=== PATIENT | female | born 1935 | race African-American/Black ===

== ENCOUNTER 2016-07-14 22:12 | Emergency (ER) | payer MEDICARE, MEDICAID ==
--- NOTE | 2016-07-14 23:47 | ER Document Report ---
ED Medical Screen (RME) - General Stated Complaint: WEAKNESS/FLU LIKE SYMPTOMS Time seen by provider: 23:44 Mode of Arrival: Wheelchair Information source: Patient, Relative Notes: 81-year-old female presents to ED for weakness runny nose and cough for 2 days patient denies any fever. States she thought it would go away but it didn't. States she has not been to the doctor in about a month or so. She has a campos for her crohn's and has a colostomy bag. I have greeted and performed a rapid initial assessment of this patient. A comprehensive ED assessment and evaluation of the patient, analysis of test results and completion of medical decision making process will be conducted by an additional ED providers. TRAVEL OUTSIDE OF THE [place] IN LAST 30 DAYS: No - Related Data Allergies/Adverse Reactions: Penicillins Allergy (Verified 07/14/16 23:43) shellfish derived Allergy (Verified 07/14/16 23:43) Past Medical History - Past Medical History Cardiac Medical History: Reports: Hx Hypercholesterolemia, Hx Hypertension Denies: Hx Coronary Artery Disease, Hx Heart Attack Pulmonary Medical History: Denies: Hx Asthma, Hx Bronchitis, Hx COPD, Hx Pneumonia Neurological Medical History: Denies: Hx Cerebrovascular Accident, Hx Seizures Renal/ Medical History: Reports: Hx Renal Insufficiency GI Medical History: Reports: Hx Crohn's Disease, Hx Gastroesophageal Reflux Disease Musculoskeltal Medical History: Reports Hx Arthritis Psychiatric Medical History: Reports: Hx Anxiety, Hx Depression Past Surgical History: Reports: Hx Bowel Surgery - Colectomy for Crohn's disease , Hx Colostomy, Hx Ileostomy - Immunizations Hx Diphtheria, Pertussis, Tetanus Vaccination: Yes Physical Exam - Vital signs Vitals: Temp Pulse Resp BP Pulse Ox 98.4 F 75 20 105/52 L 91 L 07/14/16 23:36 07/14/16 23:36 07/14/16 23:36 07/14/16 23:36 07/14/16 23:36 Course - Vital Signs Vital signs: Temp Pulse Resp BP Pulse Ox 98.4 F 75 20 105/52 L 91 L 07/14/16 23:36 07/14/16 23:36 07/14/16 23:36 07/14/16 23:36 07/14/16 23:36
[2016-07-15 04:35] LABS: ABSOLUTE EOSINOPHILS # (AUTO) 0.2 10^3/uL (0.0-0.6); ABSOLUTE MONOCYTES (AUTO) 0.3 10^3/uL (0.1-1.4); ABSOLUTE NEUT (AUTO) 1.9 10^3/uL (1.7-8.2); BASOPHILS % (AUTO) 0.6 % (0-2); EOSINOPHILS % (AUTO) 5.4 % (0-6); HEMATOCRIT 35.4 % (36.0-47.0); HEMOGLOBIN 11.3 g/dL (12.0-15.5); HGB HCT DIFFERENCE -1.5; LYMPHOCYTES % (AUTO) 30.2 % (13-45); MEAN CORPUSCULAR HEMOGLOBIN 26.4 pg (27.0-33.4); MEAN CORPUSCULAR HGB CONC 31.8 g/dL (32.0-36.0); MEAN CORPUSCULAR VOLUME 83 fl (80-97); MONOCYTES % (AUTO) 7.4 % (3-13); RED BLOOD COUNT 4.26 10^6/uL (3.72-5.28); RED CELL DISTRIBUTION WIDTH 17.2 % (11.5-14.0); SEGMENTED NEUTROPHILS % (AUTO) 56.4 % (42-78); WHITE BLOOD COUNT 3.4 10^3/uL (4.0-10.5)
[2016-07-15 04:47] LABS: ALANINE AMINOTRANSFERASE 21 U/L (9-52); ALBUMIN 3.1 g/dL (3.5-5.0); ALKALINE PHOSPHATASE 103 U/L (38-126); ANION GAP 12 (5-19); ASPARTATE AMINO TRANSFERASE 32 U/L (14-36); BILIRUBIN,TOTAL 0.3 mg/dL (0.2-1.3); BLOOD UREA NITROGEN 22 mg/dL (7-20); CARBON DIOXIDE 26 mmol/L (22-30); CHLORIDE 100 mmol/L (98-107); CREATINE KINASE 714 U/L (30-135); CREATININE RESULT 2.24 mg/dL (0.52-1.25); GLUCOSE 79 mg/dL (75-110); LIPASE 507.2 U/L (23-300); POTASSIUM 4.4 mmol/L (3.6-5.0); TOTAL PROTEIN 6.9 g/dL (6.3-8.2)
[2016-07-15 04:57] LABS: APPEARANCE,URINE SLIGHTLY-CLOUDY; BILIRUBIN,URINE NEGATIVE (NEGATIVE); GLUCOSE, URINE NEGATIVE (NEGATIVE); KETONES,URINE NEGATIVE (NEGATIVE); LEUKOCYTE ESTERASE,URINE SMALL (NEGATIVE); NITRITE,URINE NEGATIVE (NEGATIVE); PROTEIN,URINE 30 mg/dL (NEGATIVE); URINE SPECIFIC GRAVITY 1.017; UROBILINOGEN,URINE NEGATIVE mg/dL (<2.0)
[2016-07-15 04:58] LABS: CREATINE KINASE MB 0.45 ng/mL (<4.55)
[2016-07-15 05:00] LABS: CALCIUM 7.1 mg/dL (8.4-10.2)
[2016-07-15 05:04] LABS: TROPONIN I 0.079 ng/mL
--- NOTE | 2016-07-15 07:15 | ER Document Report ---
ED General - General Time seen by provider: 07:00 Mode of Arrival: Wheelchair Information source: Patient TRAVEL OUTSIDE OF THE [place] IN LAST 30 DAYS: No - HPI Onset: Other - see HPI note Associated symptoms: Nonproductive cough, Rhinnorhea, Weakness. denies: Fever <SRINIVAS BEST - Last Filed: 07/15/16 09:27> <NIXON RIVERA - Last Filed: 07/15/16 13:50> - General Chief Complaint: Flu Symptoms Stated Complaint: WEAKNESS/FLU LIKE SYMPTOMS Notes: Patient is a 81 year old female presenting to the emergency department for cough , weakness, and rhinorrhea. Patient has had these symptoms for the past 2 days. Patient states she took some cough syrup and had some relief however, patient is not feeling better. Patient has also had some decreased appetite. Patient is allergic to penicillin. Patient denies any fever. Patient states she got a flu vaccination this year. Patient has a history of a high output ileostomy, chronic low levels of calcium and magnesium, dementia, and patient has a campos for her crohn's disease. Patient is present with a friend to the emergency department. (SRINIVAS BEST) - Related Data Allergies/Adverse Reactions: Penicillins Allergy (Verified 07/14/16 23:43) shellfish derived Allergy (Verified 07/14/16 23:43) Past Medical History - General Information source: Patient, Relative - Social History Smoking Status: Current Every Day Smoker Cigarette use (# per day): Yes - 1/2 ppd Frequency of alcohol use: None Drug Abuse: None Family History: None Patient has suicidal ideation: No Patient has homicidal ideation: No - Past Medical History Cardiac Medical History: Reports: Hx Hypercholesterolemia, Hx Hypertension Renal/ Medical History: Reports: Hx Renal Insufficiency GI Medical History: Reports: Hx Crohn's Disease, Hx Gastroesophageal Reflux Disease Musculoskeltal Medical History: Reports Hx Arthritis Psychiatric Medical History: Reports: Hx Anxiety, Hx Depression Past Surgical History: Reports: Hx Bowel Surgery - Colectomy for Crohn's disease , colostomy, Hx Colostomy, Hx Ileostomy - Immunizations Hx Diphtheria, Pertussis, Tetanus Vaccination: Yes <SRINIVAS BEST - Last Filed: 07/15/16 09:27> Review of Systems - Review of Systems Constitutional: No symptoms reported. denies: Fever EENT: See HPI, Nose congestion Cardiovascular: No symptoms reported Respiratory: See HPI, Cough Gastrointestinal: No symptoms reported Genitourinary: No symptoms reported Female Genitourinary: No symptoms reported Musculoskeletal: No symptoms reported Skin: No symptoms reported Hematologic/Lymphatic: No symptoms reported Neurological/Psychological: See HPI, Weakness -: Yes All other systems reviewed and negative <SRINIVAS BEST - Last Filed: 07/15/16 09:27> Physical Exam - Vital signs Interpretation: Hypotensive - General General appearance: Appears well, Alert In distress: Mild - HEENT Head: Normocephalic, Atraumatic Eyes: Normal Pupils: PERRL Mucous membranes: Moist - Respiratory Respiratory status: No respiratory distress Chest status: Other - left subclavical campos Breath sounds: Normal Chest palpation: Normal - Cardiovascular Rhythm: Regular Heart sounds: Normal auscultation Murmur: No - Abdominal Inspection: Normal Distension: No distension Bowel sounds: Normal Tenderness: Nontender Organomegaly: No organomegaly - Back Back: Normal, Nontender - Extremities General upper extremity: Normal inspection, Normal ROM, Normal strength General lower extremity: Normal inspection, Normal ROM, Normal strength - Neurological Neuro grossly intact: Yes Cognition: Normal Orientation: AAOx4 Meghan Coma Scale Eye Opening: Spontaneous [place] Coma Scale Verbal: Oriented [place]han Coma Scale Motor: Obeys Commands [place] Coma Scale Total: 15 Speech: Normal - Psychological Associated symptoms: Normal affect, Normal mood - Skin Skin Temperature: Warm Skin Moisture: Dry <SRINIVAS BEST - Last Filed: 07/15/16 09:27> <NIXON RIVERA - Last Filed: 07/15/16 13:50> - Vital signs Vitals: Temp Pulse Resp BP Pulse Ox 98.4 F 75 20 105/52 L 91 L 07/14/16 23:36 07/14/16 23:36 07/14/16 23:36 07/14/16 23:36 07/14/16 23:36 (SRINIVAS BEST) (NIXON RIVERA) Course - Laboratory Result Diagrams: 07/15/16 04:14 07/15/16 04:14 <SRNIIVAS BEST - Last Filed: 07/15/16 09:27> - Laboratory Result Diagrams: 07/15/16 04:14 07/15/16 04:14 - EKG Interpretation by Me EKG shows normal: Sinus rhythm, [place], Intervals, QRS Complexes, ST-T Waves Rate: Normal - 72 Rhythm: NSR [place]/QRS: Left axis deviation Voltage: Consistant with LVH When compared to previous EKG there are: No significant change - Consults Dr. Willard Time consulted: 10:55 Consulted provider: follow-up in office - IVF, Mag, Ca as she sis receiving. F/ U in the office. <NIXON RIVERA - Last Filed: 07/15/16 13:50> - Re-evaluation Re-evalutation: 07/15/16 13:38 A catheterized urine obtained after the patient was hydrated does not suggest an infectious process. (NIXON RIVERA) - Vital Signs Vital signs: Temp Pulse Resp BP Pulse Ox 98.4 F 68 27 H 129/57 H 92 07/14/16 23:36 07/15/16 03:54 07/15/16 13:01 07/15/16 13:01 07/15/16 13:01 (SRINIVAS BEST) (NIXON RIVERA) - Laboratory Laboratory results interpreted by mo: 07/15/16 07/15/16 07/15/16 04:14 04:14 04:14 WBC 3.4 L Hgb 11.3 L Hct 35.4 L MCH 26.4 L MCHC 31.8 L RDW 17.2 H BUN 22 H Creatinine 2.24 H Est GFR ( Amer) 25 L Est GFR (Non-Af Amer) 21 L Calcium 7.1 L Magnesium 0.6 L* Creatine Kinase 714 H Albumin 3.1 L Lipase 507.2 H Urine Protein Urine Glucose (UA) Urine Blood Ur Leukocyte Esterase 07/15/16 07/15/16 04:18 12:15 WBC Hgb Hct MCH MCHC RDW BUN Creatinine Est GFR ( Amer) Est GFR (Non-Af Amer) Calcium Magnesium Creatine Kinase Albumin Lipase Urine Protein 30 H 30 H Urine Glucose (UA) 50 H Urine Blood SMALL H MODERATE H Ur Leukocyte Esterase SMALL H (SRINIVAS BEST) (NIXON RIVERA) Discharge <SRINIVAS BEST - Last Filed: 07/15/16 09:27> <NIXON RIVERA - Last Filed: 07/15/16 13:50> - Discharge Clinical Impression: Dehydration, Hypomagnesemia, Hypocalcemia, Renal insufficiency, High output ileostomy Upper respiratory tract infection Qualifiers: URI type: unspecified URI Qualified Code(s): J06.9 - Acute upper respiratory infection, unspecified Condition: Stable Disposition: HOME, SELF-CARE Additional Instructions: Upper Respiratory Illness: You have a viral infection of the respiratory passages -- a "cold." This common infection causes nasal congestion, drainage, and often sore throat and cough. It is caused by a virus and is highly contagious. The disease usually lasts a week or more, though the worst symptoms are usually over in 3 or 4 days. There is no "cure" for the viral infection -- it must run its course. If there is a complication, such as bacterial infection in the nose, sinuses, middle ear, or bronchial tubes, antibiotics may be required, but antibiotics won 't affect the virus. If you smoke, you should STOP!! Drink plenty of fluids. A humidifier may help. An expectorant medication or decongestant may make you more comfortable. Use acetaminophen or ibuprofen for fever or aches. See the doctor if fever persists over two or three days, if there is any significant worsening of your symptoms, or if you simply fail to improve as expected. //////////////////////////////////////////////////////////////////////////////// ///////////////////////////////////////////////////////////////////////////// Your magnesium and calcium were quite low today. Your were also dehydrated with a significant rise in her creatinine today. You were given 2 L of IV fluid, and supplemental calcium and magnesium the veins. You should administer an additional liter of fluid this evening, and be sure to take your magnesium and calcium and other medications. Call Dr. Willard's office today to schedule an appointment this week for follow- up. RETURN TO THE EMERGENCY ROOM IF ANY NEW OR WORSENING SYMPTOMS. Referrals: ZAY WILLARD MD [Primary Care Provider] - Follow up in 3-5 days Scribe Attestation: 07/15/16 13:50 I personally performed the services described in the documentation, reviewed and edited the documentation which was dictated to the scribe in my presence, and it accurately records my words and actions. (NIXON RIVERA) Scribe Documentation - Scribe Written by Sandra:: Srinivas Best 07/15/16 09:30 acting as scribe for :: Yo <SRINIVAS BEST - Last Filed: 07/15/16 09:27>
[2016-07-15 07:17] LABS: ADD ON TESTING BLD IN LAB ACKNOWLEDGE
[2016-07-15 08:00] LABS: MAGNESIUM 0.6 mg/dL (1.6-2.3)
[2016-07-15] MEDS ORDERED: DEXTROSE 5%-NORMAL SALINE 1,000 ML IV ONE ×2 (08:05→10:59)
[2016-07-15] MEDS ORDERED: CALCIUM GLUCONATE 1,000 MG in DEXTROSE 5%-WATER 50 ML IV ONE (08:08)
[2016-07-15] MEDS: MAGNESIUM SULFATE/D5W 100 ML IV SCH ×2 (08:59→10:02)
[2016-07-15] MEDS ORDERED: CALCIUM GLUCONATE 1000 MG/10 ML INJ IV ONE (09:00)
--- NOTE | 2016-07-15 12:02 | EKG REPORT ---
SEVERITY:- ABNORMAL ECG - SINUS RHYTHM LEFT AXIS DEVIATION PROBABLE LEFT VENTRICULAR HYPERTROPHY : Confirmed by: Stephenie Paiz MD 15-Jul-2016 12:01:40
[2016-07-15] MEDS ORDERED: ONDANSETRON HCL INJ/PF 4 MG/2 ML SDV IV ONE (12:20)
[2016-07-15 12:58] LABS: APPEARANCE,URINE CLEAR; BILIRUBIN,URINE NEGATIVE (NEGATIVE); GLUCOSE, URINE 50 mg/dL (NEGATIVE); KETONES,URINE NEGATIVE (NEGATIVE); LEUKOCYTE ESTERASE,URINE NEGATIVE (NEGATIVE); NITRITE,URINE NEGATIVE (NEGATIVE); PROTEIN,URINE 30 mg/dL (NEGATIVE); URINE SPECIFIC GRAVITY 1.012; UROBILINOGEN,URINE NEGATIVE mg/dL (<2.0)
[2016-07-15 14:09] VITALS: BP 119/55
== END 2016-07-15 14:09 | disposition home or self-care (01) ==
LOC: ER 22:12
DX: J06.9 Acute upper respiratory infection, unspecified (principal); E86.0 Dehydration; E83.42 Hypomagnesemia; E83.51 Hypocalcemia; N28.9 Disorder of kidney and ureter, unspecified; R53.1 Weakness; R05 Cough; F17.210 Nicotine dependence, cigarettes, uncomplicated; E78.00 Pure hypercholesterolemia, unspecified; I10 Essential (primary) hypertension; Z88.0 Allergy status to penicillin; Z93.2 Ileostomy status; Z91.013 Allergy to seafood; Z93.3 Colostomy status
CPT/HCPCS: 93005; 99284; 96361; 51701; 96375; 96365; 96366; 36415; 87040; 82553; 82550; 83690; 83735; 85025; 87077; 80053; 81001; 84484; 87186; 71020; 93010; J3475; J2405

== ENCOUNTER 2016-09-13 17:47 | Emergency (ER) | payer MEDICARE, MEDICAID ==
--- NOTE | 2016-09-13 18:32 | ER Document Report ---
ED Medical Screen (RME) - General Chief Complaint: Dizziness Stated Complaint: DIZZY AND STOMACH PAIN Notes: Patient and family are here with several assorted complaints, but seems the #1 concern that the patient is having and the family can agree to is that she is having a "fullness in her head". She's been feeling dizzy and lightheaded. She 's been nauseated but not vomiting and family says she's had a good appetite. She does have a colostomy due to Crohn's disease. Family member notes that she seems to have had more liquid and water content in her stools over the past 2-3 months. She has been seeing her local primary care provider, Dr. Willard, and he has given some Imodium. He is also advised that she eats more magnesium and potassium. Patient was on an antibiotic for some undetermined infection and finished that antibiotic a couple of weeks ago. TRAVEL OUTSIDE OF THE [place] IN LAST 30 DAYS: No - Related Data Allergies/Adverse Reactions: No Known Allergies Allergy (Unverified 09/13/16 17:52) Past Medical History - Past Medical History Cardiac Medical History: Reports: Hx Hypercholesterolemia, Hx Hypertension Denies: Hx Coronary Artery Disease, Hx Heart Attack Pulmonary Medical History: Denies: Hx Asthma, Hx Bronchitis, Hx COPD, Hx Pneumonia Neurological Medical History: Denies: Hx Cerebrovascular Accident, Hx Seizures Renal/ Medical History: Reports: Hx Renal Insufficiency. Denies: Hx Peritoneal Dialysis GI Medical History: Reports: Hx Crohn's Disease, Hx Gastroesophageal Reflux Disease Musculoskeltal Medical History: Reports Hx Arthritis Psychiatric Medical History: Reports: Hx Anxiety, Hx Depression Past Surgical History: Reports: Hx Bowel Surgery - Colectomy for Crohn's disease , colostomy, Hx Colostomy, Hx Ileostomy - Immunizations Hx Diphtheria, Pertussis, Tetanus Vaccination: Yes
[2016-09-13 18:55] LABS: ABSOLUTE EOSINOPHILS # (AUTO) 0.3 10^3/uL (0.0-0.6); ABSOLUTE LYMPHOCYTES (AUTO) 1.8 10^3/uL (0.5-4.7); ABSOLUTE MONOCYTES (AUTO) 0.4 10^3/uL (0.1-1.4); ABSOLUTE NEUT (AUTO) 2.1 10^3/uL (1.7-8.2); BASOPHILS % (AUTO) 0.8 % (0-2); EOSINOPHILS % (AUTO) 6.6 % (0-6); HEMATOCRIT 33.6 % (36.0-47.0); HEMOGLOBIN 10.7 g/dL (12.0-15.5); HGB HCT DIFFERENCE -1.5; LYMPHOCYTES % (AUTO) 38.7 % (13-45); MEAN CORPUSCULAR HEMOGLOBIN 26.5 pg (27.0-33.4); MEAN CORPUSCULAR HGB CONC 31.7 g/dL (32.0-36.0); MEAN CORPUSCULAR VOLUME 84 fl (80-97); MONOCYTES % (AUTO) 8.2 % (3-13); RED BLOOD COUNT 4.02 10^6/uL (3.72-5.28); RED CELL DISTRIBUTION WIDTH 16.1 % (11.5-14.0); SEGMENTED NEUTROPHILS % (AUTO) 45.7 % (42-78); WHITE BLOOD COUNT 4.6 10^3/uL (4.0-10.5)
[2016-09-13 19:01] LABS: APPEARANCE,URINE SLIGHTLY-CLOUDY; BILIRUBIN,URINE NEGATIVE (NEGATIVE); GLUCOSE, URINE NEGATIVE (NEGATIVE); KETONES,URINE NEGATIVE (NEGATIVE); LEUKOCYTE ESTERASE,URINE TRACE (NEGATIVE); NITRITE,URINE NEGATIVE (NEGATIVE); PROTEIN,URINE NEGATIVE (NEGATIVE); URINE SPECIFIC GRAVITY 1.008; UROBILINOGEN,URINE NEGATIVE mg/dL (<2.0)
[2016-09-13 19:14] LABS: ALANINE AMINOTRANSFERASE 24 U/L (9-52); ALBUMIN 3.5 g/dL (3.5-5.0); ALKALINE PHOSPHATASE 81 U/L (38-126); ANION GAP 14 (5-19); ASPARTATE AMINO TRANSFERASE 21 U/L (14-36); BILIRUBIN,DIRECT 0.2 mg/dL (0.0-0.4); BILIRUBIN,TOTAL 0.2 mg/dL (0.2-1.3); BLOOD UREA NITROGEN 15 mg/dL (7-20); CALCIUM 7.1 mg/dL (8.4-10.2); CARBON DIOXIDE 25 mmol/L (22-30); CHLORIDE 106 mmol/L (98-107); CREATININE RESULT 1.27 mg/dL (0.52-1.25); GLUCOSE 97 mg/dL (75-110); LIPASE 266.7 U/L (23-300); POTASSIUM 5.1 mmol/L (3.6-5.0); SODIUM 144.8 mmol/L (137-145); TOTAL PROTEIN 6.7 g/dL (6.3-8.2)
[2016-09-13] MEDS ORDERED: ONDANSETRON ODT 4 MG TAB (6 TAB/DSPK) PO PRN (21:50)
[2016-09-13] MEDS ORDERED: NORMAL SALINE 1000 ML 1,000 ML IV ONE (21:51)
--- NOTE | 2016-09-13 21:51 | ER Document Report ---
ED General - General Chief Complaint: Dizziness Stated Complaint: DIZZY AND STOMACH PAIN Notes: Patient is an 81-year-old female who presents with a multitude of complaints and has difficulty stating exactly why she came to the emergency department today. Patient does state that the main reason she came to emergency today overall is she's been feeling very fatigued for the past 24 hours. States that she feels that she has no energy to get up off the couch and feels she just wants to sleep all day. She recently had her Xanax increased from once daily to twice daily. She has loose stools and her ostomy that she notes that this is normal for her. She denies any chest pain, shortness of breath, focal weakness or numbness. Headache, neck pain or altered mental status. She is uncertain if she's had similar symptoms in the past. She has not noted that his symptoms improve or worsen her symptoms. She has not seen her primary care doctor regarding today's concerns. TRAVEL OUTSIDE OF THE [place] IN LAST 30 DAYS: No - Related Data Allergies/Adverse Reactions: No Known Allergies Allergy (Unverified 09/13/16 17:52) Past Medical History - General Information source: Patient - Social History Smoking Status: Current Every Day Smoker Chew tobacco use (# tins/day): No Frequency of alcohol use: None Drug Abuse: None Lives with: Family Family History: None Patient has suicidal ideation: No Patient has homicidal ideation: No - Past Medical History Cardiac Medical History: Reports: Hx Hypercholesterolemia, Hx Hypertension Denies: Hx Coronary Artery Disease, Hx Heart Attack Pulmonary Medical History: Denies: Hx Asthma, Hx Bronchitis, Hx COPD, Hx Pneumonia Neurological Medical History: Denies: Hx Cerebrovascular Accident, Hx Seizures Renal/ Medical History: Reports: Hx Renal Insufficiency. Denies: Hx Peritoneal Dialysis GI Medical History: Reports: Hx Crohn's Disease, Hx Gastroesophageal Reflux Disease Musculoskeltal Medical History: Reports Hx Arthritis Psychiatric Medical History: Reports: Hx Anxiety, Hx Depression Past Surgical History: Reports: Hx Bowel Surgery - Colectomy for Crohn's disease , colostomy, Hx Colostomy, Hx Ileostomy - Immunizations Hx Diphtheria, Pertussis, Tetanus Vaccination: Yes Review of Systems - Review of Systems Notes: Constitutional: Negative for fever. HENT: Negative for sore throat. Eyes: Negative for visual changes. Cardiovascular: Negative for chest pain. Respiratory: Negative for shortness of breath. Gastrointestinal: Negative for abdominal pain, vomiting or diarrhea. Genitourinary: Negative for dysuria. Musculoskeletal: Negative for back pain. Skin: Negative for rash. Neurological: Negative for headaches, weakness or numbness. 10 point ROS negative except as marked above and in HPI. Physical Exam - Vital signs Vitals: Resp Pulse Ox 30 H 95 09/13/16 19:31 09/13/16 19:31 Patient is not tachypneic with respiratory rate of 30, my assessment. She is breathing 18 times a minute even and unlabored Interpretation: Normal Notes: PHYSICAL EXAMINATION: GENERAL: W frail, somewhat cachectic female in no distress HEAD: Atraumatic, normocephalic. EYES: Pupils equal round and reactive to light, extraocular movements intact, sclera anicteric, conjunctiva are normal. ENT: nares patent, oropharynx clear without exudates. Moist mucous membranes. NECK: Normal range of motion, supple without lymphadenopathy LUNGS: Breath sounds clear to auscultation bilaterally and equal. No wheezes rales or rhonchi. HEART: Regular rate and rhythm without murmurs ABDOMEN: Soft, ostomy in place with loose stool, nontender, normoactive bowel sounds. No guarding, no rebound. No masses appreciated. EXTREMITIES: Normal range of motion, no pitting or edema. No cyanosis. NEUROLOGICAL: No focal neurological deficits. Moves all extremities spontaneously and on command. PSYCH: Normal mood, normal affect. SKIN: Warm, Dry, normal turgor, no rashes or lesions noted. Course - Re-evaluation Re-evalutation: 09/13/16 21:49 Presentation and an overall well-appearing patient in no acute distress who complains of generalized weakness. At time of evaluation, patient's vitals are within normal limits (she was initially tachycardic but this did resolve at time of my assessment) and they are denying any additional acute complaints. Physical examination without focal findings. No neurologic deficits. They deny any chest pain, shortness of breath, nausea, vomiting, or diarrhea. No dysuria or fever. Basic laboratories including and urinalysis are unremarkable. Troponin is also negative. Low clinical suspicion for ACS, occult pneumonia, acute intra-abdominal pathology, stroke, or transient ischemic attack based on clinical history, examination, and laboratories. They have tolerated oral intake without difficulty. I have discussed the importance of close outpatient follow-up as well as the need to return to emergency room immediately should they have any new or worsening symptoms. I have asked the patient please discontinue the recent medication adjustment made by her primary care doctor to increase her Xanax to twice daily as she states it was after initiating this increase of alprazolam that she began to develop these symptoms. Her symptoms of generalized fatigue are consistent with benzodiazepine increase. The patient and surrogate's are in agreement with this plan and verbalized indications for return to emergency department. - Vital Signs Vital signs: Temp Pulse Resp BP Pulse Ox 110 H 23 H 145/74 H 95 09/13/16 22:13 09/13/16 23:01 09/13/16 23:01 09/13/16 23:01 - Laboratory Result Diagrams: 09/13/16 18:30 09/13/16 18:30 Laboratory results interpreted by me: 09/13/16 09/13/16 09/13/16 18:30 18:30 18:30 Hgb 10.7 L Hct 33.6 L MCH 26.5 L MCHC 31.7 L RDW 16.1 H Eosinophils % 6.6 H Potassium 5.1 H Creatinine 1.27 H Est GFR ( Amer) 49 L Est GFR (Non-Af Amer) 40 L Calcium 7.1 L Urine Blood SMALL H Ur Leukocyte Esterase TRACE H Discharge - Discharge Clinical Impression: Generalized weakness Condition: Good Disposition: HOME, SELF-CARE Additional Instructions: Please reduce the amount of Xanax to her taking back to the original dose prior to your primary care doctor increasing it to twice daily. This is likely causing her symptoms. The remainder of your laboratories today are normal. Please follow closely with your primary care doctor. Return for any new or worsening symptoms including persistent vomiting, passing out, chest pain, shortness of breath, or any other worrisome symptoms. Referrals: ZAY TAYLOR MD [Primary Care Provider] - Follow up in 3-5 days
[2016-09-13 23:17] VITALS: BP 145/74
--- NOTE | 2016-09-14 17:05 | EKG REPORT ---
SEVERITY:- OTHERWISE NORMAL ECG - SINUS RHYTHM VENTRICULAR PREMATURE COMPLEX BORDERLINE LEFT AXIS DEVIATION : Confirmed by: Stephenie Paiz MD 14-Sep-2016 17:04:45
== END 2016-09-13 23:25 | disposition home or self-care (01) ==
LOC: ER 17:47
DX: R53.1 Weakness (principal); R42 Dizziness and giddiness; R10.9 Unspecified abdominal pain; R53.83 Other fatigue; F17.200 Nicotine dependence, unspecified, uncomplicated
CPT/HCPCS: 93005; 99284; 96360; 36415; 87045; 87205; 83690; 85025; 82272; 80053; 81001; 87493 ×2; 93010; J7030; A9270

== ENCOUNTER → 2016-10-02 | Outpatient (CLI) | payer MEDICARE, MEDICAID | LOC: WI 13:54 | PROVIDERS: ATTEND Family Medicine | DX: Z12.31 Encounter for screening mammogram for malignant neoplasm of breast (principal) | CPT/HCPCS: 77067; G0202 ==

== ENCOUNTER 2016-10-13 16:15 | Emergency (ER) | payer MEDICARE, MEDICAID ==
--- NOTE | 2016-10-13 20:17 | ER Document Report ---
ED Medical Screen (RME) - General Chief Complaint: Pain All Over Stated Complaint: BODY ACHES Time Seen by Provider: 10/13/16 20:15 Notes: 81-year-old female, multiple complaints, currently only symptoms are feeling somewhat lightheaded and she states she felt like she was having palpitations earlier. Denies chest pain, shortness of breath, passing out. She denies any areas of pain although states that her knee was hurting earlier. No fevers, no nausea, no vomiting, no head injury. TRAVEL OUTSIDE OF THE [place] IN LAST 30 DAYS: No - Related Data Allergies/Adverse Reactions: No Known Allergies Allergy (Unverified 09/13/16 17:52) Past Medical History - Past Medical History Cardiac Medical History: Reports: Hx Hypercholesterolemia, Hx Hypertension Denies: Hx Coronary Artery Disease, Hx Heart Attack Pulmonary Medical History: Denies: Hx Asthma, Hx Bronchitis, Hx COPD, Hx Pneumonia Neurological Medical History: Denies: Hx Cerebrovascular Accident, Hx Seizures Renal/ Medical History: Reports: Hx Renal Insufficiency. Denies: Hx Peritoneal Dialysis GI Medical History: Reports: Hx Crohn's Disease, Hx Gastroesophageal Reflux Disease Musculoskeltal Medical History: Reports Hx Arthritis Psychiatric Medical History: Reports: Hx Anxiety, Hx Depression Past Surgical History: Reports: Hx Bowel Surgery - Colectomy for Crohn's disease , colostomy, Hx Colostomy, Hx Ileostomy - Immunizations Hx Diphtheria, Pertussis, Tetanus Vaccination: Yes Physical Exam - Vital signs Vitals: Temp Pulse Resp BP Pulse Ox 98.8 F 87 20 179/92 H 95 10/13/16 16:33 10/13/16 16:33 10/13/16 16:33 10/13/16 16:33 10/13/16 16:33 - General General appearance: Appears well In distress: None - Cardiovascular Rhythm: Regular. No: Irregularly irregular, Tachycardia Heart sounds: Normal auscultation, S1 appreciated, S2 appreciated Course - Vital Signs Vital signs: Temp Pulse Resp BP Pulse Ox 98.8 F 87 20 179/92 H 95 10/13/16 16:33 10/13/16 16:33 10/13/16 16:33 10/13/16 16:33 10/13/16 16:33
--- NOTE | 2016-10-13 22:03 | ER Document Report ---
ED General - General Chief Complaint: Pain All Over Stated Complaint: BODY ACHES Time Seen by Provider: 10/13/16 20:15 Mode of Arrival: Ambulatory Information source: Patient, Relative TRAVEL OUTSIDE OF THE [place] IN LAST 30 DAYS: No - HPI Notes: 81-year-old female, multiple complaints, currently only symptoms are feeling somewhat lightheaded and she states she felt like she was having palpitations earlier. Denies chest pain, shortness of breath, passing out. She denies any areas of pain although states that her knee was hurting earlier. No fevers, no nausea, no vomiting, no head injury. Patient reports a headache, not the worst of her life. No neck stiffness. The patient has chronic high output colostomy with history of Crohn's, and the family has been administering IV fluids by way of the Cheney catheter at home for the last month, giving up to 1500 cc of fluids per day, sometimes more. Since receiving the IV fluids, the family reports that the patient has had slightly increased lower extremity swelling and her blood pressures have been running somewhat elevated with last blood pressure 179/92. - Related Data Allergies/Adverse Reactions: No Known Allergies Allergy (Unverified 09/13/16 17:52) Past Medical History - General Information source: Patient - Social History Smoking Status: Never Smoker Frequency of alcohol use: None Drug Abuse: None Lives with: Family Family History: None - Past Medical History Cardiac Medical History: Reports: Hx Hypercholesterolemia, Hx Hypertension Denies: Hx Coronary Artery Disease, Hx Heart Attack Pulmonary Medical History: Denies: Hx Asthma, Hx Bronchitis, Hx COPD, Hx Pneumonia Neurological Medical History: Denies: Hx Cerebrovascular Accident, Hx Seizures Renal/ Medical History: Reports: Hx Renal Insufficiency. Denies: Hx Peritoneal Dialysis GI Medical History: Reports: Hx Crohn's Disease, Hx Gastroesophageal Reflux Disease Musculoskeltal Medical History: Reports Hx Arthritis Psychiatric Medical History: Reports: Hx Anxiety, Hx Depression Past Surgical History: Reports: Hx Bowel Surgery - Colectomy for Crohn's disease , colostomy, Hx Colostomy, Hx Ileostomy - Immunizations Hx Diphtheria, Pertussis, Tetanus Vaccination: Yes Review of Systems - Review of Systems Notes: REVIEW OF SYSTEMS: CONSTITUTIONAL : Denies fever, chills, or sweats. Denies recent illness. EENT: Denies eye, ear, throat, or mouth pain or symptoms. Denies nasal or sinus congestion or discharge. Denies throat, tongue, or mouth swelling or difficulty swallowing. CARDIOVASCULAR: Denies chest pain. RESPIRATORY: Denies cough, cold, or chest congestion. Denies shortness of breath, difficulty breathing, or wheezing. GASTROINTESTINAL: Denies abdominal pain or distention. Denies nausea, vomiting. Denies blood in vomitus, stools, or per rectum. Denies black, tarry stools. Denies constipation. Reports chronic unchanged diarrhea. GENITOURINARY: Denies difficulty urinating, painful urination, burning, frequency, blood in urine, or discharge. FEMALE GENITOURINARY: Denies vaginal bleeding, heavy or abnormal periods, irregular periods. Denies vaginal discharge or odor. MUSCULOSKELETAL: Denies back or neck pain or stiffness. Denies joint pain or swelling. SKIN: Denies rash, lesions or sores. HEMATOLOGIC : Denies easy bruising or bleeding. LYMPHATIC: Denies swollen, enlarged glands. NEUROLOGICAL: Denies confusion or altered mental status. Denies passing out or loss of consciousness. Denies dizziness or lightheadedness. Denies weakness or paralysis or loss of use of either side. Denies problems with gait or speech. Denies sensory loss, numbness, or tingling. Denies seizures. PSYCHIATRIC: Denies anxiety or stress. Denies depression, suicidal ideation, or homicidal ideation. ALL OTHER SYSTEMS REVIEWED AND NEGATIVE. Dictation was performed using [employer] voice recognition software Physical Exam - Vital signs Vitals: Temp Pulse Resp BP Pulse Ox 98.8 F 87 20 179/92 H 95 10/13/16 16:33 10/13/16 16:33 10/13/16 16:33 10/13/16 16:33 10/13/16 16:33 - Notes Notes: PHYSICAL EXAMINATION: GENERAL: Well-appearing, well-nourished and in no acute distress. HEAD: Atraumatic, normocephalic. No temporal arterial tenderness. No TMJ joint tenderness. No maxillary or frontal sinus tenderness. Patient describes her headache is generally diffuse. EYES: Pupils equal round and reactive to light, extraocular movements intact, conjunctiva are normal. Anterior chambers are normal and are not shallow. ENT: Nares patent, oropharynx clear without exudates. Moist mucous membranes. NECK: Normal range of motion, supple without lymphadenopathy. No meningismus. LUNGS: Breath sounds clear to auscultation bilaterally and equal. No wheezes rales or rhonchi. Cheney site left upper chest is clear. HEART: Regular rate and rhythm without murmurs ABDOMEN: Soft, nontender, nondistended abdomen. No guarding, no rebound. No masses appreciated. Colostomy site is clear. Colostomy output is normal. Female : deferred Musculoskeletal: Normal range of motion 1+ bilateral lower extremity edema.. No cyanosis. NEUROLOGICAL: Cranial nerves grossly intact. Normal speech, normal gait. Normal sensory, motor exams. no cerebellar ataxia. PSYCH: Normal mood, normal affect. SKIN: Warm, Dry, normal turgor, no rashes or lesions noted. Course - Re-evaluation Re-evalutation: 10/14/16 02:02 Patient's Cheney catheter was accessed with sterile technique by nursing staff to administer medications IV. Patient was given magnesium sulfate 3 g IV. Vital signs remained stable. 10/14/16 02:02 Patient was given IV magnesium stated she felt better. She was watched on a secured entrance monitor without ectopy or other abnormality. Patient's renal insufficiency was resolved, but I question whether or not the 1500 cc she is receiving daily and IV fluids may be slightly overloading her given her lower extremity edema and slightly elevated blood pressure. It is questionable as to whether not the slightly elevated blood pressure could be causing her headache. There is no evidence for acute intracranial process, CVA, hemorrhage, anemia, other significant electrolyte imbalance. Patient's daughter questions the patient's compliance with her medications regarding her magnesium dosing twice per day. 10/14/16 03:12 10/14/16 03:19 - Vital Signs Vital signs: Temp Pulse Resp BP Pulse Ox 98.6 F 65 19 132/65 H 96 10/13/16 22:06 10/13/16 22:06 10/13/16 22:14 10/14/16 03:00 10/14/16 03:01 - Laboratory Result Diagrams: 10/13/16 22:10 10/13/16 22:10 Laboratory results interpreted by me: 10/13/16 10/13/16 10/13/16 21:48 22:10 22:10 Hgb 10.2 L Hct 32.0 L MCH 26.1 L MCHC 31.9 L RDW 15.8 H Chloride 108 H BUN 6 L Magnesium Total Protein 6.1 L Albumin 3.1 L Urine Protein 30 H Urine Blood SMALL H 10/13/16 22:10 Hgb Hct MCH MCHC RDW Chloride BUN Magnesium 1.1 L* Total Protein Albumin Urine Protein Urine Blood - EKG Interpretation by Me EKG shows normal: Sinus rhythm Additional EKG results interpreted by me: 10/13/16 22:19 EKG as interpreted by me showed normal sinus rhythm heart rate of 66. There was left ventricular hypertrophy identified. There is no gross evidence for acute CO or ischemia noted. No significant change from previous EKG reviewed from 09/13/16. Discharge - Discharge Clinical Impression: Hypomagnesemia, Dizziness Headache Qualifiers: Headache type: other headache syndrome Qualified Code(s): G44.89 - Other headache syndrome Condition: Stable Disposition: HOME, SELF-CARE Instructions: Headache ([facility]) Additional Instructions: Take your magnesium tablet twice a day. Use a pill meeting/event planner to monitor medication administration. Suggest cutting back on IV fluid infusion from 1500 cc to 1000 cc. Referrals: ZAY TAYLOR MD [Primary Care Provider] - Follow up as needed
[2016-10-13 22:24] LABS: ABSOLUTE EOSINOPHILS # (AUTO) 0.2 10^3/uL (0.0-0.6); ABSOLUTE LYMPHOCYTES (AUTO) 1.2 10^3/uL (0.5-4.7); ABSOLUTE MONOCYTES (AUTO) 0.4 10^3/uL (0.1-1.4); ABSOLUTE NEUT (AUTO) 2.7 10^3/uL (1.7-8.2); BASOPHILS % (AUTO) 0.6 % (0-2); EOSINOPHILS % (AUTO) 5.4 % (0-6); HEMOGLOBIN 10.2 g/dL (12.0-15.5); HGB HCT DIFFERENCE -1.4; LYMPHOCYTES % (AUTO) 26.4 % (13-45); MEAN CORPUSCULAR HEMOGLOBIN 26.1 pg (27.0-33.4); MEAN CORPUSCULAR HGB CONC 31.9 g/dL (32.0-36.0); MEAN CORPUSCULAR VOLUME 82 fl (80-97); MONOCYTES % (AUTO) 8.4 % (3-13); RED BLOOD COUNT 3.91 10^6/uL (3.72-5.28); RED CELL DISTRIBUTION WIDTH 15.8 % (11.5-14.0); SEGMENTED NEUTROPHILS % (AUTO) 59.2 % (42-78); WHITE BLOOD COUNT 4.6 10^3/uL (4.0-10.5)
[2016-10-13 22:38] LABS: ALANINE AMINOTRANSFERASE 23 U/L (9-52); ALBUMIN 3.1 g/dL (3.5-5.0); ALKALINE PHOSPHATASE 112 U/L (38-126); ANION GAP 10 (5-19); ASPARTATE AMINO TRANSFERASE 19 U/L (14-36); BILIRUBIN,DIRECT 0.3 mg/dL (0.0-0.4); BILIRUBIN,TOTAL 0.3 mg/dL (0.2-1.3); BLOOD UREA NITROGEN 6 mg/dL (7-20); CALCIUM 8.7 mg/dL (8.4-10.2); CARBON DIOXIDE 26 mmol/L (22-30); CHLORIDE 108 mmol/L (98-107); CREATINE KINASE 85 U/L (30-135); CREATININE RESULT 0.83 mg/dL (0.52-1.25); GLUCOSE 97 mg/dL (75-110); POTASSIUM 4.2 mmol/L (3.6-5.0); SODIUM 143.6 mmol/L (137-145); TOTAL PROTEIN 6.1 g/dL (6.3-8.2)
[2016-10-13 22:50] LABS: CREATINE KINASE MB 0.96 ng/mL (<4.55); TROPONIN I 0.028 ng/mL
--- NOTE | 2016-10-13 23:19 | RADIOLOGY REPORT (SQ) ---
EXAM DESCRIPTION: CT HEAD WITHOUT COMPLETED DATE/TIME: 10/13/2016 10:50 pm REASON FOR STUDY: headache COMPARISON: 12/04/2015 TECHNIQUE: Axial images acquired through the brain without intravenous contrast. Images reviewed wi th bone, brain and subdural windows. Images stored on PACS. All CT scanners at this facility use dose modulation, iterative reconstruction, and/or weight based d osing when appropriate to reduce radiation dose to as low as reasonably achievable (ALARA). [facility]: Dose Right [facility]: CareDose [facility]: Dose Right [facility]: Teradose 4D [facility]: [employer] RADIATION DOSE: 55.31 mGy. LIMITATIONS: None. FINDINGS: VENTRICLES: Normal size and contour. CEREBRUM: No masses. No hemorrhage. No midline shift. Normal mchugh/white matter differentiation. N o evidence for acute infarction. CEREBELLUM: No masses. No hemorrhage. No alteration of density. No evidence for acute infarction. EXTRAAXIAL SPACES: No fluid collections. No masses. ORBITS AND GLOBE: No intra- or extraconal masses. Normal contour of globe without masses. CALVARIUM: No fracture. PARANASAL SINUSES: No fluid or mucosal thickening. SOFT TISSUES: No mass or hematoma. OTHER: No other significant finding. IMPRESSION: No acute intracranial findings. TECHNICAL DOCUMENTATION: JOB ID: [id number] Quality ID # [id number]: Final reports with documentation of one or more dose reduction techniques (e.g., Au tomated exposure control, adjustment of the mA and/or kV according to patient size, use of iterative reconstruction technique) 2010 [employer]- All Rights Reserved
[2016-10-13 23:20] LABS: APPEARANCE,URINE CLEAR; BILIRUBIN,URINE NEGATIVE (NEGATIVE); GLUCOSE, URINE NEGATIVE (NEGATIVE); KETONES,URINE NEGATIVE (NEGATIVE); LEUKOCYTE ESTERASE,URINE NEGATIVE (NEGATIVE); NITRITE,URINE NEGATIVE (NEGATIVE); PROTEIN,URINE 30 mg/dL (NEGATIVE); URINE SPECIFIC GRAVITY 1.008; UROBILINOGEN,URINE NEGATIVE mg/dL (<2.0)
[2016-10-13] MEDS ORDERED: MAGNESIUM SULFATE 100 ML IV ONE (23:35)
[2016-10-14] MEDS: MAGNESIUM SULFATE/D5W 100 ML IV SCH ×3 (00:30→03:11)
[2016-10-14 05:07] VITALS: BP 144/66
--- NOTE | 2016-10-14 07:57 | EKG REPORT ---
SEVERITY:- ABNORMAL ECG - SINUS RHYTHM CONSIDER LEFT VENTRICULAR HYPERTROPHY NONSPECIFIC ST-T CHANGES- INFERIOR LEADS : Confirmed by: Andrea Painter MD 14-Oct-2016 07:56:20
== END 2016-10-14 04:40 | disposition home or self-care (01) ==
LOC: ER 16:15
DX: E83.42 Hypomagnesemia (principal); R42 Dizziness and giddiness; G44.89 Other headache syndrome; M79.1 Myalgia
CPT/HCPCS: 93005; 99284; 96365; 96366; 36415; 84439; 82553; 82550; 83735; 84443; 85025; 80053; 81001; 84484; 70450; 93010; J3475

== ENCOUNTER 2017-02-25 04:49 | Emergency (ER) | payer MEDICARE, MEDICAID ==
[2017-02-25 06:09] LABS: ABSOLUTE EOSINOPHILS # (AUTO) 0.3 10^3/uL (0.0-0.6); ABSOLUTE LYMPHOCYTES (AUTO) 1.5 10^3/uL (0.5-4.7); ABSOLUTE MONOCYTES (AUTO) 0.4 10^3/uL (0.1-1.4); ABSOLUTE NEUT (AUTO) 2.8 10^3/uL (1.7-8.2); BASOPHILS % (AUTO) 0.8 % (0-2); EOSINOPHILS % (AUTO) 6.1 % (0-6); HEMATOCRIT 30.2 % (36.0-47.0); HEMOGLOBIN 9.8 g/dL (12.0-15.5); HGB HCT DIFFERENCE -0.8; LYMPHOCYTES % (AUTO) 30.4 % (13-45); MEAN CORPUSCULAR HEMOGLOBIN 25.7 pg (27.0-33.4); MEAN CORPUSCULAR HGB CONC 32.6 g/dL (32.0-36.0); MEAN CORPUSCULAR VOLUME 79 fl (80-97); MONOCYTES % (AUTO) 8.1 % (3-13); RED BLOOD COUNT 3.84 10^6/uL (3.72-5.28); RED CELL DISTRIBUTION WIDTH 17.7 % (11.5-14.0); SEGMENTED NEUTROPHILS % (AUTO) 54.6 % (42-78)
--- NOTE | 2017-02-25 06:11 | RADIOLOGY REPORT (SQ) ---
EXAM DESCRIPTION: CHEST SINGLE VIEW CLINICAL HISTORY: 81 years, Female, SOB COMPARISON: Chest radiographs of July 15, 2016. NUMBER OF VIEWS: 1 TECHNIQUE: Portable AP chest technique. LIMITATIONS: None. FINDINGS: Unchanged findings of COPD. Indwelling venous central line tip remains in the superior vena cava. The hyperexpanded lungs are clear. Remotely healed right rib fractures. No acute rib fractures on this single view. No pneumothorax. IMPRESSION: 1. Unchanged findings of probable COPD without superimposed acute cardiopulmonary disease. 2. Left indwelling central line tip remains in superior vena cava. 2011 [employer]- All Rights Reserved
[2017-02-25 06:21] LABS: ALANINE AMINOTRANSFERASE 17 U/L (9-52); ALKALINE PHOSPHATASE 79 U/L (38-126); ANION GAP 10 (5-19); ASPARTATE AMINO TRANSFERASE 14 U/L (14-36); BILIRUBIN,DIRECT 0.3 mg/dL (0.0-0.4); BILIRUBIN,TOTAL 0.3 mg/dL (0.2-1.3); BLOOD UREA NITROGEN 12 mg/dL (7-20); CALCIUM 7.2 mg/dL (8.4-10.2); CARBON DIOXIDE 24 mmol/L (22-30); CHLORIDE 110 mmol/L (98-107); CREATINE KINASE 173 U/L (30-135); CREATININE RESULT 1.02 mg/dL (0.52-1.25); GLUCOSE 85 mg/dL (75-110); SODIUM 144.1 mmol/L (137-145); TOTAL PROTEIN 6.1 g/dL (6.3-8.2)
[2017-02-25 06:34] LABS: MAGNESIUM 0.7 mg/dL (1.6-2.3)
[2017-02-25] MEDS ORDERED: NORMAL SALINE 500 ML IV ONE (06:36)
[2017-02-25] MEDS: MAGNESIUM SULFATE/D5W 1 GM/100 ML RTUPB IV SCH ×2 (06:47→08:03)
--- NOTE | 2017-02-25 06:52 | ER Document Report ---
ED General - General Chief Complaint: Weakness Stated Complaint: WEAKNESS Time Seen by Provider: 02/25/17 06:15 TRAVEL OUTSIDE OF THE [place] IN LAST 30 DAYS: No - HPI Patient complains to provider of: Generalized weakness Notes: Patient coming in today complains of generalized weakness. Patient is not a great historian patient states that she has been generally weak for the past 3 days patient states that she has indwelling PICC line and a colostomy patient states that she receives "IV fluids" through her PICC line patient denies any other medications patient states she does have a problem with low magnesium. Patient denies any specific areas of complaint denies headaches chest pain abdominal pain extremity pain denies fevers chills nausea vomiting. - Related Data Allergies/Adverse Reactions: No Known Allergies Allergy (Unverified 09/13/16 17:52) Past Medical History - Social History Smoking Status: Unknown if Ever Smoked Family History: None Patient has suicidal ideation: No Patient has homicidal ideation: No - Past Medical History Cardiac Medical History: Reports: Hx Hypercholesterolemia, Hx Hypertension Denies: Hx Coronary Artery Disease, Hx Heart Attack Pulmonary Medical History: Denies: Hx Asthma, Hx Bronchitis, Hx COPD, Hx Pneumonia Neurological Medical History: Denies: Hx Cerebrovascular Accident, Hx Seizures Renal/ Medical History: Reports: Hx Renal Insufficiency. Denies: Hx Peritoneal Dialysis GI Medical History: Reports: Hx Crohn's Disease, Hx Gastroesophageal Reflux Disease Musculoskeltal Medical History: Reports Hx Arthritis Psychiatric Medical History: Reports: Hx Anxiety, Hx Depression Past Surgical History: Reports: Hx Bowel Surgery - Colectomy for Crohn's disease , colostomy, Hx Colostomy, Hx Ileostomy - Immunizations Hx Diphtheria, Pertussis, Tetanus Vaccination: Yes Review of Systems - Review of Systems Constitutional: Weakness EENT: No symptoms reported Cardiovascular: No symptoms reported Respiratory: No symptoms reported Gastrointestinal: No symptoms reported Genitourinary: No symptoms reported Female Genitourinary: No symptoms reported Musculoskeletal: No symptoms reported Skin: No symptoms reported Hematologic/Lymphatic: No symptoms reported Neurological/Psychological: No symptoms reported -: Yes All other systems reviewed and negative Physical Exam - Vital signs Vitals: Temp Pulse Resp BP Pulse Ox 98.1 F 78 22 H 173/73 H 94 02/25/17 05:05 02/25/17 05:05 02/25/17 05:05 02/25/17 05:05 02/25/17 05:05 Interpretation: Normal - General General appearance: Appears well, Alert - HEENT Head: Normocephalic, Atraumatic Eyes: Normal Pupils: PERRL - Respiratory Respiratory status: No respiratory distress, Other - Central venous catheter in the left upper quadrant with Biopatch on no signs of infection no drainage Chest status: Nontender Breath sounds: Normal Chest palpation: Normal - Cardiovascular Rhythm: Regular Heart sounds: Normal auscultation Murmur: No - Abdominal Inspection: Normal Distension: No distension Bowel sounds: Normal Tenderness: Nontender Organomegaly: No organomegaly Notes: Ostomy site pink with yellow green stool - Back Back: Normal, Nontender - Extremities General upper extremity: Normal inspection, Nontender, Normal color, Normal ROM , Normal temperature General lower extremity: Normal inspection, Nontender, Normal color, Normal ROM , Normal temperature, Normal weight bearing. No: Hallie's sign - Neurological Neuro grossly intact: Yes Cognition: Normal Orientation: AAOx4 Pollock Coma Scale Eye Opening: Spontaneous Pollock Coma Scale Verbal: Oriented Pollock Coma Scale Motor: Obeys Commands Pollock Coma Scale Total: 15 Speech: Normal Motor strength normal: LUE, RUE, LLE, RLE Sensory: Normal - Psychological Associated symptoms: Normal affect, Normal mood - Skin Skin Temperature: Warm Skin Moisture: Dry Skin Color: Normal Course - Re-evaluation Re-evalutation: 02/25/17 06:51 Magnesium is low still waiting on urinalysis. EKG does not show any concerning pathology chest x-rays negative. Patient otherwise on examination shows no critical pathology will replace her magnesium and obtain urinalysis call her PCP for further recommendations 02/25/17 13:12 Magnesium was replaced patient feeling better discussed with PCP recommended that the patient continue her home magnesium this was relayed to the patient patient will be discharged on follow-up primary care physician. - Vital Signs Vital signs: Temp Pulse Resp BP Pulse Ox 98.1 F 78 20 159/71 H 98 02/25/17 05:05 02/25/17 05:05 02/25/17 09:46 02/25/17 09:46 02/25/17 09:46 - Laboratory Result Diagrams: 02/25/17 05:29 02/25/17 05:29 Laboratory results interpreted by me: 02/25/17 02/25/17 02/25/17 05:29 05:29 07:34 Hgb 9.8 L Hct 30.2 L MCV 79 L MCH 25.7 L RDW 17.7 H Eosinophils % 6.1 H Chloride 110 H Est GFR (Non-Af Amer) 52 L Calcium 7.2 L Magnesium 0.7 L* Creatine Kinase 173 H Total Protein 6.1 L Albumin 3.0 L Urine Protein 30 H Discharge - Discharge Clinical Impression: Generalized weakness resolved, Hypomagnesemia Condition: Good Disposition: HOME, SELF-CARE Instructions: Weakness ([facility]) Additional Instructions: I discussed your laboratory findings with your primary care physician Dr. Willard who recommends that she continue your magnesium please take this 3 times a day. Follow-up with your primary care physician in approximately 1 week for reevaluation.
--- NOTE | 2017-02-25 09:01 | EKG REPORT ---
SEVERITY:- ABNORMAL ECG - SINUS RHYTHM LVH WITH SECONDARY REPOLARIZATION ABNORMALITY : Confirmed by: Stephenie Paiz MD 25-Feb-2017 08:59:49
[2017-02-25 09:11] LABS: APPEARANCE,URINE CLEAR; BILIRUBIN,URINE NEGATIVE (NEGATIVE); GLUCOSE, URINE NEGATIVE (NEGATIVE); KETONES,URINE NEGATIVE (NEGATIVE); LEUKOCYTE ESTERASE,URINE NEGATIVE (NEGATIVE); NITRITE,URINE NEGATIVE (NEGATIVE); PROTEIN,URINE 30 mg/dL (NEGATIVE); URINE SPECIFIC GRAVITY 1.015; UROBILINOGEN,URINE NEGATIVE mg/dL (<2.0)
[2017-02-25 10:00] VITALS: BP 159/71
== END 2017-02-25 10:20 | disposition home or self-care (01) ==
LOC: ER 04:49
DX: E83.42 Hypomagnesemia (principal); R53.1 Weakness; I10 Essential (primary) hypertension; Z93.3 Colostomy status
CPT/HCPCS: 93005; 99285; 96365; 96366; 36415; 82550; 83735; 85025; 80053; 81001; 84484; 71010; 93010; J3475; J7040

== ENCOUNTER 2017-04-19 10:04 | Emergency (ER) | payer MEDICARE, MEDICAID ==
[2017-04-19] MEDS ORDERED: CLONIDINE HCL 0.1 MG TABLET PO ONE (10:38)
--- NOTE | 2017-04-19 10:46 | ER Document Report ---
ED General - General Chief Complaint: General Weakness Stated Complaint: HEADACHE Time Seen by Provider: 04/19/17 10:32 Mode of Arrival: Wheelchair Information source: Patient, Relative TRAVEL OUTSIDE OF THE [place] IN LAST 30 DAYS: No - HPI Patient complains to provider of: Elevated BP, SALMON Onset: Other - pt. states she has Crohn's disease and her IV fluid order from Dr. Taylor has recently been increased. Since then, her BP has been increasing and she has been having some SALMON. Not the worst SALMON of her life. Denies CP,N,V, SOB - Related Data Allergies/Adverse Reactions: No Known Allergies Allergy (Verified 04/19/17 10:12) Past Medical History - General Information source: Patient, Relative - Social History Smoking Status: Unknown if Ever Smoked Chew tobacco use (# tins/day): No Frequency of alcohol use: None Drug Abuse: None Family History: None Patient has suicidal ideation: No Patient has homicidal ideation: No - Past Medical History Cardiac Medical History: Reports: Hx Hypercholesterolemia, Hx Hypertension Denies: Hx Coronary Artery Disease, Hx Heart Attack Pulmonary Medical History: Denies: Hx Asthma, Hx Bronchitis, Hx COPD, Hx Pneumonia Neurological Medical History: Denies: Hx Cerebrovascular Accident, Hx Seizures Renal/ Medical History: Reports: Hx Renal Insufficiency. Denies: Hx Peritoneal Dialysis GI Medical History: Reports: Hx Crohn's Disease, Hx Gastroesophageal Reflux Disease Musculoskeltal Medical History: Reports Hx Arthritis Psychiatric Medical History: Reports: Hx Anxiety, Hx Depression Past Surgical History: Reports: Hx Bowel Surgery - Colectomy for Crohn's disease , colostomy, Hx Colostomy, Hx Ileostomy - Immunizations Hx Diphtheria, Pertussis, Tetanus Vaccination: Yes Review of Systems - Review of Systems Constitutional: No symptoms reported EENT: No symptoms reported Cardiovascular: No symptoms reported Respiratory: No symptoms reported Gastrointestinal: No symptoms reported Neurological/Psychological: See HPI, Headaches -: Yes All other systems reviewed and negative Physical Exam - Vital signs Vitals: Temp Pulse Resp BP Pulse Ox 98.7 F 86 16 191/87 H 98 04/19/17 10:08 04/19/17 10:08 04/19/17 10:08 04/19/17 10:08 04/19/17 10:08 - General General appearance: Appears well In distress: None - HEENT Pupils: PERRL Mouth/Lips: Normal Mucous membranes: Normal Pharynx: Normal Neck: Normal - Respiratory Respiratory status: No respiratory distress Breath sounds: Normal - Cardiovascular Rhythm: Regular Heart sounds: Normal auscultation - Abdominal Inspection: Normal Tenderness: Nontender - Neurological Neuro grossly intact: Yes Cognition: Normal Orientation: AAOx4 Course - Re-evaluation Re-evalutation: 04/19/17 11:58 Pt. feels much better at time of d/c -- Dr. Taylor has been down to speak with pt. He will see her in F/U - Vital Signs Vital signs: Temp Pulse Resp BP Pulse Ox 98.7 F 86 16 191/87 H 98 04/19/17 10:08 04/19/17 10:08 04/19/17 10:08 04/19/17 10:08 04/19/17 10:08 - Laboratory Result Diagrams: 04/19/17 10:51 04/19/17 10:51 Laboratory results interpreted by me: 04/19/17 04/19/17 04/19/17 10:51 10:51 11:23 Hgb 10.4 L Hct 32.5 L MCH 26.1 L RDW 18.7 H Sodium 146.1 H Est GFR (Non-Af Amer) 58 L Calcium 7.1 L Magnesium 0.6 L* Albumin 3.3 L Urine Blood SMALL H - Diagnostic Test Radiology reviewed: Reports reviewed - neg - EKG Interpretation by Me EKG shows normal: Sinus rhythm Rate: Normal Rhythm: NSR - NSR Voltage: Consistant with LVH - nsr without acute change Discharge - Discharge Clinical Impression: Hypomagnesemia Cephalgia Qualifiers: Headache type: unspecified Headache chronicity pattern: acute headache Intractability: not intractable Qualified Code(s): R51 - Headache Condition: Stable Disposition: HOME, SELF-CARE Additional Instructions: rest, take meds as prescribed, return if worse Referrals: ZAY TAYLOR MD [Primary Care Provider] - Follow up as needed
[2017-04-19 11:13] LABS: ABSOLUTE EOSINOPHILS # (AUTO) 0.2 10^3/uL (0.0-0.6); ABSOLUTE LYMPHOCYTES (AUTO) 1.3 10^3/uL (0.5-4.7); ABSOLUTE MONOCYTES (AUTO) 0.3 10^3/uL (0.1-1.4); BASOPHILS % (AUTO) 0.9 % (0-2); HEMATOCRIT 32.5 % (36.0-47.0); HEMOGLOBIN 10.4 g/dL (12.0-15.5); HGB HCT DIFFERENCE -1.3; LYMPHOCYTES % (AUTO) 26.3 % (13-45); MEAN CORPUSCULAR HEMOGLOBIN 26.1 pg (27.0-33.4); MEAN CORPUSCULAR HGB CONC 32.2 g/dL (32.0-36.0); MEAN CORPUSCULAR VOLUME 81 fl (80-97); MONOCYTES % (AUTO) 6.6 % (3-13); RED BLOOD COUNT 4.01 10^6/uL (3.72-5.28); RED CELL DISTRIBUTION WIDTH 18.7 % (11.5-14.0); SEGMENTED NEUTROPHILS % (AUTO) 62.2 % (42-78); WHITE BLOOD COUNT 4.8 10^3/uL (4.0-10.5)
[2017-04-19 11:32] LABS: APPEARANCE,URINE CLEAR; BILIRUBIN,URINE NEGATIVE (NEGATIVE); GLUCOSE, URINE NEGATIVE (NEGATIVE); KETONES,URINE NEGATIVE (NEGATIVE); LEUKOCYTE ESTERASE,URINE NEGATIVE (NEGATIVE); NITRITE,URINE NEGATIVE (NEGATIVE); PROTEIN,URINE NEGATIVE (NEGATIVE); URINE SPECIFIC GRAVITY 1.004; UROBILINOGEN,URINE NEGATIVE mg/dL (<2.0)
--- NOTE | 2017-04-19 11:32 | RADIOLOGY REPORT (SQ) ---
EXAM DESCRIPTION: CT HEAD WITHOUT COMPLETED DATE/TIME: 04/19/2017 11:06 am REASON FOR STUDY: SALMON COMPARISON: CT brain 01/06/2009, 12/04/2015, 10/13/2016 TECHNIQUE: Axial images acquired through the brain without intravenous contrast. Images reviewed wi th bone, brain and subdural windows. Images stored on PACS. All CT scanners at this facility use dose modulation, iterative reconstruction, and/or weight based d osing when appropriate to reduce radiation dose to as low as reasonably achievable (ALARA). [facility]: Dose Right [facility]: CareDose [facility]: Dose Right [facility]: Teradose 4D [facility]: [employer] RADIATION DOSE: CT Rad equipment meets quality standard of care and radiation dose reduction techniq ues were employed. CTDIvol: 64.6 mGy. DLP: 1163 mGy-cm. mGy. LIMITATIONS: None. FINDINGS: VENTRICLES: Normal size and contour. CEREBRUM: No masses. No hemorrhage. No midline shift. No evidence for acute infarction. Normal gra y/white matter differentiation. No areas of low density in the white matter. CEREBELLUM: No masses. No hemorrhage. No alteration of density. No evidence for acute infarction. EXTRAAXIAL SPACES: No fluid collections. No masses. ORBITS AND GLOBE: No intra- or extraconal masses. Old right cataract surgery. CALVARIUM: No fracture. PARANASAL SINUSES: No fluid or mucosal thickening. SOFT TISSUES: No mass or hematoma. OTHER: No other significant finding. IMPRESSION: NORMAL BRAIN CT WITHOUT CONTRAST. EVIDENCE OF ACUTE STROKE: NO. COMMENT: Quality ID # [id number]: Final reports with documentation of one or more dose reduction techniques (e.g., Automated exposure control, adjustment of the mA and/or kV according to patient size, use of iterative reconstruction technique) TECHNICAL DOCUMENTATION: JOB ID: [id number] [employer]- All Rights Reserved
[2017-04-19 11:33] LABS: ALANINE AMINOTRANSFERASE 19 U/L (9-52); ALBUMIN 3.3 g/dL (3.5-5.0); ALKALINE PHOSPHATASE 87 U/L (38-126); ANION GAP 11 (5-19); ASPARTATE AMINO TRANSFERASE 18 U/L (14-36); BILIRUBIN,DIRECT 0.4 mg/dL (0.0-0.4); BILIRUBIN,TOTAL 0.4 mg/dL (0.2-1.3); BLOOD UREA NITROGEN 10 mg/dL (7-20); CALCIUM 7.1 mg/dL (8.4-10.2); CARBON DIOXIDE 28 mmol/L (22-30); CHLORIDE 107 mmol/L (98-107); CREATININE RESULT 0.92 mg/dL (0.52-1.25); GLUCOSE 89 mg/dL (75-110); SODIUM 146.1 mmol/L (137-145); TOTAL PROTEIN 6.3 g/dL (6.3-8.2)
[2017-04-19 11:45] LABS: MAGNESIUM 0.6 mg/dL (1.6-2.3)
[2017-04-19] MEDS: MAGNESIUM SULFATE/D5W 1 GM/100 ML RTUPB IV SCH ×2 (12:21→13:26)
[2017-04-19 14:50] VITALS: BP 138/66
--- NOTE | 2017-04-20 06:09 | EKG REPORT ---
SEVERITY:- ABNORMAL ECG - SINUS RHYTHM LEFT VENTRICULAR HYPERTROPHY : Confirmed by: Stephenie Paiz MD 20-Apr-2017 06:08:06
== END 2017-04-19 14:50 | disposition home or self-care (01) ==
LOC: ER 10:04
DX: E83.42 Hypomagnesemia (principal); R51 Headache; R53.1 Weakness; E78.00 Pure hypercholesterolemia, unspecified; I10 Essential (primary) hypertension
CPT/HCPCS: 93005; 99285; 96365; 96366; 36415; 83735; 85025; 80053; 81001; 70450; 93010; A9270; J3475

== ENCOUNTER 2017-09-13 04:28 | Emergency (ER) | payer MEDICARE, MEDICAID ==
[2017-09-13] MEDS ORDERED: NORMAL SALINE 1000 ML 1,000 ML IV ONE (05:06)
[2017-09-13] MEDS ORDERED: MECLIZINE HCL 25 MG TABLET PO ONE (05:06)
--- NOTE | 2017-09-13 05:11 | ER Document Report ---
ED Medical Screen (RME) - General Chief Complaint: Dizziness Stated Complaint: dizziness Time Seen by Provider: 09/13/17 04:54 TRAVEL OUTSIDE OF THE [place] IN LAST 30 DAYS: No - HPI Notes: 09/13/17 05:12 Patient is an 82-year-old female with a history of hypertension, Crohn's with colectomy and ostomy bag, hypercholesterolemia, anxiety who presents to the ED with daughter complaining of dizziness x2 days that is worsened when she is bending over or moving her head. Pt states that she continues to have intermittent abdominal pain and cramping with her Crohn's, but states that she has no new or acute pain from what is her normal. Patient states that she is eating and drinking without difficulties. She is urinating normally. Denies any drug allergies. Daughter states that she is at baseline with her mentation and speech as well as her behavior. Denies any headache, fever, head injury, neck pain, changes in vision/speech/mentation/hearing, URI, sore throat, chest pain, palpitations, syncope, cough, shortness of breath, wheeze, dyspnea, nausea /vomiting/diarrhea, urinary retention, dysuria, hematuria, numbness/tingling, muscle paralysis/weakness, or rash. I have treated and performed a rapid initial assessment of this patient. A comprehensive ED assessment and evaluation of the patient, analysis of test results and completion of medical decision making process will be conducted by additional ED providers. PHYSICAL EXAMINATION: accompanied by female nurse GENERAL: Well-appearing, well-nourished and in no acute distress. A&Ox4. Answers questions appropriately. HEAD: Atraumatic, normocephalic. EYES: Pupils equal round and reactive to light, extraocular movements intact, sclera anicteric, conjunctiva are normal. No nystagmus ENT: Nares patent and without discharge. oropharynx clear without exudates. No tonsilar hypertrophy or erythema. Moist mucous membranes. NECK: Normal range of motion, supple without lymphadenopathy. No rigidity. No midline tenderness. LUNGS: Breath sounds clear to auscultation bilaterally and equal. No wheezes rales or rhonchi. HEART: Regular rate and rhythm without murmurs, rubs, gallops. ABDOMEN: Soft, nontender, nondistended abdomen. No guarding, no rebound. No masses appreciated. Normal bowel sounds present. No CVA tenderness bilaterally. Musculoskeletal: Ext b/l: FROM to passive/active. Strength 5+/5. No deficits noted. No bony tenderness of extremities. Back: FROM to passive/active. Strength 5+/5. No vertebral point tenderness, stepoffs, or deformities. Extremities: No cyanosis, clubbing, or edema b/l. Peripheral pulses 2+. Capillary refill less than 2 seconds. NEUROLOGICAL: NIH 0. GCS 15. Cranial nerves grossly intact. Normal speech. Normal sensory, motor exams. Reflexes 2+ b/l. GERMÁN's negative. Pronator drift negative. Heel/shea, finger/nose wnl. PSYCH: Normal mood, normal affect. SKIN: Warm, Dry, normal turgor, no rashes or lesions noted. - Related Data Allergies/Adverse Reactions: No Known Allergies Allergy (Verified 04/19/17 10:12) Past Medical History - Past Medical History Cardiac Medical History: Reports: Hx Hypercholesterolemia, Hx Hypertension Denies: Hx Coronary Artery Disease, Hx Heart Attack Pulmonary Medical History: Denies: Hx Asthma, Hx Bronchitis, Hx COPD, Hx Pneumonia Neurological Medical History: Denies: Hx Cerebrovascular Accident, Hx Seizures Renal/ Medical History: Reports: Hx Renal Insufficiency. Denies: Hx Peritoneal Dialysis GI Medical History: Reports: Hx Crohn's Disease, Hx Gastroesophageal Reflux Disease Musculoskeltal Medical History: Reports Hx Arthritis Psychiatric Medical History: Reports: Hx Anxiety, Hx Depression Past Surgical History: Reports: Hx Bowel Surgery - Colectomy for Crohn's disease , colostomy, Hx Colostomy, Hx Ileostomy - Immunizations Hx Diphtheria, Pertussis, Tetanus Vaccination: Yes Physical Exam - Vital signs Vitals: Temp Pulse Resp BP Pulse Ox 98.3 F 93 18 150/88 H 95 09/13/17 04:40 09/13/17 04:40 09/13/17 04:40 09/13/17 04:40 09/13/17 04:40 Course - Vital Signs Vital signs: Temp Pulse Resp BP Pulse Ox 98.3 F 93 18 150/88 H 95 09/13/17 04:40 09/13/17 04:40 09/13/17 04:40 09/13/17 04:40 09/13/17 04:40
[2017-09-13 05:34] LABS: ABSOLUTE EOSINOPHILS # (AUTO) 0.3 10^3/uL (0.0-0.6); ABSOLUTE LYMPHOCYTES (AUTO) 1.3 10^3/uL (0.5-4.7); ABSOLUTE MONOCYTES (AUTO) 0.4 10^3/uL (0.1-1.4); BASOPHILS % (AUTO) 0.6 % (0-2); EOSINOPHILS % (AUTO) 6.5 % (0-6); HEMATOCRIT 27.1 % (36.0-47.0); HEMOGLOBIN 8.8 g/dL (12.0-15.5); LYMPHOCYTES % (AUTO) 26.3 % (13-45); MEAN CORPUSCULAR HEMOGLOBIN 25.6 pg (27.0-33.4); MEAN CORPUSCULAR HGB CONC 32.3 g/dL (32.0-36.0); MEAN CORPUSCULAR VOLUME 79 fl (80-97); MONOCYTES % (AUTO) 7.5 % (3-13); PLATELET COUNT 209 10^3/uL (150-450); RED BLOOD COUNT 3.42 10^6/uL (3.72-5.28); RED CELL DISTRIBUTION WIDTH 19.2 % (11.5-14.0); SEGMENTED NEUTROPHILS % (AUTO) 59.1 % (42-78); TOTAL CELLS COUNTED % (AUTO) 100 %
[2017-09-13 05:49] LABS: INTERNATIONAL RATION (INR) 0.99; PROTHROMBIN TIME 13.6 SEC (11.4-15.4)
[2017-09-13 05:58] LABS: PARTIAL THROMBOPLASTIN TIME 31.1 SEC (23.5-35.8)
[2017-09-13 06:01] LABS: ALANINE AMINOTRANSFERASE 17 U/L (9-52); ALBUMIN 2.6 g/dL (3.5-5.0); ALKALINE PHOSPHATASE 74 U/L (38-126); ANION GAP 8 (5-19); ASPARTATE AMINO TRANSFERASE 12 U/L (14-36); BILIRUBIN,DIRECT 0.1 mg/dL (0.0-0.4); BILIRUBIN,TOTAL 0.1 mg/dL (0.2-1.3); BLOOD UREA NITROGEN 13 mg/dL (7-20); CALCIUM 7.9 mg/dL (8.4-10.2); CARBON DIOXIDE 31 mmol/L (22-30); CHLORIDE 107 mmol/L (98-107); CREATINE KINASE 99 U/L (30-135); GLUCOSE 86 mg/dL (75-110); POTASSIUM 3.8 mmol/L (3.6-5.0); SODIUM 146.1 mmol/L (137-145); TOTAL PROTEIN 5.2 g/dL (6.3-8.2)
[2017-09-13 06:13] LABS: CREATINE KINASE MB 1.13 ng/mL (<4.55)
[2017-09-13 06:16] LABS: TROPONIN I < 0.012 ng/mL
[2017-09-13 06:41] LABS: APPEARANCE,URINE CLEAR; BILIRUBIN,URINE NEGATIVE (NEGATIVE); COLOR,URINE STRAW; GLUCOSE, URINE NEGATIVE (NEGATIVE); KETONES,URINE NEGATIVE (NEGATIVE); LEUKOCYTE ESTERASE,URINE NEGATIVE (NEGATIVE); NITRITE,URINE NEGATIVE (NEGATIVE); PROTEIN,URINE NEGATIVE (NEGATIVE); URINE SPECIFIC GRAVITY 1.008; UROBILINOGEN,URINE NEGATIVE mg/dL (<2.0)
--- NOTE | 2017-09-13 06:53 | RADIOLOGY REPORT (SQ) ---
EXAM DESCRIPTION: CT HEAD WITHOUT CLINICAL HISTORY: dizziness COMPARISON: None available TECHNIQUE: Axial CT of the head obtained from the skull apex to the skull base without contrast. FINDINGS: No acute intracranial hemorrhage identified. No mass, mass effect, shift of the midline, abnormal extra-axial fluid collection or CT evidence of acute ischemic change identified. The ventricular system and sulcal spaces are mildly enlarged compatible with mild cerebral atrophy. Scattered areas of hypodensity throughout the supratentorial white matter are nonspecific and may be related to chronic small vessel ischemic change. The visualized paranasal sinuses and the mastoids are clear. No skull fracture identified. Visualized orbits and globes are unremarkable. Atherosclerotic calcification of the intracranial internal carotid arteries. DLP:1017.17 mGy-cm IMPRESSION: 1. No acute intracranial abnormality by CT criteria. This exam was performed according to our departmental dose-optimization program, which includes automated exposure control, adjustment of the mA and/or kV according to patient size and/or use of iterative reconstruction technique.
--- NOTE | 2017-09-13 07:12 | RADIOLOGY REPORT (SQ) ---
EXAM DESCRIPTION: CHEST SINGLE VIEW CLINICAL HISTORY: dizziness COMPARISON: 02/25/2017 FINDINGS: Single frontal view of the chest. At the scar calcification of the thoracic aorta. Cardiomegaly. Left IJ tunneled PICC with tip in the high right atrium. No consolidation, pneumothorax, or pleural effusion. No acute osseous abnormalities. Upper abdominal soft tissues are unremarkable. IMPRESSION: 1. No acute pulmonary process identified.
--- NOTE | 2017-09-13 08:57 | ER Document Report ---
ED General - General Chief Complaint: Dizziness Stated Complaint: dizziness Time Seen by Provider: 09/13/17 04:54 Mode of Arrival: Ambulatory Notes: Patient is an 82-year-old female with a history of hypertension, Crohn's with colectomy and ostomy bag, hypercholesterolemia, anxiety who presents to the ED with daughter complaining of dizziness x2 days that is worsened when she is bending over or moving her head. Patient describes her dizziness as feeling off balance. She has had prior similar symptoms. Pt states that she continues to have intermittent abdominal pain and cramping with her Crohn's, but states that she has no new or acute pain from what is her normal. Patient states that she is eating and drinking without difficulties. She is urinating normally. Denies any drug allergies. Daughter states that she is at baseline with her mentation and speech as well as her behavior. Denies any headache, fever, head injury, neck pain, changes in vision/speech/mentation/hearing, URI, sore throat , chest pain, palpitations, syncope, cough, shortness of breath, wheeze, dyspnea , nausea/vomiting/diarrhea, urinary retention, dysuria, hematuria, numbness/ tingling, muscle paralysis/weakness, or rash. TRAVEL OUTSIDE OF THE [place] IN LAST 30 DAYS: No - HPI Onset: Other - 2 days prior to arrival. - Related Data Allergies/Adverse Reactions: No Known Allergies Allergy (Verified 04/19/17 10:12) Past Medical History - Social History Smoking Status: Current Every Day Smoker Family History: None Patient has suicidal ideation: No Patient has homicidal ideation: No - Past Medical History Cardiac Medical History: Reports: Hx Hypercholesterolemia, Hx Hypertension Denies: Hx Coronary Artery Disease, Hx Heart Attack Pulmonary Medical History: Denies: Hx Asthma, Hx Bronchitis, Hx COPD, Hx Pneumonia Neurological Medical History: Denies: Hx Cerebrovascular Accident, Hx Seizures Renal/ Medical History: Reports: Hx Renal Insufficiency. Denies: Hx Peritoneal Dialysis GI Medical History: Reports: Hx Crohn's Disease, Hx Gastroesophageal Reflux Disease Musculoskeltal Medical History: Reports Hx Arthritis Psychiatric Medical History: Reports: Hx Anxiety, Hx Depression Past Surgical History: Reports: Hx Bowel Surgery - Colectomy for Crohn's disease , colostomy, Hx Colostomy, Hx Ileostomy - Immunizations Hx Diphtheria, Pertussis, Tetanus Vaccination: Yes Review of Systems - Review of Systems Notes: Denies any headache, fever, head injury, neck pain, changes in vision/speech/ mentation/hearing, URI, sore throat, chest pain, palpitations, syncope, cough, shortness of breath, wheeze, dyspnea, nausea/vomiting/diarrhea, urinary retention, dysuria, hematuria, numbness/tingling, muscle paralysis/weakness, or rash. Physical Exam - Vital signs Vitals: Temp Pulse Resp BP Pulse Ox 98.3 F 93 18 150/88 H 95 09/13/17 04:40 09/13/17 04:40 09/13/17 04:40 09/13/17 04:40 09/13/17 04:40 Interpretation: Normal, Hypertensive. No: Hypoxic, Febrile - Notes Notes: PHYSICAL EXAMINATION: GENERAL: well-appearing, well-nourished and in no acute distress. HEAD: Atraumatic, normocephalic. EYES: Pupils equal round and reactive to light, extraocular movements intact, conjunctiva are normal. No nystagmus. ENT: Nares patent, oropharynx clear without exudates. Moist mucous membranes. NECK: Normal range of motion, supple without lymphadenopathy LUNGS: Breath sounds clear to auscultation bilaterally and equal. No wheezes rales or rhonchi. Left upper chest central line in place, no associated erythema.. HEART: Regular rate and rhythm without murmurs ABDOMEN: Soft, nontender, nondistended abdomen. No guarding, no rebound. No masses appreciated. Ostomy bag in place. Female : deferred Musculoskeletal: Normal range of motion, no pitting or edema. No cyanosis. NEUROLOGICAL: Cranial nerves grossly intact. Normal speech. Normal sensory, motor exams. Patient ambulated without difficulty. NIH 0 PSYCH: Normal mood, normal affect. SKIN: Pale, warm, Dry, normal turgor, no rashes or lesions noted. Course - Re-evaluation Re-evalutation: Laboratory 09/13/17 09/13/17 09/13/17 05:20 05:20 05:20 WBC 5.0 RBC 3.42 L Hgb 8.8 L Hct 27.1 L MCV 79 L MCH 25.6 L MCHC 32.3 RDW 19.2 H Plt Count 209 Seg Neutrophils % 59.1 Lymphocytes % 26.3 Monocytes % 7.5 Eosinophils % 6.5 H Basophils % 0.6 Absolute Neutrophils 3.0 Absolute Lymphocytes 1.3 Absolute Monocytes 0.4 Absolute Eosinophils 0.3 Absolute Basophils 0.0 PT INR APTT Sodium 146.1 H Potassium 3.8 Chloride 107 Carbon Dioxide 31 H Anion Gap 8 BUN 13 Creatinine 1.05 Est GFR ( Amer) > 60 Est GFR (Non-Af Amer) 50 L Glucose 86 Calcium 7.9 L Magnesium 1.3 L Total Bilirubin 0.1 L Direct Bilirubin 0.1 Neonat Total Bilirubin Not Reportable Neonat Direct Bilirubin Not Reportable Neonat Indirect Bili Not Reportable AST 12 L ALT 17 Alkaline Phosphatase 74 Creatine Kinase 99 CK-MB (CK-2) 1.13 Troponin I < 0.012 Total Protein 5.2 L Albumin 2.6 L Urine Color Urine Appearance Urine pH Ur Specific [place] Urine Protein Urine Glucose (UA) Urine Ketones Urine Blood Urine Nitrite Urine Bilirubin Urine Urobilinogen Ur Leukocyte Esterase Urine WBC (Auto) Urine RBC (Auto) Squamous Epi Cells Auto Urine Ascorbic Acid Stool Occult Blood 09/13/17 09/13/17 09/13/17 05:20 06:24 06:49 WBC RBC Hgb Hct MCV MCH MCHC RDW Plt Count Seg Neutrophils % Lymphocytes % Monocytes % Eosinophils % Basophils % Absolute Neutrophils Absolute Lymphocytes Absolute Monocytes Absolute Eosinophils Absolute Basophils PT 13.6 INR 0.99 APTT 31.1 Sodium Potassium Chloride Carbon Dioxide Anion Gap BUN Creatinine Est GFR ( Amer) Est GFR (Non-Af Amer) Glucose Calcium Magnesium Total Bilirubin Direct Bilirubin Neonat Total Bilirubin Neonat Direct Bilirubin Neonat Indirect Bili AST ALT Alkaline Phosphatase Creatine Kinase CK-MB (CK-2) Troponin I Total Protein Albumin Urine Color STRAW Urine Appearance CLEAR Urine pH 7.0 Ur Specific [place] 1.008 Urine Protein NEGATIVE Urine Glucose (UA) NEGATIVE Urine Ketones NEGATIVE Urine Blood NEGATIVE Urine Nitrite NEGATIVE Urine Bilirubin NEGATIVE Urine Urobilinogen NEGATIVE Ur Leukocyte Esterase NEGATIVE Urine WBC (Auto) 1 Urine RBC (Auto) 1 Squamous Epi Cells Auto 1 Urine Ascorbic Acid NEGATIVE Stool Occult Blood NEGATIVE Chest X-Ray 09/13/17 05:03 IMPRESSION: 1. No acute pulmonary process identified. Head CT 09/13/17 05:04 IMPRESSION: 1. No acute intracranial abnormality by CT criteria. This exam was performed according to our departmental dose-optimization program, which includes automated exposure control, adjustment of the mA and/or kV according to patient size and/or use of iterative reconstruction technique. 09/13/17 10:02 82-year-old female with history of Crohn's disease, prior colectomy with colostomy, chronic anemia presents with complaint of dizziness that started 2 days prior to arrival. Upon arrival vitals reviewed and within normal limits. Patient is mildly hypertensive but not hypoxic or febrile. She is alert and oriented 4. NIH of 0. Orthostatics vital signs obtained and within normal limits. Symptoms reproduced with rapid head movement. Sitting up abruptly. Patient was administered meclizine. CT of the head and chest were obtained and showed no acute process. Significant laboratory findings include a hemoglobin of 8.8 which is lower than her baseline. Hemoccult was negative. She denies any blood in her ostomy bag. On reevaluation patient states that she is feeling better. I did ambulate the patient without reproduction of symptoms. Did speak to Dr. Taylor who states the patient is chronically dizzy. He was made aware of the hemoglobin of 8.8. He advises discharge home with follow-up in his office in 1-2 days. He states at that time he will repeat the CBC and evaluate for need of blood transfusion. She and daughter are comfortable with discharge home. Patient is eating and drinking prior to discharge. A short course of meclizine was provided. 09/13/17 10:09 After performing a Medical Screening Examination, I estimate there is LOW risk for INTRACRANIAL HEMORRHAGE, ISCHEMIC CVA, MALIGNANT DYSRHYTHMIA, ACUTE CORONARY SYNDROME, MENINGITIS, or SEPSIS thus I consider the discharge disposition reasonable. I have reevaluated this patient multiple times and no significant life threatening changes are noted. The patient and I have discussed the diagnosis and risks, and we agree with discharging home with close follow-up with the understanding that symptoms and presentations can change. We also discussed returning to the Emergency Department immediately if new or worsening symptoms occur. We have discussed the symptoms which are most concerning (e.g., changing or worsening pain, weakness, vomiting, fever) that necessitate immediate return. - Vital Signs Vital signs: Temp Pulse Resp BP Pulse Ox 98.3 F 66 15 167/80 H 96 09/13/17 04:40 09/13/17 05:17 09/13/17 08:31 09/13/17 08:31 09/13/17 08:31 - Laboratory Result Diagrams: 09/13/17 05:20 09/13/17 05:20 Laboratory results interpreted by me: 09/13/17 09/13/17 05:20 05:20 RBC 3.42 L Hgb 8.8 L Hct 27.1 L MCV 79 L MCH 25.6 L RDW 19.2 H Eosinophils % 6.5 H Sodium 146.1 H Carbon Dioxide 31 H Est GFR (Non-Af Amer) 50 L Calcium 7.9 L Magnesium 1.3 L Total Bilirubin 0.1 L AST 12 L Total Protein 5.2 L Albumin 2.6 L - Diagnostic Test Radiology reviewed: Image reviewed, Reports reviewed Discharge - Discharge Clinical Impression: Dizziness Anemia Qualifiers: Anemia type: other cause Other causes of anemia: other cause, not classified Qualified Code(s): D64.89 - Other specified anemias Condition: Good Disposition: HOME, SELF-CARE Instructions: Dizziness ([facility]), Vertigo ([facility]) Prescriptions: Meclizine HCl 12.5 mg PO Q8H PRN #10 tablet PRN Reason: Dizziness Referrals: ZAY TAYLOR MD [Primary Care Provider] - 09/16/17 ED NIH Stroke Scale - NIH Stroke Scale When completed:: Protocol *: 1. NIH scale should be completed with appropriate accompanying assessment tools. *: 2. The NIH should reflect what the patient is capable of doing and should not be coached by the clinician. 1a. Level of Consciousness: 0=Alert;keenly responsive -: 1=Drowsy -: 2=Obtunded -: 3=Coma/unresponsive or reflex to noxious stimuli. 1a. Responses: 0 1b. Orientation Questions: a. What month is it? -: b. How old are you? -: 0=Answers both questions correctly. -: 1=Answers one question correctly or patient is intubated or has orotracheal trauma. -: 2=Answers neither question correctly. 1b. Responses: 0 1c. Response to commands: a. Open and close eyes? -: b. Employee Benefits Director and release hand? -: Credit is given despite weakness. Demonstration of task is permitted. Substitute command if hands cannot be used. -: 0=Performs both tasks correctly -: 1=Performs one task correctly -: 2=Performs neither task correctly 1c. Responses: 0 2. Gaze: Establish eye contact and instruct patient to "Follow my finger" -: 0=Normal -: 1=Partial gaze palsy. Gaze is abnormal in one or both eyes, but where forced deviation or total gaze paresis is not present. -: 2=Forced deviation or total gaze paresis. 2. Responses: 0 3. Visual [place]: Sees fingers in all four quadrants. -: 0=No visual loss. -: 1=Partial hemianopsia. -: 2=Complete hemianopsia. -: 3=Bilateral hemianopsia (including Cortical blindness) 3. Responses: 0 4. Facial Movement: Instruct patient to: -: a. Show me your teeth -: b. Raise your eyebrows -: c. Close your eyes -: d. Smile -: 0=Normal symmetrical movement -: 1=Minor paralysis (flattened nasolabial fold, asymmetry on smiling). -: 2=Partial paralysis (total or near total paralysis of lower face). -: 3=Complete paralysis of upper and lower face 4. Responses: 0 5. Motor functions (left arm): Alternate sides and extend each arm with palms down (90 degrees if sitting or 45 degrees for supine). -: 0=No drift;limb holds for full 10 seconds. -: 1=Drift; limb holds but drifts down before full 10 seconds, but does not hit bed. -: 2=Some effort against gravity; limb cannot get to or maintain position. -: 3=No effort against gravity; limb falls. -: 4=No movement. -: UN=Amputation, joint fusion, explain in comments. 5. Responses (left arm): 0 5. Motor Functions (right arm): Alternate sides and extend each arm with palms down (90 degrees if sitting or 45 degrees for supine). -: 0=No drift;limb holds for full 10 seconds. -: 1=Drift; limb holds but drifts down before full 10 seconds, but does not hit bed. -: 2=Some effort against gravity; limb cannot get to or maintain position. -: 3=No effort against gravity; limb falls. -: 4=No movement. -: UN=Amputation, joint fusion, explain in comments. 5. Responses (right arm): 0 6. Motor Functions (left leg): With patient lying supine, alternate sides and extend each leg (30 degrees always while supine). -: 0=No drift, leg holds position for full 5 seconds -: 1=Drift; leg falls before full 5 seconds but does not hit bed. -: 2=Some effort against gravity, leg falls to bed but some effort against gravity. -: 3=No effort against gravity, leg falls to bed immediately. -: 4=No movement. -: UN=Amputation, joint fusion; explain in comments. 6. Responses (left leg): 0 6. Motor Functions (right leg): With patient lying supine, alternate sides and extend each leg (30 degrees always while supine). -: 0=No drift, leg holds position for full 5 seconds -: 1=Drift; leg falls before full 5 seconds but does not hit bed. -: 2=Some effort against gravity, leg falls to bed but some effort against gravity. -: 3=No effort against gravity, leg falls to bed immediately. -: 4=No movement. -: UN=Amputation, joint fusion; explain in comments. 6. Responses (right leg): 0 7. Limb Ataxia: With eyes open instruct patient to: -: a. "Touch your finger to your nose". -: b. "Touch your heel to your shea" -: 0=Absent -: 1=Present in one limb. -: 2=Present in two limbs. -: UN=Amputation or joint fusion; explain in comments. 7. Responses: 0 8. Sensory: Test sensation using pinprick or noxious stimuli. Test as many body parts as possible. -: 0=Normal;no sensory loss -: 1=Mile to moderate sensory loss (patient feels pin prick but is less sharp on affected side). -: 2=Severe or total sensory loss. 8. Responses: 0 9. Best Language: Instruct patient to: -: a. "Describe what you see in this picture." -: b. "Name the items in this picture." -: c. "Read these sentences." -: 0=No aphasia, normal -: 1=Mild to moderate aphasia. -: 2=Severe aphasia -: 3=Mute, global aphasia, no usable speech or auditory comprehension. 9. Responses: 0 10. Articulation, Dysarthia: Instruct patient to: -: "Read these words" or "Repeat these words" -: 0=Normal -: 1=Mild to moderate; patient may slur some words but can be understood without difficulty. -: 2=Severe; patients speech so slurred as to be unintelligible in the absence of dysphasia. -: UN=Intubated or other physical barrier, explain in comments. 10. Responses: 0 11. Extinction or inattention: 0=No abnormality -: 1= Visual, tactile, auditory, spatial, or personal inattention or extinction to bilateral simulation in one or the sensory modalities. -: 2=Profound karl-inattention or karl-inattention to more than one modality; does not recognize own hand. 11. Responses: 0 Total Score: 0
[2017-09-13 09:09] VITALS: BP 167/80
--- NOTE | 2017-09-13 09:43 | EKG REPORT ---
SEVERITY:- ABNORMAL ECG - SINUS RHYTHM LEFT VENTRICULAR HYPERTROPHY : Confirmed by: Roxane Parker 13-Sep-2017 09:42:18
== END 2017-09-13 09:05 | disposition home or self-care (01) ==
LOC: ER 04:28
DX: D64.9 Anemia, unspecified (principal); R42 Dizziness and giddiness; I10 Essential (primary) hypertension; K50.90 Crohn's disease, unspecified, without complications; Z93.3 Colostomy status; F17.200 Nicotine dependence, unspecified, uncomplicated
CPT/HCPCS: 93005; 99285; 96360; 36415; 82553; 82550; 83735; 85025; 85610; 85730; 82272; 80053; 81001; 84484; 71045; 70450; 93010; A9270; J7030

== ENCOUNTER 2017-12-13 11:33 | Emergency (ER) | payer MEDICARE, MEDICAID ==
[2017-12-13] MEDS ORDERED: MECLIZINE HCL 25 MG TABLET PO ONE (12:17)
--- NOTE | 2017-12-13 12:18 | ER Document Report ---
ED Medical Screen (RME) - General Chief Complaint: Dizziness Stated Complaint: DIZZINESS Time Seen by Provider: 12/13/17 12:14 TRAVEL OUTSIDE OF THE [place] IN LAST 30 DAYS: No - HPI Notes: 12/13/17 12:17 Increased activity yesterday now feels fatigued nauseous and dizziness. Patient otherwise alert and oriented moving all 4 extremities - Related Data Allergies/Adverse Reactions: No Known Allergies Allergy (Verified 12/13/17 11:34) Past Medical History - Past Medical History Cardiac Medical History: Reports: Hx Hypercholesterolemia, Hx Hypertension Denies: Hx Coronary Artery Disease, Hx Heart Attack Pulmonary Medical History: Denies: Hx Asthma, Hx Bronchitis, Hx COPD, Hx Pneumonia Neurological Medical History: Denies: Hx Cerebrovascular Accident, Hx Seizures Renal/ Medical History: Reports: Hx Renal Insufficiency. Denies: Hx Peritoneal Dialysis GI Medical History: Reports: Hx Crohn's Disease, Hx Gastroesophageal Reflux Disease Musculoskeltal Medical History: Reports Hx Arthritis Psychiatric Medical History: Reports: Hx Anxiety, Hx Depression Past Surgical History: Reports: Hx Bowel Surgery - Colectomy for Crohn's disease , colostomy, Hx Colostomy, Hx Ileostomy - Immunizations Hx Diphtheria, Pertussis, Tetanus Vaccination: Yes Review of Systems - Review of Systems Constitutional: Other - Fatigue dizziness Physical Exam - Vital signs Vitals: Temp Pulse Resp BP Pulse Ox 98.5 F 80 20 155/76 H 97 12/13/17 11:55 12/13/17 11:55 12/13/17 11:55 12/13/17 11:55 12/13/17 11:55 - Respiratory Respiratory status: No respiratory distress Chest status: Nontender Breath sounds: Normal Chest palpation: Normal Course - Vital Signs Vital signs: Temp Pulse Resp BP Pulse Ox 98.5 F 80 20 155/76 H 97 12/13/17 11:55 12/13/17 11:55 12/13/17 11:55 12/13/17 11:55 12/13/17 11:55 Doctor's Discharge - Discharge Referrals: ZAY TAYLOR MD [Primary Care Provider] - Follow up as needed
--- NOTE | 2017-12-13 14:57 | RADIOLOGY REPORT (SQ) ---
EXAM DESCRIPTION: CT HEAD WITHOUT COMPLETED DATE/TIME: 12/13/2017 2:24 pm REASON FOR STUDY: dizziness COMPARISON: 09/13/2017 TECHNIQUE: Axial images acquired through the brain without intravenous contrast. Images reviewed wi th bone, brain and subdural windows. Additional sagittal and coronal reconstructions were generated. Images stored on PACS. All CT scanners at this facility use dose modulation, iterative reconstruction, and/or weight based d osing when appropriate to reduce radiation dose to as low as reasonably achievable (ALARA). [facility]: Dose Right [facility]: CareDose [facility]: Dose Right [facility]: Teradose 4D [facility]: Smart LifeDox RADIATION DOSE: CT Rad equipment meets quality standard of care and radiation dose reduction techniq ues were employed. CTDIvol: 53.2 mGy. DLP: 1150 mGy-cm. mGy. LIMITATIONS: None. FINDINGS: VENTRICLES: Normal size and contour. CEREBRUM: No masses. No hemorrhage. No midline shift. No evidence for acute infarction. Normal gra y/white matter differentiation. No areas of low density in the white matter. CEREBELLUM: No masses. No hemorrhage. No alteration of density. No evidence for acute infarction. EXTRAAXIAL SPACES: No fluid collections. No masses. ORBITS AND GLOBE: No intra- or extraconal masses. Normal contour of globe without masses. CALVARIUM: No fracture. PARANASAL SINUSES: No fluid or mucosal thickening. SOFT TISSUES: No mass or hematoma. OTHER: No other significant finding. IMPRESSION: NORMAL BRAIN CT WITHOUT CONTRAST. EVIDENCE OF ACUTE STROKE: NO. COMMENT: Quality ID # [id number]: Final reports with documentation of one or more dose reduction techniques (e.g., Automated exposure control, adjustment of the mA and/or kV according to patient size, use of iterative reconstruction technique) TECHNICAL DOCUMENTATION: JOB ID: [id number] [employer]- All Rights Reserved Reading location - IP/workstation name: [email or web address]
[2017-12-13 15:21] LABS: APPEARANCE,URINE CLEAR; BILIRUBIN,URINE NEGATIVE (NEGATIVE); COLOR,URINE YELLOW; GLUCOSE, URINE NEGATIVE (NEGATIVE); KETONES,URINE NEGATIVE (NEGATIVE); LEUKOCYTE ESTERASE,URINE NEGATIVE (NEGATIVE); NITRITE,URINE NEGATIVE (NEGATIVE); PROTEIN,URINE NEGATIVE (NEGATIVE); UROBILINOGEN,URINE NEGATIVE mg/dL (<2.0)
[2017-12-13 16:49] LABS: ALANINE AMINOTRANSFERASE 15 U/L (9-52); ALBUMIN 3.4 g/dL (3.5-5.0); ALKALINE PHOSPHATASE 84 U/L (38-126); ANION GAP 11 (5-19); ASPARTATE AMINO TRANSFERASE 25 U/L (14-36); BILIRUBIN,DIRECT 0.4 mg/dL (0.0-0.4); BILIRUBIN,TOTAL 0.4 mg/dL (0.2-1.3); BLOOD UREA NITROGEN 11 mg/dL (7-20); CALCIUM 8.7 mg/dL (8.4-10.2); CARBON DIOXIDE 24 mmol/L (22-30); CHLORIDE 111 mmol/L (98-107); GLUCOSE 82 mg/dL (75-110); LIPASE 64.7 U/L (23-300); POTASSIUM 3.8 mmol/L (3.6-5.0); SODIUM 146.4 mmol/L (137-145)
[2017-12-13 16:54] LABS: CREATINE KINASE MB 1.75 ng/mL (<4.55)
[2017-12-13 16:55] LABS: TROPONIN I < 0.012 ng/mL
[2017-12-13 17:06] LABS: ABSOLUTE EOSINOPHILS # (AUTO) 0.3 10^3/uL (0.0-0.6); ABSOLUTE LYMPHOCYTES (AUTO) 1.5 10^3/uL (0.5-4.7); ABSOLUTE MONOCYTES (AUTO) 0.3 10^3/uL (0.1-1.4); ABSOLUTE NEUT (AUTO) 2.4 10^3/uL (1.7-8.2); BASOPHILS % (AUTO) 0.5 % (0-2); EOSINOPHILS % (AUTO) 6.3 % (0-6); HEMOGLOBIN 9.8 g/dL (12.0-15.5); LYMPHOCYTES % (AUTO) 32.6 % (13-45); MEAN CORPUSCULAR HEMOGLOBIN 24.2 pg (27.0-33.4); MEAN CORPUSCULAR HGB CONC 31.7 g/dL (32.0-36.0); MEAN CORPUSCULAR VOLUME 76 fl (80-97); MONOCYTES % (AUTO) 7.5 % (3-13); PLATELET COUNT 282 10^3/uL (150-450); RED BLOOD COUNT 4.07 10^6/uL (3.72-5.28); RED CELL DISTRIBUTION WIDTH 15.7 % (11.5-14.0); SEGMENTED NEUTROPHILS % (AUTO) 53.1 % (42-78); TOTAL CELLS COUNTED % (AUTO) 100 %; WHITE BLOOD COUNT 4.6 10^3/uL (4.0-10.5)
--- NOTE | 2017-12-13 19:24 | ER Document Report ---
ED General - General Chief Complaint: Dizziness Stated Complaint: DIZZINESS Time Seen by Provider: 12/13/17 12:14 Notes: 82-year-old female presents emergency department complaining of intermittent dizziness and weakness onset yesterday while walking and cooking. Daughter thinks this is because of overexertion. Patient states that things got worse this morning she felt "sick" she cannot describe what "sick" means. She does admit that she had some nausea and some dizziness which feels like she is going to fall. Patient did have a headache at the time but states that that has now resolved. Denies any numbness, tingling, weakness. TRAVEL OUTSIDE OF THE [place] IN LAST 30 DAYS: No - Related Data Allergies/Adverse Reactions: No Known Allergies Allergy (Verified 12/13/17 11:34) Past Medical History - General Information source: Patient, Relative - Social History Smoking Status: Current Every Day Smoker Chew tobacco use (# tins/day): No Frequency of alcohol use: None Drug Abuse: None Family History: None Patient has suicidal ideation: No Patient has homicidal ideation: No - Past Medical History Cardiac Medical History: Reports: Hx Hypercholesterolemia, Hx Hypertension Denies: Hx Coronary Artery Disease, Hx Heart Attack Pulmonary Medical History: Denies: Hx Asthma, Hx Bronchitis, Hx COPD, Hx Pneumonia Neurological Medical History: Denies: Hx Cerebrovascular Accident, Hx Seizures Renal/ Medical History: Reports: Hx Renal Insufficiency. Denies: Hx Peritoneal Dialysis GI Medical History: Reports: Hx Crohn's Disease, Hx Gastroesophageal Reflux Disease Musculoskeletal Medical History: Reports Hx Arthritis Psychiatric Medical History: Reports: Hx Anxiety, Hx Depression Past Surgical History: Reports: Hx Bowel Surgery - Colectomy for Crohn's disease , colostomy, Hx Colostomy, Hx Ileostomy - Immunizations Hx Diphtheria, Pertussis, Tetanus Vaccination: Yes Review of Systems - Review of Systems Constitutional: See HPI, Weakness EENT: No symptoms reported Cardiovascular: See HPI, Dyspnea - On exertion, Dizziness Respiratory: See HPI - Dyspnea on exertion Gastrointestinal: See HPI, Vomiting Neurological/Psychological: See HPI - Dyspnea on exertion -: Yes All other systems reviewed and negative Physical Exam - Vital signs Vitals: Temp Pulse Resp BP Pulse Ox 98.5 F 80 20 155/76 H 97 12/13/17 11:55 12/13/17 11:55 12/13/17 11:55 12/13/17 11:55 12/13/17 11:55 Interpretation: Hypertensive - Notes Notes: GENERAL: Alert, interacts well. No acute distress. HEAD: Normocephalic, atraumatic EYES: Pupils equal, round and reactive to light, extraocular movements intact. ENT: Oral mucosa moist, tongue midline. NECK: Full range of motion, supple, trachea midline. LUNGS: Clear to auscultation bilaterally, no wheezes, rales or rhonchi, no respiratory distress. HEART: Regular rate and rhythm, no murmurs, gallops, rubs. ABDOMEN: Soft, nontender, nondistended, bowel sounds present in all 4 quadrants. EXTREMITIES: Moves all 4 extremities spontaneously, no edema, radial and dorsalis pedis pulses 2/4 bilaterally. No cyanosis. NEUROLOGICAL: Alert and oriented x3, normal speech, cranial nerves II through XII grossly intact, biceps and patellar DTRs 2+ bilaterally. PSYCH: Normal mood, normal affect. SKIN: Warm, Dry, normal turgor, no rashes or lesions noted. Course - Re-evaluation Re-evalutation: 12/13/17 19:23 CBC shows chronic anemia with hemoglobin 9.8, CMP grossly unremarkable, initial cardiac enzymes negative, lipase normal, CT scan of the head unremarkable, urinalysis does not show any signs of dehydration or infection. Patient does have dyspnea on exertion and this is concerning for anginal equivalent, patient absolutely refuses to stay to be admitted to the hospital for a full chest pain rule out and she does have a primary care physician, Dr. Taylor. Patient is agreed to have a second set of cardiac enzymes performed and then she will follow up with Dr. Taylor this week for possible stress test. 12/13/17 20:41 Repeat troponin negative as well, patient will be discharged home and encouraged to follow-up with Dr. Taylor for stress test given her increasing dyspnea on exertion. - Vital Signs Vital signs: Temp Pulse Resp BP Pulse Ox 98.5 F 80 20 155/76 H 97 12/13/17 11:55 12/13/17 11:55 12/13/17 11:55 12/13/17 11:55 12/13/17 11:55 - Laboratory Result Diagrams: 12/13/17 16:20 12/13/17 16:20 Laboratory results interpreted by me: 12/13/17 12/13/17 16:20 16:20 Hgb 9.8 L Hct 31.0 L MCV 76 L MCH 24.2 L MCHC 31.7 L RDW 15.7 H Eosinophils % 6.3 H Sodium 146.4 H Chloride 111 H Est GFR (Non-Af Amer) 56 L Albumin 3.4 L - EKG Interpretation by Me Additional EKG results interpreted by me: 12/13/17 20:42 EKG shows sinus rhythm at a rate of 67, left axis deviation, normal intervals, no ST segment elevations or depressions, minimal T-wave inversions in lead III and V2 which are not significant per my interpretation. Discharge - Discharge Clinical Impression: Dizziness, Weakness, Dyspnea on exertion Condition: Stable Disposition: HOME, SELF-CARE Additional Instructions: Today your blood work did not show any signs of heart attack and you are not anemic. The fact that you are getting weak and tired when you are walking around is concerning for possible heart disease. Today you did not have any signs of heart attack but you should still have a stress test. Please call Dr. Taylor first thing Thursday morning to discuss her symptoms and the possibility of a stress test. Referrals: ZAY TAYLOR MD [Primary Care Provider] - Follow up as needed
[2017-12-13 21:11] VITALS: BP 153/81
--- NOTE | 2017-12-13 23:14 | EKG REPORT ---
SEVERITY:- ABNORMAL ECG - SINUS RHYTHM LEFT VENTRICULAR HYPERTROPHY : Confirmed by: Roxane Parker 13-Dec-2017 23:13:48
== END 2017-12-13 21:13 | disposition home or self-care (01) ==
LOC: ER 11:33
DX: R42 Dizziness and giddiness (principal); D64.9 Anemia, unspecified; R53.1 Weakness; R06.09 Other forms of dyspnea; R11.2 Nausea with vomiting, unspecified; I10 Essential (primary) hypertension; F17.200 Nicotine dependence, unspecified, uncomplicated
CPT/HCPCS: 93005; 36591; 99284; 36415; 87086; 82553; 82550; 83690; 85025; 80053; 81001; 84484; 70450; 93010; A9270

== ENCOUNTER 2018-08-13 13:13 | Outpatient (CLI) | payer MEDICARE, MEDICAID ==
[~2018-08-13 13:13] MED LIST: ACETAMINOPHEN 325 MG TABLET PO PRN; DIPHENHYDRAMINE HCL 25 MG CAPSULE PO PRN; FUROSEMIDE INJ/PF 20 MG/2 ML SDV IV PRN
[2018-08-13 13:59] LABS: HEMATOCRIT 25.1 % (36.0-47.0); MEAN CORPUSCULAR HEMOGLOBIN 20.1 pg (27.0-33.4); MEAN CORPUSCULAR HGB CONC 31.2 g/dL (32.0-36.0); MEAN CORPUSCULAR VOLUME 64 fl (80-97); PLATELET COUNT 352 10^3/uL (150-450); RED BLOOD COUNT 3.91 10^6/uL (3.72-5.28); RED CELL DISTRIBUTION WIDTH 18.9 % (11.5-14.0)
[2018-08-13 14:41] LABS: HEMOGLOBIN 7.9 g/dL (12.0-15.5)
[2018-08-13] MEDS ORDERED: NORMAL SALINE 250 ML IV PRN (15:00)
[2018-08-13 21:50] VITALS: BP 160/72
== END 2018-08-13 21:58 | disposition home or self-care (01) ==
LOC: II 13:13 → 4W 14:10 → II 21:58
PROVIDERS: ATTEND Family Medicine
PROC: 3E033GC Introduction of Other Therapeutic Substance into Peripheral Vein, Percutaneous Approach (ICD-10-PCS; principal; 2018-08-13)
PROC: 30233N1 Transfusion of Nonautologous Red Blood Cells into Peripheral Vein, Percutaneous Approach (ICD-10-PCS; 2018-08-13)
DX: D50.8 Other iron deficiency anemias (principal); D63.1 Anemia in chronic kidney disease; N18.9 Chronic kidney disease, unspecified
CPT/HCPCS: 86900; 86901; 36430; 86850; 86920; P9016; A9270 ×2; J1940; J7050; 96374

== ENCOUNTER 2018-08-24 15:32 | Day surgery (SDC) | payer MEDICARE, MEDICAID ==
[2018-08-24] MEDS ORDERED: DIPHENHYDRAMINE HCL 50 MG/ML VIAL ONE (15:45)
[2018-08-24] MEDS ORDERED: ONDANSETRON HCL INJ/PF 4 MG/2 ML SDV ONE (15:45)
[2018-08-24] MEDS ORDERED: NALOXONE HCL INJ/PF 0.4 MG/1 ML SDV ONE (15:46)
[2018-08-24] MEDS ORDERED: EPINEPHRINE INJ 1 MG/10 ML DISP.SYRIN ONE (15:46)
[2018-08-24] MEDS ORDERED: FLUMAZENIL INJ 0.5 MG/5 ML VIAL ONE (15:46)
[2018-08-24] MEDS ORDERED: GLUCAGON,HUMAN RECOMB 1 MG INJ ONE (15:46)
[2018-08-24] MEDS ORDERED: MIDAZOLAM 2 MG/2 ML INJ IV ONE (17:25)
[2018-08-24] MEDS: MIDAZOLAM 2 MG/2 ML INJ ONE ×2 (17:25→17:33)
[2018-08-24] MEDS: FENTANYL CITRATE INJ/PF 100 MCG/2 ML AMPUL ONE ×2 (17:28→17:50)
--- NOTE | 2018-08-24 18:12 | Operative Report ---
Operative Report DATE OF SURGERY: 08/24/18 Operative Report: Pre-op diagnosis: Iron deficiency anemia and history of Crohn's disease Post-op diagnosis: 1. Duodenal angiodysplasia 2. Antral gastritis with erosions 3. 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 The upper endoscope was then inserted into the esophagus under direct vision and advanced into the stomach and further into the duodenum. Detailed examination of the duodenum, stomach and the esophagus was then performed. The upper endoscope was then inserted into the ileostomy and advanced to 50 cm in the ileum. I could not advance further due to redundancy and patient discomfort. Patient tolerated the procedure well. Findings Esophagus: Normal Stomach: Moderate erythema noted in the gastric antrum and body with multiple erosions. Duodenum: A 3 mm angiodysplasia was noted in the distal duodenum and this was cauterized. She also has a large duodenal diverticuli Ileum: A few large ulcers noted in the ileum. There was also a stricture at about 45 cm Plan: Await pathology. Increase omeprazole to 40 mg daily and continue Pentasa OPERATION: .
[2018-08-24 18:56] VITALS: BP 166/81
== END 2018-08-24 19:04 | disposition home or self-care (01) ==
LOC: END 15:32
PROVIDERS: ATTEND Internal Medicine Gastroenterology
DX: K50.90 Crohn's disease, unspecified, without complications (principal); K29.50 Unspecified chronic gastritis without bleeding; K31.811 Angiodysplasia of stomach and duodenum with bleeding; K25.9 Gastric ulcer, unspecified as acute or chronic, without hemorrhage or perforation; K57.10 Diverticulosis of small intestine without perforation or abscess without bleeding; K63.3 Ulcer of intestine; K56.690 Other partial intestinal obstruction; D50.9 Iron deficiency anemia, unspecified; K21.9 Gastro-esophageal reflux disease without esophagitis; F17.210 Nicotine dependence, cigarettes, uncomplicated; Z79.899 Other long term (current) drug therapy
CPT/HCPCS: 43239; 43255; 44388; 88342 ×2; 88305 ×2; J2250; J3010; J0171; J1200; J1610; J2310; J2405; J3490

== ENCOUNTER → 2018-10-14 | Outpatient (CLI) | payer MEDICARE, MEDICAID ==
--- NOTE | 2018-10-14 16:11 | RADIOLOGY REPORT (SQ) ---
EXAM DESCRIPTION: T SPINE AP/LAT COMPLETED DATE/TIME: 10/14/2018 3:21 pm REASON FOR STUDY: PAIN IN THORACIC SPINE; OTHER CHRONIC PAIN M54.6 PAIN IN THORACIC SPINE G89.29 O THER CHRONIC PAIN COMPARISON: None. NUMBER OF VIEWS: Two views. TECHNIQUE: AP and lateral radiographic images acquired of the thoracic spine. LIMITATIONS: None. FINDINGS: MINERALIZATION: Osteopenia. ALIGNMENT: Kyphoscoliosis, stable. VERTEBRAE: Chronic mild compression deformities lower thoracic spine, stable. DISCS: Multilevel disc space narrowing with osteophytes. HARDWARE: None in the spine. MEDIASTINUM AND SOFT TISSUES: Left-sided central line tip overlying cavoatrial junction. VISUALIZED LUNG RENO: Clear. OTHER: No other significant finding. IMPRESSION: Chronic osteoporotic compression fractures. No acute findings. TECHNICAL DOCUMENTATION: JOB ID: [id number] [employer]- All Rights Reserved Reading location - IP/workstation name: [email or web address]
--- NOTE | 2018-10-14 16:12 | RADIOLOGY REPORT (SQ) ---
EXAM DESCRIPTION: LUMBAR SPINE COMPLETE COMPLETED DATE/TIME: 10/14/2018 3:21 pm REASON FOR STUDY: PAIN IN THORACIC SPINE; OTHER CHRONIC PAIN M54.6 PAIN IN THORACIC SPINE G89.29 O THER CHRONIC PAIN COMPARISON: 10/05/2015 NUMBER OF VIEWS: Five views including obliques. TECHNIQUE: AP, lateral, oblique, and sacral radiographic images acquired of the lumbar spine. LIMITATIONS: None. FINDINGS: MINERALIZATION: Osteopenia. SEGMENTATION: Normal. No transitional anatomy. ALIGNMENT: Normal. VERTEBRAE: Mild ventral wedging L1 unchanged. DISCS: Multilevel disc space narrowing with osteophytes. POSTERIOR ELEMENTS: Pedicles and facets are intact. No pars defect or posterior arch defects. Facet arthropathy is present. HARDWARE: None in the spine. PARASPINAL SOFT TISSUES: Normal. PELVIS: Intact as visualized. No fractures or worrisome bone lesions. SI joints intact. OTHER: No other significant finding. IMPRESSION: SPONDYLOSIS WITHOUT BONE LESION OR FRACTURE. TECHNICAL DOCUMENTATION: JOB ID: [id number] [employer]- All Rights Reserved Reading location - IP/workstation name: [email or web address]
== END ==
LOC: OD 14:36
PROVIDERS: ATTEND Family Medicine
DX: M54.6 Pain in thoracic spine (principal); M47.896 Other spondylosis, lumbar region; M80.88XD Other osteoporosis with current pathological fracture, vertebra(e), subsequent encounter for fracture with routine healing; G89.29 Other chronic pain
CPT/HCPCS: 72070; 72110

== ENCOUNTER 2018-10-22 18:16 | Emergency (ER) | payer MEDICARE, MEDICAID ==
--- NOTE | 2018-10-22 21:25 | ER Document Report ---
ED Medical Screen (RME) - General Chief Complaint: Fever Stated Complaint: FEVER Time Seen by Provider: 10/22/18 21:21 Primary Care Provider: ZAY TAYLOR MD [Primary Care Provider] - Follow up as needed Notes: Patient is a 83-year-old female history of dementia, Crohn's disease with colostomy bag also left PICC line. Patient presents to the emergency room because the patient had a "little temperature." This morning. Daughter is unable to tell me what the temperature was. States patient has been "acting weird" today. Daughter states patient took her colostomy bag off and also took the bandaging around her PICC line off. States the patient keeps telling her that "the Lord will heal me." Patient is denying all complaints at this time. GENERAL: Alert, interacts well. No acute distress. ABDOMEN: Soft, non-tender. Non-distended. Bowel sounds present in all 4 quadrants. Colostomy noted left lower quadrant, no bag in place, covered with a washcloth. I have greeted and performed a rapid initial assessment of this patient. A comprehensive ED assessment and evaluation of the patient, analysis of test results and completion of the medical decision making process will be conducted by additional ED providers. TRAVEL OUTSIDE OF THE [place] IN LAST 30 DAYS: No - Related Data Allergies/Adverse Reactions: No Known Allergies Allergy (Verified 10/22/18 18:27) Past Medical History - Past Medical History Cardiac Medical History: Reports: Hx Hypercholesterolemia, Hx Hypertension Denies: Hx Coronary Artery Disease, Hx Heart Attack Pulmonary Medical History: Denies: Hx Asthma, Hx Bronchitis, Hx COPD, Hx Pneumonia Neurological Medical History: Denies: Hx Cerebrovascular Accident, Hx Seizures Renal/ Medical History: Reports: Hx Renal Insufficiency. Denies: Hx Peritoneal Dialysis GI Medical History: Reports: Hx Crohn's Disease, Hx Gastroesophageal Reflux Disease Musculoskeltal Medical History: Reports Hx Arthritis Psychiatric Medical History: Reports: Hx Anxiety, Hx Depression Past Surgical History: Reports: Hx Bowel Surgery - Colectomy for Crohn's disease, colostomy, Hx Colostomy, Hx Hysterectomy, Hx Ileostomy - Immunizations Hx Diphtheria, Pertussis, Tetanus Vaccination: Yes History of Influenza Vaccine for 02/2017 - 07/2017 Season: Yes Influenza Administration Date for 02/2017 - 07/2017 Season: 05/25/18 Physical Exam - Vital signs Vitals: Temp Pulse Resp BP Pulse Ox 98.2 F 64 17 113/70 95 10/22/18 18:48 10/22/18 18:48 10/22/18 18:48 10/22/18 18:48 10/22/18 18:48 Course - Vital Signs Vital signs: Temp Pulse Resp BP Pulse Ox 98.2 F 64 17 113/70 95 10/22/18 18:48 10/22/18 18:48 10/22/18 18:48 10/22/18 18:48 10/22/18 18:48 Doctor's Discharge - Discharge Referrals: ZAY TAYLOR MD [Primary Care Provider] - Follow up as needed
--- NOTE | 2018-10-22 22:41 | RADIOLOGY REPORT (SQ) ---
EXAM DESCRIPTION: XR CHEST 1 VIEW COMPLETED DATE/TME: 10/22/2018 21:25 CLINICAL HISTORY: 83 years, Female, fever COMPARISON: 07/15/2016 chest NUMBER OF VIEWS: 1 TECHNIQUE: Portable chest LIMITATIONS: None. FINDINGS: Heart size is normal. Central venous catheter in place. Lungs clear. Osteopenia. No pneumothorax. Mild elevation right hemidiaphragm IMPRESSION: No acute cardiac pulmonary process copyright 2010 [employer] (ABAM)- All Rights Reserved
[2018-10-22 23:09] LABS: AMORPHOUS SEDIMENT,URINE TRACE /HPF; APPEARANCE,URINE CLOUDY; BILIRUBIN,URINE NEGATIVE (NEGATIVE); GLUCOSE, URINE NEGATIVE (NEGATIVE); KETONES,URINE TRACE mg/dL (NEGATIVE); LEUKOCYTE ESTERASE,URINE LARGE (NEGATIVE); NITRITE,URINE NEGATIVE (NEGATIVE); PROTEIN,URINE 30 mg/dL (NEGATIVE); URINE SPECIFIC GRAVITY 1.021; UROBILINOGEN,URINE NEGATIVE mg/dL (<2.0)
[2018-10-22 23:19] LABS: ABSOLUTE LYMPHOCYTES (AUTO) 0.6 10^3/uL (0.5-4.7); ABSOLUTE MONOCYTES (AUTO) 0.5 10^3/uL (0.1-1.4); ABSOLUTE NEUT (AUTO) 7.2 10^3/uL (1.7-8.2); BASOPHILS % (AUTO) 0.3 % (0-2); EOSINOPHILS % (AUTO) 0.4 % (0-6); HEMATOCRIT 42.6 % (36.0-47.0); HEMOGLOBIN 13.9 g/dL (12.0-15.5); LYMPHOCYTES % (AUTO) 7.5 % (13-45); MEAN CORPUSCULAR HGB CONC 32.5 g/dL (32.0-36.0); MEAN CORPUSCULAR VOLUME 80 fl (80-97); MONOCYTES % (AUTO) 6.2 % (3-13); PLATELET COUNT 280 10^3/uL (150-450); RED BLOOD COUNT 5.33 10^6/uL (3.72-5.28); RED CELL DISTRIBUTION WIDTH 26.5 % (11.5-14.0); SEGMENTED NEUTROPHILS % (AUTO) 85.6 % (42-78); TOTAL CELLS COUNTED % (AUTO) 100 %; WHITE BLOOD COUNT 8.4 10^3/uL (4.0-10.5)
[2018-10-22 23:20] LABS: COLOR,URINE DARK YELLOW
[2018-10-22 23:39] LABS: ALANINE AMINOTRANSFERASE 20 U/L (9-52); ALBUMIN 4.2 g/dL (3.5-5.0); ALKALINE PHOSPHATASE 203 U/L (38-126); ANION GAP 12 (5-19); ASPARTATE AMINO TRANSFERASE 49 U/L (14-36); BILIRUBIN,DIRECT 0.5 mg/dL (0.0-0.4); BILIRUBIN,TOTAL 0.5 mg/dL (0.2-1.3); BLOOD UREA NITROGEN 45 mg/dL (7-20); CARBON DIOXIDE 31 mmol/L (22-30); CHLORIDE 96 mmol/L (98-107); GLUCOSE 135 mg/dL (75-110); POTASSIUM 4.4 mmol/L (3.6-5.0); SODIUM 139.3 mmol/L (137-145); TOTAL PROTEIN 8.5 g/dL (6.3-8.2)
[2018-10-22 23:45] LABS: ANISOCYTOSIS 3+; PLATELET COMMENT ADEQUATE; POIKILOCYTOSIS SLIGHT; TARGET CELLS SLIGHT; TEAR DROP CELLS SLIGHT
[2018-10-22] MEDS ORDERED: CEFTRIAXONE INJ 1000 MG VIAL IV ONE (23:50)
[2018-10-22] MEDS ORDERED: RINGERS SOLUTION,LACTATED 1,000 ML IV ONE (23:50)
--- NOTE | 2018-10-23 02:30 | ER Document Report ---
ED General - General Chief Complaint: Fever Stated Complaint: FEVER Time Seen by Provider: 10/22/18 21:21 Primary Care Provider: ZAY TAYLOR MD [Primary Care Provider] - Follow up tomorrow Notes: Patient is an 83-year-old female with past medical history of Crohn's disease, ostomy in place, hypertension, presents with complaints of several days of progressively worsening bilateral flank pain with associated nausea and fever. States that her symptoms started gradually, have gotten worse since onset. No exacerbating or alleviating factors. Describes the pain in her back as being a throbbing, aching, constant discomfort. Denies a history of similar symptoms in the past. Has not seen her primary care physician regarding today's concerns. TRAVEL OUTSIDE OF THE [place] IN LAST 30 DAYS: No - Related Data Allergies/Adverse Reactions: No Known Allergies Allergy (Verified 10/22/18 18:27) Past Medical History - General Information source: Patient, Relative - Social History Smoking Status: Former Smoker Chew tobacco use (# tins/day): No Frequency of alcohol use: None Drug Abuse: None Lives with: Family Family History: Reviewed & Not Pertinent Patient has suicidal ideation: No Patient has homicidal ideation: No - Past Medical History Cardiac Medical History: Reports: Hx Hypercholesterolemia, Hx Hypertension Denies: Hx Coronary Artery Disease, Hx Heart Attack Pulmonary Medical History: Denies: Hx Asthma, Hx Bronchitis, Hx COPD, Hx Pneumonia Neurological Medical History: Denies: Hx Cerebrovascular Accident, Hx Seizures Renal/ Medical History: Reports: Hx Renal Insufficiency. Denies: Hx Peritoneal Dialysis GI Medical History: Reports: Hx Crohn's Disease, Hx Gastroesophageal Reflux Disease Musculoskeletal Medical History: Reports Hx Arthritis Psychiatric Medical History: Reports: Hx Anxiety, Hx Depression Past Surgical History: Reports: Hx Bowel Surgery - Colectomy for Crohn's disease, colostomy, Hx Colostomy, Hx Hysterectomy, Hx Ileostomy - Immunizations Hx Diphtheria, Pertussis, Tetanus Vaccination: Yes Hx Pneumococcal Vaccination: 05/25/18 Review of Systems - Review of Systems Notes: Constitutional: Negative for fever. HENT: Negative for sore throat. Eyes: Negative for visual changes. Cardiovascular: Negative for chest pain. Respiratory: Negative for shortness of breath. Gastrointestinal: Positive bilateral flank pain and nausea Genitourinary: Positive for urinary frequency Musculoskeletal: Negative for back pain. Skin: Negative for rash. Neurological: Negative for headaches, weakness or numbness. 10 point ROS negative except as marked above and in HPI. Physical Exam - Vital signs Vitals: Temp Pulse Resp BP Pulse Ox 98.2 F 64 17 113/70 95 10/22/18 18:48 10/22/18 18:48 10/22/18 18:48 10/22/18 18:48 10/22/18 18:48 Interpretation: Normal Notes: PHYSICAL EXAMINATION: GENERAL: Well-appearing, well-nourished and in no acute distress. HEAD: Atraumatic, normocephalic. EYES: Pupils equal round and reactive to light, extraocular movements intact, sclera anicteric, conjunctiva are normal. ENT: nares patent, oropharynx clear without exudates. Moist mucous membranes. NECK: Normal range of motion, supple without lymphadenopathy LUNGS: Breath sounds clear to auscultation bilaterally and equal. No wheezes rales or rhonchi. HEART: Regular rate and rhythm without murmurs ABDOMEN: Soft, ostomy in place in the left lower abdomen, nontender, normoactive bowel sounds. No guarding, no rebound. No masses appreciated. EXTREMITIES: Normal range of motion, no pitting or edema. No cyanosis. NEUROLOGICAL: No focal neurological deficits. Moves all extremities spontaneously and on command. PSYCH: Normal mood, normal affect. SKIN: Warm, Dry, normal turgor, no rashes or lesions noted. Course - Re-evaluation Re-evalutation: 10/23/18 02:27 Presentation is most consistent with acute pyelonephritis. Laboratories do demonstrate a large amount of white blood cells in the urine as well as bacteria. Patient has had constitutional symptoms at home as well as a fever. CVA tenderness is present on exam. Labs demonstrate acute renal failure without old labs to support that this is chronic in nature. Patient has been given a dose of IV ceftriaxone and a liter of fluids. Patient is able to tolerate oral intake without difficulty. Due to the patient's advanced age, renal dysfunction in the setting of pyelonephritis I have advised inpatient hospitalization. The patient has declined. A capacity assessment has been undertaken and the patient is alert, oriented, is able to verbalize risks of being discharged home including deterioration of renal function, develop mental severe likely abnormalities, possible need for dialysis, and even . She states understanding these risks stating that she feels much better after receiving her first dose of IV antibiotics and fluids and would prefer to follow-up with her primary care doctor. Her daughter is at the bedside and witnessed the entirety of this conversation. The patient will be discharged home on 7 day course of cephalexin. A urine culture has been sent. Strict return precautions and follow-up recommendations have been discussed at length. - Vital Signs Vital signs: Temp Pulse Resp BP Pulse Ox 98.3 F 88 15 132/59 H 96 10/23/18 02:52 10/23/18 02:52 10/23/18 02:52 10/23/18 02:52 10/23/18 02:52 - Laboratory Result Diagrams: 10/22/18 23:00 10/22/18 23:00 Laboratory results interpreted by me: 10/22/18 10/22/18 10/22/18 21:37 23:00 23:00 RBC 5.33 H MCH 26.0 L RDW 26.5 H Seg Neutrophils % 85.6 H Lymphocytes % 7.5 L Chloride 96 L Carbon Dioxide 31 H BUN 45 H Creatinine 2.22 H Est GFR ( Amer) 25 L Est GFR (Non-Af Amer) 21 L Glucose 135 H Direct Bilirubin 0.5 H AST 49 H Alkaline Phosphatase 203 H Total Protein 8.5 H Urine Protein 30 H Urine Ketones TRACE H Ur Leukocyte Esterase LARGE H - Diagnostic Test Radiology reviewed: Image reviewed, Reports reviewed Radiology results interpreted by me: 10/23/18 02:29 Chest x-ray: No acute infiltrate or pneumothorax Discharge - Discharge Clinical Impression: Pyelonephritis Acute renal failure Qualifiers: Acute renal failure type: unspecified Qualified Code(s): N17.9 - Acute kidney failure, unspecified Condition: Good Disposition: HOME, SELF-CARE Additional Instructions: You have been diagnosed with a condition called pyelonephritis which is an infection involving your kidneys and bladder. You have decided to go home although I have advised that you should be hospitalized. Please return to the emergency department if you would like to be hospitalized and complete your course of treatment. In lieu of hospitalization at your request, you have been given a dose of antibiotics here in the emergency department to help begin to treat this infection. Your also being sent home on antibiotics. Please start taking these later on today when you fill the prescription. Complete the course even if you feel better. Please return if you have persistent vomiting, pass out, have worsening pain, become unable to tolerate fluids, or have any other symptoms that are concerning to you. Please follow-up with your primary care physician in the next 24-48 hours. Prescriptions: RX: Cephalexin Monohydrate [Keflex 500 mg Capsule] 500 mg PO Q6H 7 Days capsule Referrals: ZAY TAYLOR MD [Primary Care Provider] - Follow up tomorrow
[2018-10-23 03:03] VITALS: BP 132/59
== END 2018-10-23 03:04 | disposition home or self-care (01) ==
LOC: ER 18:16
DX: N12 Tubulo-interstitial nephritis, not specified as acute or chronic (principal); N17.9 Acute kidney failure, unspecified; R50.9 Fever, unspecified; R10.9 Unspecified abdominal pain; R11.0 Nausea; M54.9 Dorsalgia, unspecified; I10 Essential (primary) hypertension; Z90.49 Acquired absence of other specified parts of digestive tract; Z87.891 Personal history of nicotine dependence
CPT/HCPCS: 99284; 96361; 96365; 36415; 87040; 87086; 83605; 85025; 87088; 80053; 81001; 87186; 71045; J0696; J7120

== ENCOUNTER 2018-11-22 15:02 | Emergency (ER) | payer MEDICARE, MEDICAID ==
[2018-11-22 16:32] LABS: ABSOLUTE EOSINOPHILS # (AUTO) 0.1 10^3/uL (0.0-0.6); ABSOLUTE LYMPHOCYTES (AUTO) 1.2 10^3/uL (0.5-4.7); ABSOLUTE MONOCYTES (AUTO) 0.3 10^3/uL (0.1-1.4); ABSOLUTE NEUT (AUTO) 4.6 10^3/uL (1.7-8.2); BASOPHILS % (AUTO) 0.5 % (0-2); HEMATOCRIT 40.2 % (36.0-47.0); LYMPHOCYTES % (AUTO) 19.5 % (13-45); MEAN CORPUSCULAR HEMOGLOBIN 27.4 pg (27.0-33.4); MEAN CORPUSCULAR HGB CONC 32.3 g/dL (32.0-36.0); MEAN CORPUSCULAR VOLUME 85 fl (80-97); MONOCYTES % (AUTO) 5.4 % (3-13); PLATELET COUNT 230 10^3/uL (150-450); RED BLOOD COUNT 4.74 10^6/uL (3.72-5.28); RED CELL DISTRIBUTION WIDTH 20.2 % (11.5-14.0); SEGMENTED NEUTROPHILS % (AUTO) 73.6 % (42-78); TOTAL CELLS COUNTED % (AUTO) 100 %; WHITE BLOOD COUNT 6.3 10^3/uL (4.0-10.5)
[2018-11-22 16:36] LABS: ALANINE AMINOTRANSFERASE 14 U/L (9-52); ALBUMIN 3.4 g/dL (3.5-5.0); ALKALINE PHOSPHATASE 137 U/L (38-126); ANION GAP 10 (5-19); ASPARTATE AMINO TRANSFERASE 17 U/L (14-36); BILIRUBIN,DIRECT 0.4 mg/dL (0.0-0.4); BILIRUBIN,TOTAL 0.4 mg/dL (0.2-1.3); BLOOD UREA NITROGEN 34 mg/dL (7-20); CALCIUM 9.4 mg/dL (8.4-10.2); CARBON DIOXIDE 30 mmol/L (22-30); CHLORIDE 101 mmol/L (98-107); CREATINE KINASE 27 U/L (30-135); GLUCOSE 133 mg/dL (75-110); POTASSIUM 4.5 mmol/L (3.6-5.0); TOTAL PROTEIN 6.7 g/dL (6.3-8.2)
[2018-11-22 16:49] LABS: CREATINE KINASE MB 0.47 ng/mL (<4.55)
[2018-11-22 16:51] LABS: TROPONIN I < 0.012 ng/mL
[2018-11-22 17:00] LABS: ANISOCYTOSIS 2+; PLATELET COMMENT ADEQUATE; PLATELET GIANT PRESENT; PLATELET LARGE PRESENT; TARGET CELLS SLIGHT
[2018-11-22] MEDS ORDERED: NORMAL SALINE 1000 ML 1,000 ML IV ONE ×2 (17:23→18:42)
--- NOTE | 2018-11-22 17:28 | ER Document Report ---
ED General - General Chief Complaint: Syncope Stated Complaint: SYNCOPE Time Seen by Provider: 11/22/18 16:16 Primary Care Provider: ZAY TAYLOR MD [Primary Care Provider] - Follow up as needed TRAVEL OUTSIDE OF THE [place] IN LAST 30 DAYS: No - HPI Notes: Patient is an 83-year-old female with a history of Crohn's disease who presents the emergency department for evaluation of a syncopal episode. Evidently she was walking to her neighbor's house. She sat down, got very dizzy, and was "unresponsive" for about 2 minutes. The patient denies any pain or difficulty breathing associated with this. She states she has felt dizzy. According to the daughter, she has had decreased oral intake over the last several days. Has a result ostomy output has been down as well. She complains of some pain in her lower back which is not abnormal for her. Patient is a DNR. - Related Data Allergies/Adverse Reactions: No Known Allergies Allergy (Verified 10/22/18 18:27) Past Medical History - General Information source: Patient, Relative - Social History Smoking Status: Current Some Day Smoker Drug Abuse: None Family History: Reviewed & Not Pertinent Patient has suicidal ideation: No Patient has homicidal ideation: No - Past Medical History Cardiac Medical History: Reports: Hx Hypercholesterolemia, Hx Hypertension Denies: Hx Coronary Artery Disease, Hx Heart Attack Pulmonary Medical History: Denies: Hx Asthma, Hx Bronchitis, Hx COPD, Hx Pneumonia Neurological Medical History: Denies: Hx Cerebrovascular Accident, Hx Seizures Renal/ Medical History: Reports: Hx Renal Insufficiency. Denies: Hx Perito maday Dialysis GI Medical History: Reports: Hx Crohn's Disease, Hx Gastroesophageal Reflux Disease Musculoskeletal Medical History: Reports Hx Arthritis Psychiatric Medical History: Reports: Hx Anxiety, Hx Depression Past Surgical History: Reports: Hx Bowel Surgery - Colectomy for Crohn's disease, colostomy, Hx Colostomy, Hx Hysterectomy, Hx Ileostomy - Immunizations Hx Diphtheria, Pertussis, Tetanus Vaccination: Yes Hx Pneumococcal Vaccination: 05/25/18 Review of Systems - Review of Systems Constitutional: See HPI EENT: No symptoms reported Cardiovascular: See HPI Respiratory: No symptoms reported Gastrointestinal: See HPI Genitourinary: No symptoms reported Musculoskeletal: See HPI Skin: No symptoms reported Neurological/Psychological: No symptoms reported Physical Exam - Vital signs Vitals: Resp Pulse Ox 25 H 92 11/22/18 15:35 11/22/18 15:35 - Notes Notes: This is a frail-appearing 83-year-old female in no acute distress. Vital signs reviewed, please refer to chart. Head is normocephalic, atraumatic. Pupils equal round, reactive to light. Neck is supple without meningismus. Heart is regular rate and rhythm. Lungs are clear to auscultation bilaterally. Abdomen is soft, nontender, normoactive bowel sounds throughout. She does have a colostomy noted in the left abdomen, small amount of liquid green stool noted. Extremities without cyanosis, clubbing. Posterior calves are nontender. Peripheral pulses are equal. Skin is warm and dry. Patient is awake, alert, neurological exam is nonfocal. Course - Re-evaluation Re-evalutation: 11/22/18 17:26 Presents emergency department for evaluation. EMS found her to be significantly hypotensive. She was given a liter of normal saline in the field. Laboratory investigations here thus far reveal elevated creatinine. Her creatinine had been further elevated at her last visit, where she left AGAINST MEDICAL ADVICE for a diagnosis of pyelonephritis. Prior to this she had had baseline normal renal functions. My suspicion given her lower p.o. intake is that this is currently related to that, but I am awaiting urine sample. The patient does not wish to have a straight cath at this time. Awaiting urine. 11/22/18 22:13 Urine was found to be unremarkable. Patient was still mildly orthostatic, with an increase of her heart rate with standing. She has not been nauseous or vomiting. She is just had diminished p.o. intake. She really does not want to stay in the hospital, and I believe is reasonable to have her just increase fluids. Patient's daughter is amenable to this plan as well. She is to follow- up with primary care next week, return to the emergency department with worsening or new concerning symptoms of any sort. - Vital Signs Vital signs: Temp Pulse Resp BP Pulse Ox 97.6 F 92 25 H 105/56 L 92 11/22/18 15:37 11/22/18 20:55 11/22/18 15:35 11/22/18 20:55 11/22/18 15:35 - Laboratory Result Diagrams: 11/22/18 15:30 11/22/18 15:30 Laboratory results interpreted by me: 11/22/18 11/22/18 11/22/18 15:30 15:30 15:30 RDW 20.2 H BUN 34 H Creatinine 1.97 H Est GFR ( Amer) 29 L Est GFR (Non-Af Amer) 24 L Glucose 133 H Magnesium 1.3 L Alkaline Phosphatase 137 H Creatine Kinase 27 L Albumin 3.4 L Urine Protein Ur Leukocyte Esterase 11/22/18 20:50 RDW BUN Creatinine Est GFR ( Amer) Est GFR (Non-Af Amer) Glucose Magnesium Alkaline Phosphatase Creatine Kinase Albumin Urine Protein 30 H Ur Leukocyte Esterase TRACE H - EKG Interpretation by Me Additional EKG results interpreted by me: 11/22/18 17:27 Sinus tachycardia with a rate of 109 bpm. Left axis deviation. Nonspecific ST changes, but no acute changes concerning for ischemia or infarction. No significant change when compared to prior study. Discharge - Discharge Clinical Impression: Hypotension Acute renal failure Qualifiers: Acute renal failure type: unspecified Qualified Code(s): N17.9 - Acute kidney failure, unspecified Syncope Qualifiers: Encounter type: initial encounter Condition: Stable Disposition: HOME, SELF-CARE Instructions: Syncopal Episode ([facility]), Hypotension ([facility]) Additional Instructions: Increase fluid intake., Get up slowly from lying down or sitting. Follow-up with your doctor this week. If you develop worsening or new concerning symptoms of any sort, return immediately to the emergency department for reevaluation. Referrals: ZAY TAYLOR MD [Primary Care Provider] - Follow up as needed
[2018-11-22 20:56] VITALS: BP 105/56
[2018-11-22 21:44] LABS: APPEARANCE,URINE CLOUDY; BILIRUBIN,URINE NEGATIVE (NEGATIVE); GLUCOSE, URINE NEGATIVE (NEGATIVE); KETONES,URINE NEGATIVE (NEGATIVE); LEUKOCYTE ESTERASE,URINE TRACE (NEGATIVE); NITRITE,URINE NEGATIVE (NEGATIVE); PROTEIN,URINE 30 mg/dL (NEGATIVE); URINE SPECIFIC GRAVITY 1.018; UROBILINOGEN,URINE NEGATIVE mg/dL (<2.0)
[2018-11-22 21:45] LABS: COLOR,URINE YELLOW
--- NOTE | 2018-11-24 00:18 | EKG REPORT ---
SEVERITY:- ABNORMAL ECG - SINUS TACHYCARDIA LEFT ANTERIOR FASCICULAR BLOCK LEFT VENTRICULAR HYPERTROPHY : Confirmed by: Roxane Parker 24-Nov-2018 00:17:41
== END 2018-11-22 23:01 | disposition home or self-care (01) ==
LOC: ER 15:02
DX: I95.9 Hypotension, unspecified (principal); N17.9 Acute kidney failure, unspecified; R55 Syncope and collapse; R42 Dizziness and giddiness; F17.200 Nicotine dependence, unspecified, uncomplicated; E78.00 Pure hypercholesterolemia, unspecified; I10 Essential (primary) hypertension; Z90.710 Acquired absence of both cervix and uterus; Z93.3 Colostomy status
CPT/HCPCS: 93005; 99284; 96360; 36415; 82553; 82550; 83735; 85025; 80053; 81001; 84484; 93010; J7030

== ENCOUNTER 2018-11-30 16:58 | Emergency (ER) | payer MEDICARE, MEDICAID ==
[2018-11-30] MEDS ORDERED: RINGERS SOLUTION,LACTATED 1,000 ML IV ONE (17:29)
[2018-11-30 18:01] LABS: VENOUS BLOOD BASE EXCESS 0.5 mmol/L; VENOUS BLOOD HCO3 25.4 mmol/L (20-32); VENOUS BLOOD PCO2 42.3 mmHg (35-63); VENOUS BLOOD PH 7.4 (7.30-7.42)
[2018-11-30 18:02] LABS: INTERNATIONAL RATION (INR) 1.04; PROTHROMBIN TIME 13.6 SEC (11.4-15.4)
--- NOTE | 2018-11-30 18:02 | RADIOLOGY REPORT (SQ) ---
EXAM DESCRIPTION: CHEST SINGLE VIEW COMPLETED DATE/TIME: 11/30/2018 5:44 pm REASON FOR STUDY: GENERALIZED WEAKNESS COMPARISON: 10/22/2018 NUMBER OF VIEWS: One view. TECHNIQUE: Single frontal radiographic view of the chest acquired. LIMITATIONS: None. FINDINGS: LUNGS AND PLEURA: No opacities, masses or pneumothorax. No pleural effusion. MEDIASTINUM AND HILAR STRUCTURES: No masses. Contour normal. HEART AND VASCULAR STRUCTURES: Heart enlarged without failure. Normal vasculature. BONES: No acute findings. HARDWARE: Venous access catheter tip cavoatrial junction. OTHER: No other significant finding. IMPRESSION: HEART ENLARGED WITHOUT FAILURE. NO OTHER SIGNIFICANT RADIOGRAPHIC FINDING IN THE CHEST. TECHNICAL DOCUMENTATION: JOB ID: [id number] [employer]- All Rights Reserved Reading location - IP/workstation name: [email or web address]
[2018-11-30 18:03] LABS: ABSOLUTE BASOPHILS # (AUTO) 0.1 10^3/uL (0.0-0.2); ABSOLUTE EOSINOPHILS # (AUTO) 0.2 10^3/uL (0.0-0.6); ABSOLUTE LYMPHOCYTES (AUTO) 1.1 10^3/uL (0.5-4.7); ABSOLUTE MONOCYTES (AUTO) 0.6 10^3/uL (0.1-1.4); ABSOLUTE NEUT (AUTO) 3.1 10^3/uL (1.7-8.2); BASOPHILS % (AUTO) 1.3 % (0-2); EOSINOPHILS % (AUTO) 4.2 % (0-6); HEMOGLOBIN 11.7 g/dL (12.0-15.5); LYMPHOCYTES % (AUTO) 21.3 % (13-45); MEAN CORPUSCULAR HEMOGLOBIN 27.8 pg (27.0-33.4); MEAN CORPUSCULAR HGB CONC 32.5 g/dL (32.0-36.0); MEAN CORPUSCULAR VOLUME 86 fl (80-97); MONOCYTES % (AUTO) 12.1 % (3-13); PLATELET COUNT 176 10^3/uL (150-450); RED CELL DISTRIBUTION WIDTH 17.3 % (11.5-14.0); SEGMENTED NEUTROPHILS % (AUTO) 61.1 % (42-78); TOTAL CELLS COUNTED % (AUTO) 100 %
[2018-11-30 18:22] LABS: ALANINE AMINOTRANSFERASE 17 U/L (9-52); ALBUMIN 3.1 g/dL (3.5-5.0); ALKALINE PHOSPHATASE 120 U/L (38-126); ANION GAP 6 (5-19); ASPARTATE AMINO TRANSFERASE 17 U/L (14-36); BILIRUBIN,DIRECT 0.3 mg/dL (0.0-0.4); BILIRUBIN,TOTAL 0.4 mg/dL (0.2-1.3); BLOOD UREA NITROGEN 14 mg/dL (7-20); CALCIUM 8.6 mg/dL (8.4-10.2); CARBON DIOXIDE 25 mmol/L (22-30); CHLORIDE 111 mmol/L (98-107); GLUCOSE 90 mg/dL (75-110); POTASSIUM 4.2 mmol/L (3.6-5.0); SODIUM 141.8 mmol/L (137-145); TOTAL PROTEIN 6.1 g/dL (6.3-8.2)
[2018-11-30 18:39] LABS: HYPOCHROMASIA SLIGHT; POLYCHROMASIA 1+
[2018-11-30 18:40] LABS: PLATELET COMMENT ADEQUATE; ROULEAUX SLIGHT
--- NOTE | 2018-11-30 19:04 | ER Document Report ---
Addendum entered and electronically signed by PERLA MATHUR MD 12/01/18 10:38: Discharge - Discharge Clinical Impression: Acute psychosis, History of dementia Condition: Stable Disposition: HOME, SELF-CARE Additional Instructions: You have been evaluated by both medical and behavioral health providers while in the emergency department. You have been cleared from both acute medical and psychiatric services. There was report of dementia history, recent Urinary Tract infection with treatment and just elderly age in general all of which can cause and or exacerbate psychosis (delusions, hallucinations). You have been prescribed medications to aid in mood stabilization and anxiety while being mindful of age and possible dementia. Altered Mental Status An altered mental status is a change in the normal functioning of the brain. This alteration of function can range from minor decreased brain function with some forgetfulness and confusion to complete loss of consciousness and coma. There are many possible causes of an altered mental status and include brain injuries such as trauma or strokes, problems with oxygen supply to the brain, fever and infections of the brain and/or elsewhere in the body, metabolic a bnormalities such as low or high blood sugar, overdoses or excessive medication ingestion, and mental and psychiatric illnesses. Sometimes the altered mental status resolves and a definite cause is not determined. If a cause for your altered mental status was found, it has likely been corrected. Your evaluation has not shown any condition that requires that you be admitted to the hospital. It is believed that you are safe to leave and return to your home. If you have a return of your symptoms, you should return for re-evaluation. Hallucinations You seem to be having hallucinations. Hallucinations are seeing, hearing, or feeling things that don't exist. These symptoms commonly occur with drug abuse and schizophrenia. Drugs like PCP, LSD, MDMA, peyote, and "psychedelic mushrooms" can cause frightening hallucinations. Users of methamphetamine or crack cocaine often see and feel bugs crawling on their skin. Patients with schizophrenia may hear voices that no one else can hear. The delusions of schizophrenia often involve conspiracies or relationships that are not real. When symptoms are due to drug abuse, the mental state usually improves as the drug wears off. Someone you trust should be with you until you are better, to protect you and calm your fears. Tranquilizer medicine is helpful at controlling hallucinations, anxiety, an d deluded thoughts. Get a proper diet and enough sleep. Most patients do very well when they get proper medical treatment and social support. You should return at once if your symptoms get worse, if you are having suicidal thoughts or thoughts about hurting others, or if you feel that you are in danger. Dementia (there was a reported history, regardless recommend follow up with neurologist for further diagnosis) The exam shows a decrease in mental ability called dementia. Signs of dementia include a gradual loss of memory and a decreased ability to reason and solve problems. Personality changes, hostility, lack of self-care, and loss of bladder or bowel control are later signs of dementia. In these later stages, patients may become confused, lost, fearful, or agitated, even in familiar places. Alzheimer's disease is the most common type of dementia. It has no known cause or specific treatment. Other causes include alcohol and drug abuse, medication effects (especially tranquilizers and sleeping pills), strokes, head injuries, and brain tumors. Sometimes severe depression in an elderly person is mistaken for dementia, and this can be treated if recognized. A complete medical evaluation and ongoing care with a doctor is important. Most people with dementia need help or supervision with daily living. Some may be able to live independently with occasional help; others require foster care or even retirement placement. Alcohol, sedatives, and antihistamines may make the symptoms worse and should be avoided. Alzheimer's disease support groups are available in some communities and can be very valuable to the entire family. Prescription medication can ease the symptoms of Alzheimer's disease in some patients. Please arrange for medical follow-up. Return here if there is a sudden change in mental function, inability to move an arm or leg, inability to speak, fever, or any other significant change. Follow-Up Care: You are being provided prescriptions for Depakote DR 250MG twice a day for mood stabilization/behavioral manageability for dementia and Buspar 5MG twice a day for anxiety/calming effect/ depression/sleep. You should take these medications as prescribed. You should follow up with primary care provider within 3-5 days and request neurology referral. If your symptoms persist or worsen please contact your physician immediately, utilize mobile crisis or return to the emergency department. Prescriptions: Buspirone HCl [Buspar 5 mg Tablet] 1 tab PO BID #20 tab Divalproex Sodium [Depakote Er 250 Mg Tablet] 250 mg PO BID #20 [id number] Referrals: [facility] [Outside] - Follow up as needed ZAY TAYLOR MD [Primary Care Provider] - Follow up as needed Addendum entered and electronically signed by DANY SHEIKH LPC 12/01/18 10:1 2: Discharge - Discharge Clinical Impression: Acute psychosis, History of dementia Condition: Stable Disposition: HOME, SELF-CARE Additional Instructions: You have been evaluated by both medical and behavioral health providers while in the emergency department. You have been cleared from both acute medical and psychiatric services. There was report of dementia history, recent Urinary Tract infection with treatment and just elderly age in general all of which can cause and or exacerbate psychosis (delusions, hallucinations). You have been prescribe d medications to aid in mood stabilization and anxiety while being mindful of age and possible dementia. Altered Mental Status An altered mental status is a change in the normal functioning of the brain. This alteration of function can range from minor decreased brain function with some forgetfulness and confusion to complete loss of consciousness and coma. There are many possible causes of an altered mental status and include brain injuries such as trauma or strokes, problems with oxygen supply to the brain, fever and infections of the brain and/or elsewhere in the body, metabolic abnormalities such as low or high blood sugar, overdoses or excessive medication ingestion, and mental and psychiatric illnesses. Sometimes the altered mental status resolves and a definite cause is not determined. If a cause for your altered mental status was found, it has likely been cor rected. Your evaluation has not shown any condition that requires that you be admitted to the hospital. It is believed that you are safe to leave and return to your home. If you have a return of your symptoms, you should return for re- evaluation. Hallucinations You seem to be having hallucinations. Hallucinations are seeing, hearing, or feeling things that don't exist. These symptoms commonly occur with drug abuse and schizophrenia. Drugs like PCP, LSD, MDMA, peyote, and "psychedelic mushrooms" can cause frightening hallucinations. Users of methamphetamine or crack cocaine often see and feel bugs crawling on their skin. Patients with schizophrenia may hear voices that no one else can hear. The delusions of schizophrenia often involve conspiracies or relationships that are not real. When symptoms are due to drug abuse, the mental state usually improves as the drug wears off. Someone you trust should be with you until you are better, to protect you and calm your fears. Tranquilizer medicine is helpful at controlling hallucinations, anxiety, and deluded thoughts. Get a proper diet and enough sleep. Most patients do very well when they get proper medical treatment and social support. You should return at once if your symptoms get worse, if you are having suicidal thoughts or thoughts about hurting others, or if you feel that you are in danger. Dementia (there was a reported history, regardless recommend follow up with neurologist for further diagnosis) The exam shows a decrease in mental ability called dementia. Signs of dementia include a gradual loss of memory and a decreased ability to reason and solve problems. Personality changes, hostility, lack of self-care, and loss of bladder or bowel control are later signs of dementia. In these later stages, patients may become confused, lost, fearful, or agitated, even in familiar places. Alzheimer's disease is the most common type of dementia. It has no known cause or specific treatment. Other causes include alcohol and drug abuse, m edication effects (especially tranquilizers and sleeping pills), strokes, head injuries, and brain tumors. Sometimes severe depression in an elderly person is mistaken for dementia, and this can be treated if recognized. A complete medical evaluation and ongoing care with a doctor is important. Most people with dementia need help or supervision with daily living. Some may be able to live independently with occasional help; others require foster care or even retirement placement. Alcohol, sedatives, and antihistamines may make the symptoms worse and should be avoided. Alzheimer's disease support groups are available in some communities and can be very valuable to the entire family. Prescription medication can ease the symptoms of Alzheimer's disease in some patients. Please arrange for medical follow-up. Return here if there is a sudden change in mental function, inability to move an arm or leg, inability to speak, fever, or any other significant change. Follow-Up Care: You are being provided prescriptions for Depakote DR 250MG twice a day for mood stabilization/behavioral manageability for dementia and Buspar 5MG twice a day for anxiety/calming effect/ depression/sleep. You should take these medications as prescribed. You should follow up with primary care provider within 3-5 days and request neurology referral. If your symptoms persist or worsen please contact your physician immediately, utilize mobile crisis or return to the emergency department. Referrals: ZAY TAYLOR MD [Primary Care Provider] - Follow up as needed [facility] [Outside] - Follow up as needed Addendum entered and electronically signed by AGGIE BENTLEY DO 11/30/18 21:43: Course - Re-evaluation Re-evalutation: Patient is cleared from a medical standpoint for evaluation from a psychiatric standpoint. - Vital Signs Vital signs: Temp Pulse Resp BP Pulse Ox 98.5 F 88 18 130/69 H 97 11/30/18 17:08 11/30/18 17:08 11/30/18 17:08 11/30/18 17:08 11/30/18 17:08 - Laboratory Result Diagrams: 11/30/18 17:40 11/30/18 17:40 Laboratory results interpreted by me: 11/30/18 11/30/18 11/30/18 17:40 17:40 19:10 Hgb 11.7 L RDW 17.3 H Chloride 111 H Est GFR ( Amer) 57 L Est GFR (Non-Af Amer) 47 L Total Protein 6.1 L Albumin 3.1 L Urine Protein 30 H Original Note: ED General - General Chief Complaint: General Weakness Stated Complaint: BACK PAIN Time Seen by Provider: 11/30/18 17:14 Primary Care Provider: ZAY TAYLOR MD [Primary Care Provider] - Follow up as needed Notes: Patient is a 83 year old female with dementia that presents to the emergency department for chief complaint of auditory hallucinations and weakness. History provided mainly by the patient's daughter. Apparently she has been weak, and more confused recently, she is been having hallucinations the patient admits to hearing voices, that she states is a demon, she states that the "demon daughter" this apparently is been going on for about 3 weeks but getting progressively worse over the past week she has been holding a knife when she goes to bed, for fear of the demons. She has a history of Crohn's disease, and has a long-term Cheney catheter according to the patient's daughter is been in for over a year, they have not noticed fever, she has not had nausea, vomiting or abdominal pain, nor she had diarrhea. They were concerned she may have urinary tract infection as she was acting like this at one time when she has had one which was not too long ago. She does not recall her being placed on any new medications. Past Medical History: Crohn's disease, dementia Past Surgical History: Colostomy, Cheney catheter placement Social History: Lives at home with family, denies tobacco, alcohol or drug use. Family History: Reviewed and noncontributory for presenting illness Allergies: Reviewed, see documented allergy list. REVIEW OF SYSTEMS: Other than noted above, the 12 point review of systems was reviewed with the patient and were negative, all pertinent findings are included in the HPI. PHYSICAL EXAMINATION: Vital signs reviewed, nursing noted reviewed. GENERAL: Elderly female, mildly agitated, but no acute distress HEAD: Atraumatic, normocephalic. EYES: Eyes appear normal, extraocular movements intact, sclera anicteric, conjunctiva are normal. ENT: nares patent, oropharynx clear without exudates. Moist mucous membranes. NECK: Normal range of motion, supple without lymphadenopathy LUNGS: Breath sounds clear to auscultation bilaterally and equal. No wheezes rales or rhonchi. HEART: Regular rate and rhythm without murmurs ABDOMEN: Soft, nontender, normoactive bowel sounds. No rebound, guarding, or rigidity. No masses appreciated. EXTREMITIES: Nontender, good range of motion, no pitting or edema. NEUROLOGICAL: No focal neurological deficits. Moves all extremities spontaneously Motor and sensory grossly intact on exam. PSYCH: Mildly confused and agitated, alert to person, place and self, but somewhat confused about time. SKIN: Warm, Dry, normal turgor, no rashes or lesions noted on exposed skin TRAVEL OUTSIDE OF THE [place] IN LAST 30 DAYS: No - Related Data Allergies/Adverse Reactions: No Known Allergies Allergy (Verified 10/22/18 18:27) Past Medical History - Social History Smoking Status: Current Every Day Smoker Frequency of alcohol use: None Drug Abuse: None Family History: Reviewed & Not Pertinent Patient has suicidal ideation: No Patient has homicidal ideation: No - Past Medical History Cardiac Medical History: Reports: Hx Hypercholesterolemia, Hx Hypertension Denies: Hx Coronary Artery Disease, Hx Heart Attack Pulmonary Medical History: Denies: Hx Asthma, Hx Bronchitis, Hx COPD, Hx Pneumonia Neurological Medical History: Denies: Hx Cerebrovascular Accident, Hx Seizures Renal/ Medical History: Reports: Hx Renal Insufficiency. Denies: Hx Peritoneal Dialysis GI Medical History: Reports: Hx Crohn's Disease, Hx Gastroesophageal Reflux Disease Musculoskeletal Medical History: Reports Hx Arthritis Psychiatric Medical History: Reports: Hx Anxiety, Hx Depression Past Surgical History: Reports: Hx Bowel Surgery - Colectomy for Crohn's d isease, colostomy, Hx Colostomy, Hx Hysterectomy, Hx Ileostomy - Immunizations Hx Diphtheria, Pertussis, Tetanus Vaccination: Yes Hx Pneumococcal Vaccination: 05/25/18 Physical Exam - Vital signs Vitals: Temp Pulse Resp BP Pulse Ox 98.5 F 88 18 130/69 H 97 11/30/18 17:08 11/30/18 17:08 11/30/18 17:08 11/30/18 17:08 11/30/18 17:08 Course - Re-evaluation Re-evalutation: Patient seen and examined vital signs reviewed. Laboratory data and/or imaging were ordered as appropriate for the patient's presenting symptoms and complaint, with consideration of any critical or life threatening conditions that may be associated with their obtained history and exam as noted above. Patient was treated with IV fluids, we did attempt to give her p.o. Seroquel 25 mg, however the patient refused, and became agitated, and therefore 10 mg of IM Geodon was ordered. Results were reviewed when available and demonstrated essentially unremarkable blood work, normal renal function, UA negative, no leukocytosis, only mild anemia. Blood work and evaluation today did not reveal cause of the patient's hallucinations, and progressive delusions, I do feel that this is an underlying progression of the patient's dementia, with behavioral disturbance, I discussed this at length with the patient's daughter, regarding treatment options, I do not feel that she would be best suited to be evaluated from the psychiatric team as she may need geriatric psych, I did give as an option to have her follow-up with her primary care to have her evaluated that way, however they felt uncomfortable with her being at home due to her holding a knife at night, and things seem to be getting progressively worse. The patient was re-evaluated and was stable Evaluation was most consistent with acute psychosis, likely progression of dementia with behavioral disturbance. Psychiatric consult was placed, and IVC paperwork was filled out for this patient. *Note is created using voice recognition software and may contain spelling, syntax or grammatical errors. Laboratory 11/30/18 11/30/18 11/30/18 17:40 17:40 17:40 WBC 5.0 RBC 4.20 Hgb 11.7 L Hct 36.0 MCV 86 MCH 27.8 MCHC 32.5 RDW 17.3 H Plt Count 176 Seg Neutrophils % 61.1 Lymphocytes % 21.3 Monocytes % 12.1 Eosinophils % 4.2 Basophils % 1.3 Absolute Neutrophils 3.1 Absolute Lymphocytes 1.1 Absolute Monocytes 0.6 Absolute Eosinophils 0.2 Absolute Basophils 0.1 Platelet Comment ADEQUATE Polychromasia 1+ Hypochromasia SLIGHT Rouleaux SLIGHT PT 13.6 INR 1.04 VBG pH VBG pCO2 VBG HCO3 VBG Base Excess Sodium 141.8 Potassium 4.2 Chloride 111 H Carbon Dioxide 25 Anion Gap 6 BUN 14 Creatinine 1.10 Est GFR ( Amer) 57 L Est GFR (Non-Af Amer) 47 L Glucose 90 Lactic Acid Calcium 8.6 Total Bilirubin 0.4 Direct Bilirubin 0.3 Neonat Total Bilirubin Not Reportable Neonat Direct Bilirubin Not Reportable Neonat Indirect Bili Not Reportable AST 17 ALT 17 Alkaline Phosphatase 120 Troponin I Total Protein 6.1 L Albumin 3.1 L Urine Color Urine Appearance Urine pH Ur Specific [place] Urine Protein Urine Glucose (UA) Urine Ketones Urine Blood Urine Nitrite Urine Bilirubin Urine Urobilinogen Ur Leukocyte Esterase Urine WBC (Auto) Urine RBC (Auto) Squamous Epi Cells Auto Urine Mucus (Auto) Urine Ascorbic Acid 11/30/18 11/30/18 11/30/18 17:40 17:40 17:40 WBC RBC Hgb Hct MCV MCH MCHC RDW Plt Count Seg Neutrophils % Lymphocytes % Monocytes % Eosinophils % Basophils % Absolute Neutrophils Absolute Lymphocytes Absolute Monocytes Absolute Eosinophils Absolute Basophils Platelet Comment Polychromasia Hypochromasia Rouleaux PT INR VBG pH 7.40 VBG pCO2 42.3 VBG HCO3 25.4 VBG Base Excess 0.5 Sodium Potassium Chloride Carbon Dioxide Anion Gap BUN Creatinine Est GFR ( Amer) Est GFR (Non-Af Amer) Glucose Lactic Acid Cancelled Calcium Total Bilirubin Direct Bilirubin Neonat Total Bilirubin Neonat Direct Bilirubin Neonat Indirect Bili AST ALT Alkaline Phosphatase Troponin I < 0.012 Total Protein Albumin Urine Color Urine Appearance Urine pH Ur Specific [place] Urine Protein Urine Glucose (UA) Urine Ketones Urine Blood Urine Nitrite Urine Bilirubin Urine Urobilinogen Ur Leukocyte Esterase Urine WBC (Auto) Urine RBC (Auto) Squamous Epi Cells Auto Urine Mucus (Auto) Urine Ascorbic Acid 11/30/18 11/30/18 18:19 19:10 WBC RBC Hgb Hct MCV MCH MCHC RDW Plt Count Seg Neutrophils % Lymphocytes % Monocytes % Eosinophils % Basophils % Absolute Neutrophils Absolute Lymphocytes Absolute Monocytes Absolute Eosinophils Absolute Basophils Platelet Comment Polychromasia Hypochromasia Rouleaux PT INR VBG pH VBG pCO2 VBG HCO3 VBG Base Excess Sodium Potassium Chloride Carbon Dioxide Anion Gap BUN Creatinine Est GFR ( Amer) Est GFR (Non-Af Amer) Glucose Lactic Acid 1.0 Calcium Total Bilirubin Direct Bilirubin Neonat Total Bilirubin Neonat Direct Bilirubin Neonat Indirect Bili AST ALT Alkaline Phosphatase Troponin I Total Protein Albumin Urine Color DARK YELLOW Urine Appearance CLEAR Urine pH 6.0 Ur Specific [place] 1.021 Urine Protein 30 H Urine Glucose (UA) NEGATIVE Urine Ketones NEGATIVE Urine Blood NEGATIVE Urine Nitrite NEGATIVE Urine Bilirubin NEGATIVE Urine Urobilinogen NEGATIVE Ur Leukocyte Esterase NEGATIVE Urine WBC (Auto) 3 Urine RBC (Auto) 3 Squamous Epi Cells Auto 4 Urine Mucus (Auto) RARE Urine Ascorbic Acid NEGATIVE Chest X-Ray 11/30/18 17:30 IMPRESSION: HEART ENLARGED WITHOUT FAILURE. NO OTHER SIGNIFICANT RADIOGRAPHIC FINDING IN THE CHEST. - Vital Signs Vital signs: Temp Pulse Resp BP Pulse Ox 98.5 F 88 18 130/69 H 97 11/30/18 17:08 11/30/18 17:08 11/30/18 17:08 11/30/18 17:08 11/30/18 17:08 - Laboratory Result Diagrams: 11/30/18 17:40 11/30/18 17:40 Laboratory results interpreted by me: 11/30/18 11/30/18 11/30/18 17:40 17:40 19:10 Hgb 11.7 L RDW 17.3 H Chloride 111 H Est GFR ( Amer) 57 L Est GFR (Non-Af Amer) 47 L Total Protein 6.1 L Albumin 3.1 L Urine Protein 30 H - EKG Interpretation by Me Additional EKG results interpreted by me: EKG demonstrates sinus rhythm with a ventricular rate of 75 bpm, left axis deviation, QTC 456 ms, voltage criteria for LVH, no ST elevation, this is compared to prior EKG from 11/22/2018, without significant change. Discharge - Discharge Clinical Impression: Acute psychosis Condition: Stable Disposition: PSYCH HOSP/UNIT Referrals: ZAY TAYLOR MD [Primary Care Provider] - Follow up as needed
[2018-11-30 19:41] LABS: APPEARANCE,URINE CLEAR; BILIRUBIN,URINE NEGATIVE (NEGATIVE); GLUCOSE, URINE NEGATIVE (NEGATIVE); KETONES,URINE NEGATIVE (NEGATIVE); LEUKOCYTE ESTERASE,URINE NEGATIVE (NEGATIVE); NITRITE,URINE NEGATIVE (NEGATIVE); PROTEIN,URINE 30 mg/dL (NEGATIVE); URINE SPECIFIC GRAVITY 1.021; UROBILINOGEN,URINE NEGATIVE mg/dL (<2.0)
[2018-11-30 19:43] LABS: COLOR,URINE DARK YELLOW
[2018-11-30] MEDS ORDERED: QUETIAPINE FUMARATE 25 MG TABLET PO ONE (20:24)
--- NOTE | 2018-11-30 21:27 | EKG REPORT ---
SEVERITY:- ABNORMAL ECG - SINUS RHYTHM ATRIAL PREMATURE COMPLEX LEFT ANTERIOR FASCICULAR BLOCK LEFT VENTRICULAR HYPERTROPHY : Confirmed by: Stephenie Paiz MD 30-Nov-2018 21:27:04
[2018-11-30] MEDS ORDERED: ZIPRASIDONE MESYLATE INJ/PF 20 MG SDV IM ONE (21:32)
--- NOTE | 2018-12-01 08:41 | PSYCHOLOGICAL NOTE ---
Psych Note - Psych Note Date seen by psych provider: 12/01/18 Time seen by psych provider: 07:45 - Chart review at 0745. Daughter/caregiver collateral at 0800. Coordination with ED SW at 0831. Psych Note: Presenting Problem: Delusions (thinks there are demons, goes to bed with a knife for fear of these demons), Hallucinations (talking to people), Hx Dementia, per daughter recent UTI with treatment. Delusions and Hallucinations going on for last 3 weeks with increase the past week. Patient administered Geodon 10MG IM last night at 2219 after refusal of Seroquel 25MG PO. Home psychiatric medication listed was Xanax 0.25MG QD PRN which daughter said patient had not had in awhile. Daughter/Caregiver/EC, Dory Grossman ([phone]), contacted via telephone. She denied any MHx. She confirmed dementia diagnosis. She acknowledged a recent UTI with Tx. Daughter identified patient has an appointment with her kidney doctor, Dr. Maxwell, today (12/01/18) at 1300. Her PCM is Dr. Willard. Reached out to ED SW for resources for patient and daughter. Explained already have a list of the 4 memory care units and documented contact for [facility] ([place] [phone]) on that list. Diagnosis: Delusions Hallucinations Recent UTI with Tx per daughter 799.59 (R41.9) Unspecified Neurocognitive Disorder by Hx Medication recommendations made by the psychiatric medical provider, Dr. Phuc MD., includes: Discontinue Xanax 0.25MG daily as needed for anxiety Add Depakote DR 250MG twice a day for mood stabilization/behavior management related to dementia Add Buspar 5MG twice a day for anxiety/calming effect/depression/sleep Impression/Plan: Patient is cleared from acute psychiatric issues. Recommendation to rescind 24 Hour IVC Petition. No MH Hx per daughter/caregiver. Recent UTI with Tx. Had delusions and hallucinations for the past 3 weeks with an increase over the last week. Hx Dementia. ED SW involved to aid in providing patient and daughter with dementia resources. Provided patient and daughter with the 4 memory care units and contact information for [facility]. Recommendation for neurology follow up. Consulted with Dr. Mathis regarding the management and care of patient. ED Physician in agreement with recommendations.
--- NOTE | 2018-12-01 09:25 | ER Document Report ---
Doctor's Note Notes: 12/01/18 09:23 Rounds: Chart reviewed. Spoke with patient's daughter. Patient apparently has dementia to some degree. She is here to be evaluated for increasing delusions, hallucinations, and worsening symptoms of dementia. Other than her mental status, her evaluation has been essentially normal lab studies were all es sentially normal. Vital signs were normal. Patient is resting comfortably on her bed at this time. Mental health has signed off and says that the patient does not have a psychiatric disorder, in their opinion. Patient sees Dr. Willard locally. [place] signed out to another doctor, who will not be major with this patient. Patient appears to be medically stable for transfer or discharge. Sandhya Le MD
[2018-12-01 10:46] VITALS: BP 165/57
== END 2018-12-01 10:48 | disposition home or self-care (01) ==
LOC: ER 16:58
DX: F23 Brief psychotic disorder (principal); F03.90 Unspecified dementia, unspecified severity, without behavioral disturbance, psychotic disturbance, mood disturbance, and anxiety; R53.1 Weakness; F17.200 Nicotine dependence, unspecified, uncomplicated; I10 Essential (primary) hypertension
CPT/HCPCS: 93005; 99285; 96372; 96360; 36415; 87040; 87086; 85025; 85610; 87077; 87088; 80053; 81001; 84484; 87186; 82803; 83605; 71045; 93010; J3486; J7120

== ENCOUNTER 2018-12-14 16:51 | Emergency (ER) | payer MEDICARE, MEDICAID ==
--- NOTE | 2018-12-14 17:27 | ER Document Report ---
ED Medical Screen (RME) - General Chief Complaint: Psych Problem Stated Complaint: IVC WITH PAPERS Time Seen by Provider: 12/14/18 17:25 Primary Care Provider: ZAY TAYLOR MD [Primary Care Provider] - Follow up as needed Mode of Arrival: Ambulatory Information source: Relative Notes: Daughter is present, states that her mom whom she lives with has been walking ar ound with knives in the middle of the night and talking to people. Patient was seen here on November 30 for hallucinations and dementia but daughter states it is gotten "much worse." Daughter also states she had a recent urinary tract infection that she thinks patient is gotten much worse since. TRAVEL OUTSIDE OF THE [place] IN LAST 30 DAYS: No - Related Data Allergies/Adverse Reactions: No Known Allergies Allergy (Verified 12/14/18 16:53) Past Medical History - General Information source: Relative - Past Medical History Cardiac Medical History: Reports: Hx Hypercholesterolemia, Hx Hypertension Denies: Hx Coronary Artery Disease, Hx Heart Attack Pulmonary Medical History: Denies: Hx Asthma, Hx Bronchitis, Hx COPD, Hx Pneumonia Neurological Medical History: Denies: Hx Cerebrovascular Accident, Hx Seizures Renal/ Medical History: Reports: Hx Renal Insufficiency. Denies: Hx Peritoneal Dialysis GI Medical History: Reports: Hx Crohn's Disease, Hx Gastroesophageal Reflux Disease Musculoskeltal Medical History: Reports Hx Arthritis Psychiatric Medical History: Reports: Hx Anxiety, Hx Depression Past Surgical History: Reports: Hx Bowel Surgery - Colectomy for Crohn's disease, colostomy, Hx Colostomy, Hx Hysterectomy, Hx Ileostomy - Immunizations Hx Diphtheria, Pertussis, Tetanus Vaccination: Yes History of Influenza Vaccine for 02/2017 - 07/2017 Season: Yes Influenza Administration Date for 02/2017 - 07/2017 Season: 05/25/18 Review of Systems - Review of Systems Neurological/Psychological: See HPI Physical Exam - Vital signs Vitals: Temp Pulse Resp BP Pulse Ox 98.3 F 119 H 12 146/88 H 95 12/14/18 17:02 12/14/18 17:02 12/14/18 17:02 12/14/18 17:02 12/14/18 17:02 - Notes Notes: PHYSICAL EXAMINATION: GENERAL: Elderly, nonverbal, in no acute distress. LUNGS: CTAB and equal. No wheezes rales or rhonchi. HEART: Regular rate and rhythm without murmurs Course - Vital Signs Vital signs: Temp Pulse Resp BP Pulse Ox 98.3 F 119 H 12 146/88 H 95 12/14/18 17:02 12/14/18 17:02 12/14/18 17:02 12/14/18 17:02 12/14/18 17:02 Doctor's Discharge - Discharge Referrals: ZAY TAYLOR MD [Primary Care Provider] - Follow up as needed
[2018-12-14 19:25] LABS: ABSOLUTE EOSINOPHILS # (AUTO) 0.1 10^3/uL (0.0-0.6); ABSOLUTE LYMPHOCYTES (AUTO) 0.9 10^3/uL (0.5-4.7); ABSOLUTE MONOCYTES (AUTO) 0.4 10^3/uL (0.1-1.4); ABSOLUTE NEUT (AUTO) 3.1 10^3/uL (1.7-8.2); BASOPHILS % (AUTO) 0.8 % (0-2); EOSINOPHILS % (AUTO) 1.9 % (0-6); HEMATOCRIT 36.8 % (36.0-47.0); HEMOGLOBIN 11.9 g/dL (12.0-15.5); LYMPHOCYTES % (AUTO) 19.9 % (13-45); MEAN CORPUSCULAR HEMOGLOBIN 28.1 pg (27.0-33.4); MEAN CORPUSCULAR HGB CONC 32.3 g/dL (32.0-36.0); MEAN CORPUSCULAR VOLUME 87 fl (80-97); MONOCYTES % (AUTO) 8.6 % (3-13); PLATELET COUNT 166 10^3/uL (150-450); RED BLOOD COUNT 4.23 10^6/uL (3.72-5.28); SEGMENTED NEUTROPHILS % (AUTO) 68.8 % (42-78); TOTAL CELLS COUNTED % (AUTO) 100 %; WHITE BLOOD COUNT 4.6 10^3/uL (4.0-10.5)
[2018-12-14 19:47] LABS: ALANINE AMINOTRANSFERASE 21 U/L (9-52); ALBUMIN 3.8 g/dL (3.5-5.0); ALKALINE PHOSPHATASE 100 U/L (38-126); ANION GAP 10 (5-19); ASPARTATE AMINO TRANSFERASE 23 U/L (14-36); BILIRUBIN,DIRECT 0.3 mg/dL (0.0-0.4); BILIRUBIN,TOTAL 0.5 mg/dL (0.2-1.3); BLOOD UREA NITROGEN 17 mg/dL (7-20); CALCIUM 8.9 mg/dL (8.4-10.2); CARBON DIOXIDE 23 mmol/L (22-30); CHLORIDE 109 mmol/L (98-107); GLUCOSE 96 mg/dL (75-110); POTASSIUM 4.1 mmol/L (3.6-5.0); TOTAL PROTEIN 7.1 g/dL (6.3-8.2)
[2018-12-14 19:48] LABS: ACETAMINOPHEN < 10 ug/mL (10-30); ALCOHOL < 10 mg/dL (NONE DETECTED); SALICYLATE < 1.0 mg/dL (2.0-20.0)
--- NOTE | 2018-12-14 20:08 | ER Document Report ---
ED Psych Disorder / Suicide - General Chief Complaint: Psych Problem Stated Complaint: IVC WITH PAPERS Time Seen by Provider: 12/14/18 17:25 Primary Care Provider: ZAY TAYLOR MD [Primary Care Provider] - Follow up as needed Mode of Arrival: Ambulatory Notes: 83-year-old female patient brought here by deputy head's office for evaluation with IVC paperwork. Apparently she has dementia. Apparently thinks that there were maggots coming out of her feet and talks to people. A rep ort by family members that she was carrying scissors around because she thought somebody was trying to kill her. Currently she denies any of this. Denies any symptoms at all. Was seen 3 other times this month in the emergency department for various complaints.. TRAVEL OUTSIDE OF THE [place] IN LAST 30 DAYS: No - HPI Patient complains to provider of: Bizarre behavior, Hallucinating Onset: Just prior to arrival Onset was: Gradual Severity: None Pain Level: Denies - Related Data Allergies/Adverse Reactions: No Known Allergies Allergy (Verified 12/14/18 16:53) Past Medical History - General Information source: Relative - Social History Smoking Status: Unknown if Ever Smoked Chew tobacco use (# tins/day): No Frequency of alcohol use: None Drug Abuse: None Lives with: Family Family History: Reviewed & Not Pertinent Patient has suicidal ideation: No Patient has homicidal ideation: No - Past Medical History Cardiac Medical History: Reports: Hx Hypercholesterolemia, Hx Hypertension Denies: Hx Coronary Artery Disease, Hx Heart Attack Pulmonary Medical History: Denies: Hx Asthma, Hx Bronchitis, Hx COPD, Hx Pneumonia Neurological Medical History: Denies: Hx Cerebrovascular Accident, Hx Seizures Renal/ Medical History: Reports: Hx Renal Insufficiency. Denies: Hx Peritoneal Dialysis GI Medical History: Reports: Hx Crohn's Disease, Hx Gastroesophageal Reflux Disease Musculoskeletal Medical History: Reports Hx Arthritis Psychiatric Medical History: Reports: Hx Anxiety, Hx Depression Past Surgical History: Reports: Hx Bowel Surgery - Colectomy for Crohn's disease, colostomy, Hx Colostomy, Hx Hysterectomy, Hx Ileostomy - Immunizations Hx Diphtheria, Pertussis, Tetanus Vaccination: Yes Hx Pneumococcal Vaccination: 05/25/18 Review of Systems - Review of Systems Notes: Constitutional: denies: Chills, Diaphoresis, Fever, Malaise, Weakness EENT: denies: Eye discharge, Blurred vision, Tearing, Double vision, Nose congestion, Nose discharge, Throat swelling, Mouth pain Cardiovascular: denies: Palpitations, Heart racing, Orthopnea, Dyspnea, Chest pain Respiratory: denies: Cough, Hurts to breathe, Wheezing, Shortness of breath Gastrointestinal: denies: Abdominal pain, Diarrhea, Nausea, Vomiting, Black stools, bright red blood in stool Genitourinary: denies: Burning, Dysuria, Discharge, Frequency, Flank pain, Hematuria Musculoskeletal: denies: Joint pain, Joint swelling, Muscle pain, Muscle stiffness, back pain Hematologic/Lymphatic: denies: Anemia, Easy bleeding, Easy bruising, Blood clots Neurological/Psychological: denies: Confusion, Dementia, Depression, Loss of consciousness Skin: No lesions, no masses, no skin breakdown, no abscesses Physical Exam - Vital signs Vitals: Temp Pulse Resp BP Pulse Ox 98.3 F 119 H 12 146/88 H 95 12/14/18 17:02 12/14/18 17:02 12/14/18 17:02 12/14/18 17:02 12/14/18 17:02 Interpretation: Normal - General General appearance: Appears well, Alert - HEENT Head: Normocephalic, Atraumatic Eyes: Normal Pupils: PERRL - Respiratory Respiratory status: No respiratory distress Chest status: Nontender Breath sounds: Normal Chest palpation: Normal - Cardiovascular Rhythm: Regular Heart sounds: Normal auscultation Murmur: No Notes: has a central line catheter in the left anterior chest. - Abdominal Inspection: Normal Distension: No distension Bowel sounds: Normal Tenderness: Nontender Organomegaly: No organomegaly - Back Back: Normal, Nontender - Extremities General upper extremity: Normal inspection, Nontender, Normal color, Normal ROM, Normal temperature General lower extremity: Normal inspection, Nontender, Normal color, Normal ROM, Normal temperature, Normal weight bearing. No: Hallie's sign - Neurological Neuro grossly intact: Yes Cognition: Normal Orientation: AAOx4 Knifley Coma Scale Eye Opening: Spontaneous Meghan Coma Scale Verbal: Oriented Meghan Coma Scale Motor: Obeys Commands Knifley Coma Scale Total: 15 Speech: Normal Motor strength normal: LUE, RUE, LLE, RLE Sensory: Normal - Psychological Associated symptoms: Normal affect, Normal mood - Skin Skin Temperature: Warm Skin Moisture: Dry Skin Color: Normal Course - Re-evaluation Re-evalutation: 12/14/18 20:17 This is a 83-year-old pleasantly demented -[place] female in no acute distress. Came in on IVC paperwork. Initial evaluation and work-up has begun. Patient denies any complaints at this time. 12/14/18 23:10 Laboratory 12/14/18 12/14/18 12/14/18 19:03 19:03 19:03 WBC 4.6 RBC 4.23 Hgb 11.9 L Hct 36.8 MCV 87 MCH 28.1 MCHC 32.3 RDW 16.0 H Plt Count 166 Seg Neutrophils % 68.8 Lymphocytes % 19.9 Monocytes % 8.6 Eosinophils % 1.9 Basophils % 0.8 Absolute Neutrophils 3.1 Absolute Lymphocytes 0.9 Absolute Monocytes 0.4 Absolute Eosinophils 0.1 Absolute Basophils 0.0 Sodium 142.2 Potassium 4.1 Chloride 109 H Carbon Dioxide 23 Anion Gap 10 BUN 17 Creatinine 1.04 Est GFR ( Amer) > 60 Est GFR (Non-Af Amer) 50 L Glucose 96 Calcium 8.9 Total Bilirubin 0.5 Direct Bilirubin 0.3 Neonat Total Bilirubin Not Reportable Neonat Direct Bilirubin Not Reportable Neonat Indirect Bili Not Reportable AST 23 ALT 21 Alkaline Phosphatase 100 Total Protein 7.1 Albumin 3.8 Salicylates < 1.0 L Acetaminophen < 10 L Valproic Acid < 10.0 L Serum Alcohol < 10 12/14/18 23:10 Patient is awake and alert no acute distress. Labs are fairly unremarkable. Still waiting on urine. Depakote level low so ordered that dose tonight. We will have mental health see in the morning. - Vital Signs Vital signs: Temp Pulse Resp BP Pulse Ox 98.3 F 119 H 12 146/88 H 95 12/14/18 17:02 12/14/18 17:02 12/14/18 17:02 12/14/18 17:02 12/14/18 17:02 - Laboratory Result Diagrams: 12/14/18 19:03 12/14/18 19:03 Laboratory results interpreted by me: 12/14/18 12/14/18 12/14/18 19:03 19:03 19:03 Hgb 11.9 L RDW 16.0 H Chloride 109 H Est GFR (Non-Af Amer) 50 L Salicylates < 1.0 L Acetaminophen < 10 L Valproic Acid < 10.0 L - EKG Interpretation by Pa EKG shows normal: Sinus rhythm, QRS Complexes, ST-T Waves Edgar/QRS: Left axis deviation Voltage: Consistant with LVH Discharge - Discharge Clinical Impression: Dementia Qualifiers: Dementia type: unspecified type Dementia behavioral disturbance: with behav ioral disturbance Qualified Code(s): F03.91 - Unspecified dementia with beh avioral disturbance Condition: Good Disposition: HOME, SELF-CARE Referrals: ZAY TAYLOR MD [Primary Care Provider] - Follow up as needed
[2018-12-14] MEDS ORDERED: DIVALPROEX SODIUM 500 MG TAB.SR.24H PO ONE (21:57)
--- NOTE | 2018-12-14 23:20 | EKG REPORT ---
SEVERITY:- ABNORMAL ECG - SINUS RHYTHM ATRIAL PREMATURE COMPLEX LEFT AXIS DEVIATION LEFT VENTRICULAR HYPERTROPHY : Confirmed by: Roxane Parker 14-Dec-2018 23:19:23
[2018-12-15 01:05] LABS: APPEARANCE,URINE SLIGHTLY-CLOUDY; BILIRUBIN,URINE NEGATIVE (NEGATIVE); COLOR,URINE YELLOW; GLUCOSE, URINE NEGATIVE (NEGATIVE); KETONES,URINE TRACE mg/dL (NEGATIVE); LEUKOCYTE ESTERASE,URINE NEGATIVE (NEGATIVE); NITRITE,URINE NEGATIVE (NEGATIVE); PROTEIN,URINE 30 mg/dL (NEGATIVE); URINE SPECIFIC GRAVITY 1.018; UROBILINOGEN,URINE NEGATIVE mg/dL (<2.0)
[2018-12-15 01:19] LABS: URINE AMPHETAMINES SCREEN NEGATIVE; URINE BARBITURATES SCREEN NEGATIVE; URINE BENZODIAZEPINES SCREEN NEGATIVE; URINE COCAINE SCREEN NEGATIVE; URINE MARIJUANA (THC) SCREEN NEGATIVE; URINE METHADONE SCREEN NEGATIVE; URINE PHENCYCLIDINE SCREEN NEGATIVE
--- NOTE | 2018-12-15 09:40 | ER Document Report ---
Doctor's Note Notes: 12/15/18 09:39 Patient is an 83-year-old female with possible history of dementia and psychosis who presents today with auditory visual hallucinations believing maggots were coming out of her feet. She was supposedly carrying scissors around secondary to paranoid delusions. Sister brought IVC paperwork. Labs and vital signs as recorded. Valproic acid level is extremely low. Awaiting psychiatric evaluation. 12/15/18 09:41 No imaging was ordered so I will order a CT scan of the head to evaluate for the possibility of a subdural hematoma or other intracranial process. 12/15/18 17:12 CT scan of the head as recorded. I have added the appropriate medications as requested by the psychology/psychiatry team.
[2018-12-15] MEDS ORDERED: NORMAL SALINE 1000 ML 1,000 ML IV ONE (11:14)
[2018-12-15] MEDS ORDERED: LORAZEPAM INJ 2 MG/1 ML VIAL IV ONE (11:26)
--- NOTE | 2018-12-15 11:57 | RADIOLOGY REPORT (SQ) ---
EXAM DESCRIPTION: CT HEAD WITHOUT COMPLETED DATE/TIME: 12/15/2018 11:47 am REASON FOR STUDY: 42: AMS COMPARISON: 12/13/2017 TECHNIQUE: Axial images acquired through the brain without intravenous contrast. Images reviewed wi th bone, brain and subdural windows. Additional sagittal and coronal reconstructions were generated. Images stored on PACS. All CT scanners at this facility use dose modulation, iterative reconstruction, and/or weight based d osing when appropriate to reduce radiation dose to as low as reasonably achievable (ALARA). [facility]: Dose Right [facility]: CareDose [facility]: Dose Right [facility]: Teradose 4D [facility]: Smart [employer] RADIATION DOSE: CT Rad equipment meets quality standard of care and radiation dose reduction techniq ues were employed. CTDIvol: 23.1 mGy. DLP: 476 mGy-cm. mGy. LIMITATIONS: None. FINDINGS: VENTRICLES: Normal size and contour. CEREBRUM: No masses. No hemorrhage. No midline shift. No evidence for acute infarction. Few scatte red areas of low density in the white matter most likely chronic small vessel ischemic changes. CEREBELLUM: No masses. No hemorrhage. No alteration of density. No evidence for acute infarction. EXTRAAXIAL SPACES: No fluid collections. No masses. ORBITS AND GLOBE: No intra- or extraconal masses. Normal contour of globe without masses. CALVARIUM: No fracture. PARANASAL SINUSES: No fluid or mucosal thickening. SOFT TISSUES: No mass or hematoma. OTHER: No other significant finding. IMPRESSION: MILD CHRONIC MICROVASCULAR ISCHEMIA. NO ACUTE IMAGING FINDINGS IN THE BRAIN. EVIDENCE OF ACUTE STROKE: NO. COMMENT: Quality ID # [id number]: Final reports with documentation of one or more dose reduction techniques (e.g., Automated exposure control, adjustment of the mA and/or kV according to patient size, use of iterative reconstruction technique) TECHNICAL DOCUMENTATION: JOB ID: [id number] [email or web address]- All Rights Reserved Reading location - IP/workstation name: [email or web address]
[2018-12-15] MEDS: CLONIDINE 0.1 MG/24 HR PATCH.TDWK TD SCH (17:20)
[2018-12-15] MEDS: RISPERIDONE 0.25 MG TABLET PO SCH (17:21)
[2018-12-15] MEDS: DIVALPROEX SODIUM 125 MG CAP.SPRINK PO SCH (17:21)
[2018-12-16 09:15] VITALS: BP 151/58
--- NOTE | 2018-12-16 09:24 | PSYCHOLOGICAL NOTE ---
Psych Note - Psych Note Date seen by psych provider: 12/16/18 Psych Note: Daughter/Caregiver/EC, Dory Grossman ([phone]) Medication recommendations per [facility]'s contracted psychiatrist Dr. Phuc HORN are as follows Depakote sprinkles 250 mg twice daily clonidine 0.1 mg 24-hour transdermal patch risperidone 0.25 mg twice daily IM Attending physicians are asked to consider to avoid prescribing benzodiazepine (e.g. Ativan, Xanax, Valium, Klonopin), antipsychotics (e.g. Haldol, Geodon, Zyprexa, Seroquel), some sleep aids (e.g. Ambien, Lunesta, Sonata), narcotic pain medications, and high-dose steroids (prednisone) as these have been known t o cause and/or increased symptoms of aggression, psychosis and/or paranoia in patients with neurodegenerative processes such as dementia, Alzheimer's disease, traumatic brain injury, etc. Diagnosis: 799.59 (R41.9) Unspecified Neurocognitive Disorder per history Recent kidney and urinary tract infections Impression\plan: Patient is recommended for rescind of IVC and is cleared from acute psychiatric services. Patient presents with increased in behavioral episodes, psychosis, confusion and noncompliance in medical treatment. Patient's presentation is a result from her current and chronic medical conditions. Patient is diagnosed with Crohn's disease with a history of colostomy, ileostomy, and long-term Cheney catheter. On 10/23/2018 patient was noted to have a presentation is most consistent with acute pyelonephritis; Labs demonstrate acute renal failure without old labs to support that this is chronic in nature. Patient was seen again this month on 12/03/2018 for urinary tract infection. Chart review indicates patient also has an existing dementia diagnosis with neurodegenerative processes (i.e. atrophy/microvascular ischemia changes) noted in head CTs dating back to 12/04/2015. Patient does not have a mental health history other than generalized depression/anxiety. In the geriatric populations a urinary tract infection can cause an acute change in mental status this can range from agitation, aggression, restlessness to withdrawing and confusion, hallucinations and/or delusions. Medication recommendations were provided and the patient's daughter/caregiver was provided a list of the 4 memory care units which included contact information for [facility] ([facility] [phone]) during patient's ED visit on 12/01/2018. There is concern that the patient's daughter/caregiver needs additional assistance in providing care for the patient. Discharge planning is currently working on this case. Please re-consult for further assistance from the behavioral health team if new concerns arise. Dr. Mathis was consulted to care and management of this patient; attending physicians in agreement with recommendations and disposition.
[2018-12-16] MEDS: DIVALPROEX SODIUM 125 MG CAP.SPRINK PO SCH ×3 (10:19→17:39)
[2018-12-16] MEDS: RISPERIDONE 0.25 MG TABLET PO SCH ×3 (10:27→17:40)
[2018-12-16] MEDS: CLONIDINE 0.1 MG/24 HR PATCH.TDWK TD SCH ×2 (10:27→10:56)
--- NOTE | 2018-12-16 10:48 | ER Document Report ---
Doctor's Note Notes: 12/16/18 10:46 Rounds: Chart reviewed and patient interviewed. Patient supposedly has been walking around at night with knives and scissors talking with people. Patient says that her 2 daughters live with her and they brought her in for evaluation. Patient says that 1 of her daughters is normal and the other one is last name demon! Lab studies were all essentially normal. Vital signs are also essentially normal. Patient has been evaluated by mental health and they do not feel she has a mental condition requiring placement, but most likely has dementia. Vital signs are all essentially normal. Labs were all essentially normal. Patient appears to be medically stable for transfer or discharge. Sandhya Le MD
== END 2018-12-16 18:45 | disposition home or self-care (01) ==
LOC: ER 16:51
DX: F03.91 Unspecified dementia, unspecified severity, with behavioral disturbance (principal); I10 Essential (primary) hypertension
CPT/HCPCS: 93005; 36415; 80307 ×4; 85025; 80053; 81001; 80164; 93010; J2060; A9270; J3490 ×2; J7030; 96361; 96374; 99285

== ENCOUNTER 2019-01-01 21:53 | Inpatient (IN) | payer MEDICARE, MEDICAID ==
[2019-01-01] MEDS ORDERED: RINGERS SOLUTION,LACTATED 1,000 ML IV ONE (22:37)
[2019-01-01 22:38] LABS: ABSOLUTE BASOPHILS # (AUTO) 0.1 10^3/uL (0.0-0.2); ABSOLUTE EOSINOPHILS # (AUTO) 0.2 10^3/uL (0.0-0.6); ABSOLUTE LYMPHOCYTES (AUTO) 1.7 10^3/uL (0.5-4.7); ABSOLUTE MONOCYTES (AUTO) 0.8 10^3/uL (0.1-1.4); ABSOLUTE NEUT (AUTO) 8.1 10^3/uL (1.7-8.2); BASOPHILS % (AUTO) 0.5 % (0-2); EOSINOPHILS % (AUTO) 1.8 % (0-6); HEMATOCRIT 46.2 % (36.0-47.0); HEMOGLOBIN 15.1 g/dL (12.0-15.5); LYMPHOCYTES % (AUTO) 15.8 % (13-45); MEAN CORPUSCULAR HEMOGLOBIN 28.8 pg (27.0-33.4); MEAN CORPUSCULAR HGB CONC 32.8 g/dL (32.0-36.0); MEAN CORPUSCULAR VOLUME 88 fl (80-97); MONOCYTES % (AUTO) 7.3 % (3-13); PLATELET COUNT 206 10^3/uL (150-450); RED BLOOD COUNT 5.25 10^6/uL (3.72-5.28); RED CELL DISTRIBUTION WIDTH 15.7 % (11.5-14.0); SEGMENTED NEUTROPHILS % (AUTO) 74.6 % (42-78); TOTAL CELLS COUNTED % (AUTO) 100 %; WHITE BLOOD COUNT 10.8 10^3/uL (4.0-10.5)
[2019-01-01 22:41] LABS: INTERNATIONAL RATION (INR) 1.07; PROTHROMBIN TIME 13.9 SEC (11.4-15.4)
[2019-01-01 22:42] LABS: PARTIAL THROMBOPLASTIN TIME 25.7 SEC (23.5-35.8)
[2019-01-01 22:59] LABS: ALBUMIN 4.3 g/dL (3.5-5.0); ALKALINE PHOSPHATASE 120 U/L (38-126); ANION GAP 18 (5-19); ASPARTATE AMINO TRANSFERASE 25 U/L (14-36); BILIRUBIN,DIRECT 0.5 mg/dL (0.0-0.4); BILIRUBIN,TOTAL 0.9 mg/dL (0.2-1.3); BLOOD UREA NITROGEN 89 mg/dL (7-20); CARBON DIOXIDE 30 mmol/L (22-30); CHLORIDE 82 mmol/L (98-107); GLUCOSE 144 mg/dL (75-110); POTASSIUM 4.9 mmol/L (3.6-5.0); TOTAL PROTEIN 7.8 g/dL (6.3-8.2)
[2019-01-01 23:01] LABS: APPEARANCE,URINE TURBID; BILIRUBIN,URINE NEGATIVE (NEGATIVE); COLOR,URINE AMBER; GLUCOSE, URINE NEGATIVE (NEGATIVE); KETONES,URINE NEGATIVE (NEGATIVE); LEUKOCYTE ESTERASE,URINE MODERATE (NEGATIVE); NITRITE,URINE NEGATIVE (NEGATIVE); PROTEIN,URINE 100 mg/dL (NEGATIVE); URINE SPECIFIC GRAVITY 1.015; UROBILINOGEN,URINE NEGATIVE mg/dL (<2.0)
--- NOTE | 2019-01-01 23:07 | ER Document Report ---
ED General - General Chief Complaint: Vaginal Bleeding Stated Complaint: VAGINAL BLEEDING Time Seen by Provider: 01/01/19 22:17 Mode of Arrival: Ambulatory Information source: Patient, Relative, [facility] Records Cannot obtain history due to: Dementia Notes: 83-year-old female with dementia, Crohn's disease presents with her daughter with hematuria and lower abdominal pain. Daughter states that she noticed blood in the patient's urine one day ago. She states that her mother has been complaining of lower abdominal and right flank pain. Patient's baseline is alert and oriented x2 and daughter reports that she is at her baseline. Patient has not had any fever, vomiting, diarrhea per the patient's daughter. Patient did undergo a partial colectomy due to her Crohn's disease. Daughter also reports a decrease in appetite and fluid intake. Patient is supposed to be administering IV fluids through her port but daughter reports that the patient thinks that all of the fluids are contaminated. TRAVEL OUTSIDE OF THE [place] IN LAST 30 DAYS: No - HPI Onset: Other Onset/Duration: Gradual, Persistent Quality of pain: Sharp Severity: Mild Pain Level: 1 Associated symptoms: Nausea, Other - Hematuria. denies: Chest pain, Diarrhea, Fever, Vomiting Exacerbated by: Denies Relieved by: Denies Similar symptoms previously: No Recently seen / treated by doctor: Yes - Related Data Allergies/Adverse Reactions: No Known Allergies Allergy (Verified 01/01/19 22:14) Past Medical History - General Information source: Patient, Relative, [facility] Records Cannot obtain history due to: Dementia - Social History Smoking Status: Current Every Day Smoker Cigarette use (# per day): Yes - 10 Smoking Education Provided: Yes - Smoking cessation counseling was provided for 4 minutes at the bedside Frequency of alcohol use: None Drug Abuse: None Lives with: Family Family History: Reviewed & Not Pertinent Patient has suicidal ideation: No Patient has homicidal ideation: No - Past Medical History Cardiac Medical History: Reports: Hx Hypercholesterolemia, Hx Hypertension Denies: Hx Coronary Artery Disease, Hx Heart Attack Pulmonary Medical History: Denies: Hx Asthma, Hx Bronchitis, Hx COPD, Hx Pneumonia Neurological Medical History: Denies: Hx Cerebrovascular Accident, Hx Seizures Renal/ Medical History: Reports: Hx Renal Insufficiency. Denies: Hx Peritoneal Dialysis GI Medical History: Reports: Hx Crohn's Disease, Hx Gastroesophageal Reflux Disease Musculoskeletal Medical History: Reports Hx Arthritis Psychiatric Medical History: Reports: Hx Anxiety, Hx Depression Past Surgical History: Reports: Hx Bowel Surgery - Colectomy for Crohn's disease, colostomy, Hx Colostomy, Hx Hysterectomy, Hx Ileostomy - Immunizations Hx Diphtheria, Pertussis, Tetanus Vaccination: Yes Hx Pneumococcal Vaccination: 05/25/18 Review of Systems - Review of Systems Notes: REVIEW OF SYSTEMS: CONSTITUTIONAL : Denies fever, chills, or sweats. Denies recent illness. Denies weight loss, recent hospitalizations. EENT: Denies visual changes, eye pain. Denies sore throat, oral lesions, difficulty swallowing. CARDIOVASCULAR: Denies chest pain. Denies palpitations. Denies lower extremity edema. RESPIRATORY: Denies cough. Denies shortness of breath, wheezing. GASTROINTESTINAL: Denies abdominal distention. Denies vomiting, or diarrhea. Denies blood in vomitus, stools, or per rectum. Denies black, tarry stools. Denies constipation. GENITOURINARY: Denies difficulty urinating, painful urination, frequency, or vaginal discharge. MUSCULOSKELETAL: Denies back or neck pain or stiffness. Denies joint pain or swelling. SKIN: Denies rash, lesions or sores. HEMATOLOGIC : Denies easy bruising or bleeding. LYMPHATIC: Denies swollen glands. NEUROLOGICAL: Denies confusion or altered mental status. Denies loss of consciousness. Denies dizziness or lightheadedness. Denies headache. Denies weakness or paralysis. Denies problems difficulty with ambulation, slurred speech. Denies sensory loss, numbness, or tingling. Denies seizures. PSYCHIATRIC: Denies anxiety or stress. Denies depression, suicidal ideation, or homicidal ideation. Denies visual or auditory hallucinations. Physical Exam - Vital signs Vitals: BP 92/70 L 01/01/19 22:04 - Notes Notes: PHYSICAL EXAMINATION: GENERAL: Frail, cachectic, no distress HEAD: Atraumatic, normocephalic. EYES: Pupils equal round and reactive to light, extraocular movements intact, conjunctiva are normal. ENT: Nares patent, oropharynx clear without exudates. Moist mucous membranes. NECK: Normal range of motion, supple without lymphadenopathy LUNGS: Breath sounds clear to auscultation bilaterally and equal. Mild expiratory wheezing. No increased work of breathing. HEART: Tachycardic, regular rhythm without murmurs ABDOMEN: Soft, nontender, nondistended abdomen. No guarding, no rebound. No masses appreciated. Colostomy in place Female : No vaginal bleeding noted Musculoskeletal: Normal range of motion, no pitting or edema. No cyanosis. NEUROLOGICAL: Cranial nerves grossly intact. Normal speech, normal gait. Normal sensory, motor exams PSYCH: Normal mood, normal affect. SKIN: Warm, Dry, normal turgor, no rashes or lesions noted. Course - Re-evaluation Re-evalutation: Laboratory 01/01/19 01/01/19 01/01/19 22:19 22:19 22:19 WBC 10.8 H RBC 5.25 Hgb 15.1 Hct 46.2 MCV 88 MCH 28.8 MCHC 32.8 RDW 15.7 H Plt Count 206 Seg Neutrophils % 74.6 Lymphocytes % 15.8 Monocytes % 7.3 Eosinophils % 1.8 Basophils % 0.5 Absolute Neutrophils 8.1 Absolute Lymphocytes 1.7 Absolute Monocytes 0.8 Absolute Eosinophils 0.2 Absolute Basophils 0.1 PT 13.9 INR 1.07 APTT 25.7 Sodium 130.4 L Potassium 4.9 Chloride 82 L Carbon Dioxide 30 Anion Gap 18 BUN 89 H Creatinine 4.01 H Est GFR ( Amer) 13 L Est GFR (Non-Af Amer) 11 L Glucose 144 H Lactic Acid Calcium 10.0 Total Bilirubin 0.9 Direct Bilirubin 0.5 H Neonat Total Bilirubin Not Reportable Neonat Direct Bilirubin Not Reportable Neonat Indirect Bili Not Reportable AST 25 ALT 13 Alkaline Phosphatase 120 Troponin I Total Protein 7.8 Albumin 4.3 Urine Color Urine Appearance Urine pH Ur Specific [place] Urine Protein Urine Glucose (UA) Urine Ketones Urine Blood Urine Nitrite Urine Bilirubin Urine Urobilinogen Ur Leukocyte Esterase Urine WBC (Auto) Urine RBC (Auto) Urine Bacteria (Auto) Urine WBC Clumps Urine Mucus (Auto) Urine Ascorbic Acid 01/01/19 01/01/19 01/01/19 22:19 22:19 22:37 WBC RBC Hgb Hct MCV MCH MCHC RDW Plt Count Seg Neutrophils % Lymphocytes % Monocytes % Eosinophils % Basophils % Absolute Neutrophils Absolute Lymphocytes Absolute Monocytes Absolute Eosinophils Absolute Basophils PT INR APTT Sodium Potassium Chloride Carbon Dioxide Anion Gap BUN Creatinine Est GFR ( Amer) Est GFR (Non-Af Amer) Glucose Lactic Acid 2.7 H Calcium Total Bilirubin Direct Bilirubin Neonat Total Bilirubin Neonat Direct Bilirubin Neonat Indirect Bili AST ALT Alkaline Phosphatase Troponin I 0.061 Total Protein Albumin Urine Color ADRY Urine Appearance TURBID Urine pH 6.0 Ur Specific [place] 1.015 Urine Protein 100 H Urine Glucose (UA) NEGATIVE Urine Ketones NEGATIVE Urine Blood LARGE H Urine Nitrite NEGATIVE Urine Bilirubin NEGATIVE Urine Urobilinogen NEGATIVE Ur Leukocyte Esterase MODERATE H Urine WBC (Auto) >182 Urine RBC (Auto) >182 Urine Bacteria (Auto) 3+ Urine WBC Clumps MANY Urine Mucus (Auto) MANY Urine Ascorbic Acid NEGATIVE Abdomen/Pelvis CT 01/01/19 22:37 IMPRESSION: Emphysematous cystitis. Temp Pulse Resp BP Pulse Ox 97 F L 83 20 104/63 100 01/01/19 22:30 01/01/19 22:08 01/02/19 00:00 01/02/19 00:31 01/02/19 00:31 01/01/19 23:06 83-year-old female with dementia presents with her daughter is concerned for hematuria and lower abdominal pain. Upon arrival patient is tachycardic, hypotensive. She is frail, cachectic and admits to not eating or drinking for several weeks. Daughter also reports that the patient refuses to infuse her fluids through her port because she believes they are contaminated. Patient declining any pain medication or nausea medication at this time. 01/02/19 00:43 I did speak to Dr. Willard the patient's primary care physician who recommends either transfer to [facility] for urology consult or admission to [facility] for comfort care measures. After speaking to the daughter and the patient they would like to be transferred to [facility] at this time. Patient was administered vancomycin, Zosyn. 01/02/19 01:08 I did speak to the hospitalist at [facility] who states that he will talk to nephrology and urology and call me back regarding transfer. 01/02/19 01:[address] Deras urologist on-call at [facility] who was able to review the patient's CAT scan. He states the only drainage the patient needs is a Meek catheter and broad-spectrum antibiotics. I did speak to Dr. Willard again who has agreed to admit the patient to the medical floor. - Vital Signs Vital signs: Temp Pulse Resp BP Pulse Ox 98.3 F 94 15 85/43 L 95 01/02/19 04:09 01/02/19 04:09 01/02/19 04:09 01/02/19 04:09 01/02/19 04:09 - Laboratory Result Diagrams: 01/01/19 22:19 01/01/19 22:19 Laboratory results interpreted by me: 01/01/19 01/01/19 01/01/19 22:19 22:19 22:19 WBC 10.8 H RDW 15.7 H Sodium 130.4 L Chloride 82 L BUN 89 H Creatinine 4.01 H Est GFR ( Amer) 13 L Est GFR (Non-Af Amer) 11 L Glucose 144 H Lactic Acid 2.7 H Direct Bilirubin 0.5 H Urine Protein Urine Blood Ur Leukocyte Esterase 01/01/19 22:37 WBC RDW Sodium Chloride BUN Creatinine Est GFR ( Amer) Est GFR (Non-Af Amer) Glucose Lactic Acid Direct Bilirubin Urine Protein 100 H Urine Blood LARGE H Ur Leukocyte Esterase MODERATE H - Diagnostic Test Radiology reviewed: Image reviewed, Reports reviewed - EKG Interpretation by Me EKG shows normal: Sinus rhythm Rate: Normal, Tachycardia Rhythm: NSR [place]/QRS: LAHB/LAFB Voltage: Consistant with LVH When compared to previous EKG there are: No significant change Discharge - Discharge Clinical Impression: Emphysematous cystitis Acute renal failure Qualifiers: Acute renal failure type: unspecified Qualified Code(s): N17.9 - Acute kidney failure, unspecified Failure to thrive Qualifiers: Failure to thrive age range: in adult Qualified Code(s): R62.7 - Adult failure to thrive Hypotension Qualifiers: Hypotension type: unspecified hypotension type Qualified Code(s): I95.9 - Hypotension, unspecified Dementia Qualifiers: Dementia type: unspecified type Dementia behavioral disturbance: with behavi oral disturbance Qualified Code(s): F03.91 - Unspecified dementia with beha vioral disturbance Abdominal pain Qualifiers: Abdominal location: lower abdomen, unspecified Qualified Code(s): R10.30 - Lo wer abdominal pain, unspecified Condition: Critical Disposition: ADMITTED INPATIENT Admitting Provider: Willard Unit Admitted: Medical Floor
--- NOTE | 2019-01-01 23:46 | RADIOLOGY REPORT (SQ) ---
CLINICAL HISTORY: flank pain COMPARISON: 12/06/2013. TECHNIQUE: CT ABDOMEN PELVIS WITHOUT IV CONTRAST on 01/01/2019 10:37 PM CDT This exam was performed according to our departmental dose-optimization program, which includes automated exposure control, adjustment of the mA and/or kV according to patient size and/or use of iterative reconstruction technique. FINDINGS: Lower lungs are clear. Abdomen: The liver is normal in appearance. There is no biliary dilatation. Gallbladder is not well seen. The pancreas and spleen are normal in appearance. The adrenal glands and kidneys are unremarkable. Abdominal aorta is densely calcified without aneurysm. There is a left lower quadrant ostomy present. There is no free air. There is no retroperitoneal adenopathy. Pelvis: There is no bowel obstruction. Urinary bladder contains large amount of air as well as extensive air within its wall. There is no free fluid. Appendix is not seen. Probable hysterectomy was performed. Skeleton: There are no acute osseous findings. No suspicious bony lesions. IMPRESSION: Emphysematous cystitis.
[2019-01-02] MEDS ORDERED: VANCOMYCIN HCL INJ 1000 MG VIAL IV ONE (00:01)
[2019-01-02] MEDS ORDERED: PIPERACILLIN/TAZOBACTAM 3.375 GM VIAL IV ONE (00:03)
[2019-01-02] MEDS ORDERED: ONDANSETRON HCL INJ/PF 4 MG/2 ML SDV IV PRN (01:16)
[2019-01-02] MEDS ORDERED: ACETAMINOPHEN 325 MG TABLET PO PRN (01:16)
[2019-01-02] MEDS ORDERED: CEFEPIME 1 GM/D5W RTU 1 GM/50 ML RTUPB IV ONE ×2 (01:17→02:30)
--- NOTE | 2019-01-02 03:40 | PDOC H&P ---
History of Present Illness Admission Date/PCP: 01/02/19 01:27 ZAY TAYLOR MD Patient complains of: Vaginal bleeding lower abdominal pain History of Present Illness: FREDRICK BATISTA is a 83 year old female This is a 82-year-old female's with the significant dementia currently worsening pretty much patient is refused for the medications refused for the food several ER visit in my office visit history of the Crohn's disease with a chronically required IV fluid due to the high output of ileostomy [facility] the [facility] and local GI Dr. Echevarria with the history of the chronic kidney disease and electrolyte imbalance due to the high ileostomy output brought to the emergency departments with the noticed some blood in the urine one day ago. She stated her mother had been complaining of lower abdominal and right flank pain Patient is alert awake oriented x2 as usual her normal state Patient having no fever no vomiting no diarrhea Patient's was refusing the IV fluid recently and refusing to eating the food and according to the daughter patient start somebody put something inside Emergency department patient's found to be acute renal failure and also CT scan of the abdomen and pelvis suggest pneumocystis cystitis in the ER physician discussed with the Pennie Gavin and he basically suggest that put the Meek catheter and broad-spectrum antibiotic and no need to do any further evaluations discuss with the daughter regarding the patient's current conditions and pretty much they want to travel to the comfort care and DNR/DNI due to the multiple comor bidity with the worsening the patient's dementia's I think is appropriate for her at this point swelling is DNR/DNI Past Medical History Cardiac Medical History: Reports: Hyperlipidema, Hypertension Denies: Coronary Artery Disease, Myocardial Infarction Pulmonary Medical History: Denies: Asthma, Bronchitis, Chronic Obstructive Pulmonary Disease (COPD), Pneumonia Neurological Medical History: Denies: Seizures GI Medical History: Reports: Crohn's Disease, Gastroesophageal Reflux Disease Musculoskeltal Medical History: Reports: Arthritis Psychiatric Medical History: Reports: Depression Hematology: Reports: Anemia Past Surgical History Past Surgical History: Reports: Colostomy, Hysterectomy, Ileostomy Social History Information Source: Patient Lives with: Family Smoking Status: Current Every Day Smoker Frequency of Alcohol Use: None Hx Recreational Drug Use: No Drugs: None Hx Prescription Drug Abuse: No Family History Family History: Reviewed & Not Pertinent Parental Family History Reviewed: No Children Family History Reviewed: No Sibling(s) Family History Reviewed.: No Medication/Allergy Home Medications: Alprazolam [Xanax 0.25 mg Tablet] 0.25 mg PO DAILY PRN #30 01/09/16 Magnesium Oxide [Mag-Ox 400 mg Tablet] 2 tab PO BID #60 tab 03/25/16 Meclizine HCl 12.5 mg PO Q8H PRN #10 tablet 09/13/17 Calcium/Magnesium/Vit D3 [Calcium 500 mg Tablet] 1 each PO BID 08/24/18 Ferrous Sulfate [Iron] 325 mg PO BID 08/24/18 Omeprazole 20 mg PO DAILY 08/24/18 Cephalexin Monohydrate [Keflex 500 mg Capsule] 500 mg PO Q6H 7 Days capsule 10/23/18 Buspirone HCl [Buspar 5 mg Tablet] 1 tab PO BID #20 tab 12/01/18 Divalproex Sodium [Depakote Er 250 Mg Tablet] 250 mg PO BID #20 tab.sr.24h 12/01/18 Sulfamethoxazole/Trimethoprim [Bactrim Ds Tablet] 1 each PO BID #10 tablet 12/03/18 Clonidine [Catapres-Tts 1 (0.1 mg/24 Hr) Transderm Patch] 1 each TD QAM #7 patch.tdwk 12/16/18 Divalproex Sodium [Depakote Er 250 Mg Tablet] 250 mg PO BID #14 tab.sr.24h 12/16/18 Risperidone [Risperdal 0.25 Mg Tablet] 0.25 mg PO BID #14 tablet 12/16/18 Allergies/Adverse Reactions: No Known Allergies Allergy (Verified 01/01/19 22:14) Review of Systems ROS unobtainable: Due to mental status All systems: reviewed and no additional remarkable complaints except as stated Physical Exam Vital Signs: Temp Pulse Resp BP Pulse Ox 98 F 83 15 92/57 L 99 01/02/19 01:01 01/01/19 22:08 01/02/19 00:50 01/02/19 02:45 01/02/19 02:45 Intake & Output 12/31/18 01/01/19 01/02/19 06:59 06:59 06:59 Intake Total 1000 Balance 1000 Weight 39.1 kg General appearance: PRESENT: no acute distress, thin Head exam: PRESENT: atraumatic, normocephalic Eye exam: PRESENT: conjunctiva pink, EOMI, PERRLA. ABSENT: scleral icterus Ear exam: PRESENT: normal external ear exam Mouth exam: PRESENT: moist, tongue midline Neck exam: PRESENT: full ROM. ABSENT: carotid bruit, JVD, lymphadenopathy, thyromegaly Respiratory exam: PRESENT: clear to auscultation eduard Cardiovascular exam: PRESENT: RRR. ABSENT: diastolic murmur, rubs, systolic murmur Pulses: PRESENT: normal dorsalis pedis pul, +2 pedal pulses bilateral Vascular exam: PRESENT: normal capillary refill GI/Abdominal exam: PRESENT: normal bowel sounds, soft. ABSENT: distended, guarding, mass, organolmegaly, rebound, tenderness Additonal comments: Ileostomy bag is present Rectal exam: PRESENT: deferred Neurological exam: PRESENT: alert, awake, oriented to person. ABSENT: motor sensory deficit Psychiatric exam: PRESENT: appropriate affect, normal mood. ABSENT: homicidal ideation, suicidal ideation Skin exam: PRESENT: dry, intact, warm. ABSENT: cyanosis, rash Results Laboratory Results: 01/01/19 22:19 01/01/19 22:19 01/01/19 01/01/19 01/01/19 22:19 22:19 22:19 WBC 10.8 H RBC 5.25 Hgb 15.1 Hct 46.2 MCV 88 MCH 28.8 MCHC 32.8 RDW 15.7 H Plt Count 206 Seg Neutrophils % 74.6 Lymphocytes % 15.8 Monocytes % 7.3 Eosinophils % 1.8 Basophils % 0.5 Absolute Neutrophils 8.1 Absolute Lymphocytes 1.7 Absolute Monocytes 0.8 Absolute Eosinophils 0.2 Absolute Basophils 0.1 Sodium 130.4 L Potassium 4.9 Chloride 82 L Carbon Dioxide 30 Anion Gap 18 BUN 89 H Creatinine 4.01 H Est GFR ( Amer) 13 L Est GFR (Non-Af Amer) 11 L Glucose 144 H Lactic Acid 2.7 H Calcium 10.0 Total Bilirubin 0.9 AST 25 Alkaline Phosphatase 120 Total Protein 7.8 Albumin 4.3 Urine Color Urine Appearance Urine pH Ur Specific [place] Urine Protein Urine Glucose (UA) Urine Ketones Urine Blood Urine Nitrite Ur Leukocyte Esterase Urine WBC (Auto) Urine RBC (Auto) 01/01/19 22:37 WBC RBC Hgb Hct MCV MCH MCHC RDW Plt Count Seg Neutrophils % Lymphocytes % Monocytes % Eosinophils % Basophils % Absolute Neutrophils Absolute Lymphocytes Absolute Monocytes Absolute Eosinophils Absolute Basophils Sodium Potassium Chloride Carbon Dioxide Anion Gap BUN Creatinine Est GFR ( Amer) Est GFR (Non-Af Amer) Glucose Lactic Acid Calcium Total Bilirubin AST Alkaline Phosphatase Total Protein Albumin Urine Color ADRY Urine Appearance TURBID Urine pH 6.0 Ur Specific [place] 1.015 Urine Protein 100 H Urine Glucose (UA) NEGATIVE Urine Ketones NEGATIVE Urine Blood LARGE H Urine Nitrite NEGATIVE Ur Leukocyte Esterase MODERATE H Urine WBC (Auto) >182 Urine RBC (Auto) >182 01/01/19 22:19 Troponin I 0.061 Impressions: Abdomen/Pelvis CT 01/01/19 22:37 IMPRESSION: Emphysematous cystitis. Assessment & Plan - Diagnosis (1) Acute renal failure Qualifiers: Acute renal failure type: unspecified Qualified Code(s): N17.9 - Acute kidney failure, unspecified Is this a current diagnosis for this admission?: Yes Plan: Continues to IV antibiotics and IV fluid (2) Emphysematous cystitis Is this a current diagnosis for this admission?: Yes Plan: There is a Meek catheter and IV antibiotic (3) Abdominal pain Qualifiers: Abdominal location: lower abdomen, unspecified Qualified Code(s): R10.30 - Lower abdominal pain, unspecified Is this a current diagnosis for this admission?: Yes Plan: To the acute cystitis as per discussed with the urology suggest a Meek catheter and IV antibiotic (4) Crohns disease Qualifiers: Gastrointestinal tract location: unspecified location Digestive disease complication type: other complication Qualified Code(s): K50.918 - Crohn's disease, unspecified, with other complication Is this a current diagnosis for this admission?: Yes (5) Anemia Qualifiers: Anemia type: iron deficiency Is this a current diagnosis for this admission?: Yes (6) Dementia Qualifiers: Dementia type: unspecified type Dementia behavioral disturbance: with behavioral disturbance Qualified Code(s): F03.91 - Unspecified dementia with behavioral disturbance Is this a current diagnosis for this admission?: Yes Plan: The worsening the dementia's in the last 6-month (7) Failure to thrive Qualifiers: Failure to thrive age range: in adult Qualified Code(s): R62.7 - Adult failure to thrive Is this a current diagnosis for this admission?: Yes (8) Hypotension Qualifiers: Hypotension type: unspecified hypotension type Qualified Code(s): I95.9 - Hypotension, unspecified Is this a current diagnosis for this admission?: Yes Plan: The sepsis (9) Tachycardia Is this a current diagnosis for this admission?: Yes - Time Time Spent: 30 to 50 Minutes Medications reviewed and adjusted accordingly: Yes Anticipated discharge: Home Within: Other - Inpatient Certification Based on my medical assessment, after consideration of the patient's comorbidities, presenting symptoms, or acuity I expect that the services needed warrant INPATIENT care.: Yes I certify that my determination is in accordance with my understanding of Medicare's requirements for reasonable and necessary INPATIENT services [42 CFR 412.3e].: Yes Medical Necessity: Significant Comorbidiites Make Outpatient Treatment Too Risky, Need For IV Fluids, Need for IV Antibiotics 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
[2019-01-02] MEDS: ENOXAPARIN SODIUM INJ 30 MG/0.3 ML DISP.SYRIN SUBCUT SCH (09:26)
[2019-01-02] MEDS: NORMAL SALINE 1000 ML 1,000 ML IV PRN ×2 (09:26→21:20)
[2019-01-02] MEDS: FAMOTIDINE INJ/PF 20 MG/2 ML SDV IV SCH ×2 (09:26→21:20)
--- NOTE | 2019-01-02 09:32 | EKG REPORT ---
SEVERITY:- ABNORMAL ECG - SINUS RHYTHM ATRIAL PREMATURE COMPLEX LEFT ANTERIOR FASCICULAR BLOCK LEFT VENTRICULAR HYPERTROPHY : Confirmed by: Andrea Painter MD 02-Jan-2019 09:30:30
[2019-01-02] MEDS: CEFEPIME 1 GM/D5W RTU 1 GM/50 ML RTUPB IV SCH (17:31)
[2019-01-03] MEDS: CEFEPIME 1 GM/D5W RTU 1 GM/50 ML RTUPB IV SCH (05:03)
[2019-01-03] MEDS: NORMAL SALINE 1000 ML 1,000 ML IV PRN ×2 (05:05→20:41)
[2019-01-03 05:36] LABS: ABSOLUTE BASOPHILS # (AUTO) 0.1 10^3/uL (0.0-0.2); ABSOLUTE EOSINOPHILS # (AUTO) 0.2 10^3/uL (0.0-0.6); ABSOLUTE LYMPHOCYTES (AUTO) 1.2 10^3/uL (0.5-4.7); ABSOLUTE MONOCYTES (AUTO) 0.7 10^3/uL (0.1-1.4); ABSOLUTE NEUT (AUTO) 5.1 10^3/uL (1.7-8.2); EOSINOPHILS % (AUTO) 2.5 % (0-6); HEMATOCRIT 31.5 % (36.0-47.0); MEAN CORPUSCULAR HEMOGLOBIN 29.1 pg (27.0-33.4); MEAN CORPUSCULAR HGB CONC 33.2 g/dL (32.0-36.0); MEAN CORPUSCULAR VOLUME 88 fl (80-97); MONOCYTES % (AUTO) 9.5 % (3-13); PLATELET COUNT 119 10^3/uL (150-450); RED CELL DISTRIBUTION WIDTH 15.6 % (11.5-14.0); TOTAL CELLS COUNTED % (AUTO) 100 %; WHITE BLOOD COUNT 7.3 10^3/uL (4.0-10.5)
[2019-01-03 05:38] LABS: HEMOGLOBIN 10.5 g/dL (12.0-15.5)
[2019-01-03 05:44] LABS: ANION GAP 5 (5-19); BLOOD UREA NITROGEN 57 mg/dL (7-20); CALCIUM 7.5 mg/dL (8.4-10.2); CARBON DIOXIDE 29 mmol/L (22-30); CHLORIDE 101 mmol/L (98-107); GLUCOSE 84 mg/dL (75-110); POTASSIUM 3.9 mmol/L (3.6-5.0)
[2019-01-03] MEDS: MAGNESIUM SULFATE/D5W 1 GM/100 ML RTUPB IV SCH ×2 (08:48→10:09)
--- NOTE | 2019-01-03 09:03 | PDOC PROGRESS REPORT ---
Subjective Progress Note for:: 01/03/19 Subjective:: Patient is feeling much better Patient's urine cultures grew Klebsiella which is sensitive to the cefepime Patient's kidney function is also improving Is alert awake answering the questions very appropriately still have ongoing dementia Reason For Visit: SEPSIS, RENAL FAILURE Physical Exam Vital Signs: Temp Pulse Resp BP Pulse Ox 98.7 F 79 18 98/52 L 94 01/02/19 23:38 01/02/19 23:38 01/02/19 23:38 01/02/19 23:38 01/02/19 23:38 Intake & Output 01/02/19 01/03/19 01/04/19 06:59 06:59 06:59 Intake Total 1050 3101 Output Total 600 2450 Balance 450 651 Weight 45.3 kg 47.9 kg General appearance: PRESENT: no acute distress, well-developed, well-nourished Head exam: PRESENT: atraumatic, normocephalic Eye exam: PRESENT: conjunctiva pink, EOMI, PERRLA. ABSENT: scleral icterus Ear exam: PRESENT: normal external ear exam Mouth exam: PRESENT: moist, tongue midline Neck exam: PRESENT: full ROM. ABSENT: carotid bruit, JVD, lymphadenopathy, thyromegaly Respiratory exam: PRESENT: clear to auscultation eduard Cardiovascular exam: PRESENT: RRR. ABSENT: diastolic murmur, rubs, systolic murmur Pulses: PRESENT: normal dorsalis pedis pul, +2 pedal pulses bilateral Vascular exam: PRESENT: normal capillary refill GI/Abdominal exam: PRESENT: normal bowel sounds, soft. ABSENT: distended, guarding, mass, organolmegaly, rebound, tenderness Additonal comments: Ileostomy is working Rectal exam: PRESENT: deferred Neurological exam: PRESENT: alert, awake, oriented to person, oriented to place. ABSENT: motor sensory deficit Psychiatric exam: PRESENT: appropriate affect, normal mood. ABSENT: homicidal ideation, suicidal ideation Skin exam: PRESENT: dry, intact, warm. ABSENT: cyanosis, rash Results Laboratory Results: 01/03/19 05:20 01/03/19 05:20 01/03/19 01/03/19 05:20 05:20 WBC 7.3 RBC 3.60 L Hgb 10.5 L D Hct 31.5 L MCV 88 MCH 29.1 MCHC 33.2 RDW 15.6 H Plt Count 119 L Seg Neutrophils % 70.0 Lymphocytes % 17.0 Monocytes % 9.5 Eosinophils % 2.5 Basophils % 1.0 Absolute Neutrophils 5.1 Absolute Lymphocytes 1.2 Absolute Monocytes 0.7 Absolute Eosinophils 0.2 Absolute Basophils 0.1 Sodium 135.2 L Potassium 3.9 Chloride 101 Carbon Dioxide 29 Anion Gap 5 BUN 57 H Creatinine 1.93 H Est GFR ( Amer) 30 L Est GFR (Non-Af Amer) 25 L Glucose 84 Calcium 7.5 L Magnesium 1.3 L 01/01/19 22:37 Meek Catheter Urine Culture - Final Klebsiella Pneumoniae 01/01/19 22:19 Troponin I 0.061 Impressions: Abdomen/Pelvis CT 01/01/19 22:37 IMPRESSION: Emphysematous cystitis. Assessment & Plan - Diagnosis (1) Acute renal failure Qualifiers: Acute renal failure type: unspecified Qualified Code(s): N17.9 - Acute kidney failure, unspecified Is this a current diagnosis for this admission?: Yes Plan: Continues to IV fluid (2) Emphysematous cystitis Is this a current diagnosis for this admission?: Yes Plan: Continues to IV antibiotic (3) Abdominal pain Qualifiers: Abdominal location: lower abdomen, unspecified Qualified Code(s): R10.30 - Lower abdominal pain, unspecified Is this a current diagnosis for this admission?: Yes Plan: Currently all resolved (4) Crohns disease Qualifiers: Gastrointestinal tract location: unspecified location Digestive disease complication type: other complication Qualified Code(s): K50.918 - Crohn's disease, unspecified, with other complication Is this a current diagnosis for this admission?: Yes (5) Anemia Qualifiers: Anemia type: iron deficiency Is this a current diagnosis for this admission?: Yes Plan: Currently all stable (6) Dementia Qualifiers: Dementia type: unspecified type Dementia behavioral disturbance: with behavioral disturbance Qualified Code(s): F03.91 - Unspecified dementia with behavioral disturbance Is this a current diagnosis for this admission?: Yes Plan: Start the patient on Namenda 5 mg p.o. daily (7) Failure to thrive Qualifiers: Failure to thrive age range: in adult Qualified Code(s): R62.7 - Adult failure to thrive Is this a current diagnosis for this admission?: Yes (8) Hypotension Qualifiers: Hypotension type: unspecified hypotension type Qualified Code(s): I95.9 - Hypotension, unspecified Is this a current diagnosis for this admission?: Yes Plan: Currently all resolved (9) Tachycardia Is this a current diagnosis for this admission?: Yes - Time Time Spent with patient: 15-24 minutes Medications reviewed and adjusted accordingly: Yes Anticipated discharge: SNF Within: Other - Plan Summary Plan Summary: Continues to IV antibiotics and continues to IV fluids plan to discharge to rehab facility
[2019-01-03] MEDS: ENOXAPARIN SODIUM INJ 30 MG/0.3 ML DISP.SYRIN SUBCUT SCH (10:09)
[2019-01-03] MEDS: FAMOTIDINE INJ/PF 20 MG/2 ML SDV IV SCH (10:09)
[2019-01-03] MEDS ORDERED: ACETAMINOPHEN 325 MG TABLET PO PRN (12:46)
[2019-01-03] MEDS ORDERED: ONDANSETRON HCL INJ/PF 4 MG/2 ML SDV IV PRN (13:00)
[2019-01-04] MEDS: CEFEPIME HCL 2 GM in DEXTROSE 5%-WATER 50 ML IV SCH (05:24)
[2019-01-04] MEDS: NORMAL SALINE 1000 ML 1,000 ML IV PRN (05:24)
[2019-01-04 06:16] LABS: ABSOLUTE BASOPHILS # (AUTO) 0.1 10^3/uL (0.0-0.2); ABSOLUTE EOSINOPHILS # (AUTO) 0.3 10^3/uL (0.0-0.6); ABSOLUTE LYMPHOCYTES (AUTO) 1.3 10^3/uL (0.5-4.7); ABSOLUTE MONOCYTES (AUTO) 0.6 10^3/uL (0.1-1.4); ABSOLUTE NEUT (AUTO) 3.7 10^3/uL (1.7-8.2); EOSINOPHILS % (AUTO) 4.9 % (0-6); HEMOGLOBIN 10.2 g/dL (12.0-15.5); LYMPHOCYTES % (AUTO) 21.2 % (13-45); MEAN CORPUSCULAR HGB CONC 32.8 g/dL (32.0-36.0); MEAN CORPUSCULAR VOLUME 88 fl (80-97); MONOCYTES % (AUTO) 10.5 % (3-13); PLATELET COUNT 134 10^3/uL (150-450); RED BLOOD COUNT 3.52 10^6/uL (3.72-5.28); RED CELL DISTRIBUTION WIDTH 15.4 % (11.5-14.0); SEGMENTED NEUTROPHILS % (AUTO) 62.4 % (42-78); TOTAL CELLS COUNTED % (AUTO) 100 %
[2019-01-04 06:38] LABS: BLOOD UREA NITROGEN 30 mg/dL (7-20); POTASSIUM 3.4 mmol/L (3.6-5.0)
[2019-01-04 06:43] LABS: CARBON DIOXIDE 24 mmol/L (22-30); CHLORIDE 111 mmol/L (98-107)
[2019-01-04 06:46] LABS: GLUCOSE 68 mg/dL (75-110)
[2019-01-04 06:47] LABS: ANION GAP 4 (5-19)
[2019-01-04 06:48] LABS: CALCIUM 6.5 mg/dL (8.4-10.2)
[2019-01-04] MEDS ORDERED: CALCIUM GLUCONATE 1,000 MG in DEXTROSE 5%-WATER 50 ML IV ONE (06:57)
[2019-01-04] MEDS ORDERED: POTASSIUM CHLORIDE 20 MEQ PACKET PO ONE (07:15)
[2019-01-04] MEDS ORDERED: CALCIUM GLUCONATE 1000 MG/10 ML INJ IV ONE (07:30)
[2019-01-04] MEDS ORDERED: NORMAL SALINE 1000 ML 1,000 ML IV PRN (08:41)
--- NOTE | 2019-01-04 08:58 | PDOC PROGRESS REPORT ---
Subjective Progress Note for:: 01/04/19 Subjective:: Patient is feeling much better Patient's urine cultures grew Klebsiella which is sensitive to the cefepime Patient's kidney function is also improving Is alert awake answering the questions very appropriately still have ongoing dementia Reason For Visit: SEPSIS, RENAL FAILURE Physical Exam Vital Signs: Temp Pulse Resp BP Pulse Ox 97.8 F 69 18 114/48 L 97 01/04/19 08:00 01/04/19 08:00 01/04/19 08:00 01/04/19 08:00 01/04/19 08:00 Intake & Output 01/03/19 01/04/19 01/05/19 06:59 06:59 06:59 Intake Total 3101 2250 Output Total 2450 1800 Balance 651 450 Weight 47.9 kg 49.6 kg General appearance: PRESENT: no acute distress, well-developed, well-nourished Head exam: PRESENT: atraumatic, normocephalic Eye exam: PRESENT: conjunctiva pink, EOMI, PERRLA. ABSENT: scleral icterus Ear exam: PRESENT: normal external ear exam Mouth exam: PRESENT: moist, tongue midline Neck exam: PRESENT: full ROM. ABSENT: carotid bruit, JVD, lymphadenopathy, thyromegaly Respiratory exam: PRESENT: clear to auscultation eduard Cardiovascular exam: PRESENT: RRR. ABSENT: diastolic murmur, rubs, systolic murmur Pulses: PRESENT: normal dorsalis pedis pul, +2 pedal pulses bilateral Vascular exam: PRESENT: normal capillary refill GI/Abdominal exam: PRESENT: normal bowel sounds, soft. ABSENT: distended, guarding, mass, organolmegaly, rebound, tenderness Rectal exam: PRESENT: deferred Neurological exam: PRESENT: alert, awake, oriented to person, oriented to place, oriented to time, oriented to situation, CN II-XII grossly intact. ABSENT: motor sensory deficit Psychiatric exam: PRESENT: appropriate affect, normal mood. ABSENT: homicidal ideation, suicidal ideation Skin exam: PRESENT: dry, intact, warm. ABSENT: cyanosis, rash Results Laboratory Results: 01/04/19 05:30 01/04/19 05:30 01/04/19 01/04/19 05:30 05:30 WBC 6.0 RBC 3.52 L Hgb 10.2 L Hct 31.0 L MCV 88 MCH 29.0 MCHC 32.8 RDW 15.4 H Plt Count 134 L Seg Neutrophils % 62.4 Lymphocytes % 21.2 Monocytes % 10.5 Eosinophils % 4.9 Basophils % 1.0 Absolute Neutrophils 3.7 Absolute Lymphocytes 1.3 Absolute Monocytes 0.6 Absolute Eosinophils 0.3 Absolute Basophils 0.1 Sodium 138.5 Potassium 3.4 L Chloride 111 H Carbon Dioxide 24 Anion Gap 4 L BUN 30 H Creatinine 1.06 Est GFR ( Amer) > 60 Est GFR (Non-Af Amer) 49 L Glucose 68 L Calcium 6.5 L* Magnesium 1.5 L 01/01/19 22:37 Meek Catheter Urine Culture - Final Klebsiella Pneumoniae 01/01/19 22:19 Troponin I 0.061 Impressions: Abdomen/Pelvis CT 01/01/19 22:37 IMPRESSION: Emphysematous cystitis. Assessment & Plan - Diagnosis (1) Acute renal failure Qualifiers: Acute renal failure type: unspecified Qualified Code(s): N17.9 - Acute kidney failure, unspecified Is this a current diagnosis for this admission?: Yes Plan: Currently all resolved (2) Emphysematous cystitis Is this a current diagnosis for this admission?: Yes Plan: Repeat the CT scan (3) Abdominal pain Qualifiers: Abdominal location: lower abdomen, unspecified Qualified Code(s): R10.30 - Lower abdominal pain, unspecified Is this a current diagnosis for this admission?: Yes Plan: Currently all resolved (4) Crohns disease Qualifiers: Gastrointestinal tract location: unspecified location Digestive disease complication type: other complication Qualified Code(s): K50.918 - Crohn's disease, unspecified, with other complication Is this a current diagnosis for this admission?: Yes (5) Anemia Qualifiers: Anemia type: iron deficiency Is this a current diagnosis for this admission?: Yes Plan: Currently all stable (6) Dementia Qualifiers: Dementia type: unspecified type Dementia behavioral disturbance: with behavioral disturbance Qualified Code(s): F03.91 - Unspecified dementia with behavioral disturbance Is this a current diagnosis for this admission?: Yes Plan: Start the patient on Namenda 5 mg p.o. daily (7) Failure to thrive Qualifiers: Failure to thrive age range: in adult Qualified Code(s): R62.7 - Adult failure to thrive Is this a current diagnosis for this admission?: Yes (8) Hypotension Qualifiers: Hypotension type: unspecified hypotension type Qualified Code(s): I95.9 - Hypotension, unspecified Is this a current diagnosis for this admission?: Yes (9) Tachycardia Is this a current diagnosis for this admission?: Yes - Time Time Spent with patient: 15-24 minutes Medications reviewed and adjusted accordingly: Yes Anticipated discharge: SNF Within: within 24 hours - Plan Summary Plan Summary: Replace the calcium replace the potassium and replace the magnesium's Repeat the CT scan Reduce the IV fluid Start the Namenda 5 mg
--- NOTE | 2019-01-04 09:46 | RADIOLOGY REPORT (SQ) ---
EXAM DESCRIPTION: CT ABD/PELVIS NO ORAL OR IV COMPLETED DATE/TIME: 01/04/2019 9:05 am REASON FOR STUDY: Empyematous cystatis COMPARISON: 01/01/19 TECHNIQUE: CT scan of the abdomen and pelvis performed without intravenous or oral contrast. Images reviewed with lung, soft tissue, and bone windows. Reconstructed coronal and sagittal MPR images revi ewed. All images stored on PACS. All CT scanners at this facility use dose modulation, iterative reconstruction, and/or weight based d osing when appropriate to reduce radiation dose to as low as reasonably achievable (ALARA). [facility]: Dose Right [facility]: CareDose [facility]: Dose Right [facility]: Teradose 4D [facility]: Smart Safello RADIATION DOSE: CT Rad equipment meets quality standard of care and radiation dose reduction techniq ues were employed. CTDIvol: 3.1 mGy. DLP: 159 mGy-cm.mGy. LIMITATIONS: None. FINDINGS: LOWER CHEST: Small bilateral effusions, left greater than right with minimal left lower lo be atelectasis. NON-CONTRASTED LIVER, SPLEEN, ADRENALS: Evaluation limited by lack of IV contrast. No identified sign ificant masses. PANCREAS: No masses. No peripancreatic inflammatory changes. GALLBLADDER: Decompressed. RIGHT KIDNEY AND URETER: Assessment limited by lack of intravenous contrast. Unchanged cyst. Additi onal unchanged hyperdense lesion, likely hemorrhagic cyst. No significant calcifications. No hydr onephrosis or hydroureter. LEFT KIDNEY AND URETER: No suspicious masses. Assessment limited by lack of IV contrast. No signifi cant calcifications. No hydronephrosis or hydroureter. AORTA AND RETROPERITONEUM: Aortoiliac atherosclerosis. No aneurysm. BOWEL AND PERITONEAL CAVITY: No evidence of intestinal obstruction or focal bowel wall thickening. 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 Unchanged hyperdense material with in the rectal stump. APPENDIX: Not visualized. PELVIS, BLADDER, AND ABDOMINAL WALL:Decompressed urinary bladder with intraluminal Meek catheter. T here is decreased gas within the bladder wall. Residual scattered foci of gas within the urinary jaida dder some of which are intramural compatible with given history of emphysematous cystitis. No free p elvic fluid. BONES: No acute bony abnormality. Degenerative changes at the lower lumbar spine and pubic symphysis . Decreased osseous mineralization. OTHER: No other significant finding. IMPRESSION: 1. Decompressed urinary bladder with Meek catheter. Decreased but persistent scattere d foci of gas, some which are intramural compatible with emphysematous cystitis. 2. No evidence of new intra-abdominal/pelvic process. COMMENT: Quality ID # [id number]: Final reports with documentation of one or more dose reduction techniques (e.g., Automated exposure control, adjustment of the mA and/or kV according to patient size, use of iterative reconstruction technique) TECHNICAL DOCUMENTATION: JOB ID: [id number] [employer]- All Rights Reserved Reading location - IP/workstation name: [facility]-
[2019-01-04] MEDS: ENOXAPARIN SODIUM INJ 30 MG/0.3 ML DISP.SYRIN SUBCUT SCH (10:08)
[2019-01-04] MEDS: FAMOTIDINE INJ/PF 20 MG/2 ML SDV IV SCH (10:11)
[2019-01-04] MEDS: MEMANTINE HCL 10 MG TABLET PO SCH (10:11)
[2019-01-04] MEDS: CALCIUM CARBONATE 500 MG TABLET PO SCH ×2 (10:12→17:51)
[2019-01-04] MEDS: MAGNESIUM OXIDE 400 MG TABLET PO SCH ×3 (10:12→17:51)
--- NOTE | 2019-01-04 11:27 | PSYCHOLOGICAL NOTE ---
Psych Note - Psych Note Date seen by psych provider: 01/04/19 Time seen by psych provider: 10:55 - Chart review at 1055. Discussion with Dr. Willard at 1109. Psych Note: Reason for Consult: Family requested psychiatric consult. Patient seen by [facility] on 12/14/18 (stayed through 12/16/18) and 12/01/18 for psychosis, delusions, paranoia. At those visits daughter/elderly caregiver denied any previous MH Hx. Attempted phone call to boo Connors Ngoc ([phone]). No answer. Played phone tag (she did try to return call but [facility] team on other line, when called back she did not answer). She was the caregiver this clinician spoke to and coordinated with at previous visit. Spoke to daughter Tennille Allen ([phone]) via telephone since family requested psych evaluation. Discussed previous visits and why this does not seem MH but rather medical. She agreed. 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 Phuc MD., includes: Add Depakote DR 250MG twice a day for mood stabilization Add Buspar 5MG twice a day for anxiety/calming effect/depression/sleep If refusing medications: Can utilize Depakote Sprinkles or Liquid Add Risperdal 0.25MG twice a day for agitation/psychosis/mood stabilization Add Clonidine 0.1MG Patch every 24 hours for calming effect (if BP allows for it) Attending physicians are asked to consider to avoid prescribing benzodiazepine (e.g. Ativan, Xanax, Valium, Klonopin), antipsychotics (e.g. Haldol, Geodon, Zyprexa, Seroquel), some sleep aids (e.g. Ambien, Lunesta, Sonata), narcotic pain medications, and high-dose steroids (prednisone) as these have been known to cause and/or increased symptoms of aggression, psychosis and/or paranoia in patients with neurodegenerative processes such as dementia, Alzheimer's disease, traumatic brain injury, etc. Impression/Plan: Patient is cleared from acute psychiatric services. Her Head CT dated 12/15/18 had language consistent with neurodegenerative processes which is a medical condition. She would benefit from extermination inspector placement such as a memory care unit if family is unable to manage her in the home setting. Previous ED visits daughter/caregiver identified issues with getting patient to take prescribed medications and go to doctor appointments. Consulted with Dr. Mathis regarding the management and care of patient. Dr. Willard aware of recommendations.
[2019-01-04] MEDS: BUSPIRONE HCL 10 MG TABLET PO SCH (22:41)
[2019-01-05] MEDS: CEFEPIME HCL 2 GM in DEXTROSE 5%-WATER 50 ML IV SCH (05:29)
--- NOTE | 2019-01-05 08:34 | PDOC PROGRESS REPORT ---
Subjective Progress Note for:: 01/05/19 Subjective:: Patient is feeling much better She is denied any chest pain to than any shortness of the breath Patient CT abdomen pelvis is all stable Reason For Visit: SEPSIS, RENAL FAILURE Physical Exam Vital Signs: Temp Pulse Resp BP Pulse Ox 98.7 F 69 20 114/56 L 95 01/04/19 15:49 01/04/19 15:49 01/04/19 15:49 01/04/19 15:49 01/04/19 15:49 Intake & Output 01/04/19 01/05/19 01/06/19 06:59 06:59 06:59 Intake Total 2250 1526 Output Total 1800 1200 Balance 450 326 Weight 49.6 kg 49.7 kg General appearance: PRESENT: no acute distress, well-developed, well-nourished Head exam: PRESENT: atraumatic, normocephalic Eye exam: PRESENT: conjunctiva pink, EOMI, PERRLA. ABSENT: scleral icterus Ear exam: PRESENT: normal external ear exam Mouth exam: PRESENT: moist, tongue midline Neck exam: PRESENT: full ROM. ABSENT: carotid bruit, JVD, lymphadenopathy, thyromegaly Respiratory exam: PRESENT: clear to auscultation eduard Cardiovascular exam: PRESENT: RRR. ABSENT: diastolic murmur, rubs, systolic murmur Pulses: PRESENT: normal dorsalis pedis pul, +2 pedal pulses bilateral Vascular exam: PRESENT: normal capillary refill GI/Abdominal exam: PRESENT: normal bowel sounds, soft. ABSENT: distended, guarding, mass, organolmegaly, rebound, tenderness Rectal exam: PRESENT: deferred Neurological exam: PRESENT: alert, awake, oriented to person, oriented to place, oriented to time, oriented to situation, CN II-XII grossly intact. ABSENT: motor sensory deficit Psychiatric exam: PRESENT: appropriate affect, normal mood. ABSENT: homicidal ideation, suicidal ideation Skin exam: PRESENT: dry, intact, warm. ABSENT: cyanosis, rash Results Laboratory Results: 01/04/19 05:30 01/04/19 05:30 01/01/19 22:19 Blood Blood Culture - Final Klebsiella Pneumoniae 01/01/19 22:19 Troponin I 0.061 Impressions: Abdomen/Pelvis CT 01/04/19 00:00 IMPRESSION: 1. Decompressed urinary bladder with Meek catheter. Decreased but persistent scattered foci of gas, some which are intramural compatible with emphysematous cystitis. 2. No evidence of new intra-abdominal/pelvic process. Assessment & Plan - Diagnosis (1) Acute renal failure Qualifiers: Acute renal failure type: unspecified Qualified Code(s): N17.9 - Acute kidney failure, unspecified Is this a current diagnosis for this admission?: Yes Plan: Currently all resolved (2) Emphysematous cystitis Is this a current diagnosis for this admission?: Yes Plan: Currently all stable follow outpatient urology continues a Meek catheter (3) Abdominal pain Qualifiers: Abdominal location: lower abdomen, unspecified Qualified Code(s): R10.30 - Lower abdominal pain, unspecified Is this a current diagnosis for this admission?: Yes Plan: Currently all resolved (4) Crohns disease Qualifiers: Gastrointestinal tract location: unspecified location Digestive disease complication type: other complication Qualified Code(s): K50.918 - Crohn's disease, unspecified, with other complication Is this a current diagnosis for this admission?: Yes (5) Anemia Qualifiers: Anemia type: iron deficiency Is this a current diagnosis for this admission?: Yes Plan: Currently all stable (6) Dementia Qualifiers: Dementia type: unspecified type Dementia behavioral disturbance: with behavioral disturbance Qualified Code(s): F03.91 - Unspecified dementia with behavioral disturbance Is this a current diagnosis for this admission?: Yes (7) Failure to thrive Qualifiers: Failure to thrive age range: in adult Qualified Code(s): R62.7 - Adult f ailure to thrive Is this a current diagnosis for this admission?: Yes (8) Hypotension Qualifiers: Hypotension type: unspecified hypotension type Qualified Code(s): I95.9 - Hypotension, unspecified Is this a current diagnosis for this admission?: Yes Plan: Currently all resolved (9) Tachycardia Is this a current diagnosis for this admission?: Yes (10) Electrolyte imbalance Is this a current diagnosis for this admission?: Yes Plan: Replace all electrolytes - Time Time Spent with patient: 15-24 minutes Medications reviewed and adjusted accordingly: Yes Anticipated discharge: SNF Within: within 24 hours - Plan Summary Plan Summary: Continues to current medications
[2019-01-05] MEDS: MAGNESIUM OXIDE 400 MG TABLET PO SCH ×3 (09:59→17:19)
[2019-01-05] MEDS: DIVALPROEX SODIUM 250 MG TAB.SR.24H PO SCH (09:59)
[2019-01-05] MEDS: BUSPIRONE HCL 10 MG TABLET PO SCH ×2 (10:00→22:00)
[2019-01-05] MEDS: CALCIUM CARBONATE 500 MG TABLET PO SCH ×2 (10:00→17:19)
[2019-01-05] MEDS: MEMANTINE HCL 10 MG TABLET PO SCH (10:05)
[2019-01-05] MEDS: FAMOTIDINE INJ/PF 20 MG/2 ML SDV IV SCH ×2 (10:09→10:21)
[2019-01-05] MEDS: ENOXAPARIN SODIUM INJ 30 MG/0.3 ML DISP.SYRIN SUBCUT SCH (10:20)
[2019-01-06] MEDS: CEFEPIME HCL 2 GM in DEXTROSE 5%-WATER 50 ML IV SCH (07:58)
--- NOTE | 2019-01-06 10:42 | PDOC TRANSFER SUMMARY ---
General - Admit/Disc Date/PCP Admission Date/Primary Care Provider: 01/02/19 01:27 ZAY TAYLOR MD Discharge Date: 01/06/19 - Discharge Diagnosis (1) Acute renal failure Is this a current diagnosis for this admission?: Yes Summary: Currently all resolved (2) Emphysematous cystitis Is this a current diagnosis for this admission?: Yes Summary: Continues to p.o. antibiotics continues to Meek catheter follow urology outpatients for further evaluations (3) Abdominal pain Is this a current diagnosis for this admission?: Yes Summary: Due to the above conditions currently all resolved (4) Crohns disease Is this a current diagnosis for this admission?: Yes Summary: Patient is currently followed Dr. Echevarria (5) Anemia Is this a current diagnosis for this admission?: Yes (6) Dementia Is this a current diagnosis for this admission?: Yes Summary: Worsening the dementia's start him on Namenda 5 mg increased to the next week 10 mg (7) Failure to thrive Is this a current diagnosis for this admission?: Yes Summary: Due to the worsening the dementia's (8) Hypotension Is this a current diagnosis for this admission?: Yes (9) Tachycardia Is this a current diagnosis for this admission?: Yes (10) Electrolyte imbalance Is this a current diagnosis for this admission?: Yes Summary: Continues to electrolyte supplement due to the high ileostomy output Patients need a 1 L normal saline 3 times a week IV - Additional Information Resuscitation Status: Do Not Resuscitate Discharge Diet: Regular Discharge Activity: Activity As Tolerated Prescriptions: Buspirone HCl [Buspar 10 mg Tablet] 5 mg PO Q12 #60 tablet Calcium Carbonate [Os-Rambo 500 mg Tablet (Oyster-Shell)] 1,000 mg PO BID #60 tablet Ciprofloxacin HCl [Cipro 500 mg Tablet] 500 mg PO BID #14 tablet Divalproex Sodium [Depakote ER 250 mg Tablet] 250 mg PO DAILY #60 tab.sr.24h Loperamide HCl [Imodium 2 mg Capsule] 2 mg PO Q6HP PRN #21 cap PRN Reason: Magnesium Oxide [Mag-Ox 400 mg Tablet] 800 mg PO TID #90 tablet Memantine HCl [Namenda 10 mg Tablet] 5 mg PO DAILY #30 tablet Home Medications: Buspirone HCl [Buspar 5 mg Tablet] 5 mg PO Q12 01/02/19 Divalproex Sodium [Depakote ER 250 mg Tablet] 250 mg PO Q12 01/02/19 Omeprazole 20 mg PO DAILY 01/02/19 Buspirone HCl [Buspar 10 mg Tablet] 5 mg PO Q12 #60 tablet 01/06/19 Calcium Carbonate [Os-Rambo 500 mg Tablet (Oyster-Shell)] 1,000 mg PO BID #60 tablet 01/06/19 Ciprofloxacin HCl [Cipro 500 mg Tablet] 500 mg PO BID #14 tablet 01/06/19 Divalproex Sodium [Depakote ER 250 mg Tablet] 250 mg PO DAILY #60 tab.sr.24h 01/06/19 Loperamide HCl [Imodium 2 mg Capsule] 2 mg PO Q6HP PRN #21 cap 01/06/19 Magnesium Oxide [Mag-Ox 400 mg Tablet] 800 mg PO TID #90 tablet 01/06/19 Memantine HCl [Namenda 10 mg Tablet] 5 mg PO DAILY #30 tablet 01/06/19 History of Present Illness Admission Date/PCP: 01/02/19 01:27 ZAY TAYLOR MD History of Present Illness: FREDRICK BATISTA is a 83 year old female This is a 82-year-old female's with the significant dementia currently worsening pretty much patient is refused for the medications refused for the food several ER visit in my office visit history of the Crohn's disease with a chronically required IV fluid due to the high output of ileostomy seen by the GI at [facility] and local GI Dr. Echevarria with the history of the chronic kidney disease and electro lyte imbalance due to the high ileostomy output brought to the emergency departments with the noticed some blood in the urine one day ago. She stated her mother had been complaining of lower abdominal and right flank pain Patient is alert awake oriented x2 as usual her normal state Patient having no fever no vomiting no diarrhea Patient's was refusing the IV fluid recently and refusing to eating the food and according to the daughter patient start somebody put something inside Emergency department patient's found to be acute renal failure and also CT scan of the abdomen and pelvis suggest pneumocystis cystitis in the ER physician discussed with the Pennie Gavin and he basically suggest that put the Meek catheter and broad-spectrum antibiotic and no need to do any further evaluations discuss with the daughter regarding the patient's current conditions and pretty much they want to travel to the comfort care and DNR/DNI due to the multiple comorbidity with the worsening the patient's dementia's I think is appropriate for her at this point swelling is DNR/DNI Hospital Course Hospital Course: This is a 83-year-old female with recently worsening the dementia is paranoid behaviors failure to thrive brought to the emergency department because of the questionable vaginal bleeding patient was found to be urinary tract infections and a sepsis and also found emphysema cystitis Discussed with the urology suggest the continues to Meek catheter and on IV antibiotic Patient has significant worsening conditions for the last several months patients usually require IV fluid 3-4 times a day due to the high ileostomy output for a more than 10 years Patient always of electrolyte imbalance due to the above conditions with the worsening the all this conditions patient's at this point put a pretty much comfort care And treated with the IV fluid and IV antibiotic She is back to the baseline's patient's kidney function is also improving elec trolytes is all stable discussed with the patient's daughter about the patient's currently DNR/DNI patient's discharge to the nursing facilities with patient's prognosis is pretty much Very poor Is on and off refuse for p.o. intake and also refused for IV fluids sometimes which lead to multiple complications Patient is not a good candidate for any PEG tube placement due to the ongoing Crohn's disease worsening the dementia's and discussed with the family about all options At this point patient is discharged to the facilities continues follow-up as needed with the urology and gastroenterology depends on the patient's conditions Physical Exam Vital Signs: Temp Pulse Resp BP Pulse Ox 98.5 F 66 18 139/50 H 96 01/06/19 07:45 01/06/19 07:45 01/05/19 23:22 01/06/19 07:45 01/06/19 07:45 Intake & Output 01/05/19 01/06/19 01/07/19 06:59 06:59 06:59 Intake Total 1526 808 Output Total 1200 3470 Balance 326 -2662 Weight 49.7 kg 50.2 kg General appearance: PRESENT: no acute distress, thin Head exam: PRESENT: atraumatic, normocephalic Eye exam: PRESENT: conjunctiva pink, EOMI, PERRLA. ABSENT: scleral icterus Ear exam: PRESENT: normal external ear exam Mouth exam: PRESENT: moist, tongue midline Neck exam: ABSENT: carotid bruit, JVD, lymphadenopathy, thyromegaly Respiratory exam: PRESENT: clear to auscultation eduard. ABSENT: rales, rhonchi, wheezes Cardiovascular exam: PRESENT: RRR. ABSENT: diastolic murmur, rubs, systolic murmur Pulses: PRESENT: normal dorsalis pedis pul Vascular exam: PRESENT: normal capillary refill GI/Abdominal exam: PRESENT: normal bowel sounds, soft. ABSENT: distended, guarding, mass, organolmegaly, rebound, tenderness Rectal exam: PRESENT: deferred Extremities exam: PRESENT: full ROM. ABSENT: calf tenderness, clubbing, pedal edema Neurological exam: PRESENT: alert, awake, oriented to person. ABSENT: motor sensory deficit Psychiatric exam: PRESENT: appropriate affect, normal mood. ABSENT: homicidal ideation, suicidal ideation Skin exam: PRESENT: dry, intact, warm. ABSENT: cyanosis, rash Results Laboratory Results: 01/04/19 05:30 01/04/19 05:30 01/01/19 22:19 Troponin I 0.061 Impressions: Abdomen/Pelvis CT 01/04/19 00:00 IMPRESSION: 1. Decompressed urinary bladder with Meek catheter. Decreased but persistent scattered foci of gas, some which are intramural compatible with emphysematous cystitis. 2. No evidence of new intra-abdominal/pelvic process. Transfer Plan - Time Spent with Patient Time spent with patient: Greater than 30 Minutes Qualifiers - * PATIENT BEING DISCHARGED WITH ANY OF THE FOLLOWING DIAGNOSIS: No Acute Heart Failure - Is this a Heart Failure Patient?: No Plan Time Spent: Greater than 30 Minutes - Continues on normal saline 1 L IV fluid 3- 4 times a weekDepends on the patient's fluid status Follow-up with outpatient urology for Meek catheter and cystitis Continues to Imodium 2 mg p.o. every 6 as needed for ileostomy output Continues to Cipro for 7 days Increase the Namenda 5 mg twice a day for the next week Fall precautions Patient is a DNR/DNI Poor prognosis Discuss with the daughter
[2019-01-06] MEDS: MEMANTINE HCL 10 MG TABLET PO SCH (10:57)
[2019-01-06] MEDS: MAGNESIUM OXIDE 400 MG TABLET PO SCH ×2 (10:57→14:14)
[2019-01-06] MEDS: FAMOTIDINE INJ/PF 20 MG/2 ML SDV IV SCH (10:57)
[2019-01-06] MEDS: CALCIUM CARBONATE 500 MG TABLET PO SCH (10:57)
[2019-01-06] MEDS: BUSPIRONE HCL 10 MG TABLET PO SCH (10:57)
[2019-01-06] MEDS: ENOXAPARIN SODIUM INJ 30 MG/0.3 ML DISP.SYRIN SUBCUT SCH (10:59)
[2019-01-06] MEDS: DIVALPROEX SODIUM 250 MG TAB.SR.24H PO SCH (11:21)
[2019-01-06 14:51] VITALS: BP 140/60
[2019-01-07] MEDS ORDERED: FAMOTIDINE 20 MG TABLET PO SCH (10:00)
--- NOTE | 2019-02-04 12:50 | Progress Note ---
Provider Note Provider Note: Patient was hypotensive's tachycardic's and positive blood culture urine culture patient have a urosepsis
== END 2019-01-06 15:45 | disposition home health service (06) | DRG 872 ==
LOC: ER 21:53 → EH 01-02 01:27 → 5 01-02 03:45
PROVIDERS: ADMIT Family Medicine; ATTEND Family Medicine
DX: A41.89 Other specified sepsis (principal); N17.9 Acute kidney failure, unspecified; K50.918 Crohn's disease, unspecified, with other complication; F01.51 Vascular dementia, unspecified severity, with behavioral disturbance; N30.80 Other cystitis without hematuria; D50.9 Iron deficiency anemia, unspecified; R62.7 Adult failure to thrive; I95.9 Hypotension, unspecified; I10 Essential (primary) hypertension; E78.5 Hyperlipidemia, unspecified; K21.9 Gastro-esophageal reflux disease without esophagitis; F32.9 Major depressive disorder, single episode, unspecified; F17.210 Nicotine dependence, cigarettes, uncomplicated; B96.1 Klebsiella pneumoniae [K. pneumoniae] as the cause of diseases classified elsewhere; Z66 Do not resuscitate; Z79.899 Other long term (current) drug therapy; Z91.14 Patient's other noncompliance with medication regimen; Z91.11 Patient's noncompliance with dietary regimen; Z93.2 Ileostomy status
CPT/HCPCS: 36415; 51701; 74176; 80048; 80053; 81001; 83605; 83735; 84484; 85025; 85610; 85730; 87040; 87077; 87086; 87088; 87186; 93005; 93010; 96361; 96365; 99285; 99406; J0610; J0692; J1642; J1650; J3370; J3475; J3490; J7030; J7060; J7120; S0028

== ENCOUNTER → 2019-01-12 | Outpatient (CLI) | payer MEDICARE, MEDICAID ==
--- NOTE | 2019-01-12 15:19 | RADIOLOGY REPORT (SQ) ---
EXAM DESCRIPTION: KNEE RIGHT 4 VIEWS COMPLETED DATE/TIME: 01/12/2019 3:07 pm REASON FOR STUDY: RT KNEE PAIN M25.561 PAIN IN RIGHT KNEE COMPARISON: None. NUMBER OF VIEWS: Four views. TECHNIQUE: AP, lateral, and both oblique radiographic images acquired of the right knee. LIMITATIONS: None. FINDINGS: MINERALIZATION: Decreased BONES: No definite acute fracture dislocation. There is 3 compartment degenerative changes with oste ophytosis, joint space loss and subchondral sclerosis. JOINT: Moderate joint effusion. Ossific densities inferior to the patellar should likely intra-artic ular loose bodies. SOFT TISSUES: No soft tissue swelling. No radio-opaque foreign body. Paucity of soft tissues. . OTHER: No other significant finding. IMPRESSION: 1. Decreased osseous mineralization without definite acute bony abnormality. 2. Moderate joint effusion. 3. 3 compartment osteoarthritis with likely intra-articular loose bodies. TECHNICAL DOCUMENTATION: JOB ID: [id number] [employer]- All Rights Reserved Reading location - IP/workstation name: [email or web address]
== END ==
LOC: OD 14:49
PROVIDERS: ATTEND Family Medicine
DX: M25.561 Pain in right knee (principal)

== ENCOUNTER 2019-03-10 10:40 | Outpatient (CLI) | payer MEDICARE, MEDICAID ==
[2019-03-10 10:53] VITALS: BP 139/74
[2019-03-10] MEDS: MAGNESIUM SULFATE 1 GM/D5W 100 ML IV SCH ×2 (11:01→12:03)
== END 2019-03-10 13:13 | disposition home or self-care (01) ==
LOC: II 10:40 → 5TH 10:42 → II 13:13
PROVIDERS: ATTEND Family Medicine
PROC: 3E043GC Introduction of Other Therapeutic Substance into Central Vein, Percutaneous Approach (ICD-10-PCS; principal; 2019-03-10)
DX: E83.42 Hypomagnesemia (principal)
CPT/HCPCS: 96365; 96367; J3475; J1642

== ENCOUNTER 2019-04-28 20:35 | Inpatient (IN) | payer MEDICARE, MEDICAID ==
--- NOTE | 2019-04-28 21:57 | ER Document Report ---
ED General - General Chief Complaint: Altered Mental Status Stated Complaint: ALTERED MENTAL STATUS Time Seen by Provider: 04/28/19 21:13 Primary Care Provider: ZAY TAYLOR MD [Primary Care Provider] - Follow up as needed Mode of Arrival: Medic Information source: Patient, Relative TRAVEL OUTSIDE OF THE [place] IN LAST 30 DAYS: No - HPI Onset: Other - unknown onset Onset/Duration: Gradual Quality of pain: No pain Severity: None Pain Level: Denies Associated symptoms: None, Other - Family Reports increased confusion and agitation Similar symptoms previously: No Recently seen / treated by doctor: No Notes: 84 year old female with a history of HTN, HLD, Arthritis, Anemia, Depression, Crohns s/p Colostomy and Ileostomy sent to the ER for evaluation of confusion and agitation. The patient lives at home and has home health but apparently her home health nurse recently stopped coming. The patient has become difficult to deal with and she has become somewhat combative. EMS administerd Versed since the patient was difficult to transport due to her agitation. The patient herself has no complaints in the ER and she is resting comfortably in bed. The patient is oriented to person, place, time but not to situation (she is not sure why she was brought to the ER). The patient's daughter would like the patient chekced out to ensure no new metabolic or infectious process is the cause of her symptoms. - Related Data Allergies/Adverse Reactions: No Known Allergies Allergy (Verified 01/01/19 22:14) Home Medications: Buspirone 5mg. Odansetron 4mg. Divalproex 250mg. Memantine 10mg. Calcium 600 mg. Magnesium 200mg Past Medical History - Social History Smoking Status: Former Smoker Frequency of alcohol use: None Drug Abuse: None Lives with: Family Family History: Reviewed & Not Pertinent Patient has suicidal ideation: No Patient has homicidal ideation: No - Past Medical History Cardiac Medical History: Reports: Hx Hypercholesterolemia, Hx Hypertension Denies: Hx Coronary Artery Disease, Hx Heart Attack Pulmonary Medical History: Denies: Hx Asthma, Hx Bronchitis, Hx COPD, Hx Pneumonia Neurological Medical History: Denies: Hx Cerebrovascular Accident, Hx Seizures Renal/ Medical History: Reports: Hx Renal Insufficiency. Denies: Hx Peritoneal Dialysis GI Medical History: Reports: Hx Crohn's Disease, Hx Gastroesophageal Reflux Disease Musculoskeletal Medical History: Reports Hx Arthritis Psychiatric Medical History: Reports: Hx Anxiety, Hx Depression Past Surgical History: Reports: Hx Bowel Surgery - Colectomy for Crohn's disease, colostomy, Hx Colostomy, Hx Hysterectomy, Hx Ileostomy - Immunizations Hx Diphtheria, Pertussis, Tetanus Vaccination: Yes Hx Pneumococcal Vaccination: 05/25/18 Review of Systems - Review of Systems Constitutional: No symptoms reported EENT: No symptoms reported Cardiovascular: No symptoms reported Respiratory: No symptoms reported Genitourinary: No symptoms reported Female Genitourinary: No symptoms reported Musculoskeletal: No symptoms reported Skin: No symptoms reported Hematologic/Lymphatic: No symptoms reported Neurological/Psychological: Other - patient has no complaints but family complains of confusion and agitation Physical Exam - Vital signs Vitals: Resp 13 04/28/19 20:51 - Notes Notes: GENERAL: Well-appearing, well-nourished and in no acute distress. HEAD: Atraumatic, normocephalic. EYES: Pupils equal round and reactive to light, extraocular movements intact, sclera anicteric, conjunctiva are normal. ENT: TMs normal, nares patent, oropharynx clear without exudates. Moist mucous membranes. NECK: Normal range of motion, supple without lymphadenopathy or JVD. LUNGS: Breath sounds clear to auscultation bilaterally and equal. No wheezes rales or rhonchi. HEART: Regular rate and rhythm without murmurs, rubs or gallops. ABDOMEN: Soft, nontender, normoactive bowel sounds. No guarding, no rebound. No masses appreciated. EXTREMITIES: Normal range of motion, no pitting or edema. No clubbing or cyanosis. NEUROLOGICAL: Cranial nerves II through XII grossly intact. Normal speech, normal gait. PSYCH: Normal mood, normal affect. SKIN: Warm, Dry, normal turgor, no rashes or lesions noted. Course - Re-evaluation Re-evalutation: 04/28/19 23:46 The patient is dehydrated and she has HUE and a low Mg. Patient was treated with fluids and IV Mg 2g in the ER. Patient also found to have a UTI. Patient treated with Rocephin for that in the ER. CT head showed possible thrombus in MCA but patient has no stroke symptoms in the ER so radiology feels this is likely artifact. - Vital Signs Vital signs: Temp Pulse Resp BP Pulse Ox 98.1 F 12 137/76 H 04/28/19 20:58 04/28/19 22:08 04/28/19 21:01 - Laboratory Result Diagrams: 04/28/19 22:22 04/28/19 22:22 Laboratory results interpreted by me: 04/28/19 04/28/19 04/28/19 22:22 22:22 22:45 RDW 14.1 H Sodium 136.5 L Chloride 93 L BUN 72 H Creatinine 2.18 H Est GFR ( Amer) 26 L Est GFR (MDRD) Non-Af 21 L Glucose 114 H Magnesium 1.2 L* Total Protein 8.3 H Ur Leukocyte Esterase MODERATE H Discharge - Discharge Clinical Impression: Hypomagnesemia Acute kidney failure Qualifiers: Acute renal failure type: unspecified Qualified Code(s): N17.9 - Acute kidney failure, unspecified UTI (urinary tract infection) Qualifiers: Urinary tract infection type: site unspecified Condition: Stable Disposition: ADMITTED INPATIENT Admitting Provider: [facility] Unit Admitted: Medical Floor Referrals: ZAY TAYLOR MD [Primary Care Provider] - Follow up as needed
--- NOTE | 2019-04-28 22:35 | RADIOLOGY REPORT (SQ) ---
XR CHEST 2 VIEWS CLINICAL STATEMENT: shortness of breath COMPARISON: None FINDINGS: Heart is mildly enlarged. There is no focal lung consolidation or pleural effusion. No evidence of pulmonary edema or pneumothorax. Left chest central tunneled catheter is noted. IMPRESSION: No acute cardiopulmonary disease.
[2019-04-28 22:53] LABS: ABSOLUTE BASOPHILS # (AUTO) 0.1 10^3/uL (0.0-0.2); ABSOLUTE EOSINOPHILS # (AUTO) 0.1 10^3/uL (0.0-0.6); ABSOLUTE LYMPHOCYTES (AUTO) 0.9 10^3/uL (0.5-4.7); ABSOLUTE MONOCYTES (AUTO) 0.4 10^3/uL (0.1-1.4); BASOPHILS % (AUTO) 0.9 % (0-2); EOSINOPHILS % (AUTO) 1.2 % (0-6); HEMATOCRIT 41.1 % (36.0-47.0); HEMOGLOBIN 13.8 g/dL (12.0-15.5); LYMPHOCYTES % (AUTO) 14.3 % (13-45); MEAN CORPUSCULAR HEMOGLOBIN 29.7 pg (27.0-33.4); MEAN CORPUSCULAR HGB CONC 33.7 g/dL (32.0-36.0); MEAN CORPUSCULAR VOLUME 88 fl (80-97); MONOCYTES % (AUTO) 5.6 % (3-13); PLATELET COUNT 257 10^3/uL (150-450); RED BLOOD COUNT 4.67 10^6/uL (3.72-5.28); RED CELL DISTRIBUTION WIDTH 14.1 % (11.5-14.0); TOTAL CELLS COUNTED % (AUTO) 100 %; WHITE BLOOD COUNT 6.4 10^3/uL (4.0-10.5)
--- NOTE | 2019-04-28 23:01 | RADIOLOGY REPORT (SQ) ---
EXAM DESCRIPTION: CT HEAD WITHOUT IV CONTRAST COMPLETED DATE/TME: 04/28/2019 21:36 CLINICAL HISTORY: 84 years, Female, altered mental status EXAM DESCRIPTION: CLINICAL HISTORY: altered mental status COMPARISON: None Available TECHNIQUE: Contiguous axial CT images of the head were obtained. Coronal and sagittal reconstructions were created from the axial data. This exam was performed according to our departmental dose-optimization program, which includes automated exposure control, adjustment of the mA and/or kV according to patient size and/or use of iterative reconstruction technique. FINDINGS: Positioning limits detail. There is apparent increased attenuation of the distal aspect of the M1 segment of the right MCA. This suggests intraluminal thrombus. Artifact is also possible. There is no evidence of acute mass, mass effect, midline shift or hemorrhage. The ventricles and extra-axial CSF spaces are unremarkable. The brain parenchyma appears normal for the patient's age. No acute abnormalities of the bones is seen. IMPRESSION: Possible thrombus in the right MCA, versus artifact.Clinical correlation is advised. Positioning markedly limits detail. No other acute abnormality.
[2019-04-28 23:10] LABS: APPEARANCE,URINE SLIGHTLY-CLOUDY; BILIRUBIN,URINE NEGATIVE (NEGATIVE); COLOR,URINE YELLOW; GLUCOSE, URINE NEGATIVE (NEGATIVE); KETONES,URINE NEGATIVE (NEGATIVE); LEUKOCYTE ESTERASE,URINE MODERATE (NEGATIVE); NITRITE,URINE NEGATIVE (NEGATIVE); PROTEIN,URINE NEGATIVE (NEGATIVE); URINE SPECIFIC GRAVITY 1.015; UROBILINOGEN,URINE NEGATIVE mg/dL (<2.0)
[2019-04-28 23:10] LABS: ALBUMIN 4.3 g/dL (3.5-5.0); ALKALINE PHOSPHATASE 104 U/L (38-126); ANION GAP 17 (5-19); ASPARTATE AMINO TRANSFERASE 25 U/L (14-36); BILIRUBIN,DIRECT 0.4 mg/dL (0.0-0.4); BILIRUBIN,TOTAL 0.6 mg/dL (0.2-1.3); BLOOD UREA NITROGEN 72 mg/dL (7-20); CALCIUM 9.6 mg/dL (8.4-10.2); CARBON DIOXIDE 27 mmol/L (22-30); CHLORIDE 93 mmol/L (98-107); GLUCOSE 114 mg/dL (75-110); TOTAL PROTEIN 8.3 g/dL (6.3-8.2)
[2019-04-28] MEDS ORDERED: NORMAL SALINE 1000 ML 1,000 ML IV ONE (23:31)
[2019-04-28] MEDS ORDERED: CEFTRIAXONE 1 GM/D5W RTU 1 GM/50 ML RTUPB IV ONE (23:45)
[2019-04-28] MEDS ORDERED: ONDANSETRON HCL INJ/PF 4 MG/2 ML SDV IV PRN (23:47)
[2019-04-28] MEDS ORDERED: ACETAMINOPHEN 325 MG TABLET PO PRN (23:47)
[2019-04-28] MEDS ORDERED: IPRATROPIUM/ALBUTEROL 0.5-2.5 MG/3 ML AMPUL NEB PRN (23:47)
[2019-04-28] MEDS: MAGNESIUM SULFATE/D5W 1 GM/100 ML RTUPB IV SCH (23:57)
[2019-04-29] MEDS ORDERED: FAMOTIDINE INJ/PF 20 MG/2 ML SDV IV ONE (00:15)
[2019-04-29] MEDS: MAGNESIUM SULFATE/D5W 1 GM/100 ML RTUPB IV SCH (01:34)
[2019-04-29] MEDS: NORMAL SALINE 1000 ML 1,000 ML IV PRN ×2 (03:06→18:05)
[2019-04-29 05:24] LABS: ABSOLUTE EOSINOPHILS # (AUTO) 0.2 10^3/uL (0.0-0.6); ABSOLUTE LYMPHOCYTES (AUTO) 0.7 10^3/uL (0.5-4.7); ABSOLUTE MONOCYTES (AUTO) 0.4 10^3/uL (0.1-1.4); ABSOLUTE NEUT (AUTO) 7.5 10^3/uL (1.7-8.2); BASOPHILS % (AUTO) 0.5 % (0-2); EOSINOPHILS % (AUTO) 1.9 % (0-6); HEMATOCRIT 35.4 % (36.0-47.0); HEMOGLOBIN 11.8 g/dL (12.0-15.5); LYMPHOCYTES % (AUTO) 8.5 % (13-45); MEAN CORPUSCULAR HEMOGLOBIN 29.5 pg (27.0-33.4); MEAN CORPUSCULAR HGB CONC 33.4 g/dL (32.0-36.0); MEAN CORPUSCULAR VOLUME 88 fl (80-97); MONOCYTES % (AUTO) 4.4 % (3-13); PLATELET COUNT 219 10^3/uL (150-450); RED BLOOD COUNT 4.01 10^6/uL (3.72-5.28); RED CELL DISTRIBUTION WIDTH 14.3 % (11.5-14.0); SEGMENTED NEUTROPHILS % (AUTO) 84.7 % (42-78); TOTAL CELLS COUNTED % (AUTO) 100 %; WHITE BLOOD COUNT 8.8 10^3/uL (4.0-10.5)
[2019-04-29 05:56] LABS: ANION GAP 10 (5-19); BLOOD UREA NITROGEN 63 mg/dL (7-20); CALCIUM 8.8 mg/dL (8.4-10.2); CARBON DIOXIDE 27 mmol/L (22-30); CHLORIDE 99 mmol/L (98-107); GLUCOSE 94 mg/dL (75-110)
[2019-04-29] MEDS: FAMOTIDINE INJ/PF 20 MG/2 ML SDV IV SCH ×3 (09:56→23:06)
--- NOTE | 2019-04-29 11:13 | PDOC H&P ---
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 required IV fluid at home history of the chronic kidney disease electrolyte imbalance due to the high output ileostomy recently stopped taking the IV fluid because of the worsening the dementia's and the patient refused to do that and home health people do not go and the daughter brought the patient's to the emergency department patient was very combative and agitated In the emergency department patient is found little bit more renal failure due to the dehydration's and hypomagnesemia as usual and a urinary tract infection I decided to admit in the further evaluation and treatments When I saw the patient on the floor alert awake answering the questions is usual underlying some dementia but pretty much patient's is telling me that her daughter is not taking care of her discussed with the daughter several times patients I think dementia is getting more worse Patient's denied any chest pain no short of breath no abdominal pain Head CT was negative for any acute finding Past Medical History Cardiac Medical History: Reports: Hyperlipidema, Hypertension Denies: Coronary Artery Disease, Myocardial Infarction Pulmonary Medical History: Denies: Asthma, Bronchitis, Chronic Obstructive Pulmonary Disease (COPD), Pneumonia Neurological Medical History: Denies: Seizures Renal/ Medical History: Reports: Chronic Kidney Disease GI Medical History: Reports: Crohn's Disease, Gastroesophageal Reflux Disease Musculoskeltal Medical History: Reports: Arthritis Psychiatric Medical History: Reports: Dementia, Depression Hematology: Reports: Anemia Past Surgical History Past Surgical History: Reports: Colostomy, Hysterectomy, Ileostomy Social History Information Source: Patient Lives with: Family Smoking Status: Former Smoker Electronic Cigarette use?: No Frequency of Alcohol Use: None Hx Recreational Drug Use: No Drugs: None Hx Prescription Drug Abuse: No Family History Family History: Reviewed & Not Pertinent Parental Family History Reviewed: Yes Children Family History Reviewed: Yes Sibling(s) Family History Reviewed.: Yes Medication/Allergy Home Medications: Buspirone HCl [Buspar 5 mg Tablet] 5 mg PO Q12 01/02/19 Divalproex Sodium [Depakote ER 250 mg Tablet] 250 mg PO Q12 01/02/19 Omeprazole 20 mg PO DAILY 01/02/19 Buspirone HCl [Buspar 10 mg Tablet] 5 mg PO Q12 #60 tablet 01/06/19 Calcium Carbonate [Os-Rambo 500 mg Tablet (Oyster-Shell)] 1,000 mg PO BID #60 tablet 01/06/19 Ciprofloxacin HCl [Cipro 500 mg Tablet] 500 mg PO BID #14 tablet 01/06/19 Divalproex Sodium [Depakote ER 250 mg Tablet] 250 mg PO DAILY #60 tab.sr.24h 01/06/19 Loperamide HCl [Imodium 2 mg Capsule] 2 mg PO Q6HP PRN #21 cap 01/06/19 Magnesium Oxide [Mag-Ox 400 mg Tablet] 800 mg PO TID #90 tablet 01/06/19 Memantine HCl [Namenda 10 mg Tablet] 5 mg PO DAILY #30 tablet 01/06/19 Allergies/Adverse Reactions: No Known Allergies Allergy (Verified 01/01/19 22:14) Review of Systems ROS unobtainable: Due to mental status All systems: reviewed and no additional remarkable complaints except as stated Constitutional: ABSENT: chills, fever(s), headache(s), weight gain, weight loss Eyes: ABSENT: visual disturbances Ears: ABSENT: hearing changes Cardiovascular: ABSENT: chest pain, dyspnea on exertion, edema, orthropnea, palpitations Respiratory: ABSENT: cough, hemoptysis Gastrointestinal: ABSENT: abdominal pain, constipation, diarrhea, hematemesis, hematochezia, nausea, vomiting Genitourinary: ABSENT: dysuria, hematuria Musculoskeletal: ABSENT: joint swelling Integumentary: ABSENT: rash, wounds Neurological: ABSENT: abnormal gait, abnormal speech, confusion, dizziness, focal weakness, syncope Psychiatric: ABSENT: anxiety, depression, homidical ideation, suicidal ideation Endocrine: ABSENT: cold intolerance, heat intolerance, menstrual abnormalities, polydipsia, polyuria Hematologic/Lymphatic: ABSENT: easy bleeding, easy bruising, lymphadenopathy Physical Exam Vital Signs: Temp Pulse Resp BP Pulse Ox 97.9 F 81 14 118/50 L 93 04/29/19 07:54 04/29/19 10:41 04/29/19 10:41 04/29/19 07:54 04/29/19 10:41 Intake & Output 04/28/19 04/29/19 04/30/19 06:59 06:59 06:59 Intake Total 1250 Output Total 550 Balance 700 Weight 43.8 kg General appearance: PRESENT: no acute distress, thin Head exam: PRESENT: atraumatic, normocephalic Eye exam: PRESENT: conjunctiva pink, EOMI, PERRLA. ABSENT: scleral icterus Ear exam: PRESENT: normal external ear exam Mouth exam: PRESENT: moist, tongue midline Neck exam: PRESENT: full ROM. ABSENT: carotid bruit, JVD, lymphadenopathy, thyromegaly Cardiovascular exam: PRESENT: RRR. ABSENT: diastolic murmur, rubs, systolic murmur Pulses: PRESENT: normal dorsalis pedis pul, +2 pedal pulses bilateral Vascular exam: PRESENT: normal capillary refill GI/Abdominal exam: PRESENT: normal bowel sounds, soft. ABSENT: distended, guarding, mass, organolmegaly, rebound, tenderness Rectal exam: PRESENT: deferred Extremities exam: ABSENT: pedal edema Neurological exam: PRESENT: alert, awake, oriented to person. ABSENT: motor sensory deficit Psychiatric exam: PRESENT: appropriate affect, normal mood. ABSENT: homicidal ideation, suicidal ideation Skin exam: PRESENT: dry, intact, warm. ABSENT: cyanosis, rash Results Laboratory Results: 04/29/19 05:07 04/29/19 05:07 04/28/19 04/28/19 04/28/19 22:22 22:22 22:22 WBC 6.4 RBC 4.67 Hgb 13.8 Hct 41.1 MCV 88 MCH 29.7 MCHC 33.7 RDW 14.1 H Plt Count 257 Seg Neutrophils % 78.0 Sodium 136.5 L Potassium 4.0 Chloride 93 L Carbon Dioxide 27 Anion Gap 17 BUN 72 H Creatinine 2.18 H Est GFR ( Amer) 26 L Glucose 114 H Calcium 9.6 Magnesium 1.2 L* Total Bilirubin 0.6 AST 25 Alkaline Phosphatase 104 Ammonia 10.0 Total Protein 8.3 H Albumin 4.3 Urine Color Urine Appearance Urine pH Ur Specific [place] Urine Protein Urine Glucose (UA) Urine Ketones Urine Blood Urine Nitrite Ur Leukocyte Esterase Urine WBC (Auto) Urine RBC (Auto) 04/28/19 04/29/19 04/29/19 22:45 05:07 05:07 WBC 8.8 RBC 4.01 Hgb 11.8 L Hct 35.4 L MCV 88 MCH 29.5 MCHC 33.4 RDW 14.3 H Plt Count 219 Seg Neutrophils % 84.7 H Sodium Potassium Chloride Carbon Dioxide Anion Gap BUN Creatinine Est GFR ( Amer) Glucose Calcium Magnesium 2.3 D Total Bilirubin AST Alkaline Phosphatase Ammonia Total Protein Albumin Urine Color YELLOW Urine Appearance SLIGHTLY-CLOUDY Urine pH 5.0 Ur Specific [place] 1.015 Urine Protein NEGATIVE Urine Glucose (UA) NEGATIVE Urine Ketones NEGATIVE Urine Blood NEGATIVE Urine Nitrite NEGATIVE Ur Leukocyte Esterase MODERATE H Urine WBC (Auto) 8 Urine RBC (Auto) 1 04/29/19 05:07 WBC RBC Hgb Hct MCV MCH MCHC RDW Plt Count Seg Neutrophils % Sodium 135.8 L Potassium 4.0 Chloride 99 Carbon Dioxide 27 Anion Gap 10 BUN 63 H Creatinine 1.82 H Est GFR ( Amer) 32 L Glucose 94 Calcium 8.8 Magnesium Total Bilirubin AST Alkaline Phosphatase Ammonia Total Protein Albumin Urine Color Urine Appearance Urine pH Ur Specific [place] Urine Protein Urine Glucose (UA) Urine Ketones Urine Blood Urine Nitrite Ur Leukocyte Esterase Urine WBC (Auto) Urine RBC (Auto) 04/28/19 22:22 Troponin I 0.042 Impressions: Chest X-Ray 04/28/19 21:35 IMPRESSION: No acute cardiopulmonary disease. Head CT 04/28/19 21:36 IMPRESSION: Possible thrombus in the right MCA, versus artifact.Clinical correlation is advised. Positioning markedly limits detail. No other acute abnormality. Assessment & Plan - Diagnosis (1) Acute renal failure Qualifiers: Acute renal failure type: unspecified Qualified Code(s): N17.9 - Acute kidney failure, unspecified Is this a current diagnosis for this admission?: Yes Plan: We will start the patient on IV fluidMost likely due to the high ileostomy output and patients did not take the IV fluid at home (2) Hypomagnesemia Is this a current diagnosis for this admission?: Yes Plan: Replace the magnesium's (3) UTI (urinary tract infection) Qualifiers: Urinary tract infection type: site unspecified Is this a current diagnosis for this admission?: Yes Plan: Continues to IV antibiotics will get the urine culture (4) Anemia Is this a current diagnosis for this admission?: Yes Plan: Due to the chronic disease (5) Crohns disease Qualifiers: Gastrointestinal tract location: unspecified location Is this a current diagnosis for this admission?: Yes Plan: Patient is seen by Dr. Echevarria and patient seen by the [facility] in the past status post surgery high ileostomy output (6) Dementia Qualifiers: Dementia type: unspecified type Dementia behavioral disturbance: with behavioral disturbance Qualified Code(s): F03.91 - Unspecified dementia with behavioral disturbance Is this a current diagnosis for this admission?: Yes Plan: We will start the patient on Namenda (7) Electrolyte imbalance Is this a current diagnosis for this admission?: Yes Plan: Replace the electrolytes due to the high output ileostomy (8) Emphysematous cystitis Is this a current diagnosis for this admission?: Yes Plan: Since seen by the urology in the outpatient suggest nothing else needs to be to (9) Failure to thrive Qualifiers: Failure to thrive age range: in adult Qualified Code(s): R62.7 - Adult failure to thrive Is this a current diagnosis for this admission?: Yes Plan: Due to the dementia will get the dietitian consult - Time Time Spent: 30 to 50 Minutes Medications reviewed and adjusted accordingly: Yes Anticipated discharge: Other Within: Other - Inpatient Certification Based on my medical assessment, after consideration of the patient's comorbidities, presenting symptoms, or acuity I expect that the services needed warrant INPATIENT care.: Yes I certify that my determination is in accordance with my understanding of Medicare's requirements for reasonable and necessary INPATIENT services [42 CFR 412.3e].: Yes Medical Necessity: Failure to Improve With Outpatient Therapy, Significant Comorbidiites Make Outpatient Treatment Too Risky, Need Close Monitoring Due to Risk of Patient Decompensation, Need For IV Fluids, Need for IV Antibiotics Post Hospital Care: D/C Physical Therapy Supervisor Documentation - Plan Summary Plan Summary: Admit the patient in a hospitalist will get the IV fluid IV antibiotic will discuss with the patient's daughter regarding the patient's CODE STATUS
[2019-04-29] MEDS: DOCUSATE SODIUM 100 MG CAPSULE PO SCH (11:31)
[2019-04-29] MEDS: ENOXAPARIN SODIUM INJ 30 MG/0.3 ML DISP.SYRIN SUBCUT SCH (12:24)
--- NOTE | 2019-04-29 13:10 | EKG REPORT ---
SEVERITY:- ABNORMAL ECG - SINUS RHYTHM ATRIAL PREMATURE COMPLEX LEFT ANTERIOR FASCICULAR BLOCK LEFT VENTRICULAR HYPERTROPHY : Confirmed by: Stephenie Paiz MD 29-Apr-2019 13:09:30
--- NOTE | 2019-04-29 13:10 | EKG REPORT ---
SEVERITY:- OTHERWISE NORMAL ECG - SINUS RHYTHM BORDERLINE RIGHT AXIS DEVIATION : Confirmed by: Stephenie Paiz MD 29-Apr-2019 13:09:27
[2019-04-29] MEDS ORDERED: ALPRAZOLAM 0.5 MG TABLET PO ONE (19:00)
[2019-04-29] MEDS: LORAZEPAM INJ 2 MG/1 ML VIAL IV PRN (20:42)
--- NOTE | 2019-04-29 20:56 | PDOC CONSULTATION ---
Consultation Consult Date: 04/29/19 Attending physician:: CRYSTAL TAYLOR Provider Consulted: SHARON ULLOA Consult reason:: infected vascular access port. History of Present Illness Admission Date/PCP: 04/28/19 23:58 ZAY TAYLOR MD History of Present Illness: FREDRICK BATISTA is a 84 year old female 84-year-old female admitted for dehydration secondary to high output ileostomy patient was also noted to have a urinary tract infection blood cultures were obtained through the venous access port in her left chest 1 of 2 blood cultures positive for staph species. Patient denies any history of fever chills her white count is within normal limits Dr. Taylor was concerned about a possible infected port. Surgery was consult to rule out infected port. Past Medical History Cardiac Medical History: Reports: Hyperlipidema, Hypertension Denies: Coronary Artery Disease, Myocardial Infarction Pulmonary Medical History: Denies: Asthma, Bronchitis, Chronic Obstructive Pulmonary Disease (COPD), Pneumonia Neurological Medical History: Denies: Seizures Renal/ Medical History: Reports: Chronic Kidney Disease GI Medical History: Reports: Crohn's Disease, Gastroesophageal Reflux Disease Musculoskeltal Medical History: Reports: Arthritis Psychiatric Medical History: Reports: Dementia, Depression Hematology: Reports: Anemia Past Surgical History Past Surgical History: Reports: Colostomy, Hysterectomy, Ileostomy Social History Lives with: Family Smoking Status: Former Smoker Electronic Cigarette use?: No Frequency of Alcohol Use: None Hx Recreational Drug Use: No Drugs: None Hx Prescription Drug Abuse: No Family History Family History: Reviewed & Not Pertinent Parental Family History Reviewed: No Children Family History Reviewed: NA Sibling(s) Family History Reviewed.: NA Medication/Allergy Home Medications: Estradiol [Estrace] 42.5 gm VG MOFR@1000 04/29/19 Memantine HCl [Namenda 10 mg Tablet] 10 mg PO DAILY 04/29/19 Ondansetron HCl [Zofran 4 mg Tablet] 1 tab PO Q8HP PRN 04/29/19 Allergies/Adverse Reactions: No Known Allergies Allergy (Verified 01/01/19 22:14) Review of Systems ROS unobtainable: Due to mental status - She has severe dementia and refuses to answer any questions. She does deny pain at the port site in the left anterior chest. Cardiovascular: ABSENT: as per HPI, chest pain, dyspnea on exertion, edema, orthropnea, palpitations, other Physical Exam Vital Signs: Temp Pulse Resp BP Pulse Ox 98.3 F 74 16 121/48 L 98 04/29/19 15:16 04/29/19 15:16 04/29/19 15:16 04/29/19 15:16 04/29/19 15:16 Intake & Output 04/28/19 04/29/19 04/30/19 06:59 06:59 06:59 Intake Total 1250 1770 Output Total 550 800 Balance 700 970 Weight 43.8 kg 43.8 kg General appearance: PRESENT: no acute distress Head exam: PRESENT: normocephalic Eye exam: PRESENT: EOMI Ear exam: PRESENT: normal external ear exam Mouth exam: PRESENT: moist Teeth exam: PRESENT: poor dentation Neck exam: PRESENT: full ROM Respiratory exam: PRESENT: clear to auscultation eduard Cardiovascular exam: PRESENT: RRR, other - Left anterior chest port site is clean there is no evidence of any cellulitis she has an IV attached to the port with a Tegaderm covering the site there is no drainage there is no evidence of cellulitis and no pain on palpation Vascular exam: PRESENT: normal capillary refill GI/Abdominal exam: PRESENT: soft Rectal exam: PRESENT: deferred Extremities exam: PRESENT: full ROM Musculoskeletal exam: PRESENT: full ROM Neurological exam: PRESENT: other - Is dementia and is severely combative not answer questions follow commands Psychiatric exam: PRESENT: agitated Focused psych exam: PRESENT: paranoid Skin exam: PRESENT: dry Results Laboratory Results: 04/29/19 05:07 04/29/19 05:07 04/28/19 04/28/19 04/28/19 22:22 22:22 22:22 WBC 6.4 RBC 4.67 Hgb 13.8 Hct 41.1 MCV 88 MCH 29.7 MCHC 33.7 RDW 14.1 H Plt Count 257 Seg Neutrophils % 78.0 Sodium 136.5 L Potassium 4.0 Chloride 93 L Carbon Dioxide 27 Anion Gap 17 BUN 72 H Creatinine 2.18 H Est GFR ( Amer) 26 L Glucose 114 H Calcium 9.6 Magnesium 1.2 L* Total Bilirubin 0.6 AST 25 Alkaline Phosphatase 104 Ammonia 10.0 Total Protein 8.3 H Albumin 4.3 Urine Color Urine Appearance Urine pH Ur Specific [place] Urine Protein Urine Glucose (UA) Urine Ketones Urine Blood Urine Nitrite Ur Leukocyte Esterase Urine WBC (Auto) Urine RBC (Auto) 04/28/19 04/29/19 04/29/19 22:45 05:07 05:07 WBC 8.8 RBC 4.01 Hgb 11.8 L Hct 35.4 L MCV 88 MCH 29.5 MCHC 33.4 RDW 14.3 H Plt Count 219 Seg Neutrophils % 84.7 H Sodium Potassium Chloride Carbon Dioxide Anion Gap BUN Creatinine Est GFR ( Amer) Glucose Calcium Magnesium 2.3 D Total Bilirubin AST Alkaline Phosphatase Ammonia Total Protein Albumin Urine Color YELLOW Urine Appearance SLIGHTLY-CLOUDY Urine pH 5.0 Ur Specific [place] 1.015 Urine Protein NEGATIVE Urine Glucose (UA) NEGATIVE Urine Ketones NEGATIVE Urine Blood NEGATIVE Urine Nitrite NEGATIVE Ur Leukocyte Esterase MODERATE H Urine WBC (Auto) 8 Urine RBC (Auto) 1 04/29/19 05:07 WBC RBC Hgb Hct MCV MCH MCHC RDW Plt Count Seg Neutrophils % Sodium 135.8 L Potassium 4.0 Chloride 99 Carbon Dioxide 27 Anion Gap 10 BUN 63 H Creatinine 1.82 H Est GFR ( Amer) 32 L Glucose 94 Calcium 8.8 Magnesium Total Bilirubin AST Alkaline Phosphatase Ammonia Total Protein Albumin Urine Color Urine Appearance Urine pH Ur Specific [place] Urine Protein Urine Glucose (UA) Urine Ketones Urine Blood Urine Nitrite Ur Leukocyte Esterase Urine WBC (Auto) Urine RBC (Auto) 04/29/19 00:53 Blood Blood Culture (PCR) - Final Staphylococcus Species 04/28/19 22:22 Troponin I 0.042 Impressions: Chest X-Ray 04/28/19 21:35 IMPRESSION: No acute cardiopulmonary disease. Head CT 04/28/19 21:36 IMPRESSION: Possible thrombus in the right MCA, versus artifact.Clinical correlation is advised. Positioning markedly limits detail. No other acute abnormality. Assessment & Plan - Plan Summary Plan Summary: Patient has high output ileostomy and requires frequent IV hydration secondary to the high output. Currently she is being treated for UTI 1 of 2 blood culture containers drawn from the port site grew a staph species. The port itself does not appear to be cellulitic or tender. Currently is on IV antibiotics. Recommendations I suspect that this may have been a contaminant secondary to a normal white blood count and no evidence of fever or chills. We treat her urinary tract infection with IV antibiotics as currently doing the blood cultures in the next 2 to 3 days from the port site Unless 2+ blood cultures return from the port site would not recommend removal of the port at this time. Please consult surgery as necessary.
[2019-04-29] MEDS ORDERED: HALOPERIDOL LACTATE INJ 5 MG/1 ML VIAL IV ONE (21:46)
[2019-04-29] MEDS: CEFTRIAXONE 1 GM/D5W RTU 1 GM/50 ML RTUPB IV SCH (23:06)
[2019-04-30 06:39] LABS: ABSOLUTE EOSINOPHILS # (AUTO) 0.1 10^3/uL (0.0-0.6); ABSOLUTE MONOCYTES (AUTO) 0.4 10^3/uL (0.1-1.4); ABSOLUTE NEUT (AUTO) 3.1 10^3/uL (1.7-8.2); BASOPHILS % (AUTO) 0.6 % (0-2); EOSINOPHILS % (AUTO) 2.9 % (0-6); HEMATOCRIT 27.3 % (36.0-47.0); LYMPHOCYTES % (AUTO) 22.1 % (13-45); MEAN CORPUSCULAR HEMOGLOBIN 29.3 pg (27.0-33.4); MEAN CORPUSCULAR HGB CONC 33.2 g/dL (32.0-36.0); MEAN CORPUSCULAR VOLUME 88 fl (80-97); MONOCYTES % (AUTO) 9.3 % (3-13); PLATELET COUNT 170 10^3/uL (150-450); RED CELL DISTRIBUTION WIDTH 14.1 % (11.5-14.0); SEGMENTED NEUTROPHILS % (AUTO) 65.1 % (42-78); TOTAL CELLS COUNTED % (AUTO) 100 %; WHITE BLOOD COUNT 4.7 10^3/uL (4.0-10.5)
[2019-04-30 06:40] LABS: HEMOGLOBIN 9.1 g/dL (12.0-15.5)
--- NOTE | 2019-04-30 08:19 | Progress Note ---
Provider Note Provider Note: Review of patient's blood culture this morning shows no growth in 24 hours patient only had 1 of 2 cultures from the port positive for staph. Patient's port does not appear infected at this time there is no cellulitis or tenderness over the port site. Patient's white count is within normal limits Recommend to continue to treat the urinary tract infection I suspect that the port is infected at this time. Please reconsult surgery as needed
[2019-04-30] MEDS: DOCUSATE SODIUM 100 MG CAPSULE PO SCH (10:11)
[2019-04-30] MEDS: ENOXAPARIN SODIUM INJ 30 MG/0.3 ML DISP.SYRIN SUBCUT SCH (10:11)
[2019-04-30] MEDS: MEMANTINE HCL 10 MG TABLET PO SCH (10:15)
[2019-04-30] MEDS: FAMOTIDINE INJ/PF 20 MG/2 ML SDV IV SCH ×2 (10:16→22:06)
[2019-04-30] MEDS: NORMAL SALINE 1000 ML 1,000 ML IV PRN (10:25)
[2019-04-30] MEDS: LORAZEPAM INJ 2 MG/1 ML VIAL IV PRN ×2 (12:36→22:05)
--- NOTE | 2019-04-30 18:08 | PDOC PROGRESS REPORT ---
Subjective Progress Note for:: 04/30/19 Subjective:: Patient continue to demonstrate dementia related psychotic behavior with screaming and uncooperative with care. She eventually slept after administration of low dose Lorazepam and ambulating on the floor. No reported fever or difficulty with breathing. No observed chest pain. Disruptive with care by removing her IV fluid from port-a-cath site connection. Reason For Visit: UTI Physical Exam Vital Signs: Temp Pulse Resp BP Pulse Ox 97.4 F 87 17 136/71 H 97 04/30/19 11:00 04/30/19 11:00 04/30/19 11:00 04/30/19 11:00 04/30/19 11:00 Intake & Output 04/29/19 04/30/19 05/01/19 06:59 06:59 06:59 Intake Total 1250 1820 1360 Output Total 550 1050 Balance 387 958 9318 Weight 43.8 kg 43.4 kg General appearance: PRESENT: no acute distress, thin Head exam: PRESENT: atraumatic, normocephalic Eye exam: PRESENT: conjunctiva pink. ABSENT: scleral icterus Ear exam: PRESENT: normal external ear exam Mouth exam: PRESENT: moist Respiratory exam: PRESENT: clear to auscultation eduard Cardiovascular exam: PRESENT: RRR. ABSENT: diastolic murmur, rubs, systolic [place] Vascular exam: ABSENT: pallor GI/Abdominal exam: PRESENT: normal bowel sounds, soft. ABSENT: distended, guarding, mass, organolmegaly, rebound, tenderness Extremities exam: ABSENT: pedal edema Musculoskeletal exam: PRESENT: ambulatory Neurological exam: PRESENT: alert, awake. ABSENT: oriented to person, oriented to place, oriented to time, oriented to situation Psychiatric exam: PRESENT: agitated Skin exam: PRESENT: dry, warm Results Laboratory Results: 04/30/19 05:50 04/29/19 05:07 04/30/19 04/30/19 05:50 05:50 WBC 4.7 RBC 3.10 L Hgb 9.1 L D Hct 27.3 L MCV 88 MCH 29.3 MCHC 33.2 RDW 14.1 H Plt Count 170 Seg Neutrophils % 65.1 Magnesium 1.7 04/29/19 00:53 Blood Blood Culture (PCR) - Final Staphylococcus Species 04/28/19 22:22 Troponin I 0.042 Impressions: Chest X-Ray 04/28/19 21:35 IMPRESSION: No acute cardiopulmonary disease. Head CT 04/28/19 21:36 IMPRESSION: Possible thrombus in the right MCA, versus artifact.Clinical correlation is advised. Positioning markedly limits detail. No other acute abnormality. Assessment & Plan - Diagnosis (1) UTI (urinary tract infection) Qualifiers: Urinary tract infection type: site unspecified Is this a current diagnosis for this admission?: Yes Plan: Continue IV Ceftriaxone coverage. (2) Acute renal failure Qualifiers: Acute renal failure type: unspecified Qualified Code(s): N17.9 - Acute kidney failure, unspecified Is this a current diagnosis for this admission?: Yes Plan: Continue IV fluid rehydration as much as patient will allow. (3) Central venous line infection Qualifiers: Encounter type: initial encounter Qualified Code(s): T80.219A - Unspecified infection due to central venous catheter, initial encounter Is this a current diagnosis for this admission?: Yes Plan: Continue IV Ceftriaxone coverage. Her culture grew gram positive cocci in cluster not MRSA as per PCR evaluation. Follow up on antibiotic sensitivity report. (4) Dementia with behavioral disturbance Qualifiers: Dementia type: Alzheimer's disease Alzheimer's disease onset: late-onset Qualified Code(s): G30.1 - Alzheimer's disease with late onset; F02.81 - Dem entia in other diseases classified elsewhere with behavioral disturbance Is this a current diagnosis for this admission?: Yes Plan: Maintain on low dose Lorazepam administration for management. Patient remain on one-on-one monitoring to self inflicted injury. (5) Failure to thrive Qualifiers: Failure to thrive age range: in adult Qualified Code(s): R62.7 - Adult failure to thrive Is this a current diagnosis for this admission?: Yes Plan: Continue to emphasize feeding assistance as much as possible. - Time Time Spent with patient: 25-34 minutes Level of Care: MEDICAL Medications reviewed and adjusted accordingly: Yes Anticipated discharge: SNF Within: Other - Inpatient Certification Based on my medical assessment, after consideration of the patient's comorbidities, presenting symptoms, or acuity I expect that the services needed warrant INPATIENT care.: Yes I certify that my determination is in accordance with my understanding of Medicare's requirements for reasonable and necessary INPATIENT services [42 CFR 412.3e].: Yes Medical Necessity: Significant Comorbidiites Make Outpatient Treatment Too Risky, Need Close Monitoring Due to Risk of Patient Decompensation, Need for IV Antibiotics, Risk of Complication if Not Cared For in Hospital, Risk of Diagnosis Which Will Require Inpatient Eval/Care/Monitoring Post Hospital Care: D/C Smoke And Fl[employer] Specialist Documentation - Plan Summary Plan Summary: Continue current medication management and reorientation measures.
[2019-04-30] MEDS: CEFTRIAXONE 1 GM/D5W RTU 1 GM/50 ML RTUPB IV SCH (22:05)
[2019-05-01] MEDS: NORMAL SALINE 1000 ML 1,000 ML IV PRN ×2 (02:28→15:17)
[2019-05-01] MEDS: LORAZEPAM INJ 2 MG/1 ML VIAL IV PRN ×3 (04:58→23:25)
[2019-05-01] MEDS: FAMOTIDINE INJ/PF 20 MG/2 ML SDV IV SCH ×2 (10:13→22:16)
[2019-05-01] MEDS: DOCUSATE SODIUM 100 MG CAPSULE PO SCH (10:14)
[2019-05-01] MEDS: ENOXAPARIN SODIUM INJ 30 MG/0.3 ML DISP.SYRIN SUBCUT SCH (10:14)
[2019-05-01] MEDS: MEMANTINE HCL 10 MG TABLET PO SCH (10:14)
--- NOTE | 2019-05-01 13:28 | PDOC PROGRESS REPORT ---
Subjective Progress Note for:: 05/01/19 Subjective:: Patient continue to demonstrate dementia related psychotic behavior but less combative so far today. No observed chest pain or difficulty with breathing. No reported fever or difficulty with breathing. P.O intake remain poor. Reason For Visit: UTI Physical Exam Vital Signs: Temp Pulse Resp BP Pulse Ox 98.7 F 81 20 124/53 L 94 05/01/19 08:00 05/01/19 08:00 05/01/19 08:00 05/01/19 08:00 05/01/19 08:00 Intake & Output 04/30/19 05/01/19 05/02/19 06:59 06:59 06:59 Intake Total 1820 3227 Output Total 1050 401 Balance 770 2826 Weight 43.4 kg 45.7 kg Physical Exam: General appearance: PRESENT: no acute distress, thin Head exam: PRESENT: atraumatic, normocephalic Eye exam: PRESENT: conjunctiva pink. ABSENT: pallor, scleral icterus Ear exam: PRESENT: normal external ear exam Mouth exam: PRESENT: moist Respiratory exam: PRESENT: clear to auscultation eduard Cardiovascular exam: PRESENT: RRR. ABSENT: diastolic murmur, rubs, systolic murmur GI/Abdominal exam: PRESENT: normal bowel sounds, soft. ABSENT: distended, guarding, mass, organomegaly, rebound, tenderness Extremities exam: ABSENT: pedal edema Musculoskeletal exam: PRESENT: ambulatory Neurological exam: PRESENT: alert, awake. ABSENT: oriented to person, oriented to place, oriented to time, oriented to situation Psychiatric exam: PRESENT: agitated Skin exam: PRESENT: dry, warm Results Laboratory Results: 04/30/19 05:50 04/29/19 05:07 04/29/19 00:53 Blood Blood Culture (PCR) - Final Staphylococcus Species 04/28/19 22:22 Troponin I 0.042 Impressions: Chest X-Ray 04/28/19 21:35 IMPRESSION: No acute cardiopulmonary disease. Head CT 04/28/19 21:36 IMPRESSION: Possible thrombus in the right MCA, versus artifact.Clinical correlation is advised. Positioning markedly limits detail. No other acute abnormality. Assessment & Plan - Diagnosis (1) UTI (urinary tract infection) Qualifiers: Urinary tract infection type: site unspecified Is this a current diagnosis for this admission?: Yes (2) Acute renal failure Qualifiers: Acute renal failure type: unspecified Qualified Code(s): N17.9 - Acute kidney failure, unspecified Is this a current diagnosis for this admission?: Yes (3) Central venous line infection Qualifiers: Encounter type: initial encounter Qualified Code(s): T80.219A - Unspecified infection due to central venous catheter, initial encounter Is this a current diagnosis for this admission?: Yes (4) Dementia with behavioral disturbance Qualifiers: Dementia type: Alzheimer's disease Alzheimer's disease onset: late-onset Qualified Code(s): G30.1 - Alzheimer's disease with late onset; F02.81 - Dementia in other diseases classified elsewhere with behavioral disturbance Is this a current diagnosis for this admission?: Yes (5) Failure to thrive Qualifiers: Failure to thrive age range: in adult Qualified Code(s): R62.7 - Adult failure to thrive Is this a current diagnosis for this admission?: Yes - Time Time Spent with patient: 25-34 minutes Level of Care: MEDICAL Medications reviewed and adjusted accordingly: Yes Anticipated discharge: Home with Homehealth Within: Other - Inpatient Certification Based on my medical assessment, after consideration of the patient's comorbidities, presenting symptoms, or acuity I expect that the services needed warrant INPATIENT care.: Yes I certify that my determination is in accordance with my understanding of Medicare's requirements for reasonable and necessary INPATIENT services [42 CFR 412.3e].: Yes Medical Necessity: Significant Comorbidiites Make Outpatient Treatment Too Risky, Need Close Monitoring Due to Risk of Patient Decompensation, Need For IV Fluids, Need for IV Antibiotics, Risk of Complication if Not Cared For in Hospital, Risk of Diagnosis Which Will Require Inpatient Eval/Care/Monitoring Post Hospital Care: D/C Long Term Documentation - Plan Summary Plan Summary: Continue current medication management. Follow up on blood and urine culture organism identification and sensitivity reports.
[2019-05-01] MEDS: CEFTRIAXONE 1 GM/D5W RTU 1 GM/50 ML RTUPB IV SCH (22:16)
[2019-05-02] MEDS: NORMAL SALINE 1000 ML 1,000 ML IV PRN (05:41)
[2019-05-02 08:04] LABS: BLOOD UREA NITROGEN 25 mg/dL (7-20); CALCIUM 8.7 mg/dL (8.4-10.2); CARBON DIOXIDE 29 mmol/L (22-30); GLUCOSE 78 mg/dL (75-110); POTASSIUM 5.1 mmol/L (3.6-5.0)
[2019-05-02 08:20] LABS: CHLORIDE 105 mmol/L (98-107)
[2019-05-02 08:23] LABS: ANION GAP 5 (5-19)
[2019-05-02] MEDS ORDERED: MAGNESIUM SULFATE/D5W 1 GM/100 ML RTUPB IV ONE ×3 (09:00→10:32)
--- NOTE | 2019-05-02 09:14 | PDOC PROGRESS REPORT ---
Subjective Progress Note for:: 05/02/19 Subjective:: Patient is currently doing fair Patient's magnesium is 1.3 pt daughter concern about demand patient was complaining of a headache Otherwise alert awake's significant dementia wants to go home Reason For Visit: UTI Physical Exam Vital Signs: Temp Pulse Resp BP Pulse Ox 97.5 F 82 16 137/64 H 95 05/02/19 06:47 05/02/19 06:47 05/02/19 06:47 05/02/19 06:47 05/02/19 06:47 Intake & Output 05/01/19 05/02/19 05/03/19 06:59 06:59 06:59 Intake Total 3227 2641 Output Total 401 1475 Balance 2826 1166 Weight 45.7 kg 47.2 kg General appearance: PRESENT: no acute distress, well-developed, well-nourished Head exam: PRESENT: atraumatic, normocephalic Eye exam: PRESENT: conjunctiva pink, EOMI, PERRLA. ABSENT: scleral icterus Ear exam: PRESENT: normal external ear exam Mouth exam: PRESENT: moist, tongue midline Neck exam: PRESENT: full ROM. ABSENT: carotid bruit, JVD, lymphadenopathy, thyromegaly Respiratory exam: PRESENT: clear to auscultation eduard Cardiovascular exam: PRESENT: RRR. ABSENT: diastolic murmur, rubs, systolic mu rmur Pulses: PRESENT: normal dorsalis pedis pul, +2 pedal pulses bilateral Vascular exam: PRESENT: normal capillary refill GI/Abdominal exam: PRESENT: normal bowel sounds, soft. ABSENT: distended, guarding, mass, organolmegaly, rebound, tenderness Rectal exam: PRESENT: deferred Neurological exam: PRESENT: alert, awake, oriented to person. ABSENT: motor sensory deficit Psychiatric exam: PRESENT: appropriate affect, normal mood. ABSENT: homicidal ideation, suicidal ideation Skin exam: PRESENT: dry, intact, warm. ABSENT: cyanosis, rash Results Laboratory Results: 04/30/19 05:50 05/02/19 07:30 05/02/19 07:30 Sodium 139.0 Potassium 5.1 H Chloride 105 Carbon Dioxide 29 Anion Gap 5 BUN 25 H Creatinine 0.93 Est GFR ( Amer) > 60 Glucose 78 Calcium 8.7 Magnesium 1.3 L 04/29/19 00:53 Blood Blood Culture (PCR) - Final Staphylococcus Species 04/28/19 22:22 Troponin I 0.042 Impressions: Chest X-Ray 04/28/19 21:35 IMPRESSION: No acute cardiopulmonary disease. Head CT 04/28/19 21:36 IMPRESSION: Possible thrombus in the right MCA, versus artifact.Clinical correlation is advised. Positioning markedly limits detail. No other acute abnormality. Assessment & Plan - Diagnosis (1) Acute renal failure Qualifiers: Acute renal failure type: unspecified Qualified Code(s): N17.9 - Acute ki dney failure, unspecified Is this a current diagnosis for this admission?: Yes Plan: Currently all resolved most likely due to the high output ileostomy (2) Hypomagnesemia Is this a current diagnosis for this admission?: Yes Plan: Replace the magnesium's (3) UTI (urinary tract infection) Qualifiers: Urinary tract infection type: site unspecified Is this a current diagnosis for this admission?: Yes Plan: Continues to IV antibiotics will get the urine culture (4) Anemia Is this a current diagnosis for this admission?: Yes Plan: Due to the chronic disease (5) Crohns disease Qualifiers: Gastrointestinal tract location: unspecified location Is this a current diagnosis for this admission?: Yes Plan: Patient is seen by Dr. Echevarria and patient seen by the [facility] in the past status post surgery high ileostomy output (6) Dementia Qualifiers: Dementia type: unspecified type Dementia behavioral disturbance: with behavioral disturbance Qualified Code(s): F03.91 - Unspecified dementia with behavioral disturbance Is this a current diagnosis for this admission?: Yes Plan: Since not tolerate the Aricept and Namenda (7) Electrolyte imbalance Is this a current diagnosis for this admission?: Yes Plan: Replace the electrolytes due to the high output ileostomy (8) Emphysematous cystitis Is this a current diagnosis for this admission?: Yes Plan: Since seen by the urology in the outpatient suggest nothing else needs to be to (9) Failure to thrive Qualifiers: Failure to thrive age range: in adult Qualified Code(s): R62.7 - Adult failure to thrive Is this a current diagnosis for this admission?: Yes Plan: Due to the dementia will get the dietitian consult (10) Sepsis Qualifiers: Sepsis type: sepsis due to unspecified organism Is this a current diagnosis for this admission?: Yes Plan: Wait for the full culture and sensitivity to the blood in the urine continues IV antibiotic discussed with the surgery no need to remove the Port-A-Cath at this point well patient's is afebrile - Time Time Spent with patient: 15-24 minutes Level of Care: TELE Medications reviewed and adjusted accordingly: Yes Anticipated discharge: Home with Homehealth - Plan Summary Plan Summary: Continues to current medications
[2019-05-02] MEDS: DOCUSATE SODIUM 100 MG CAPSULE PO SCH (10:04)
[2019-05-02] MEDS: ENOXAPARIN SODIUM INJ 30 MG/0.3 ML DISP.SYRIN SUBCUT SCH (10:04)
[2019-05-02] MEDS: MEMANTINE HCL 10 MG TABLET PO SCH (10:49)
[2019-05-02] MEDS: FAMOTIDINE INJ/PF 20 MG/2 ML SDV IV SCH ×2 (10:49→21:59)
[2019-05-02] MEDS: LORAZEPAM INJ 2 MG/1 ML VIAL IV PRN ×2 (20:15→21:59)
[2019-05-02] MEDS: CEFTRIAXONE 1 GM/D5W RTU 1 GM/50 ML RTUPB IV SCH (21:59)
[2019-05-02] MEDS: DOXYCYCLINE HYCLATE 100 MG TABLET PO SCH (22:00)
[2019-05-03] MEDS ORDERED: MAGNESIUM SULFATE/D5W 1 GM/100 ML RTUPB IV ONE (08:00)
[2019-05-03] MEDS ORDERED: LORAZEPAM INJ 2 MG/1 ML VIAL IV ONE (08:15)
--- NOTE | 2019-05-03 09:01 | PDOC DISCHARGE SUMMARY ---
Impression - Admit/DC Date/PCP Admission Date/Primary Care Provider: 04/28/19 23:58 ZAY TAYLOR MD Discharge Date: 05/03/19 - Discharge Diagnosis (1) Acute renal failure Is this a current diagnosis for this admission?: Yes (2) Hypomagnesemia Is this a current diagnosis for this admission?: Yes (3) UTI (urinary tract infection) Is this a current diagnosis for this admission?: Yes (4) Anemia Is this a current diagnosis for this admission?: Yes (5) Crohns disease Is this a current diagnosis for this admission?: Yes (6) Dementia Is this a current diagnosis for this admission?: Yes (7) Electrolyte imbalance Is this a current diagnosis for this admission?: Yes (8) Emphysematous cystitis Is this a current diagnosis for this admission?: Yes (9) Failure to thrive Is this a current diagnosis for this admission?: Yes (10) Sepsis Is this a current diagnosis for this admission?: Yes - Additional Information Resuscitation Status: Full Code Discharge Diet: Regular Discharge Activity: Activity As Tolerated Referrals: ZAY TAYLOR MD [Primary Care Provider] - 05/09/19 11:45 am Prescriptions: Sulfamethoxazole/Trimethoprim [Bactrim Ds Tablet] 1 each PO BID #14 tablet Famotidine [Pepcid 20 mg Tablet] 20 mg PO DAILY #30 tablet Home Medications: Estradiol [Estrace] 42.5 gm VG MOFR@1000 04/29/19 Ondansetron HCl [Zofran 4 mg Tablet] 1 tab PO Q8HP PRN 04/29/19 Famotidine [Pepcid 20 mg Tablet] 20 mg PO DAILY #30 tablet 05/03/19 Sulfamethoxazole/Trimethoprim [Bactrim Ds Tablet] 1 each PO BID #14 tablet 05/03/19 History of Present Illiness History of Present Illness: FREDRICK BATISTA is a 84 year old female This is a 84-year-old female is with the history of the dementia is currently worsening history of the hypertension's hyperlipidemia history 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 required IV fluid at home history of the chronic kidney disease electrolyte imbalance due to the high output ileostomy recently stopped taking the IV fluid because of the worsening the dementia's and the patient refused to do that and home health people do not go and the daughter brought the patient's to the emergency department patient was very combative and agitated In the emergency department patient is found little bit more renal failure due to the dehydration's and hypomagnesemia as usual and a urinary tract infection I decided to admit in the further evaluation and treatments When I saw the patient on the floor alert awake answering the questions is usual underlying some dementia but pretty much patient's is telling me that her daughter is not taking care of her discussed with the daughter several times patients I think dementia is getting more worse Patient's denied any chest pain no short of breath no abdominal pain Head CT was negative for any acute finding Hospital Course Hospital Course: This is a 84-year-old female's with the multiple medical problem as above with the worsening dementia is came to the emergency departments with the urinary tract infections electrolyte imbalance due to the high output ileostomy patient start on IV antibiotic and replace the electrolytes Patient is kidney function is all improving patient responds very well with the IV antibiotics patient urine cultures grew up gram-negative organisms Patient is also have a Staphylococcus epidermidis in the blood but patient's white count is normal remain afebrile consult the surgery to remove the Port-A-Cath and suggest the most likely patient's is a contaminated do not like any sepsisAnd no need to remove the Port-A-Cath at this point Patient's white count is normal remain afebrile patient's wants to go home Patient's dementia is also worsening with some paranoid behavior and discussed with the daughter that patients probably need as usual IV fluid because of the h igh output ileostomy patient still medications for agitations patient is refused to do the all the stuff sometimes and family did not want to send to the patient's of the nursing facilities Overall prognosis is very poor discussed with the daughter if the patient's continues to be refused all the treatments and consider to be hospice care at that point because patient always risks if he refused for IV fluid to be electrolyte imbalance and other complications from there Physical Exam Vital Signs: Temp Pulse Resp BP Pulse Ox 99.2 F 87 18 120/63 97 05/02/19 19:32 05/02/19 19:32 05/02/19 19:32 05/02/19 19:32 05/02/19 19:32 Intake & Output 05/02/19 05/03/19 05/04/19 06:59 06:59 06:59 Intake Total 2641 1630 Output Total 1475 1850 Balance 1166 -220 Weight 47.2 kg 48 kg General appearance: PRESENT: no acute distress Head exam: PRESENT: atraumatic, normocephalic Eye exam: PRESENT: conjunctiva pink, EOMI, PERRLA. ABSENT: scleral icterus Ear exam: PRESENT: normal external ear exam Mouth exam: PRESENT: moist, tongue midline Neck exam: ABSENT: carotid bruit, JVD, lymphadenopathy, thyromegaly Respiratory exam: PRESENT: clear to auscultation eduard. ABSENT: rales, rhonchi, wheezes Cardiovascular exam: PRESENT: RRR. ABSENT: diastolic murmur, rubs, systolic murmur Pulses: PRESENT: normal dorsalis pedis pul Vascular exam: PRESENT: normal capillary refill GI/Abdominal exam: PRESENT: normal bowel sounds, soft. ABSENT: distended, guarding, mass, organolmegaly, rebound, tenderness Rectal exam: PRESENT: deferred Extremities exam: PRESENT: full ROM. ABSENT: calf tenderness, clubbing, pedal edema Neurological exam: PRESENT: alert, awake, oriented to person, oriented to place. ABSENT: motor sensory deficit Psychiatric exam: PRESENT: appropriate affect, normal mood. ABSENT: homicidal ideation, suicidal ideation Skin exam: PRESENT: dry, intact, warm. ABSENT: cyanosis, rash Results Laboratory Results: WBC 4.7 10^3/uL (4.0-10.5) 04/30/19 05:50 RBC 3.10 10^6/uL (3.72-5.28) L 04/30/19 05:50 Hgb 9.1 g/dL (12.0-15.5) L D 04/30/19 05:50 Hct 27.3 % (36.0-47.0) L 04/30/19 05:50 MCV 88 fl (80-97) 04/30/19 05:50 MCH 29.3 pg (27.0-33.4) 04/30/19 05:50 MCHC 33.2 g/dL (32.0-36.0) 04/30/19 05:50 RDW 14.1 % (11.5-14.0) H 04/30/19 05:50 Plt Count 170 10^3/uL (150-450) 04/30/19 05:50 Lymph % (Auto) 22.1 % (13-45) 04/30/19 05:50 Morton % (Auto) 9.3 % (3-13) 04/30/19 05:50 Eos % (Auto) 2.9 % (0-6) 04/30/19 05:50 Baso % (Auto) 0.6 % (0-2) 04/30/19 05:50 Absolute Neuts (auto) 3.1 10^3/uL (1.7-8.2) 04/30/19 05:50 Absolute Lymphs (auto) 1.0 10^3/uL (0.5-4.7) 04/30/19 05:50 Absolute Monos (auto) 0.4 10^3/uL (0.1-1.4) 04/30/19 05:50 Absolute Eos (auto) 0.1 10^3/uL (0.0-0.6) 04/30/19 05:50 Absolute Basos (auto) 0.0 10^3/uL (0.0-0.2) 04/30/19 05:50 Seg Neutrophils % 65.1 % (42-78) 04/30/19 05:50 Sodium 139.0 mmol/L (137-145) 05/02/19 07:30 Potassium 5.1 mmol/L (3.6-5.0) H 05/02/19 07:30 Chloride 105 mmol/L (98-107) 05/02/19 07:30 Carbon Dioxide 29 mmol/L (22-30) 05/02/19 07:30 Anion Gap 5 (5-19) 05/02/19 07:30 BUN 25 mg/dL (7-20) H 05/02/19 07:30 Creatinine 0.93 mg/dL (0.52-1.25) 05/02/19 07:30 Est GFR ( Amer) > 60 (>60) 05/02/19 07:30 Est GFR (MDRD) Non-Af 57 (>60) L 05/02/19 07:30 Glucose 78 mg/dL (75-110) 05/02/19 07:30 Calcium 8.7 mg/dL (8.4-10.2) 05/02/19 07:30 Magnesium 1.3 mg/dL (1.6-2.3) L 05/02/19 07:30 Total Bilirubin 0.6 mg/dL (0.2-1.3) 04/28/19 22:22 Direct Bilirubin 0.4 mg/dL (0.0-0.4) 04/28/19 22:22 Neonat Total Bilirubin Not Reportable 04/28/19 22:22 Neonat Direct Bilirubin Not Reportable 04/28/19 22:22 Neonat Indirect Bili Not Reportable 04/28/19 22:22 AST 25 U/L (14-36) 04/28/19 22:22 ALT 12 U/L (<35) 04/28/19 22:22 Alkaline Phosphatase 104 U/L (38-126) 04/28/19 22:22 Ammonia 10.0 umol/L (9-33) 04/28/19 22:22 Troponin I 0.042 ng/mL 04/28/19 22:22 Total Protein 8.3 g/dL (6.3-8.2) H 04/28/19 22:22 Albumin 4.3 g/dL (3.5-5.0) 04/28/19 22:22 Urine Color YELLOW 04/28/19 22:45 Urine Appearance SLIGHTLY-CLOUDY 04/28/19 22:45 Urine pH 5.0 (5.0-9.0) 04/28/19 22:45 Ur Specific Hyndman 1.015 04/28/19 22:45 Urine Protein NEGATIVE mg/dL (NEGATIVE) 04/28/19 22:45 Urine Glucose (UA) NEGATIVE mg/dL (NEGATIVE) 04/28/19 22:45 Urine Ketones NEGATIVE mg/dL (NEGATIVE) 04/28/19 22:45 Urine Blood NEGATIVE (NEGATIVE) 04/28/19 22:45 Urine Nitrite NEGATIVE (NEGATIVE) 04/28/19 22:45 Urine Bilirubin NEGATIVE (NEGATIVE) 04/28/19 22:45 Urine Urobilinogen NEGATIVE mg/dL (<2.0) 04/28/19 22:45 Ur Leukocyte Esterase MODERATE (NEGATIVE) H 04/28/19 22:45 Urine WBC (Auto) 8 /HPF 04/28/19 22:45 Urine RBC (Auto) 1 /HPF 04/28/19 22:45 U Hyaline Cast (Auto) 1 /LPF 04/28/19 22:45 Urine Bacteria (Auto) 3+ /HPF 04/28/19 22:45 Squamous Epi Cells Auto 2 /HPF 04/28/19 22:45 Urine Mucus (Auto) RARE /LPF 04/28/19 22:45 Urine Ascorbic Acid NEGATIVE (NEGATIVE) 04/28/19 22:45 04/28/19 22:22 Troponin I 0.042 Impressions: Chest X-Ray 04/28/19 21:35 IMPRESSION: No acute cardiopulmonary disease. Head CT 04/28/19 21:36 IMPRESSION: Possible thrombus in the right MCA, versus artifact.Clinical correlation is advised. Positioning markedly limits detail. No other acute abnormality. Plan Time Spent: Greater than 30 Minutes - Continues home health and continues IV fluid 3 times a week continues to magnesiums start the patient on a p.o. antibiotic and change the dressing for Port-A-Cath flushed once a month Stroke Is this a Stroke Patient?: No Acute Heart Failure - Is this a Heart Failure Patient?: No
[2019-05-03] MEDS: DOCUSATE SODIUM 100 MG CAPSULE PO SCH (09:24)
[2019-05-03] MEDS: DOXYCYCLINE HYCLATE 100 MG TABLET PO SCH (09:25)
[2019-05-03] MEDS: FAMOTIDINE INJ/PF 20 MG/2 ML SDV IV SCH (09:25)
[2019-05-03] MEDS: MEMANTINE HCL 10 MG TABLET PO SCH (09:25)
[2019-05-03] MEDS: ENOXAPARIN SODIUM INJ 30 MG/0.3 ML DISP.SYRIN SUBCUT SCH (09:25)
[2019-05-03 10:17] LABS: ABSOLUTE EOSINOPHILS # (AUTO) 0.2 10^3/uL (0.0-0.6); ABSOLUTE MONOCYTES (AUTO) 0.4 10^3/uL (0.1-1.4); ABSOLUTE NEUT (AUTO) 3.2 10^3/uL (1.7-8.2); BASOPHILS % (AUTO) 0.6 % (0-2); EOSINOPHILS % (AUTO) 4.8 % (0-6); HEMATOCRIT 30.6 % (36.0-47.0); HEMOGLOBIN 9.9 g/dL (12.0-15.5); LYMPHOCYTES % (AUTO) 20.1 % (13-45); MEAN CORPUSCULAR HGB CONC 32.4 g/dL (32.0-36.0); MEAN CORPUSCULAR VOLUME 90 fl (80-97); MONOCYTES % (AUTO) 8.4 % (3-13); PLATELET COUNT 182 10^3/uL (150-450); RED BLOOD COUNT 3.41 10^6/uL (3.72-5.28); RED CELL DISTRIBUTION WIDTH 14.4 % (11.5-14.0); SEGMENTED NEUTROPHILS % (AUTO) 66.1 % (42-78); TOTAL CELLS COUNTED % (AUTO) 100 %; WHITE BLOOD COUNT 4.9 10^3/uL (4.0-10.5)
[2019-05-03 10:30] LABS: ANION GAP 7 (5-19); BLOOD UREA NITROGEN 19 mg/dL (7-20); CALCIUM 8.6 mg/dL (8.4-10.2); CARBON DIOXIDE 29 mmol/L (22-30); CHLORIDE 105 mmol/L (98-107); GLUCOSE 92 mg/dL (75-110); POTASSIUM 4.6 mmol/L (3.6-5.0)
[2019-05-03 16:45] VITALS: BP 117/46
== END 2019-05-03 17:45 | disposition home health service (06) | DRG 683 ==
LOC: ER 20:35 → EH 23:58 → 3S 04-29 02:10 → 4W 04-29 21:32 → 4N 04-30 17:36
PROVIDERS: ADMIT Family Medicine; ATTEND Family Medicine
DX: N17.9 Acute kidney failure, unspecified (principal); N39.0 Urinary tract infection, site not specified; K50.90 Crohn's disease, unspecified, without complications; F02.81 Dementia in other diseases classified elsewhere, unspecified severity, with behavioral disturbance; E83.42 Hypomagnesemia; R62.7 Adult failure to thrive; E78.5 Hyperlipidemia, unspecified; I10 Essential (primary) hypertension; E86.0 Dehydration; M19.90 Unspecified osteoarthritis, unspecified site; G30.9 Alzheimer's disease, unspecified; D63.8 Anemia in other chronic diseases classified elsewhere; B96.89 Other specified bacterial agents as the cause of diseases classified elsewhere; F32.9 Major depressive disorder, single episode, unspecified; Z93.2 Ileostomy status; Z90.710 Acquired absence of both cervix and uterus; Z87.891 Personal history of nicotine dependence; Z91.14 Patient's other noncompliance with medication regimen
CPT/HCPCS: 36415; 70450; 71046; 80048; 80053; 81001; 82140; 83735; 84484; 85025; 87040; 87077; 87086; 87088; 87150; 87186; 93005; 93010; 99285; J0696; J1642; J2060; J2405; J3475; J7030; S0028

== ENCOUNTER 2019-06-25 09:29 | Inpatient (IN) | payer MEDICARE, MEDICAID ==
[2019-06-25 10:27] LABS: ABSOLUTE BASOPHILS # (AUTO) 0.1 10^3/uL (0.0-0.2); ABSOLUTE LYMPHOCYTES (AUTO) 1.3 10^3/uL (0.5-4.7); ABSOLUTE MONOCYTES (AUTO) 0.5 10^3/uL (0.1-1.4); ABSOLUTE NEUT (AUTO) 5.5 10^3/uL (1.7-8.2); BASOPHILS % (AUTO) 0.8 % (0-2); EOSINOPHILS % (AUTO) 0.5 % (0-6); HEMATOCRIT 42.7 % (36.0-47.0); HEMOGLOBIN 14.6 g/dL (12.0-15.5); LYMPHOCYTES % (AUTO) 17.9 % (13-45); MEAN CORPUSCULAR HGB CONC 34.1 g/dL (32.0-36.0); MEAN CORPUSCULAR VOLUME 85 fl (80-97); MONOCYTES % (AUTO) 6.7 % (3-13); PLATELET COUNT 224 10^3/uL (150-450); RED BLOOD COUNT 5.02 10^6/uL (3.72-5.28); RED CELL DISTRIBUTION WIDTH 14.1 % (11.5-14.0); SEGMENTED NEUTROPHILS % (AUTO) 74.1 % (42-78); TOTAL CELLS COUNTED % (AUTO) 100 %; WHITE BLOOD COUNT 7.4 10^3/uL (4.0-10.5)
[2019-06-25] MEDS ORDERED: ONDANSETRON HCL INJ/PF 4 MG/2 ML SDV IV ONE (10:49)
[2019-06-25 10:50] LABS: ALBUMIN 4.1 g/dL (3.5-5.0); ALKALINE PHOSPHATASE 78 U/L (38-126); ANION GAP 19 (5-19); ASPARTATE AMINO TRANSFERASE 20 U/L (14-36); BILIRUBIN,DIRECT 0.3 mg/dL (0.0-0.4); BILIRUBIN,TOTAL 0.7 mg/dL (0.2-1.3); GLUCOSE 108 mg/dL (75-110); TOTAL PROTEIN 7.3 g/dL (6.3-8.2)
[2019-06-25] MEDS ORDERED: ACETAMINOPHEN 1,000 MG/100 ML RTUPB IV ONE (10:57)
--- NOTE | 2019-06-25 11:01 | ER Document Report ---
ED Medical Screen (RME) - General Chief Complaint: Pain All Over Stated Complaint: BODY PAIN Time Seen by Provider: 06/25/19 10:48 Primary Care Provider: ZAY TAYLOR MD [Primary Care Provider] - Follow up as needed Mode of Arrival: Medic Notes: 84-year-old female with history of Crohn's dementia and is on hospice presents with her daughter via EMS for complaints of back pain nausea feet pain for the past 3 to 4 months. Daughter reports that patient was recently placed on hospice and she did not take her to Dr. Taylor's office because she was told she would have to pay out of pocket because patient is now placed on hospice. Patient complains of nausea and reports her back is really hurting her. No other complaints such as fever vomiting or diarrhea. I have greeted and performed a rapid initial assessment of this patient. A comprehensive ED assessment and evaluation of the patient, analysis of test results and completion of the medical decision making process will be conducted by additional ED providers. TRAVEL OUTSIDE OF THE [place] IN LAST 30 DAYS: No - Related Data Allergies/Adverse Reactions: No Known Allergies Allergy (Verified 01/01/19 22:14) Past Medical History - Social History Frequency of alcohol use: None Drug Abuse: None - Past Medical History Cardiac Medical History: Reports: Hx Hypercholesterolemia, Hx Hypertension Denies: Hx Coronary Artery Disease, Hx Heart Attack Pulmonary Medical History: Denies: Hx Asthma, Hx Bronchitis, Hx COPD, Hx Pneumonia Neurological Medical History: Denies: Hx Cerebrovascular Accident, Hx Seizures Renal/ Medical History: Reports: Hx Renal Insufficiency. Denies: Hx Peritoneal Dialysis GI Medical History: Reports: Hx Crohn's Disease, Hx Gastroesophageal Reflux Disease Musculoskeltal Medical History: Reports Hx Arthritis Psychiatric Medical History: Reports: Hx Anxiety, Hx Dementia, Hx Depression Past Surgical History: Reports: Hx Bowel Surgery - Colectomy for Crohn's disease, colostomy, Hx Colostomy, Hx Hysterectomy, Hx Ileostomy - Immunizations Hx Diphtheria, Pertussis, Tetanus Vaccination: Yes Physical Exam - Vital signs Vitals: Temp Pulse Resp BP Pulse Ox 97.8 F 115 H 20 90/63 L 91 L 06/25/19 09:38 06/25/19 09:38 06/25/19 09:38 06/25/19 09:38 06/25/19 09:38 Course - Vital Signs Vital signs: Temp Pulse Resp BP Pulse Ox 97.8 F 115 H 20 90/63 L 91 L 06/25/19 09:38 06/25/19 09:38 06/25/19 09:38 06/25/19 09:38 06/25/19 09:38 - Laboratory Result Diagrams: 06/25/19 10:10 06/25/19 10:10 Laboratory results interpreted by me: 06/25/19 10:10 RDW 14.1 H Doctor's Discharge - Discharge Referrals: ZAY TAYLOR MD [Primary Care Provider] - Follow up as needed
[2019-06-25 11:04] LABS: CARBON DIOXIDE 31 mmol/L (22-30); CHLORIDE 74 mmol/L (98-107)
[2019-06-25 11:12] LABS: BLOOD UREA NITROGEN 145 mg/dL (7-20)
[2019-06-25 11:14] LABS: CALCIUM 6.4 mg/dL (8.4-10.2)
--- NOTE | 2019-06-25 11:34 | RADIOLOGY REPORT (SQ) ---
EXAM DESCRIPTION: CHEST SINGLE VIEW COMPLETED DATE/TIME: 06/25/2019 11:24 am REASON FOR STUDY: body pain, cramping COMPARISON: 04/28/2019 EXAM PARAMETERS: NUMBER OF VIEWS: One view. TECHNIQUE: Single frontal radiographic view of the chest acquired. RADIATION DOSE: NA LIMITATIONS: None. FINDINGS: LUNGS AND PLEURA: No opacities, masses or pneumothorax. No pleural effusion. MEDIASTINUM AND HILAR STRUCTURES: No masses. Contour normal. HEART AND VASCULAR STRUCTURES: Heart enlarged. No failure. BONES: No acute findings. HARDWARE: Venous access catheter unchanged. OTHER: No other significant finding. IMPRESSION: NO ACUTE RADIOGRAPHIC FINDING IN THE CHEST. TECHNICAL DOCUMENTATION: JOB ID: [id number] [employer]- All Rights Reserved Reading location - IP/workstation name: [email or web address]
[2019-06-25] MEDS ORDERED: NORMAL SALINE 500 ML IV ONE ×2 (12:47→13:45)
[2019-06-25] MEDS ORDERED: CALCIUM GLUCONATE 1000 MG/10 ML INJ IV ONE ×2 (12:50→19:15)
[2019-06-25] MEDS: MAGNESIUM SULFATE/D5W 1 GM/100 ML RTUPB IV SCH ×4 (13:41→16:18)
[2019-06-25] MEDS ORDERED: ACETAMINOPHEN 325 MG TABLET PO PRN (13:54)
[2019-06-25] MEDS ORDERED: NORMAL SALINE 1000 ML 1,000 ML IV ONE (13:59)
--- NOTE | 2019-06-25 14:06 | Progress Note ---
Provider Note Provider Note: pt seen and exam in er and poor prgonosis pt is dnr as per pt and daughter
--- NOTE | 2019-06-25 14:11 | ER Document Report ---
Entered by MONALISA SWARTZ SCRIBE 06/25/19 1158 Acting as scribe for:SILVINA FONSECA MD ED General - General Chief Complaint: Pain All Over Stated Complaint: BODY PAIN Time Seen by Provider: 06/25/19 10:48 Mode of Arrival: Ambulatory Information source: Patient Notes: This 84 year old female patient presents to the emergency department today with complaints of generalized pain for months, although she does specifically mention neck pain. Patient is s/p colostomy about 15 years ago and has no complaints regarding this, stating it has been normal brown stool. Patient does mention a decreased appetite the last few days. Patient does mention nausea and a non-productive cough as well. Patient is pleasant but does have alzheimer's so history is limited. Patient denies vomiting, fevers, chills, chest pain, headaches, sinus congestion, or a sore throat. TRAVEL OUTSIDE OF THE [place] IN LAST 30 DAYS: No - Related Data Allergies/Adverse Reactions: No Known Allergies Allergy (Verified 01/01/19 22:14) Past Medical History - General Information source: Patient - Social History Smoking Status: Current Every Day Smoker Cigarette use (# per day): Yes Frequency of alcohol use: None Drug Abuse: None Lives with: Family Family History: Reviewed & Not Pertinent Patient has suicidal ideation: No Patient has homicidal ideation: No - Past Medical History Cardiac Medical History: Reports: Hx Hypercholesterolemia, Hx Hypertension Renal/ Medical History: Reports: Hx Renal Insufficiency GI Medical History: Reports: Hx Crohn's Disease, Hx Gastroesophageal Reflux Disease Musculoskeletal Medical History: Reports Hx Arthritis Psychiatric Medical History: Reports: Hx Anxiety, Hx Dementia, Hx Depression Past Surgical History: Reports: Hx Bowel Surgery - Colectomy for Crohn's disease, colostomy, Hx Colostomy, Hx Hysterectomy, Hx Ileostomy - Immunizations Hx Diphtheria, Pertussis, Tetanus Vaccination: Yes Hx Pneumococcal Vaccination: 05/25/18 Review of Systems - Review of Systems Constitutional: denies: Chills, Fever EENT: denies: Sinus pressure Cardiovascular: denies: Chest pain Respiratory: See HPI, Cough Gastrointestinal: See HPI, Nausea. denies: Vomiting Genitourinary: No symptoms reported Female Genitourinary: No symptoms reported Musculoskeletal: See HPI, Muscle pain, Neck pain Skin: No symptoms reported Hematologic/Lymphatic: No symptoms reported Neurological/Psychological: denies: Headaches -: Yes All other systems reviewed and negative Physical Exam - Vital signs Vitals: Temp Pulse Resp BP Pulse Ox 97.8 F 115 H 20 90/63 L 91 L 06/25/19 09:38 06/25/19 09:38 06/25/19 09:38 06/25/19 09:38 06/25/19 09:38 - Notes Notes: Physical Exam: General: Alert, appears age appropriate. HEENT: Normocephalic. Atraumatic. PERRL. Extraocular movements intact. Oropharynx clear. Neck: Supple. Non-tender. Respiratory: No respiratory distress. Clear and equal breath sounds bilaterally. Cardiovascular: Regular rate and rhythm. Abdominal: Colostomy bag in place with brown stool. No distension. Normal Bowel Sounds. Back: No gross abnormalities. Extremities: Moves all four extremities. Upper extremities: Normal inspection. Normal ROM. Lower extremities: Normal inspection. No edema. Normal ROM. Neurological: Normal cognition. AAOx4. Normal speech. Psychological: Normal affect. Normal Mood. Skin: Warm. Dry. Normal color. Course - Re-evaluation Re-evalutation: 06/25/19 14:01 Patient resting comfortably much more alert at this time. Currently not complaining of any muscle pain and is requesting food. Case discussed with Dr. Hallman who has agreed to admit patient to hospital understanding that she is not a hospice patient. Patient is a DO NOT RESUSCITATE. Patient has an acute on chronic renal failure at this time with metabolic derangement of hyperkalemia hypo-nature anemia and hypomagnesemia. Meek catheter is going to be placed so we can measure inputs and outputs. Patient is receiving potassium binder medication to lower her elevated potassium and patient is receiving IV magnesium magnesium and IV calcium. 06/25/19 14:09 Patient has refused IV urinary bladder catheterization for straight cath to just obtain urinalysis and for any Meek catheter at all. 06/25/19 16:58 Patient developed a red rash after receiving IV Rocephin. Patient also noted redness and itching about her hands.. No airway or wheezing difficulty. Vital signs are stable - Vital Signs Vital signs: Temp Pulse Resp BP Pulse Ox 98 F 115 H 17 99/51 L 98 06/25/19 15:53 06/25/19 09:38 06/25/19 15:59 06/25/19 16:00 06/25/19 16:00 - Laboratory Result Diagrams: 06/25/19 10:10 06/25/19 15:33 Laboratory results interpreted by me: 06/25/19 06/25/19 06/25/19 10:10 10:10 12:05 RDW 14.1 H Sodium 124.3 L Potassium 6.0 H* Chloride 74 L Carbon Dioxide 31 H BUN 145 H Creatinine 8.43 H Est GFR ( Amer) 5 L Est GFR (MDRD) Non-Af 4 L Calcium 6.4 L* Magnesium 0.7 L* Lipase 611.3 H - Diagnostic Test Radiology reviewed: Image reviewed, Reports reviewed Radiology results interpreted by me: 06/25/19 14:03 Chest x-ray does not show any acute process no infiltrate some cardiomegaly. - EKG Interpretation by Me Additional EKG results interpreted by me: 06/25/19 14:03 Twelve-lead EKG done at 1101 shows normal sinus rhythm rate of 92. Left anterior fascicular block. Probable left ventricular hypertrophy. Borderline prolonged QT interval T waves do appear more peaked in chest leads when compared to EKG of 04/29/2019. Critical Care Note - Critical Care Note Total time excluding time spent on procedures (mins): 60 Discharge - Discharge Clinical Impression: Hyponatremia, Acute hyperkalemia, Hypocalcemia, Dehydration, Do not resuscitate status Acute renal failure (ARF) Qualifiers: Acute renal failure type: unspecified Qualified Code(s): N17.9 - Acute kidney failure, unspecified Dementia Qualifiers: Dementia type: Alzheimer's disease Alzheimer's disease onset: other onset Dementia behavioral disturbance: with behavioral disturbance Qualified Code(s): G30.8 - Other Alzheimer's disease Crohns disease Qualifiers: Gastrointestinal tract location: large intestine Digestive disease complication type: with intestinal obstruction Qualified Code(s): K50.112 - Crohn's disease of large intestine with intestinal obstruction Condition: Critical Disposition: ADMITTED INPATIENT Admitting Provider: hallman Unit Admitted: Medical Floor I personally performed the services described in the documentation, reviewed and edited the documentation which was dictated to the scribe in my presence, and it accurately records my words and actions.
[2019-06-25] MEDS ORDERED: CEFTRIAXONE 1 GM/D5W RTU 1 GM/50 ML RTUPB IV SCH (15:30)
[2019-06-25] MEDS ORDERED: PATIROMER 8.4 GM SUSP PACKET PO ONE (15:30)
[2019-06-25 16:17] LABS: ANION GAP 18 (5-19); CARBON DIOXIDE 28 mmol/L (22-30); CHLORIDE 76 mmol/L (98-107); GLUCOSE 162 mg/dL (75-110)
[2019-06-25 16:28] LABS: BLOOD UREA NITROGEN 129 mg/dL (7-20); POTASSIUM 4.5 mmol/L (3.6-5.0)
[2019-06-25 16:29] LABS: CALCIUM 6.5 mg/dL (8.4-10.2)
[2019-06-25] MEDS ORDERED: METHYLPREDNISOLONE INJ 125 MG/2 ML SDV IV ONE (16:56)
[2019-06-25] MEDS ORDERED: DIPHENHYDRAMINE HCL 50 MG/ML VIAL IV ONE (16:56)
[2019-06-25] MEDS ORDERED: PATIROMER 8.4 GM SUSP PACKET PO SCH (17:00)
--- NOTE | 2019-06-25 18:10 | PDOC H&P ---
History of Present Illness Admission Date/PCP: 06/25/19 14:28 ZAY TAYLOR MD Patient complains of: Weakness pain all over History of Present Illness: FREDRICK BATISTA is a 84 year old female This is a 34-year-old female with a history of the Crohn's disease with the high output ileostomy with the required IV fluid 2-4 times a week with recently worsening the dementia not able to eat or drink much back to the emergency department with a complaining of weakness pain all over. Patient's found severely dehydrated and acute renal failure on chronic kidney disease with the patient's creatinine is about 8 and patient's potassium is 6 and patient's calcium is 6.4. Patient's magnesium is also low. When I saw the patient is alert awake and the patient is received the IV fluids IV magnesium IV calcium and correct the potassium Sodium is also low Since last several months patient is refused to take the IV fluid at home and patients not eat much according to the daughter patient's dementia is getting worse patient supposed to be hospice care but none now for the home health agency status at this point because pretty much the last admissions discussed with the patient's family regarding the patient's deteriorating conditionsPatient is refused to eat or drink very much patient is nothing else can be offered with ongoing chronic Crohn's disease with a high output ileostomy and several hospital admissions because of the renal failure and severe electrolyte imbalance Today's discussed with the patient's daughter patient is currently DNR/DNI will admit the patient's for IV hydrations patient's not candidate for the renal replacement therapy because patients alsoPatient is persistently refused to even the Meek catheter currently so patient able to get for dialysis Overall prognosis is very poor admit the patient in the medical floor for IV hydration and we consult the planner internship for possible hospice Past Medical History Cardiac Medical History: Reports: Hyperlipidema, Hypertension Denies: Coronary Artery Disease, Myocardial Infarction Pulmonary Medical History: Denies: Asthma, Bronchitis, Chronic Obstructive Pulmonary Disease (COPD), Pneumonia Neurological Medical History: Denies: Seizures Renal/ Medical History: Reports: Chronic Kidney Disease GI Medical History: Reports: Crohn's Disease, Gastroesophageal Reflux Disease Musculoskeltal Medical History: Reports: Arthritis Psychiatric Medical History: Reports: Dementia, Depression Hematology: Reports: Anemia Past Surgical History Past Surgical History: Reports: Colostomy, Hysterectomy, Ileostomy Social History Information Source: Patient Lives with: Family Smoking Status: Current Every Day Smoker Frequency of Alcohol Use: None Hx Recreational Drug Use: No Drugs: None Hx Prescription Drug Abuse: No Family History Family History: Reviewed & Not Pertinent Parental Family History Reviewed: Yes Children Family History Reviewed: Yes Sibling(s) Family History Reviewed.: Yes Medication/Allergy Home Medications: No Home Medications 06/25/19 Allergies/Adverse Reactions: ceftriaxone [From Rocephin] Allergy (Intermediate, Verified 06/25/19 17:52) Pruritis Review of Systems ROS unobtainable: Due to mental status All systems: reviewed and no additional remarkable complaints except as stated Physical Exam Vital Signs: Temp Pulse Resp BP Pulse Ox 98 F 115 H 17 99/51 L 98 06/25/19 15:53 06/25/19 09:38 06/25/19 15:59 06/25/19 16:00 06/25/19 16:00 Intake & Output 06/24/19 06/25/19 06/26/19 06:59 06:59 06:59 Intake Total 2049 Balance 2049 Weight 48 kg General appearance: PRESENT: no acute distress, thin Head exam: PRESENT: atraumatic, normocephalic Eye exam: PRESENT: conjunctiva pink, EOMI, PERRLA. ABSENT: scleral icterus Ear exam: PRESENT: normal external ear exam Mouth exam: PRESENT: moist, tongue midline Neck exam: PRESENT: full ROM. ABSENT: carotid bruit, JVD, lymphadenopathy, thyromegaly Respiratory exam: PRESENT: clear to auscultation eduard Cardiovascular exam: PRESENT: RRR. ABSENT: diastolic murmur, rubs, systolic murmur Pulses: PRESENT: normal dorsalis pedis pul, +2 pedal pulses bilateral Vascular exam: PRESENT: normal capillary refill GI/Abdominal exam: PRESENT: normal bowel sounds, soft. ABSENT: distended, guarding, mass, organolmegaly, rebound, tenderness Additonal comments: Ileostomy is working Rectal exam: PRESENT: deferred Neurological exam: PRESENT: alert, awake, oriented to person, oriented to place. ABSENT: motor sensory deficit Psychiatric exam: PRESENT: appropriate affect, normal mood. ABSENT: homicidal ideation, suicidal ideation Skin exam: PRESENT: dry, intact, warm. ABSENT: cyanosis, rash Results Laboratory Results: 06/25/19 10:10 06/25/19 15:33 06/25/19 06/25/19 06/25/19 10:10 10:10 11:52 WBC 7.4 RBC 5.02 Hgb 14.6 Hct 42.7 MCV 85 MCH 29.0 MCHC 34.1 RDW 14.1 H Plt Count 224 Seg Neutrophils % 74.1 Sodium 124.3 L Potassium 6.0 H* Chloride 74 L Carbon Dioxide 31 H Anion Gap 19 BUN 145 H Creatinine 8.43 H Est GFR ( Amer) 5 L Glucose 108 Lactic Acid 1.2 Calcium 6.4 L* Magnesium Total Bilirubin 0.7 AST 20 Alkaline Phosphatase 78 Total Protein 7.3 Albumin 4.1 Lipase 611.3 H Stool for White Cells 06/25/19 06/25/19 06/25/19 12:05 15:33 16:19 WBC RBC Hgb Hct MCV MCH MCHC RDW Plt Count Seg Neutrophils % Sodium 121.9 L Potassium 4.5 D Chloride 76 L Carbon Dioxide 28 Anion Gap 18 BUN 129 H Creatinine 7.75 H Est GFR ( Amer) 6 L Glucose 162 H Lactic Acid Calcium 6.5 L* Magnesium 0.7 L* Total Bilirubin AST Alkaline Phosphatase Total Protein Albumin Lipase Stool for White Cells NO WBCs SEEN Impressions: Chest X-Ray 06/25/19 10:49 IMPRESSION: NO ACUTE RADIOGRAPHIC FINDING IN THE CHEST. Assessment & Plan - Diagnosis (1) Acute hyperkalemia Is this a current diagnosis for this admission?: Yes Plan: Correct the potassiums most likely due to the dehydration's with underlying kidney failure will start on IV fluid (2) Acute renal failure Qualifiers: Acute renal failure type: unspecified Qualified Code(s): N17.9 - Acute kidney failure, unspecified Is this a current diagnosis for this admission?: Yes Plan: Due to the high output ileostomy will continues the IV fluid placed the Meek catheter correct the electrolytes continues to monitor patient EKG no acute changes is noticed Seen by the Dr. Maxwell as outpatient for chronic kidney disease and chronic anemia (3) Crohns disease Qualifiers: Gastrointestinal tract location: large intestine Digestive disease complication type: with intestinal obstruction Qualified Code(s): K50.112 - Crohn's disease of large intestine with intestinal obstruction Is this a current diagnosis for this admission?: Yes Plan: Patient seen by Dr. Echevarria nothing can be offer at this point due to the worsening the dementia's patients not keeping the appointment and not taking the medications as prescribed will continues the Imodium (4) Dehydration Is this a current diagnosis for this admission?: Yes Plan: Due to the high output ileostomy and failure to thrive will continues the IV fluid (5) Dementia Qualifiers: Dementia type: Alzheimer's disease Alzheimer's disease onset: other onset Dementia behavioral disturbance: with behavioral disturbance Qualified Code(s): G30.8 - Other Alzheimer's disease; F02.81 - Dementia in other diseases classified elsewhere with behavioral disturbance Is this a current diagnosis for this admission?: Yes Plan: Worsening the dementia is most likely a vascular dementia's with underlying metabolic encephalopathy at this point due to the severe electrolyte imbalance (6) Hypocalcemia Is this a current diagnosis for this admission?: Yes Plan: Coorect the calcium (9) Failure to thrive Qualifiers: Failure to thrive age range: in adult Qualified Code(s): R62.7 - Adult failure to thrive Is this a current diagnosis for this admission?: Yes (10) Hypomagnesemia Is this a current diagnosis for this admission?: Yes Plan: Replace the IV magnesium - Time Time Spent: 50 to 70 Minutes Medications reviewed and adjusted accordingly: Yes Anticipated discharge: Other Within: Other - Inpatient Certification Based on my medical assessment, after consideration of the patient's comorbidities, presenting symptoms, or acuity I expect that the services needed warrant INPATIENT care.: Yes I certify that my determination is in accordance with my understanding of Medicare's requirements for reasonable and necessary INPATIENT services [42 CFR 412.3e].: Yes Medical Necessity: Significant Comorbidiites Make Outpatient Treatment Too Risky, Need Close Monitoring Due to Risk of Patient Decompensation, Need For IV Fluids Post Hospital Care: D/C Freight Rate Analyst Documentation - Plan Summary Plan Summary: Admit the patient in the medical floor IV fluids Rule out the urinary tract infections Start the patient's on the Cipro if his culture is positive patient also admits reactions to the Rocephin in the ER which given by the [facility] and Archie currently all improved resolved Discussed with the patient's daughter regarding the patient's current conditions with overall poor prognosis
[2019-06-25 18:16] LABS: APPEARANCE,URINE CLOUDY; BILIRUBIN,URINE NEGATIVE (NEGATIVE); COLOR,URINE YELLOW; GLUCOSE, URINE NEGATIVE (NEGATIVE); KETONES,URINE NEGATIVE (NEGATIVE); LEUKOCYTE ESTERASE,URINE NEGATIVE (NEGATIVE); NITRITE,URINE NEGATIVE (NEGATIVE); PROTEIN,URINE 30 mg/dL (NEGATIVE); URINE SPECIFIC GRAVITY 1.014; UROBILINOGEN,URINE NEGATIVE mg/dL (<2.0)
[2019-06-25 19:55] LABS: C DIFFICILE GDH NEGATIVE (NEGATIVE)
[2019-06-25] MEDS: NORMAL SALINE 1000 ML 1,000 ML IV PRN (20:27)
[2019-06-25] MEDS ORDERED: CALCIUM CARBONATE 500 MG TABLET PO SCH (22:00)
--- NOTE | 2019-06-25 23:46 | EKG REPORT ---
SEVERITY:- ABNORMAL ECG - SINUS RHYTHM LEFT ANTERIOR FASCICULAR BLOCK PROBABLE LEFT VENTRICULAR HYPERTROPHY BORDERLINE PROLONGED QT INTERVAL : Confirmed by: Roxane Parker 25-Jun-2019 23:45:33
[2019-06-25] MEDS: CALCIUM CARBONATE 500 MG TABLET PO SCH (23:57)
[2019-06-26] MEDS: PANTOPRAZOLE SODIUM 20 MG TABLET.DR PO SCH (05:06)
[2019-06-26] MEDS: NORMAL SALINE 1000 ML 1,000 ML IV PRN ×3 (05:14→19:52)
[2019-06-26] MEDS: CALCIUM CARBONATE 500 MG TABLET PO SCH ×3 (05:16→21:31)
[2019-06-26 05:55] LABS: HEMATOCRIT 38.6 % (36.0-47.0); HEMOGLOBIN 12.9 g/dL (12.0-15.5); MEAN CORPUSCULAR HEMOGLOBIN 28.9 pg (27.0-33.4); MEAN CORPUSCULAR HGB CONC 33.4 g/dL (32.0-36.0); MEAN CORPUSCULAR VOLUME 87 fl (80-97); PLATELET COUNT 181 10^3/uL (150-450); RED BLOOD COUNT 4.46 10^6/uL (3.72-5.28); RED CELL DISTRIBUTION WIDTH 14.3 % (11.5-14.0); WHITE BLOOD COUNT 4.6 10^3/uL (4.0-10.5)
--- NOTE | 2019-06-26 11:25 | PDOC PROGRESS REPORT ---
Subjective Progress Note for:: 06/26/19 Subjective:: Patient is feeling much better today patient is alert awake and oriented denied any pain daughter is on the bedside Reason For Visit: CBACUTE RENAL FAILURE Physical Exam Vital Signs: Temp Pulse Resp BP Pulse Ox 97.9 F 95 19 97/41 L 98 06/26/19 08:00 06/26/19 08:00 06/26/19 08:00 06/26/19 08:00 06/26/19 08:00 Intake & Output 06/25/19 06/26/19 06/27/19 06:59 06:59 06:59 Intake Total 3050 Output Total 950 Balance 2100 Weight 42.5 kg General appearance: PRESENT: no acute distress, well-developed, well-nourished Head exam: PRESENT: atraumatic, normocephalic Eye exam: PRESENT: conjunctiva pink, EOMI, PERRLA. ABSENT: scleral icterus Ear exam: PRESENT: normal external ear exam Mouth exam: PRESENT: moist, tongue midline Neck exam: PRESENT: full ROM. ABSENT: carotid bruit, JVD, lymphadenopathy, thyromegaly Respiratory exam: PRESENT: clear to auscultation eduard Cardiovascular exam: PRESENT: RRR. ABSENT: diastolic murmur, rubs, systolic murmur Pulses: PRESENT: normal dorsalis pedis pul, +2 pedal pulses bilateral Vascular exam: PRESENT: normal capillary refill GI/Abdominal exam: PRESENT: normal bowel sounds, soft. ABSENT: distended, guarding, mass, organolmegaly, rebound, tenderness Rectal exam: PRESENT: deferred Extremities exam: ABSENT: pedal edema Neurological exam: PRESENT: alert, awake, oriented to person, oriented to place. ABSENT: motor sensory deficit Psychiatric exam: PRESENT: appropriate affect, normal mood. ABSENT: homicidal ideation, suicidal ideation Skin exam: PRESENT: dry, intact, warm. ABSENT: cyanosis, rash Results Laboratory Results: 06/26/19 05:25 06/25/19 15:33 06/25/19 06/25/19 06/25/19 11:52 12:05 15:33 WBC RBC Hgb Hct MCV MCH MCHC RDW Plt Count Sodium 121.9 L Potassium 4.5 D Chloride 76 L Carbon Dioxide 28 Anion Gap 18 BUN 129 H Creatinine 7.75 H Est GFR ( Amer) 6 L Glucose 162 H Lactic Acid 1.2 Calcium 6.5 L* Magnesium 0.7 L* Urine Color Urine Appearance Urine pH Ur Specific [place] Urine Protein Urine Glucose (UA) Urine Ketones Urine Blood Urine Nitrite Ur Leukocyte Esterase Urine WBC (Auto) Urine RBC (Auto) Stool for White Cells 06/25/19 06/25/19 06/25/19 15:33 16:19 17:44 WBC RBC Hgb Hct MCV MCH MCHC RDW Plt Count Sodium Potassium Chloride Carbon Dioxide Anion Gap BUN Creatinine Est GFR ( Amer) Glucose Lactic Acid Calcium Magnesium 2.6 H D Urine Color YELLOW Urine Appearance CLOUDY Urine pH 6.0 Ur Specific [place] 1.014 Urine Protein 30 H Urine Glucose (UA) NEGATIVE Urine Ketones NEGATIVE Urine Blood NEGATIVE Urine Nitrite NEGATIVE Ur Leukocyte Esterase NEGATIVE Urine WBC (Auto) 4 Urine RBC (Auto) 1 Stool for White Cells NO WBCs SEEN 06/26/19 06/26/19 05:25 05:25 WBC 4.6 RBC 4.46 Hgb 12.9 Hct 38.6 MCV 87 MCH 28.9 MCHC 33.4 RDW 14.3 H Plt Count 181 Sodium Potassium Chloride Carbon Dioxide Anion Gap BUN Creatinine Est GFR ( Amer) Glucose Lactic Acid Calcium Magnesium 2.3 Urine Color Urine Appearance Urine pH Ur Specific [place] Urine Protein Urine Glucose (UA) Urine Ketones Urine Blood Urine Nitrite Ur Leukocyte Esterase Urine WBC (Auto) Urine RBC (Auto) Stool for White Cells Impressions: Chest X-Ray 06/25/19 10:49 IMPRESSION: NO ACUTE RADIOGRAPHIC FINDING IN THE CHEST. Assessment & Plan - Diagnosis (1) Acute hyperkalemia Is this a current diagnosis for this admission?: Yes Plan: Clear all resolved (2) Acute renal failure Qualifiers: Acute renal failure type: unspecified Qualified Code(s): N17.9 - Acute kidney failure, unspecified Is this a current diagnosis for this admission?: Yes Plan: IV fluid (3) Crohns disease Qualifiers: Gastrointestinal tract location: large intestine Digestive disease complication type: with intestinal obstruction Qualified Code(s): K50.112 - Crohn's disease of large intestine with intestinal obstruction Is this a current diagnosis for this admission?: Yes Plan: Patient seen by Dr. Echevarria nothing can be offer at this point due to the worsening the dementia's patients not keeping the appointment and not taking the medications as prescribed will continues the Imodium (4) Dehydration Is this a current diagnosis for this admission?: Yes Plan: Due to the high output ileostomy and failure to thrive will continues the IV fluid (5) Dementia Qualifiers: Dementia type: Alzheimer's disease Alzheimer's disease onset: other onset Dementia behavioral disturbance: with behavioral disturbance Qualified Code(s): G30.8 - Other Alzheimer's disease; F02.81 - Dementia in other diseases classified elsewhere with behavioral disturbance Is this a current diagnosis for this admission?: Yes Plan: Worsening the dementia is most likely a vascular dementia's with underlying metabolic encephalopathy at this point due to the severe electrolyte imbalance (6) Hypocalcemia Is this a current diagnosis for this admission?: Yes Plan: Coorect the calcium (9) Failure to thrive Qualifiers: Failure to thrive age range: in adult Qualified Code(s): R62.7 - Adult failure to thrive Is this a current diagnosis for this admission?: Yes (10) Hypomagnesemia Is this a current diagnosis for this admission?: Yes - Time Time Spent with patient: 15-24 minutes Level of Care: MEDICAL Medications reviewed and adjusted accordingly: Yes Anticipated discharge: Home with Homehealth Within: Other - Plan Summary Plan Summary: Continues the IV fluid continues to current medications
[2019-06-26] MEDS: ONDANSETRON HCL INJ/PF 4 MG/2 ML SDV IV PRN ×2 (14:36→21:34)
[2019-06-27] MEDS: NORMAL SALINE 1000 ML 1,000 ML IV PRN ×2 (02:33→12:13)
[2019-06-27] MEDS: PANTOPRAZOLE SODIUM 20 MG TABLET.DR PO SCH (06:17)
[2019-06-27] MEDS: CALCIUM CARBONATE 500 MG TABLET PO SCH ×3 (06:27→22:37)
[2019-06-27] MEDS: ONDANSETRON HCL INJ/PF 4 MG/2 ML SDV IV PRN (06:33)
[2019-06-27 08:01] LABS: HEMATOCRIT 30.7 % (36.0-47.0); MEAN CORPUSCULAR HEMOGLOBIN 29.4 pg (27.0-33.4); MEAN CORPUSCULAR VOLUME 87 fl (80-97); PLATELET COUNT 133 10^3/uL (150-450); RED BLOOD COUNT 3.55 10^6/uL (3.72-5.28); RED CELL DISTRIBUTION WIDTH 14.1 % (11.5-14.0); WHITE BLOOD COUNT 7.8 10^3/uL (4.0-10.5)
[2019-06-27 08:02] LABS: HEMOGLOBIN 10.5 g/dL (12.0-15.5)
[2019-06-27 09:28] LABS: ANION GAP 9 (5-19); BLOOD UREA NITROGEN 93 mg/dL (7-20); CALCIUM 7.7 mg/dL (8.4-10.2); CARBON DIOXIDE 27 mmol/L (22-30); CHLORIDE 96 mmol/L (98-107); GLUCOSE 103 mg/dL (75-110); POTASSIUM 3.4 mmol/L (3.6-5.0)
[2019-06-27] MEDS ORDERED: POTASSIUM CHLORIDE 20 MEQ PACKET PO ONE (11:00)
--- NOTE | 2019-06-27 13:56 | PDOC PROGRESS REPORT ---
Subjective Progress Note for:: 06/27/19 Subjective:: Patient is currently doing well Patient's wants to go home Denied any chest pain denied any shortness of the breath Reason For Visit: CBACUTE RENAL FAILURE Physical Exam Vital Signs: Temp Pulse Resp BP Pulse Ox 98.2 F 82 16 110/50 L 99 06/27/19 11:37 06/27/19 11:37 06/27/19 11:37 06/27/19 11:37 06/27/19 11:37 Intake & Output 06/26/19 06/27/19 06/28/19 06:59 06:59 06:59 Intake Total 3050 3820 1358 Output Total 950 1700 500 Balance 2100 2120 858 Weight 42.5 kg 42.6 kg General appearance: PRESENT: no acute distress, well-developed, well-nourished Head exam: PRESENT: atraumatic, normocephalic Eye exam: PRESENT: conjunctiva pink, EOMI, PERRLA. ABSENT: scleral icterus Ear exam: PRESENT: normal external ear exam Mouth exam: PRESENT: moist, tongue midline Neck exam: PRESENT: full ROM. ABSENT: carotid bruit, JVD, lymphadenopathy, thyromegaly Respiratory exam: PRESENT: clear to auscultation eduard Cardiovascular exam: PRESENT: RRR. ABSENT: diastolic murmur, rubs, systolic murmur Pulses: PRESENT: normal dorsalis pedis pul, +2 pedal pulses bilateral Vascular exam: PRESENT: normal capillary refill GI/Abdominal exam: PRESENT: normal bowel sounds, soft. ABSENT: distended, guarding, mass, organolmegaly, rebound, tenderness Rectal exam: PRESENT: deferred Neurological exam: PRESENT: alert, awake, oriented to person, oriented to place, oriented to time, oriented to situation. ABSENT: motor sensory deficit Psychiatric exam: PRESENT: appropriate affect, normal mood. ABSENT: homicidal ideation, suicidal ideation Skin exam: PRESENT: dry, intact, warm. ABSENT: cyanosis, rash Results Laboratory Results: 06/27/19 06:40 06/27/19 08:48 06/27/19 06/27/19 06/27/19 06:40 06:40 08:48 WBC 7.8 RBC 3.55 L Hgb 10.5 L D Hct 30.7 L MCV 87 MCH 29.4 MCHC 34.0 RDW 14.1 H Plt Count 133 L Sodium 132.1 L Potassium 3.4 L Chloride 96 L Carbon Dioxide 27 Anion Gap 9 BUN 93 H Creatinine 4.13 H Est GFR ( Amer) 12 L Glucose 103 Calcium 7.7 L Magnesium 1.7 06/25/19 17:44 Catheterized Urine Urine Culture - Final 3,000 col/ml 06/25/19 16:19 Stool - Stool - Final Impressions: Chest X-Ray 06/25/19 10:49 IMPRESSION: NO ACUTE RADIOGRAPHIC FINDING IN THE CHEST. Assessment & Plan - Diagnosis (1) Acute hyperkalemia Is this a current diagnosis for this admission?: Yes Plan: Currently all resolved (2) Acute renal failure Qualifiers: Acute renal failure type: unspecified Qualified Code(s): N17.9 - Acute kidney failure, unspecified Is this a current diagnosis for this admission?: Yes Plan: Continues IV fluid currently all improving (3) Crohns disease Qualifiers: Gastrointestinal tract location: large intestine Digestive disease complication type: with intestinal obstruction Qualified Code(s): K50.112 - Crohn's disease of large intestine with intestinal obstruction Is this a current diagnosis for this admission?: Yes Plan: Patient seen by Dr. Echevarria nothing can be offer at this point due to the worsening the dementia's patients not keeping the appointment and not taking the medications as prescribed will continues the Imodium (4) Dehydration Is this a current diagnosis for this admission?: Yes Plan: Due to the high output ileostomy and failure to thrive will continues the IV fluid (5) Dementia Qualifiers: Dementia type: Alzheimer's disease Alzheimer's disease onset: other onset Dementia behavioral disturbance: with behavioral disturbance Qualified Code(s): G30.8 - Other Alzheimer's disease; F02.81 - Dementia in other diseases classified elsewhere with behavioral disturbance Is this a current diagnosis for this admission?: Yes Plan: Worsening the dementia is most likely a vascular dementia's with underlying metabolic encephalopathy at this point due to the severe electrolyte imbalance (6) Hypocalcemia Is this a current diagnosis for this admission?: Yes Plan: Coorect the calcium (7) Hyponatremia Is this a current diagnosis for this admission?: Yes Plan: Currently all getting better (9) Failure to thrive Qualifiers: Failure to thrive age range: in adult Qualified Code(s): R62.7 - Adult failure to thrive Is this a current diagnosis for this admission?: Yes (10) Hypomagnesemia Is this a current diagnosis for this admission?: Yes Plan: Currently all resolved - Time Time Spent with patient: 15-24 minutes Level of Care: MEDICAL Medications reviewed and adjusted accordingly: Yes Anticipated discharge: Other Within: Other
[2019-06-27] MEDS: ACETAMINOPHEN 325 MG TABLET PO PRN (18:23)
[2019-06-28] MEDS: CALCIUM CARBONATE 500 MG TABLET PO SCH ×4 (05:50→21:12)
[2019-06-28] MEDS: PANTOPRAZOLE SODIUM 20 MG TABLET.DR PO SCH ×2 (05:50→06:24)
[2019-06-28] MEDS: NORMAL SALINE 1000 ML 1,000 ML IV PRN ×2 (05:51→20:34)
[2019-06-28] MEDS: ONDANSETRON HCL INJ/PF 4 MG/2 ML SDV IV PRN ×3 (06:23→20:33)
[2019-06-28 06:24] LABS: HEMATOCRIT 29.7 % (36.0-47.0); MEAN CORPUSCULAR HEMOGLOBIN 29.3 pg (27.0-33.4); MEAN CORPUSCULAR HGB CONC 33.8 g/dL (32.0-36.0); MEAN CORPUSCULAR VOLUME 87 fl (80-97); PLATELET COUNT 124 10^3/uL (150-450); RED BLOOD COUNT 3.43 10^6/uL (3.72-5.28); RED CELL DISTRIBUTION WIDTH 14.1 % (11.5-14.0); WHITE BLOOD COUNT 8.3 10^3/uL (4.0-10.5)
[2019-06-28 07:01] LABS: ANION GAP 8 (5-19); CALCIUM 7.6 mg/dL (8.4-10.2); CARBON DIOXIDE 29 mmol/L (22-30); CHLORIDE 98 mmol/L (98-107); GLUCOSE 83 mg/dL (75-110); POTASSIUM 3.4 mmol/L (3.6-5.0)
[2019-06-28 07:20] LABS: BLOOD UREA NITROGEN 68 mg/dL (7-20)
[2019-06-28] MEDS ORDERED: POTASSIUM CHLORIDE 20 MEQ PACKET PO ONE (08:20)
[2019-06-28] MEDS: MAGNESIUM SULFATE/D5W 1 GM/100 ML RTUPB IV SCH ×2 (10:07→11:45)
--- NOTE | 2019-06-28 10:31 | PDOC PROGRESS REPORT ---
Subjective Progress Note for:: 06/28/19 Subjective:: Patient is currently doing well She is denied any chest pain denied any shortness of the breath Is very anxious to go home Reason For Visit: CBACUTE RENAL FAILURE Physical Exam Vital Signs: Temp Pulse Resp BP Pulse Ox 98.1 F 88 16 106/56 L 95 06/28/19 09:10 06/28/19 09:10 06/28/19 09:10 06/28/19 09:10 06/28/19 09:10 Intake & Output 06/27/19 06/28/19 06/29/19 06:59 06:59 06:59 Intake Total 3820 2658 Output Total 1700 2300 Balance 2120 358 Weight 42.6 kg 45 kg General appearance: PRESENT: no acute distress, well-developed, well-nourished Head exam: PRESENT: atraumatic, normocephalic Eye exam: PRESENT: conjunctiva pink, EOMI, PERRLA. ABSENT: scleral icterus Ear exam: PRESENT: normal external ear exam Mouth exam: PRESENT: moist, tongue midline Neck exam: PRESENT: full ROM. ABSENT: carotid bruit, JVD, lymphadenopathy, thyromegaly Respiratory exam: PRESENT: clear to auscultation eduard Cardiovascular exam: PRESENT: RRR. ABSENT: diastolic murmur, rubs, systolic murmur Pulses: PRESENT: normal dorsalis pedis pul, +2 pedal pulses bilateral Vascular exam: PRESENT: normal capillary refill GI/Abdominal exam: PRESENT: normal bowel sounds, soft. ABSENT: distended, guarding, mass, organolmegaly, rebound, tenderness Rectal exam: PRESENT: deferred Neurological exam: PRESENT: alert, awake, oriented to person, oriented to place, oriented to time, oriented to situation, CN II-XII grossly intact. ABSENT: motor sensory deficit Psychiatric exam: PRESENT: appropriate affect, normal mood. ABSENT: homicidal ideation, suicidal ideation Skin exam: PRESENT: dry, intact, warm. ABSENT: cyanosis, rash Results Laboratory Results: 06/28/19 06:00 06/28/19 06:00 06/28/19 06/28/19 06:00 06:00 WBC 8.3 RBC 3.43 L Hgb 10.0 L Hct 29.7 L MCV 87 MCH 29.3 MCHC 33.8 RDW 14.1 H Plt Count 124 L Sodium 135.0 L Potassium 3.4 L Chloride 98 Carbon Dioxide 29 Anion Gap 8 BUN 68 H D Creatinine 2.84 H Est GFR ( Amer) 19 L Glucose 83 Calcium 7.6 L Magnesium 1.4 L 06/25/19 16:19 Stool - Stool - Final 06/25/19 17:44 Catheterized Urine Urine Culture - Final 3,000 col/ml Impressions: Chest X-Ray 06/25/19 10:49 IMPRESSION: NO ACUTE RADIOGRAPHIC FINDING IN THE CHEST. Assessment & Plan - Diagnosis (1) Acute hyperkalemia Is this a current diagnosis for this admission?: Yes (2) Acute renal failure Qualifiers: Acute renal failure type: unspecified Qualified Code(s): N17.9 - Acute kidney failure, unspecified Is this a current diagnosis for this admission?: Yes (3) Crohns disease Qualifiers: Gastrointestinal tract location: large intestine Digestive disease complication type: with intestinal obstruction Qualified Code(s): K50.112 - Crohn's disease of large intestine with intestinal obstruction Is this a current diagnosis for this admission?: Yes (4) Dehydration Is this a current diagnosis for this admission?: Yes (5) Dementia Qualifiers: Dementia type: Alzheimer's disease Alzheimer's disease onset: other onset Dementia behavioral disturbance: with behavioral disturbance Qualified Code(s): G30.8 - Other Alzheimer's disease; F02.81 - Dementia in other diseases classified elsewhere with behavioral disturbance Is this a current diagnosis for this admission?: Yes (6) Hypocalcemia Is this a current diagnosis for this admission?: Yes (7) Hyponatremia Is this a current diagnosis for this admission?: Yes (9) Failure to thrive Qualifiers: Failure to thrive age range: in adult Qualified Code(s): R62.7 - Adult failure to thrive Is this a current diagnosis for this admission?: Yes (10) Hypomagnesemia Is this a current diagnosis for this admission?: Yes - Time Time Spent with patient: 15-24 minutes Level of Care: MEDICAL Medications reviewed and adjusted accordingly: Yes Anticipated discharge: Home with Homehealth Within: Other - Plan Summary Plan Summary: Continues to IV fluid replace the potassium replace the magnesium's
[2019-06-28] MEDS ORDERED: POTASSIUM CHLORIDE 20 MEQ/50 ML RTU IV ONE (11:45)
[2019-06-29] MEDS: ONDANSETRON HCL INJ/PF 4 MG/2 ML SDV IV PRN (04:13)
[2019-06-29 05:21] LABS: ANION GAP 7 (5-19); BLOOD UREA NITROGEN 50 mg/dL (7-20); CALCIUM 7.5 mg/dL (8.4-10.2); CARBON DIOXIDE 29 mmol/L (22-30); CHLORIDE 99 mmol/L (98-107); GLUCOSE 111 mg/dL (75-110); POTASSIUM 3.8 mmol/L (3.6-5.0)
[2019-06-29] MEDS: CALCIUM CARBONATE 500 MG TABLET PO SCH ×3 (05:42→22:26)
[2019-06-29] MEDS: PANTOPRAZOLE SODIUM 20 MG TABLET.DR PO SCH (05:42)
[2019-06-29] MEDS: NORMAL SALINE 1000 ML 1,000 ML IV PRN ×2 (06:18→17:10)
[2019-06-29] MEDS: ACETAMINOPHEN 325 MG TABLET PO PRN (11:01)
--- NOTE | 2019-06-29 12:03 | PDOC PROGRESS REPORT ---
Subjective Progress Note for:: 06/29/19 Subjective:: Patient is currently doing well She is denied any chest pain denied any shortness of the breath Is very anxious to go home Reason For Visit: CBACUTE RENAL FAILURE Physical Exam Vital Signs: Temp Pulse Resp BP Pulse Ox 98.2 F 96 16 120/64 94 06/29/19 08:00 06/29/19 08:00 06/29/19 08:00 06/29/19 08:00 06/29/19 08:00 Intake & Output 06/28/19 06/29/19 06/30/19 06:59 06:59 06:59 Intake Total 2658 3371 Output Total 2300 1770 Balance 358 1601 Weight 45 kg 48.9 kg General appearance: PRESENT: no acute distress, well-developed, well-nourished Head exam: PRESENT: atraumatic, normocephalic Eye exam: PRESENT: conjunctiva pink, EOMI, PERRLA. ABSENT: scleral icterus Ear exam: PRESENT: normal external ear exam Mouth exam: PRESENT: moist, tongue midline Neck exam: PRESENT: full ROM. ABSENT: carotid bruit, JVD, lymphadenopathy, thyromegaly Respiratory exam: PRESENT: clear to auscultation eduard Cardiovascular exam: PRESENT: RRR. ABSENT: diastolic murmur, rubs, systolic murmur Pulses: PRESENT: normal dorsalis pedis pul, +2 pedal pulses bilateral Vascular exam: PRESENT: normal capillary refill GI/Abdominal exam: PRESENT: normal bowel sounds, soft. ABSENT: distended, guarding, mass, organolmegaly, rebound, tenderness Rectal exam: PRESENT: deferred Neurological exam: PRESENT: alert, awake, oriented to person. ABSENT: motor sensory deficit Psychiatric exam: PRESENT: appropriate affect, normal mood. ABSENT: homicidal ideation, suicidal ideation Skin exam: PRESENT: dry, intact, warm. ABSENT: cyanosis, rash Results Laboratory Results: 06/28/19 06:00 06/29/19 05:11 06/29/19 05:11 Sodium 134.6 L Potassium 3.8 Chloride 99 Carbon Dioxide 29 Anion Gap 7 BUN 50 H Creatinine 2.10 H Est GFR ( Amer) 27 L Glucose 111 H Calcium 7.5 L 06/25/19 16:19 Stool - Stool - Final 06/25/19 16:19 Stool - Stool Stool Culture - Final Aeromonas Species Impressions: Chest X-Ray 06/25/19 10:49 IMPRESSION: NO ACUTE RADIOGRAPHIC FINDING IN THE CHEST. Assessment & Plan - Diagnosis (1) Acute hyperkalemia Is this a current diagnosis for this admission?: Yes (2) Acute renal failure Qualifiers: Acute renal failure type: unspecified Qualified Code(s): N17.9 - Acute kidney failure, unspecified Is this a current diagnosis for this admission?: Yes (3) Crohns disease Qualifiers: Gastrointestinal tract location: large intestine Digestive disease c omplication type: with intestinal obstruction Qualified Code(s): K50.112 - Crohn's disease of large intestine with intestinal obstruction Is this a current diagnosis for this admission?: Yes (4) Dehydration Is this a current diagnosis for this admission?: Yes (5) Dementia Qualifiers: Dementia type: Alzheimer's disease Alzheimer's disease onset: other onset Dementia behavioral disturbance: with behavioral disturbance Qualified Code(s): G30.8 - Other Alzheimer's disease; F02.81 - Dementia in other diseases classified elsewhere with behavioral disturbance Is this a current diagnosis for this admission?: Yes (6) Hypocalcemia Is this a current diagnosis for this admission?: Yes (7) Hyponatremia Is this a current diagnosis for this admission?: Yes (9) Failure to thrive Qualifiers: Failure to thrive age range: in adult Qualified Code(s): R62.7 - Adult failure to thrive Is this a current diagnosis for this admission?: Yes (10) Hypomagnesemia Is this a current diagnosis for this admission?: Yes - Time Time Spent with patient: 15-24 minutes Level of Care: MEDICAL Medications reviewed and adjusted accordingly: Yes Anticipated discharge: Home with Homehealth - Plan Summary Plan Summary: We will reduce the IV fluidContinues to current medications
[2019-06-29] MEDS: LOPERAMIDE HCL 2 MG CAPSULE PO SCH ×2 (14:39→22:24)
[2019-06-30] MEDS: NORMAL SALINE 1000 ML 1,000 ML IV PRN ×2 (03:08→17:42)
[2019-06-30] MEDS: LOPERAMIDE HCL 2 MG CAPSULE PO SCH ×3 (06:31→22:07)
[2019-06-30] MEDS: CALCIUM CARBONATE 500 MG TABLET PO SCH ×3 (06:31→22:07)
[2019-06-30] MEDS: PANTOPRAZOLE SODIUM 20 MG TABLET.DR PO SCH (06:31)
[2019-06-30 07:58] LABS: ABSOLUTE EOSINOPHILS # (AUTO) 0.1 10^3/uL (0.0-0.6); ABSOLUTE LYMPHOCYTES (AUTO) 0.8 10^3/uL (0.5-4.7); ABSOLUTE MONOCYTES (AUTO) 0.5 10^3/uL (0.1-1.4); ABSOLUTE NEUT (AUTO) 5.8 10^3/uL (1.7-8.2); BASOPHILS % (AUTO) 0.4 % (0-2); HEMATOCRIT 27.2 % (36.0-47.0); HEMOGLOBIN 9.1 g/dL (12.0-15.5); LYMPHOCYTES % (AUTO) 10.4 % (13-45); MEAN CORPUSCULAR HEMOGLOBIN 29.3 pg (27.0-33.4); MEAN CORPUSCULAR HGB CONC 33.5 g/dL (32.0-36.0); MEAN CORPUSCULAR VOLUME 88 fl (80-97); PLATELET COUNT 103 10^3/uL (150-450); RED BLOOD COUNT 3.11 10^6/uL (3.72-5.28); SEGMENTED NEUTROPHILS % (AUTO) 80.2 % (42-78); TOTAL CELLS COUNTED % (AUTO) 100 %; WHITE BLOOD COUNT 7.3 10^3/uL (4.0-10.5)
[2019-06-30 08:25] LABS: BLOOD UREA NITROGEN 34 mg/dL (7-20); CALCIUM 7.2 mg/dL (8.4-10.2); GLUCOSE 76 mg/dL (75-110); POTASSIUM 3.6 mmol/L (3.6-5.0)
[2019-06-30 08:51] LABS: CARBON DIOXIDE 33 mmol/L (22-30); CHLORIDE 98 mmol/L (98-107)
[2019-06-30 08:54] LABS: ANION GAP 3 (5-19)
--- NOTE | 2019-06-30 09:28 | PDOC PROGRESS REPORT ---
Subjective Progress Note for:: 06/30/19 Subjective:: Patient is currently doing well patients wants to go home Patient's kidney function is all improving come to the baseline Stool guaiac is positive most likely from irritation as per discussed with Dr. Echevarria no need for any colonoscopy no active bleedings hemoglobin is all stable patient is back to the baseline hemoglobin initially presented with the high most likely from dehydration's currently all stable Very confusing things patient's family wants to take him to the hospice but patient's family does not understand about the hospice situations and patient is pretty much refusing the eating refusing for IV fluid nothing can be offer but again before we put the patient on hospice will again discuss the patient's family see what they want and we will asked the turnaround planner to explain about the hospice and put a consult for hospice agency Reason For Visit: CBACUTE RENAL FAILURE Physical Exam Vital Signs: Temp Pulse Resp BP Pulse Ox 99.1 F 86 16 105/51 L 92 06/30/19 07:33 06/30/19 07:33 06/30/19 07:33 06/30/19 07:33 06/30/19 07:33 Intake & Output 06/29/19 06/30/19 07/01/19 06:59 06:59 06:59 Intake Total 3371 2615 Output Total 1770 1900 Balance 1601 715 Weight 48.9 kg 48.6 kg General appearance: PRESENT: no acute distress, well-developed, well-nourished Head exam: PRESENT: atraumatic, normocephalic Eye exam: PRESENT: conjunctiva pink, EOMI, PERRLA. ABSENT: scleral icterus Ear exam: PRESENT: normal external ear exam Mouth exam: PRESENT: moist, tongue midline Neck exam: PRESENT: full ROM. ABSENT: carotid bruit, JVD, lymphadenopathy, thyromegaly Respiratory exam: PRESENT: clear to auscultation eduard Cardiovascular exam: PRESENT: RRR. ABSENT: diastolic murmur, rubs, systolic murmur Pulses: PRESENT: normal dorsalis pedis pul, +2 pedal pulses bilateral Vascular exam: PRESENT: normal capillary refill GI/Abdominal exam: PRESENT: normal bowel sounds, soft. ABSENT: distended, guarding, mass, organolmegaly, rebound, tenderness Rectal exam: PRESENT: deferred Neurological exam: PRESENT: alert, awake, oriented to person, oriented to place, oriented to time, oriented to situation, CN II-XII grossly intact. ABSENT: motor sensory deficit Psychiatric exam: PRESENT: appropriate affect, normal mood. ABSENT: homicidal ideation, suicidal ideation Skin exam: PRESENT: dry, intact, warm. ABSENT: cyanosis, rash Results Laboratory Results: 06/30/19 06:00 06/30/19 06:00 06/29/19 06/30/19 06/30/19 11:37 06:00 06:00 WBC 7.3 RBC 3.11 L Hgb 9.1 L Hct 27.2 L MCV 88 MCH 29.3 MCHC 33.5 RDW 14.0 Plt Count 103 L Seg Neutrophils % 80.2 H Sodium 134.3 L Potassium 3.6 Chloride 98 Carbon Dioxide 33 H Anion Gap 3 L BUN 34 H Creatinine 1.52 H Est GFR ( Amer) 39 L Glucose 76 Calcium 7.2 L Magnesium 1.4 L Stool Occult Blood POSITIVE 06/25/19 16:19 Stool - Stool - Final 06/25/19 16:19 Stool - Stool Stool Culture - Final Aeromonas Species Impressions: Chest X-Ray 06/25/19 10:49 IMPRESSION: NO ACUTE RADIOGRAPHIC FINDING IN THE CHEST. Assessment & Plan - Diagnosis (1) Acute hyperkalemia Is this a current diagnosis for this admission?: Yes (2) Acute renal failure Qualifiers: Acute renal failure type: unspecified Qualified Code(s): N17.9 - Acute kidney failure, unspecified Is this a current diagnosis for this admission?: Yes (3) Crohns disease Qualifiers: Gastrointestinal tract location: large intestine Digestive disease complication type: with intestinal obstruction Qualified Code(s): K50.112 - Crohn's disease of large intestine with intestinal obstruction Is this a current diagnosis for this admission?: Yes (4) Dehydration Is this a current diagnosis for this admission?: Yes (5) Dementia Qualifiers: Dementia type: Alzheimer's disease Alzheimer's disease onset: other onset Dementia behavioral disturbance: with behavioral disturbance Qualified Code(s): G30.8 - Other Alzheimer's disease; F02.81 - Dementia in other diseases classified elsewhere with behavioral disturbance Is this a current diagnosis for this admission?: Yes (6) Hypocalcemia Is this a current diagnosis for this admission?: Yes (7) Hyponatremia Is this a current diagnosis for this admission?: Yes (9) Failure to thrive Qualifiers: Failure to thrive age range: in adult Qualified Code(s): R62.7 - Adult failure to thrive Is this a current diagnosis for this admission?: Yes (10) Hypomagnesemia Is this a current diagnosis for this admission?: Yes - Time Time Spent with patient: 15-24 minutes Level of Care: MEDICAL Medications reviewed and adjusted accordingly: Yes Anticipated discharge: Other Within: Other - Plan Summary Plan Summary: Continues IV fluid
[2019-06-30] MEDS: MAGNESIUM SULFATE/D5W 1 GM/100 ML RTUPB IV SCH ×2 (10:08→12:07)
[2019-07-01] MEDS: LOPERAMIDE HCL 2 MG CAPSULE PO SCH ×2 (06:51→13:05)
[2019-07-01] MEDS: CALCIUM CARBONATE 500 MG TABLET PO SCH ×2 (06:51→13:05)
[2019-07-01] MEDS: PANTOPRAZOLE SODIUM 20 MG TABLET.DR PO SCH (06:51)
[2019-07-01] MEDS: NORMAL SALINE 1000 ML 1,000 ML IV PRN (06:53)
--- NOTE | 2019-07-01 08:52 | PDOC DISCHARGE SUMMARY ---
Impression - Admit/DC Date/PCP Admission Date/Primary Care Provider: 06/25/19 14:28 ZAY TAYLOR MD Discharge Date: 07/01/19 - Discharge Diagnosis (1) Acute hyperkalemia Is this a current diagnosis for this admission?: Yes (2) Acute renal failure Is this a current diagnosis for this admission?: Yes (3) Crohns disease Is this a current diagnosis for this admission?: Yes (4) Dehydration Is this a current diagnosis for this admission?: Yes (5) Dementia Is this a current diagnosis for this admission?: Yes (6) Hypocalcemia Is this a current diagnosis for this admission?: Yes (7) Hyponatremia Is this a current diagnosis for this admission?: Yes (9) Failure to thrive Is this a current diagnosis for this admission?: Yes (10) Hypomagnesemia Is this a current diagnosis for this admission?: Yes - Additional Information Resuscitation Status: Do Not Resuscitate Discharge Activity: Activity As Tolerated Referrals: ZAY TAYLOR MD [Primary Care Provider] - Follow up as needed (OFFICE STATED PT IS FOLLOWED BY HOSPICE AND IS NOT SEEN AT OFFICE BECAUSE MEDICARE WILL NOT PAY) Prescriptions: Loperamide HCl [Imodium 2 mg Capsule] 2 mg PO Q8 #90 capsule Magnesium Oxide [Magnesium] 800 mg PO TID 30 Days #180 tablet Normal Saline 1000 ml [NaCl 0.9% 1000 ml IV Soln] 1 ml IV DAILY #30 iv.soln Calcium Carbonate [Os-Rambo 500 mg Tablet (Oyster-Shell)] 1,000 mg PO Q8 #90 tablet Pantoprazole Sodium [Protonix [address] Tablet] 20 mg PO Q6AM #30 tablet.dr Home Medications: Calcium Carbonate [Os-Rambo 500 mg Tablet (Oyster-Shell)] 1,000 mg PO Q8 #90 tablet 06/30/19 Loperamide HCl [Imodium 2 mg Capsule] 2 mg PO Q8 #90 capsule 06/30/19 Magnesium Oxide [Magnesium] 800 mg PO TID 30 Days #180 tablet 06/30/19 Normal Saline 1000 ml [NaCl 0.9% 1000 ml IV Soln] 1 ml IV DAILY #30 iv.soln 06/30/19 Pantoprazole Sodium [Protonix [address] Tablet] 20 mg PO Q6AM #30 tablet. 06/30/19 History of Present Illiness History of Present Illness: FREDRICK BATISTA is a 84 year old female This is a 34-year-old female with a history of the Crohn's disease with the high output ileostomy with the required IV fluid 2-4 times a week with recently worsening the dementia not able to eat or drink much back to the emergency department with a complaining of weakness pain all over. Patient's found severely dehydrated and acute renal failure on chronic kidney disease with the patient's creatinine is about 8 and patient's potassium is 6 and patient's calcium is 6.4. Patient's magnesium is also low. When I saw the patient is alert awake and the patient is received the IV fluids IV magnesium IV calcium and correct the potassium Sodium is also low Since last several months patient is refused to take the IV fluid at home and patients not eat much according to the daughter patient's dementia is getting worse patient supposed to be hospice care but none now for the home health agency status at this point because pretty much the last admissions discussed with the patient's family regarding the patient's deteriorating conditionsPatient is refused to eat or drink very much patient is nothing else can be offered with ongoing chronic Crohn's disease with a high output ileostomy and several hospital admissions because of the renal failure and severe electrolyte imbalance Today's discussed with the patient's daughter patient is currently DNR/DNI will admit the patient's for IV hydrations patient's not candidate for the renal replacement therapy because patients alsoPatient is persistently refused to even the Meek catheter currently so patient able to get for dialysis Overall prognosis is very poor admit the patient in the medical floor for IV hydration and we consult the transportation planner for possible hospice Hospital Course Hospital Course: This is a 84-year-old female as above medical problem including Crohn's disease high output ileostomy chronic kidney disease 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 dementia supposed to be on hospice care because of the patient was refusing the IV fluid patient was refusing the food brought to the emergency department with the worsening the conditions and patients found acute renal failure with creatinines above 8 and hyperkalemia At this point discussed with the patient and the family and patient's family wants to treatments but continues to be DNR/DNI and patient was put on the medical floor started on IV fluid and replaced all electrolytes and patient response very well Any functions back to the below to 1.5 range potassiums and magnesium is all stable Again patient have this ongoing problems with the patient's continues to refuse the IV fluid and do not eat do not drink aspirin because of her dementia at this point patient is nothing can be offer very extensive discussions with the patient's family and the patient's patient is currently willing to take the IV fluid at least 3 times a week 1 L of normal saline and continues the magnesium replacements check of blood work at least twice a month Also seen by Dr. Maxwell as outpatient which I believe patients does not follow recently because of the patient's today much worsening the dementia's On my evaluations patient is alert awake oriented x3 and patients want to go home's very extensive discussion with the patient's daughter regarding the p atient's current conditions continues the IV fluid home health continues to maintain the DNR/DNI but no hospice at this point Physical Exam Vital Signs: Temp Pulse Resp BP Pulse Ox 97.1 F 94 18 113/61 97 07/01/19 08:00 07/01/19 08:00 07/01/19 08:00 07/01/19 08:00 07/01/19 08:00 Intake & Output 06/30/19 07/01/19 07/02/19 06:59 06:59 06:59 Intake Total 2615 2212 Output Total 1900 675 Balance 715 1537 Weight 48.6 kg 48.9 kg General appearance: PRESENT: no acute distress, well-developed, well-nourished Head exam: PRESENT: atraumatic, normocephalic Eye exam: PRESENT: conjunctiva pink, EOMI, PERRLA. ABSENT: scleral icterus Ear exam: PRESENT: normal external ear exam Mouth exam: PRESENT: moist, tongue midline Neck exam: ABSENT: carotid bruit, JVD, lymphadenopathy, thyromegaly Respiratory exam: PRESENT: clear to auscultation eduard. ABSENT: rales, rhonchi, wheezes Cardiovascular exam: PRESENT: RRR. ABSENT: diastolic murmur, rubs, systolic murmur Pulses: PRESENT: normal dorsalis pedis pul Vascular exam: PRESENT: normal capillary refill GI/Abdominal exam: PRESENT: normal bowel sounds, soft. ABSENT: distended, guarding, mass, organolmegaly, rebound, tenderness Rectal exam: PRESENT: deferred Extremities exam: PRESENT: full ROM. ABSENT: calf tenderness, clubbing, pedal edema Neurological exam: PRESENT: alert, awake, oriented to person, oriented to place, oriented to time, oriented to situation, CN II-XII grossly intact. ABSENT: motor sensory deficit Psychiatric exam: PRESENT: appropriate affect, normal mood. ABSENT: homicidal ideation, suicidal ideation Skin exam: PRESENT: dry, intact, warm. ABSENT: cyanosis, rash Results Laboratory Results: WBC 7.3 10^3/uL (4.0-10.5) 06/30/19 06:00 RBC 3.11 10^6/uL (3.72-5.28) L 06/30/19 06:00 Hgb 9.1 g/dL (12.0-15.5) L 06/30/19 06:00 Hct 27.2 % (36.0-47.0) L 06/30/19 06:00 MCV 88 fl (80-97) 06/30/19 06:00 MCH 29.3 pg (27.0-33.4) 06/30/19 06:00 MCHC 33.5 g/dL (32.0-36.0) 06/30/19 06:00 RDW 14.0 % (11.5-14.0) 06/30/19 06:00 Plt Count 103 10^3/uL (150-450) L 06/30/19 06:00 Lymph % (Auto) 10.4 % (13-45) L 06/30/19 06:00 Emmet % (Auto) 7.0 % (3-13) 06/30/19 06:00 Eos % (Auto) 2.0 % (0-6) 06/30/19 06:00 Baso % (Auto) 0.4 % (0-2) 06/30/19 06:00 Absolute Neuts (auto) 5.8 10^3/uL (1.7-8.2) 06/30/19 06:00 Absolute Lymphs (auto) 0.8 10^3/uL (0.5-4.7) 06/30/19 06:00 Absolute Monos (auto) 0.5 10^3/uL (0.1-1.4) 06/30/19 06:00 Absolute Eos (auto) 0.1 10^3/uL (0.0-0.6) 06/30/19 06:00 Absolute Basos (auto) 0.0 10^3/uL (0.0-0.2) 06/30/19 06:00 Seg Neutrophils % 80.2 % (42-78) H 06/30/19 06:00 Sodium 134.3 mmol/L (137-145) L 06/30/19 06:00 Potassium 3.6 mmol/L (3.6-5.0) 06/30/19 06:00 Chloride 98 mmol/L (98-107) 06/30/19 06:00 Carbon Dioxide 33 mmol/L (22-30) H 06/30/19 06:00 Anion Gap 3 (5-19) L 06/30/19 06:00 BUN 34 mg/dL (7-20) H 06/30/19 06:00 Creatinine 1.52 mg/dL (0.52-1.25) H 06/30/19 06:00 Est GFR ( Amer) 39 (>60) L 06/30/19 06:00 Est GFR (MDRD) Non-Af 32 (>60) L 06/30/19 06:00 Glucose 76 mg/dL (75-110) 06/30/19 06:00 Lactic Acid 1.2 mmol/L (0.7-2.1) 06/25/19 11:52 Calcium 7.2 mg/dL (8.4-10.2) L 06/30/19 06:00 Magnesium 1.4 mg/dL (1.6-2.3) L 06/30/19 06:00 Total Bilirubin 0.7 mg/dL (0.2-1.3) 06/25/19 10:10 Direct Bilirubin 0.3 mg/dL (0.0-0.4) 06/25/19 10:10 Neonat Total Bilirubin Not Reportable 06/25/19 10:10 Neonat Direct Bilirubin Not Reportable 06/25/19 10:10 Neonat Indirect Bili Not Reportable 06/25/19 10:10 AST 20 U/L (14-36) 06/25/19 10:10 ALT 9 U/L (<35) 06/25/19 10:10 Alkaline Phosphatase 78 U/L (38-126) 06/25/19 10:10 Total Protein 7.3 g/dL (6.3-8.2) 06/25/19 10:10 Albumin 4.1 g/dL (3.5-5.0) 06/25/19 10:10 Lipase 611.3 U/L (23-300) H 06/25/19 10:10 Urine Color YELLOW 06/25/19 17:44 Urine Appearance CLOUDY 06/25/19 17:44 Urine pH 6.0 (5.0-9.0) 06/25/19 17:44 Ur Specific [place] 1.014 06/25/19 17:44 Urine Protein 30 mg/dL (NEGATIVE) H 06/25/19 17:44 Urine Glucose (UA) NEGATIVE mg/dL (NEGATIVE) 06/25/19 17:44 Urine Ketones NEGATIVE mg/dL (NEGATIVE) 06/25/19 17:44 Urine Blood NEGATIVE (NEGATIVE) 06/25/19 17:44 Urine Nitrite NEGATIVE (NEGATIVE) 06/25/19 17:44 Urine Bilirubin NEGATIVE (NEGATIVE) 06/25/19 17:44 Urine Urobilinogen NEGATIVE mg/dL (<2.0) 06/25/19 17:44 Ur Leukocyte Esterase NEGATIVE (NEGATIVE) 06/25/19 17:44 Urine WBC (Auto) 4 /HPF 06/25/19 17:44 Urine RBC (Auto) 1 /HPF 06/25/19 17:44 Urine Bacteria (Auto) 1+ /HPF 06/25/19 17:44 Squamous Epi Cells Auto 33 /HPF 06/25/19 17:44 Urine Mucus (Auto) RARE /LPF 06/25/19 17:44 Urine Ascorbic Acid NEGATIVE (NEGATIVE) 06/25/19 17:44 Stool Occult Blood POSITIVE (NEGATIVE) 06/29/19 11:37 Stool for White Cells NO WBCs SEEN 06/25/19 16:19 Stl C. Difficile GDH Ag NEGATIVE (NEGATIVE) 06/25/19 16:19 Stl C.difficile Tox A&B NEGATIVE (NEGATIVE) 06/25/19 16:19 Impressions: Chest X-Ray 06/25/19 10:49 IMPRESSION: NO ACUTE RADIOGRAPHIC FINDING IN THE CHEST. Plan Time Spent: Greater than 30 Minutes - Follow in office in 1 week we will recheck the CBC and Chem-7 and magnesium's Stroke Is this a Stroke Patient?: No Acute Heart Failure - Is this a Heart Failure Patient?: No
[2019-07-01 14:12] VITALS: BP 113/61
== END 2019-07-01 14:55 | disposition home health service (06) | DRG 682 ==
LOC: ER 09:29 → EH 14:28 → 4N 18:22
PROVIDERS: ADMIT Family Medicine; ATTEND Family Medicine
DX: N17.9 Acute kidney failure, unspecified (principal); G93.41 Metabolic encephalopathy; K50.90 Crohn's disease, unspecified, without complications; E87.1 Hypo-osmolality and hyponatremia; F02.81 Dementia in other diseases classified elsewhere, unspecified severity, with behavioral disturbance; E87.5 Hyperkalemia; E86.0 Dehydration; I12.9 Hypertensive chronic kidney disease with stage 1 through stage 4 chronic kidney disease, or unspecified chronic kidney disease; N18.9 Chronic kidney disease, unspecified; G30.9 Alzheimer's disease, unspecified; E83.51 Hypocalcemia; R62.7 Adult failure to thrive; E83.42 Hypomagnesemia; E78.5 Hyperlipidemia, unspecified; M19.90 Unspecified osteoarthritis, unspecified site; F32.9 Major depressive disorder, single episode, unspecified; Z93.2 Ileostomy status; Z90.710 Acquired absence of both cervix and uterus; Z66 Do not resuscitate; F17.200 Nicotine dependence, unspecified, uncomplicated; D63.1 Anemia in chronic kidney disease
CPT/HCPCS: 36415; 71045; 80048; 80053; 81001; 82272; 83605; 83690; 83735; 85025; 85027; 87040; 87045; 87077; 87086; 87186; 87205; 87324; 87449; 89055; 93005; 93010; 96365; 96375; 99291; J0131; J0610; J0696; J1200; J2405; J2930; J3475; J3480; J3490; J7030; J7040

== ENCOUNTER 2019-08-03 17:30 | Emergency (ER) | payer MEDICARE, MEDICAID ==
--- NOTE | 2019-08-03 18:40 | ER Document Report ---
ED Medical Screen (RME) - General Chief Complaint: Tremor Stated Complaint: ANXIETY/SHAKING Time Seen by Provider: 08/03/19 18:35 Primary Care Provider: ZAY TAYLOR MD [Primary Care Provider] - Follow up as needed Mode of Arrival: Wheelchair Information source: Relative Cannot obtain history due to: Dementia - Also gave history Notes: 84-year-old female presents to ED for shaking and tremors. Daughter states that whenever she does not give her her medicine she does not take all of the medicines. Daughter states that she supposed to take magnesium and calcium every day and if she does not personally give it to her and make her take it she does not take it. Daughter states that whenever she does not take it she gets very shaky anxious and develops tremors. Patient is able to answer some questions but daughter states she does have dementia. Patient does have a colostomy for her Crohn's disease. Is also had a hysterectomy I have greeted and performed a rapid initial assessment of this patient. A comprehensive ED assessment and evaluation of the patient, analysis of test results and completion of medical decision making process will be conducted by an additional ED providers. TRAVEL OUTSIDE OF THE [place] IN LAST 30 DAYS: No - Related Data Allergies/Adverse Reactions: ceftriaxone [From Rocephin] Allergy (Intermediate, Verified 06/25/19 17:52) Pruritis Past Medical History - Past Medical History Cardiac Medical History: Reports: Hx Hypercholesterolemia, Hx Hypertension Denies: Hx Coronary Artery Disease, Hx Heart Attack Pulmonary Medical History: Denies: Hx Asthma, Hx Bronchitis, Hx COPD, Hx Pneumonia Neurological Medical History: Denies: Hx Cerebrovascular Accident, Hx Seizures Renal/ Medical History: Reports: Hx Renal Insufficiency. Denies: Hx Peritoneal Dialysis GI Medical History: Reports: Hx Crohn's Disease, Hx Gastroesophageal Reflux Disease Musculoskeltal Medical History: Reports Hx Arthritis Psychiatric Medical History: Reports: Hx Anxiety, Hx Dementia, Hx Depression Past Surgical History: Reports: Hx Bowel Surgery - Colectomy for Crohn's disease, colostomy, Hx Colostomy, Hx Hysterectomy, Hx Ileostomy - Immunizations Hx Diphtheria, Pertussis, Tetanus Vaccination: Yes Physical Exam - Vital signs Vitals: Temp Pulse Resp BP Pulse Ox 98.7 F 116 H 22 H 148/69 H 100 08/03/19 18:03 08/03/19 18:03 08/03/19 18:03 08/03/19 18:03 08/03/19 18:03 Course - Vital Signs Vital signs: Temp Pulse Resp BP Pulse Ox 98.7 F 116 H 22 H 148/69 H 100 08/03/19 18:03 08/03/19 18:03 08/03/19 18:03 08/03/19 18:03 08/03/19 18:03 Doctor's Discharge - Discharge Referrals: ZAY TAYLOR MD [Primary Care Provider] - Follow up as needed
[2019-08-03 19:13] LABS: ABSOLUTE BASOPHILS # (AUTO) 0.1 10^3/uL (0.0-0.2); ABSOLUTE EOSINOPHILS # (AUTO) 0.1 10^3/uL (0.0-0.6); ABSOLUTE LYMPHOCYTES (AUTO) 1.2 10^3/uL (0.5-4.7); ABSOLUTE MONOCYTES (AUTO) 0.3 10^3/uL (0.1-1.4); ABSOLUTE NEUT (AUTO) 8.1 10^3/uL (1.7-8.2); BASOPHILS % (AUTO) 0.7 % (0-2); EOSINOPHILS % (AUTO) 0.8 % (0-6); HEMATOCRIT 37.9 % (36.0-47.0); HEMOGLOBIN 12.8 g/dL (12.0-15.5); LYMPHOCYTES % (AUTO) 12.5 % (13-45); MEAN CORPUSCULAR HEMOGLOBIN 29.6 pg (27.0-33.4); MEAN CORPUSCULAR HGB CONC 33.9 g/dL (32.0-36.0); MEAN CORPUSCULAR VOLUME 87 fl (80-97); MONOCYTES % (AUTO) 3.4 % (3-13); PLATELET COUNT 225 10^3/uL (150-450); RED BLOOD COUNT 4.35 10^6/uL (3.72-5.28); RED CELL DISTRIBUTION WIDTH 16.5 % (11.5-14.0); SEGMENTED NEUTROPHILS % (AUTO) 82.6 % (42-78); TOTAL CELLS COUNTED % (AUTO) 100 %; WHITE BLOOD COUNT 9.9 10^3/uL (4.0-10.5)
[2019-08-03 19:27] LABS: ALKALINE PHOSPHATASE 89 U/L (38-126); ANION GAP 15 (5-19); ASPARTATE AMINO TRANSFERASE 26 U/L (14-36); BILIRUBIN,DIRECT 0.6 mg/dL (0.0-0.4); BILIRUBIN,TOTAL 0.6 mg/dL (0.2-1.3); BLOOD UREA NITROGEN 53 mg/dL (7-20); CARBON DIOXIDE 24 mmol/L (22-30); CHLORIDE 101 mmol/L (98-107); GLUCOSE 101 mg/dL (75-110); POTASSIUM 4.7 mmol/L (3.6-5.0); TOTAL PROTEIN 7.6 g/dL (6.3-8.2)
[2019-08-03 19:38] LABS: APPEARANCE,URINE CLOUDY; BILIRUBIN,URINE NEGATIVE (NEGATIVE); COLOR,URINE YELLOW; GLUCOSE, URINE NEGATIVE (NEGATIVE); KETONES,URINE NEGATIVE (NEGATIVE); PROTEIN,URINE 30 mg/dL (NEGATIVE); URINE SPECIFIC GRAVITY 1.017; UROBILINOGEN,URINE NEGATIVE mg/dL (<2.0)
[2019-08-03 19:40] LABS: CALCIUM 5.2 mg/dL (8.4-10.2)
[2019-08-03 19:45] LABS: AMORPHOUS SEDIMENT,UR TRACE; HYALINE CASTS, URINE RARE /LPF
--- NOTE | 2019-08-03 21:02 | ER Document Report ---
ED General - General Chief Complaint: Tremor Stated Complaint: ANXIETY/SHAKING Time Seen by Provider: 08/03/19 18:35 Primary Care Provider: ZAY TAYLOR MD [Primary Care Provider] - Follow up as needed Mode of Arrival: Wheelchair Notes: 84-year-old woman presents to the emergency department with history of focused on her GI tract with complaint of gas and increasing symptoms. Daughter notes that she has had some electrolyte imbalances in the past which causes her to not be her normal self. She has a colostomy secondary to Crohn's disease. TRAVEL OUTSIDE OF THE [place] IN LAST 30 DAYS: No - Related Data Allergies/Adverse Reactions: ceftriaxone [From Rocephin] Allergy (Intermediate, Verified 08/03/19 18:39) Pruritis Home Medications: protonix, loperamide, ca, mag Past Medical History - General Information source: Relative - Social History Smoking Status: Current Every Day Smoker Chew tobacco use (# tins/day): No Frequency of alcohol use: None Drug Abuse: None Family History: Reviewed & Not Pertinent Patient has suicidal ideation: No Patient has homicidal ideation: No - Past Medical History Cardiac Medical History: Reports: Hx Hypercholesterolemia, Hx Hypertension Denies: Hx Coronary Artery Disease, Hx Heart Attack Pulmonary Medical History: Denies: Hx Asthma, Hx Bronchitis, Hx COPD, Hx Pneumonia Neurological Medical History: Denies: Hx Cerebrovascular Accident, Hx Seizures Renal/ Medical History: Reports: Hx Renal Insufficiency. Denies: Hx Peritoneal Dialysis GI Medical History: Reports: Hx Crohn's Disease, Hx Gastroesophageal Reflux Disease Musculoskeletal Medical History: Reports Hx Arthritis Psychiatric Medical History: Reports: Hx Anxiety, Hx Dementia, Hx Depression Past Surgical History: Reports: Hx Bowel Surgery - Colectomy for Crohn's disease, colostomy, Hx Colostomy, Hx Hysterectomy, Hx Ileostomy - Immunizations Hx Diphtheria, Pertussis, Tetanus Vaccination: Yes Hx Pneumococcal Vaccination: 05/25/18 Review of Systems - Review of Systems Notes: C -: Yes ROS unobtainable due to patient's medical condition - Patient is unreli able due to chronic dementia. Physical Exam - Vital signs Vitals: Temp Pulse Resp BP Pulse Ox 98.7 F 116 H 22 H 148/69 H 100 08/03/19 18:03 08/03/19 18:03 08/03/19 18:03 08/03/19 18:03 08/03/19 18:03 - Notes Notes: PHYSICAL EXAMINATION: Physical Exam: General: Frail elderly female in no acute distress HEENT: NC/AT, pupils equal round and reactive to light, MM moist,nares clear, oropharynx clear, airway patent Neck: supple, no adenopathy, no masses. Good range of motion Lungs: clear, no wheezing, no rales no rhonchi CVS: Regular rate and rhythm no murmur gallop or rub Abdomen: Soft, active, nontender, colostomy in the left mid abdominal wall area, draining normally. No masses, no hepatosplenomegaly Ext: No edema, clubbing or cyanosis. Neuro: Alert and responsive, oriented to self, disoriented to time and place. No focal neurologic findings. Skin: Intact no open lesions, no rash PSYCH: Normal mood, normal affect. Course - Re-evaluation Re-evalutation: 08/03/19 21:15 Patient who presents with shaking and not her normal self, found to have a low calcium and magnesium level. Apparently has not been compliant with tablets according to the daughter she puts the medicine on the table and her mother lets them sit there for days. 08/04/19 01:59 Discussed the patient with Dr. Taylor, he states that the patient was at one point in hospice, he does not feel the patient needs to be admitted to the hospital, after replacement with 2 g of magnesium, the patient could be discharged and follow-up in the office with him tomorrow. I discussed this with the daughter and the patient will be discharged home. - Vital Signs Vital signs: Temp Pulse Resp BP Pulse Ox 98.9 F 86 16 131/53 H 95 08/04/19 01:14 08/04/19 01:14 08/04/19 01:14 08/04/19 01:14 08/04/19 01:14 - Laboratory Result Diagrams: 08/03/19 18:45 08/03/19 18:45 Laboratory results interpreted by me: 08/03/19 08/03/19 08/03/19 18:45 18:45 19:20 RDW 16.5 H Lymph % (Auto) 12.5 L Seg Neutrophils % 82.6 H BUN 53 H Creatinine 2.23 H Est GFR ( Amer) 25 L Est GFR (MDRD) Non-Af 21 L Calcium 5.2 L* Magnesium 0.3 L* Direct Bilirubin 0.6 H Urine Protein 30 H Leukocyte Esterase Rfl LARGE H Discharge - Discharge Clinical Impression: Hypomagnesemia, Hypocalcemia Dementia with behavioral disturbance Qualifiers: Dementia type: unspecified type Qualified Code(s): F03.91 - Unspecified dementia with behavioral disturbance Condition: Good Disposition: HOME, SELF-CARE Instructions: Dementia ([facility]) Additional Instructions: You are diagnosed with low magnesium and low calcium in the emergency department tonight. Please follow-up with Dr. Taylor in the office tomorrow for continued management of these problems. HOME CARE INSTRUCTIONS & INFORMATION: Thank you for choosing us for your medical needs. We hope you're satisfied with the care you received. After you leave, you must properly care for your problem and, at the same time, observe its progress. Any condition can change. Some illnesses can change rapidly over hours or days. If your condition worsens, return to the Emergency Department or see your physician promptly. ABOUT YOUR X-RAYS AND EKG'S: If you had an EKG or X-rays taken, they have been read by the Emergency Physician. The X-rays and EKG's will also be read by a Radiologist or Micromatic Hone Operator within 24 hours. If discrepancies are noted, you will be notified by telephone. Please be certain the ED has a correct telephone number & address where you can be reached. Also, realize that some fractures or abnormalities do not show up on initial X-rays. If your symptoms continue, see your physician. ABOUT YOUR LABORATORY TEST: If you had laboratory tests, the results have been reviewed by the Emergency Physician. Some test results (for example cultures) may not be available for several days. You will be contacted if any test result shows you need additional treatment. Please be certain the ED has a correct telephone number and address where you can be reached. ABOUT YOUR MEDICATIONS: You will receive instructions on how to take your medicine on the prescription label you receive. Additional information may be provided by the Pharmacy. If you have questions afterwards, call the ED for clarification or further instructions. Some prescribed medications may cause drowsiness. Do not perform tasks such as driving a car or operating machinery without consulting your Pharmacist. If you feel you need a refill of pain me dication, your condition will need re-evaluation. Please do not call for a refill of any medication. ABOUT YOUR SIGNATURE: Signature of this document acknowledges to followin. Understanding that you received emergency treatment and that you may be released before al medical problems are known or treated. Please be certain the ED has a correct phone number & address where you can be reached. 2. Acknowledgement that you will arrange for follow-up care as recommended. 3. Authorization for the Emergency Physician to provide information to your follow-up Physician in order to maximize your care. AT ANY TIME, IF YOUR SYMPTOMS CHANGE SIGNIFICANTLY OR WORSEN OR YOU DEVELOP NEW SYMPTOMS, RETURN TO THE EMERGENCY DEPARTMENT IMMEDIATELY FOR RE-EVALUATION. OUR GOAL IS TO PROVIDE EXCELLENT MEDICAL CARE! WE HOPE THAT WE HAVE MET YOUR EXPECTATIONS DURING YOUR EMERGENCY DEPARTMENT VISIT AND THAT YOU FEEL YOU HAVE RECEIVED EXCELLENT CARE! Referrals: ZAY TAYLOR MD [Primary Care Provider] - Follow up as needed
[2019-08-03] MEDS ORDERED: CALCIUM GLUCONATE 1000 MG/10 ML INJ IV ONE (21:18)
[2019-08-03] MEDS ORDERED: NORMAL SALINE 1000 ML 1,000 ML IV ONE (21:23)
[2019-08-03] MEDS: MAGNESIUM SULFATE/D5W 1 GM/100 ML RTUPB IV SCH ×2 (22:32→23:40)
[2019-08-04 02:27] VITALS: BP 116/60
--- NOTE | 2019-08-04 10:01 | EKG REPORT ---
SEVERITY:- ABNORMAL ECG - SINUS TACHYCARDIA LEFT ANTERIOR FASCICULAR BLOCK APCs : Confirmed by: Roxane Parker 04-Aug-2019 10:00:04
== END 2019-08-04 02:32 | disposition home or self-care (01) ==
LOC: ER 17:30
DX: E83.42 Hypomagnesemia (principal); E83.51 Hypocalcemia; F03.91 Unspecified dementia, unspecified severity, with behavioral disturbance; F41.9 Anxiety disorder, unspecified; F17.200 Nicotine dependence, unspecified, uncomplicated; E78.00 Pure hypercholesterolemia, unspecified; I10 Essential (primary) hypertension; Z90.710 Acquired absence of both cervix and uterus; Z93.3 Colostomy status
CPT/HCPCS: 93005; 99283; 96361; 96375; 96365; 96366; 36415; 87086; 83735; 85025; 87088; 80053; 81001; 84484; 87186; 93010; J0610; J3475; J7030

== ENCOUNTER 2019-08-20 18:50 | Emergency (ER) | payer MEDICARE, MEDICAID ==
--- NOTE | 2019-08-20 19:02 | ER Document Report ---
ED Medical Screen (RME) - General Chief Complaint: General Weakness Stated Complaint: WEAKNESS Primary Care Provider: ZAY TAYLOR MD [Primary Care Provider] - Follow up as needed Notes: Patient is an 84-year-old female with a history of Crohn's with a colostomy, who status post hysterectomy who has chronic kidney disease who presents today for feeling generally unwell. She states the past couple days just "not felt right". She states that she has had increased flatulence. She does admit to some intermittent headaches and occasional abdominal discomfort. She is otherwise a poor historian and states that she just does not feel right. I have treated and performed a rapid initial assessment of this patient. A comprehensive ED assessment and evaluation of the patient, analysis of test results and completion of medical decision making process will be conducted by additional ED providers. PHYSICAL EXAMINATION: GENERAL: Well-appearing, well-nourished and in no acute distress. A&Ox4. TRAVEL OUTSIDE OF THE [place] IN LAST 30 DAYS: No - Related Data Allergies/Adverse Reactions: ceftriaxone [From Rocephin] Allergy (Intermediate, Verified 08/20/19 18:55) Pruritis Past Medical History - Past Medical History Cardiac Medical History: Reports: Hx Hypercholesterolemia, Hx Hypertension Denies: Hx Coronary Artery Disease, Hx Heart Attack Pulmonary Medical History: Denies: Hx Asthma, Hx Bronchitis, Hx COPD, Hx Pneumonia Neurological Medical History: Denies: Hx Cerebrovascular Accident, Hx Seizures Renal/ Medical History: Reports: Hx Renal Insufficiency. Denies: Hx Peritoneal Dialysis GI Medical History: Reports: Hx Crohn's Disease, Hx Gastroesophageal Reflux Disease Musculoskeltal Medical History: Reports Hx Arthritis Psychiatric Medical History: Reports: Hx Anxiety, Hx Dementia, Hx Depression Past Surgical History: Reports: Hx Bowel Surgery - Colectomy for Crohn's disease, colostomy, Hx Colostomy, Hx Hysterectomy, Hx Ileostomy - Immunizations Hx Diphtheria, Pertussis, Tetanus Vaccination: Yes Physical Exam - Vital signs Vitals: Temp Pulse Resp BP Pulse Ox 99.2 F 110 H 18 144/79 H 97 08/20/19 18:53 08/20/19 18:53 08/20/19 18:53 08/20/19 18:53 08/20/19 18:53 Course - Vital Signs Vital signs: Temp Pulse Resp BP Pulse Ox 99.2 F 110 H 18 144/79 H 97 08/20/19 18:53 08/20/19 18:53 08/20/19 18:53 08/20/19 18:53 08/20/19 18:53 Doctor's Discharge - Discharge Referrals: ZAY TAYLOR MD [Primary Care Provider] - Follow up as needed
[2019-08-20 20:15] LABS: ABSOLUTE BASOPHILS # (AUTO) 0.1 10^3/uL (0.0-0.2); ABSOLUTE EOSINOPHILS # (AUTO) 0.2 10^3/uL (0.0-0.6); ABSOLUTE LYMPHOCYTES (AUTO) 1.1 10^3/uL (0.5-4.7); ABSOLUTE MONOCYTES (AUTO) 0.5 10^3/uL (0.1-1.4); ABSOLUTE NEUT (AUTO) 6.7 10^3/uL (1.7-8.2); BASOPHILS % (AUTO) 0.7 % (0-2); EOSINOPHILS % (AUTO) 2.5 % (0-6); HEMATOCRIT 27.2 % (36.0-47.0); HEMOGLOBIN 9.3 g/dL (12.0-15.5); LYMPHOCYTES % (AUTO) 12.3 % (13-45); MEAN CORPUSCULAR HEMOGLOBIN 30.3 pg (27.0-33.4); MEAN CORPUSCULAR HGB CONC 34.3 g/dL (32.0-36.0); MEAN CORPUSCULAR VOLUME 88 fl (80-97); MONOCYTES % (AUTO) 6.3 % (3-13); PLATELET COUNT 197 10^3/uL (150-450); RED BLOOD COUNT 3.08 10^6/uL (3.72-5.28); RED CELL DISTRIBUTION WIDTH 15.8 % (11.5-14.0); SEGMENTED NEUTROPHILS % (AUTO) 78.2 % (42-78); TOTAL CELLS COUNTED % (AUTO) 100 %; WHITE BLOOD COUNT 8.5 10^3/uL (4.0-10.5)
[2019-08-20 20:31] LABS: ALBUMIN 2.7 g/dL (3.5-5.0); ALKALINE PHOSPHATASE 76 U/L (38-126); ANION GAP 6 (5-19); ASPARTATE AMINO TRANSFERASE 22 U/L (14-36); BILIRUBIN,DIRECT 0.3 mg/dL (0.0-0.4); BILIRUBIN,TOTAL 0.3 mg/dL (0.2-1.3); BLOOD UREA NITROGEN 26 mg/dL (7-20); CARBON DIOXIDE 28 mmol/L (22-30); CHLORIDE 106 mmol/L (98-107); GLUCOSE 103 mg/dL (75-110); TOTAL PROTEIN 5.6 g/dL (6.3-8.2)
[2019-08-20 20:32] LABS: APPEARANCE,URINE SLIGHTLY-CLOUDY; BILIRUBIN,URINE NEGATIVE (NEGATIVE); COLOR,URINE YELLOW; GLUCOSE, URINE NEGATIVE (NEGATIVE); KETONES,URINE NEGATIVE (NEGATIVE); PROTEIN,URINE NEGATIVE (NEGATIVE); URINE SPECIFIC GRAVITY 1.011; UROBILINOGEN,URINE NEGATIVE mg/dL (<2.0)
[2019-08-20 20:39] LABS: CALCIUM 5.3 mg/dL (8.4-10.2)
[2019-08-20] MEDS ORDERED: NORMAL SALINE 500 ML IV ONE (20:44)
[2019-08-20] MEDS ORDERED: CALCIUM GLUCONATE 1000 MG/10 ML INJ IV ONE (20:44)
--- NOTE | 2019-08-20 21:20 | EKG REPORT ---
SEVERITY:- ABNORMAL ECG - SINUS TACHYCARDIA SUPRAVENTRICULAR BIGEMINY LAD, CONSIDER LEFT ANTERIOR FASCICULAR BLOCK : Confirmed by: Andrea Painter MD 20-Aug-2019 21:19:59
--- NOTE | 2019-08-20 21:24 | RADIOLOGY REPORT (SQ) ---
EXAM DESCRIPTION: XR CHEST 1 VIEW COMPLETED DATE/TME: 08/20/2019 20:39 CLINICAL HISTORY: 84 years, Female, weakness, tachycardia COMPARISON: Prior chest radiograph from 13/06/2019 NUMBER OF VIEWS: One TECHNIQUE: Single frontal view of the chest was obtained portably LIMITATIONS: None. FINDINGS: Left IJ approach central venous catheter tip is located in the cavoatrial junction. Cardiac and mediastinal contours are stable. There is blunting of both costophrenic sulci. No definite focal consolidation is noted. IMPRESSION: Blunting of both costophrenic sulci, suspicious for small bilateral pleural effusions. No focal consolidation identified. copyright 2010 [email or web address] [facility]- All Rights Reserved
[2019-08-20] MEDS: MAGNESIUM SULFATE/D5W 1 GM/100 ML RTUPB IV SCH ×2 (22:18→22:41)
--- NOTE | 2019-08-20 23:35 | ER Document Report ---
ED General - General Chief Complaint: General Weakness Stated Complaint: WEAKNESS Time Seen by Provider: 08/20/19 20:39 Primary Care Provider: ZAY TAYLOR MD [Primary Care Provider] - Follow up as needed TRAVEL OUTSIDE OF THE [place] IN LAST 30 DAYS: No - HPI Notes: Patient is an 84-year-old female who presents the emergency department for evaluation. She complains of weakness, "just not feeling right." She states that normally she feels better after IV fluids, but she got some and it really did not help. She has some mild stomach pain, mild headache. She denies any fe vers or chills. She is had no nausea or vomiting. She has a high put a colostomy, which she says is stable. She denies any dysuria, hematuria, urinary frequency. She states she has been taking her medications as prescribed. - Related Data Allergies/Adverse Reactions: ceftriaxone [From Rocephin] Allergy (Intermediate, Verified 08/20/19 18:55) Pruritis Past Medical History - General Information source: Patient, [facility] Records - Social History Smoking Status: Never Smoker Family History: Reviewed & Not Pertinent Patient has suicidal ideation: No Patient has homicidal ideation: No - Past Medical History Cardiac Medical History: Reports: Hx Hypercholesterolemia, Hx Hypertension Denies: Hx Coronary Artery Disease, Hx Heart Attack Pulmonary Medical History: Denies: Hx Asthma, Hx Bronchitis, Hx COPD, Hx Pneumonia Neurological Medical History: Denies: Hx Cerebrovascular Accident, Hx Seizures Renal/ Medical History: Reports: Hx Renal Insufficiency. Denies: Hx Peritoneal Dialysis GI Medical History: Reports: Hx Crohn's Disease, Hx Gastroesophageal Reflux Disease Musculoskeletal Medical History: Reports Hx Arthritis Psychiatric Medical History: Reports: Hx Anxiety, Hx Dementia, Hx Depression Past Surgical History: Reports: Hx Bowel Surgery - Colectomy for Crohn's disease, colostomy, Hx Colostomy, Hx Hysterectomy, Hx Ileostomy - Immunizations Hx Diphtheria, Pertussis, Tetanus Vaccination: Yes Hx Pneumococcal Vaccination: 05/25/18 Review of Systems - Review of Systems Constitutional: See HPI Gastrointestinal: See HPI -: Yes All other systems reviewed and negative Physical Exam - Vital signs Vitals: Temp Pulse Resp BP Pulse Ox 99.2 F 110 H 18 144/79 H 97 08/20/19 18:53 08/20/19 18:53 08/20/19 18:53 08/20/19 18:53 08/20/19 18:53 - Notes Notes: Is an 84-year-old female who appears her stated age in no acute distress. Head is normocephalic atraumatic, Pupils are equal and round, reactive to light. Oral mucosa is moist. Uvula is midline. Neck is supple without meningismus. Heart is regular rate and rhythm, lungs are clear oscillation bilaterally. Patient has colostomy in the left upper abdomen with green liquid stool, pink stoma. She has diffuse abdominal tenderness without rebound or guarding. Extremities without cyanosis or clubbing. Skin is warm and dry. Posterior calves are nontender. Patient is awake and alert, cooperative with examiner. Course - Re-evaluation Re-evalutation: 08/20/19 23:31 Patient presents to the emergency department for evaluation. She is very mildly tachycardic upon arrival. She is given a small amount of fluids. Laboratory investigations were obtained. She is found to be markedly hypocalcemic as well as hypomagnesemic. These are not new issues for her. She states she has been taking oral supplementation for her calcium, but it remains low. The patient has refused IV replacement at home of these in the past. She is given 2 g of IV magnesium, amp of calcium gluconate. She is feeling improved, feels stable to go home. Because of her mild tachycardia I did obtain cultures, these were all negative at this time. She is to follow closely with Dr. Taylor next week, return to the emergency department for worsening or new concerning symptoms of any sort. 08/20/19 23:53 Prior to being disconnected from telemetry, the patient had a run of heart rates in the 140s to 150s. Only a strip could be obtained, as this was paroxysmal and limited. Does appear to be atrial fibrillation. The patient was asymptomatic during this time. She certainly would not be a good candidate for anticoagulation. Her heart rate went back down into the 90s, sinus with a few PACs. At this point, I will recommend that the patient be referred on to cardiology for echocardiogram to be sure there are no other significant abnormality is being missed. Patient is notified of this and is amenable to this plan. - Vital Signs Vital signs: Temp Pulse Resp BP Pulse Ox 99.2 F 110 H 16 122/87 H 95 08/20/19 18:53 08/20/19 18:53 08/20/19 21:01 08/20/19 20:01 08/20/19 20:01 - Laboratory Result Diagrams: 08/20/19 19:56 08/20/19 19:56 Laboratory results interpreted by me: 08/20/19 08/20/19 08/20/19 19:56 19:56 19:56 RBC 3.08 L Hgb 9.3 L Hct 27.2 L RDW 15.8 H Lymph % (Auto) 12.3 L Seg Neutrophils % 78.2 H BUN 26 H Creatinine 1.37 H Est GFR ( Amer) 44 L Est GFR (MDRD) Non-Af 37 L Calcium 5.3 L* Magnesium 0.3 L* Total Protein 5.6 L Albumin 2.7 L Leukocyte Esterase Rfl 08/20/19 20:12 RBC Hgb Hct RDW Lymph % (Auto) Seg Neutrophils % BUN Creatinine Est GFR ( Amer) Est GFR (MDRD) Non-Af Calcium Magnesium Total Protein Albumin Leukocyte Esterase Rfl TRACE H - Diagnostic Test Radiology reviewed: Reports reviewed Radiology results interpreted by me: 08/20/19 23:32 Chest X-Ray 08/20/19 20:39 IMPRESSION: Blunting of both costophrenic sulci, suspicious for small bilateral pleural effusions. No focal consolidation identified. copyright 2010 [employer]- All Rights Reserved - EKG Interpretation by Me Additional EKG results interpreted by me: 08/20/19 23:33 Sinus mechanism with a rate of 100 bpm. Left axis deviation. Normal intervals, no acute ST changes concerning for ischemia or infarction. Discharge - Discharge Clinical Impression: Hypomagnesemia, Hypocalcemia, Tachycardia Condition: Stable Disposition: HOME, SELF-CARE Instructions: Weakness ([facility]) Additional Instructions: Today your calcium and magnesium levels were found to be low. These were replaced with IV medications. Please continue your oral supplementations at home as previously instructed. You should have these labs rechecked next week and follow-up closely with Dr. Taylor. If you develop worsening or new concernin g symptoms of any sort, please return immediately to the emergency department for evaluation. Please note a small arrhythmia, or fast heart rate, was noted on your telemetry today. I do not have a clear reason for this. You should follow-up with cardiology in regards to this as well. Referrals: ZAY TAYLOR MD [Primary Care Provider] - Follow up as needed
[2019-08-21 00:05] VITALS: BP 133/71
== END 2019-08-21 00:24 | disposition home or self-care (01) ==
LOC: ER 18:50
DX: E83.42 Hypomagnesemia (principal); E83.51 Hypocalcemia; R00.0 Tachycardia, unspecified; R53.1 Weakness; K50.90 Crohn's disease, unspecified, without complications; R51 Headache; E78.00 Pure hypercholesterolemia, unspecified; I10 Essential (primary) hypertension; Z93.3 Colostomy status; Z90.710 Acquired absence of both cervix and uterus
CPT/HCPCS: 93005; 99285; 96361; 96365; 96367; 36415; 87040; 87086; 83605; 83735; 85025; 87077; 87088; 80053; 81001; 84484; 87186; 87150 ×26; 71045; 93010; J0610; J3475; J7040; J1642

== ENCOUNTER 2019-08-22 13:20 | Emergency (ER) | payer MEDICARE, MEDICAID ==
[2019-08-22] MEDS ORDERED: NORMAL SALINE 1000 ML 1,000 ML IV ONE (13:31)
--- NOTE | 2019-08-22 13:33 | ER Document Report ---
ED Medical Screen (RME) - General Chief Complaint: Abnormal Lab Results Stated Complaint: ABNORMAL LABS Time Seen by Provider: 08/22/19 13:29 Primary Care Provider: ZAY TAYLOR MD [Primary Care Provider] - Follow up as needed Notes: Patient is an 84-year-old female who presents to the emergency department for positive blood cultures. She resulted Klebsiella pneumonia and gram-negative rods in her blood culture 2 days ago. She was seen for weakness. Patient states that she is feeling somewhat better, but not much better. Exam: Tachycardic. I have greeted and performed a rapid initial assessment of this patient. A comprehensive ED assessment and evaluation of the patient, analysis of test results and completion of medical decision making process will be conducted by an additional ED providers. TRAVEL OUTSIDE OF THE [place] IN LAST 30 DAYS: No - Related Data Allergies/Adverse Reactions: ceftriaxone [From Rocephin] Allergy (Intermediate, Verified 08/22/19 13:27) Pruritis Home Medications: no changes to medications since er visit 2 days ago. Past Medical History - Social History Chew tobacco use (# tins/day): No Frequency of alcohol use: None Drug Abuse: None - Past Medical History Cardiac Medical History: Reports: Hx Hypercholesterolemia, Hx Hypertension Denies: Hx Coronary Artery Disease, Hx Heart Attack Pulmonary Medical History: Denies: Hx Asthma, Hx Bronchitis, Hx COPD, Hx Pneumonia Neurological Medical History: Denies: Hx Cerebrovascular Accident, Hx Seizures Renal/ Medical History: Reports: Hx Renal Insufficiency. Denies: Hx Peritoneal Dialysis GI Medical History: Reports: Hx Crohn's Disease, Hx Gastroesophageal Reflux Disease Musculoskeltal Medical History: Reports Hx Arthritis Psychiatric Medical History: Reports: Hx Anxiety, Hx Dementia, Hx Depression Past Surgical History: Reports: Hx Bowel Surgery - Colectomy for Crohn's disease, colostomy, Hx Colostomy, Hx Hysterectomy, Hx Ileostomy - Immunizations Hx Diphtheria, Pertussis, Tetanus Vaccination: Yes Doctor's Discharge - Discharge Referrals: ZAY TAYLOR MD [Primary Care Provider] - Follow up as needed
--- NOTE | 2019-08-22 14:04 | ER Document Report ---
ED General - General Chief Complaint: Abnormal Lab Results Stated Complaint: ABNORMAL LABS Time Seen by Provider: 08/22/19 13:29 Primary Care Provider: ZAY TAYLOR MD [Primary Care Provider] - Follow up as needed Notes: 84-year-old female was called back into the hospital for abnormal blood and urine culture. The patient denies any complaints other than "I have gas ". The patient denies chest pain or shortness of breath denies abdominal pain. States she feels better than she did the other day however it was noticed in triage that she had a rapid heart rate. She was brought back and sepsis protocol was initiated. The patient denies any nausea vomiting. Denies recent travel denies sore throat cough. Denies hematuria or dysuria. Patient states she is otherwise feeling fine. TRAVEL OUTSIDE OF THE [place] IN LAST 30 DAYS: No - Related Data Allergies/Adverse Reactions: ceftriaxone [From Rocephin] Allergy (Intermediate, Verified 08/22/19 13:27) Pruritis Home Medications: no changes to medications since er visit 2 days ago. Past Medical History - Social History Smoking Status: Current Every Day Smoker Chew tobacco use (# tins/day): No Frequency of alcohol use: None Drug Abuse: None Family History: Reviewed & Not Pertinent Patient has suicidal ideation: No Patient has homicidal ideation: No - Past Medical History Cardiac Medical History: Reports: Hx Hypercholesterolemia, Hx Hypertension Denies: Hx Coronary Artery Disease, Hx Heart Attack Pulmonary Medical History: Denies: Hx Asthma, Hx Bronchitis, Hx COPD, Hx Pneumonia Neurological Medical History: Denies: Hx Cerebrovascular Accident, Hx Seizures Renal/ Medical History: Reports: Hx Renal Insufficiency. Denies: Hx Peritoneal Dialysis GI Medical History: Reports: Hx Crohn's Disease, Hx Gastroesophageal Reflux Disease Musculoskeletal Medical History: Reports Hx Arthritis Psychiatric Medical History: Reports: Hx Anxiety, Hx Dementia, Hx Depression Past Surgical History: Reports: Hx Bowel Surgery - Colectomy for Crohn's disease, colostomy, Hx Colostomy, Hx Hysterectomy, Hx Ileostomy - Immunizations Hx Diphtheria, Pertussis, Tetanus Vaccination: Yes Hx Pneumococcal Vaccination: 05/25/18 Review of Systems - Review of Systems Constitutional: Malaise. denies: Chills, Fever EENT: No symptoms reported Cardiovascular: No symptoms reported Respiratory: No symptoms reported Gastrointestinal: No symptoms reported Genitourinary: No symptoms reported Skin: No symptoms reported Hematologic/Lymphatic: No symptoms reported -: Yes All other systems reviewed and negative Physical Exam - Vital signs Vitals: Temp Pulse Resp BP Pulse Ox 98.2 F 124 H 14 108/63 99 08/22/19 13:21 08/22/19 13:21 08/22/19 13:21 08/22/19 13:21 08/22/19 13:21 - Notes Notes: GENERAL_APPEARANCE: well_nourished, alert, cooperative, no_acute_distress, no_obvious_discomfort. VITALS: reviewed, see vital signs table. HEAD: no_swelling\\tenderness on the head. EYES: Sclerae anicteric, conjunctiva_clear. NOSE: no_nasal_discharge. MOUTH: Light decreased moisture noted lips and tongue THROAT: no_tonsilar_inflammation, no_airway_obstruction. no_lymphadenopathy NECK: supple, no_neck_tenderness, (-)thyromegaly. BACK: no_back_tenderness. CHEST_WALL: no_chest_tenderness. LUNGS: no_wheezing, no_rales, no_rhonchi, (-)accessory muscle use, good air exchange bilateral. HEART: normal_rate, normal_rhythm, normal_S1, normal_S2, (-)S3, (-)S4, no_murmur, no_rub. ABDOMEN: Ostomy left lower quadrant, soft, no_abd_tenderness, (-)guarding, (- )rebound, no_organomegaly, no_abd_masses. EXTREMITIES: good pulses in all_extremities, no_swelling\\tenderness in the extremities, no_edema. SKIN: warm, dry, good_color, no_rash. MENTAL_STATUS: speech_clear, oriented_X_3, normal_affect, responds_appropriately to questions. NEURO: Neg Motor or Sensory Deficits on exam, CN 2-12 intact, DTR 2+ symmetric x 4, No cerbellar signs Course - Re-evaluation Re-evalutation: 08/22/19 14:03 84-year-old female presents to the ER with abnormal lab. We will hydrate the patient up for her tachycardia. The patient has history of low electrolytes due to her ostomy. She denies any increase in output. Blood culture and urine culture was positive. We are working the patient up for sepsis now. 08/22/19 17:44 I spoke with the patient's primary care doctor Dr. Taylor --he is informed me the patient is receiving pretty advanced care at home receiving IV fluids. They are trying to supplement her electrolytes due to loss of the ostomy. I spoke with him about the blood culture and urine culture. I have given the patient a dose of IV Zosyn he wanted me to place the patient on p.o. antibiotics the patient does not appear septic at this time I sent spoke with the patient and she does absolutely does not want to stay in the hospital. I spoke with her about sepsis and the dangers associated with that. The significant morbidity mortality patient stated she absolutely does not care. She states that she is a DO NOT RESUSCITATE and is okay with her current situation. States she would rather be at home. We will supplement the patient's electrolytes and gave her IV antibiotics and fluids and the patient will be released at her request. I invited her to return anytime in the next 12 to 24 hours if she feels worse or changes her mind otherwise she will follow-up with Dr. Taylor who is very much aware of her situation will follow her up and continue to direct advanced home care. 08/22/19 17:46 - Vital Signs Vital signs: Temp Pulse Resp BP Pulse Ox 98.2 F 124 H 17 128/69 H 97 08/22/19 13:21 08/22/19 13:21 08/22/19 17:01 08/22/19 17:01 08/22/19 17:01 - Laboratory Result Diagrams: 08/22/19 14:55 08/22/19 14:45 Laboratory results interpreted by me: 08/22/19 08/22/19 14:45 14:55 WBC 16.6 H RBC 3.34 L Hgb 10.0 L Hct 29.4 L RDW 15.7 H Seg Neuts % (Manual) 90 H Band Neutrophils % 2 L Lymphocytes % (Manual) 4 L Monocytes % (Manual) 1 L Abs Neuts (Manual) 15.3 H Est GFR ( Amer) 53 L Est GFR (MDRD) Non-Af 44 L Calcium 6.6 L* Magnesium 0.8 L* Total Protein 5.8 L Albumin 2.9 L - Diagnostic Test Radiology reviewed: Reports reviewed Radiology results interpreted by me: 08/22/19 17:43 Chest X-Ray 08/22/19 13:30 IMPRESSION: Minimal pleural effusions. Hiatal hernia. - EKG Interpretation by Me EKG shows normal: Sinus rhythm Rate: Normal [place]/QRS: LAHB/LAFB When compared to previous EKG there are: No significant change Discharge - Discharge Clinical Impression: Hypomagnesemia, UTI (urinary tract infection), Dehydration, Hypocalcemia, Tachycardia Condition: Stable Disposition: HOME, SELF-CARE Instructions: Urinary Tract Infection ([facility]), Dehydration ([facility]) Additional Instructions: Please follow-up with Dr. Taylor for further care. If you change your mind and want to stay in the hospital we have discussed please return to the ER immediately Prescriptions: Amoxicillin/Potassium Clav [Augmentin 875-125 Tablet] 1 tab PO Q12 #20 tablet Referrals: ZAY TAYLOR MD [Primary Care Provider] - Follow up as needed
--- NOTE | 2019-08-22 14:15 | RADIOLOGY REPORT (SQ) ---
EXAM DESCRIPTION: CHEST SINGLE VIEW IMAGES COMPLETED DATE/TIME: 08/22/2019 2:03 pm REASON FOR STUDY: weakness; tachycardia COMPARISON: 08/20/2019 EXAM PARAMETERS: NUMBER OF VIEWS: One view. TECHNIQUE: Single frontal radiographic view of the chest acquired. RADIATION DOSE: NA LIMITATIONS: None. FINDINGS: LUNGS AND PLEURA: Cannot exclude a minimal pleural effusion on each side. MEDIASTINUM AND HILAR STRUCTURES: Small hiatal hernia. HEART AND VASCULAR STRUCTURES: Heart normal in size. Normal vasculature. BONES: No acute findings. HARDWARE: Left subclavian catheter with the tip in the superior vena cava. OTHER: No other significant finding. IMPRESSION: Minimal pleural effusions. Hiatal hernia. TECHNICAL DOCUMENTATION: JOB ID: [id number] 2010 [employer] All Rights Reserved Reading location - IP/workstation name: [email or web address]
[2019-08-22 15:19] LABS: ALBUMIN 2.9 g/dL (3.5-5.0); ALKALINE PHOSPHATASE 92 U/L (38-126); ANION GAP 7 (5-19); ASPARTATE AMINO TRANSFERASE 24 U/L (14-36); BILIRUBIN,TOTAL 0.3 mg/dL (0.2-1.3); BLOOD UREA NITROGEN 19 mg/dL (7-20); CARBON DIOXIDE 29 mmol/L (22-30); CHLORIDE 102 mmol/L (98-107); GLUCOSE 108 mg/dL (75-110); TOTAL PROTEIN 5.8 g/dL (6.3-8.2)
[2019-08-22 15:19] LABS: INTERNATIONAL RATION (INR) 1.04; PROTHROMBIN TIME 13.6 SEC (11.4-15.4)
[2019-08-22 15:33] LABS: CALCIUM 6.6 mg/dL (8.4-10.2)
[2019-08-22 15:33] LABS: HEMATOCRIT 29.4 % (36.0-47.0); MEAN CORPUSCULAR VOLUME 88 fl (80-97); PLATELET COUNT 198 10^3/uL (150-450); RED BLOOD COUNT 3.34 10^6/uL (3.72-5.28); RED CELL DISTRIBUTION WIDTH 15.7 % (11.5-14.0); WHITE BLOOD COUNT 16.6 10^3/uL (4.0-10.5)
[2019-08-22 15:36] LABS: ABSOLUTE MONOCYTES # (MANUAL) 0.2 10^3/uL (0.1-1.4); BAND NEUTROPHILS % (MANUAL) 2 % (3-5); BASOPHILS % (MANUAL) 0 % (0-2); EOSINOPHILS % (MANUAL) 1 % (0-6); LYMPHOCYTES % (MANUAL) 4 % (13-45); MONOCYTES % (MANUAL) 1 % (3-13); SEGMENTED NEUTROPHILS % (MAN) 90 % (42-78); TOTAL CELLS COUNTED 100
[2019-08-22 15:40] LABS: ANISOCYTOSIS SLIGHT; BURR CELLS SLIGHT; OVALOCYTES SLIGHT; PLATELET COMMENT ADEQUATE; POIKILOCYTOSIS SLIGHT
[2019-08-22] MEDS ORDERED: PIPERACILLIN/TAZOBACTAM 3.375 GM VIAL IV ONE (16:26)
[2019-08-22] MEDS: CALCIUM GLUC IN NACL, ISO-OSM 1 GM/50 ML RTUPB IV SCH ×2 (16:30→17:42)
[2019-08-22] MEDS: MAGNESIUM SULFATE/D5W 1 GM/100 ML RTUPB IV SCH ×2 (16:30→17:42)
--- NOTE | 2019-08-22 18:07 | EKG REPORT ---
SEVERITY:- ABNORMAL ECG - SINUS TACHYCARDIA LEFT ANTERIOR FASCICULAR BLOCK BORDERLINE R WAVE PROGRESSION, ANTERIOR LEADS : Confirmed by: Roxane Parker 22-Aug-2019 18:06:48
[2019-08-22 19:05] LABS: APPEARANCE,URINE SLIGHTLY-CLOUDY; BILIRUBIN,URINE NEGATIVE (NEGATIVE); COLOR,URINE YELLOW; GLUCOSE, URINE NEGATIVE (NEGATIVE); KETONES,URINE NEGATIVE (NEGATIVE); PROTEIN,URINE NEGATIVE (NEGATIVE); UROBILINOGEN,URINE NEGATIVE mg/dL (<2.0)
[2019-08-22 20:12] VITALS: BP 178/64
== END 2019-08-22 21:18 | disposition home or self-care (01) ==
LOC: ER 13:20
DX: N39.0 Urinary tract infection, site not specified (principal); E86.0 Dehydration; E83.51 Hypocalcemia; E83.42 Hypomagnesemia; R00.0 Tachycardia, unspecified; F17.200 Nicotine dependence, unspecified, uncomplicated; E78.00 Pure hypercholesterolemia, unspecified; I10 Essential (primary) hypertension; Z93.3 Colostomy status; Z90.710 Acquired absence of both cervix and uterus; Z93.2 Ileostomy status
CPT/HCPCS: 93005; 99284; 96361; 96365; 96366; 36415; 87040; 87086; 83605; 83735; 85025; 85610; 87077; 87088; 80053; 81001; 87186; 87150 ×26; 71045; 93010; J3475; J7030; J1642; J2543; J0610

== ENCOUNTER 2019-10-03 15:10 | Inpatient (IN) | payer MEDICARE, MEDICAID ==
[2019-10-03 15:32] LABS: ABSOLUTE BASOPHILS # (AUTO) 0.1 10^3/uL (0.0-0.2); ABSOLUTE LYMPHOCYTES (AUTO) 1.3 10^3/uL (0.5-4.7); ABSOLUTE MONOCYTES (AUTO) 0.2 10^3/uL (0.1-1.4); ABSOLUTE NEUT (AUTO) 6.2 10^3/uL (1.7-8.2); BASOPHILS % (AUTO) 0.9 % (0-2); EOSINOPHILS % (AUTO) 0.4 % (0-6); HEMATOCRIT 44.2 % (36.0-47.0); HEMOGLOBIN 14.9 g/dL (12.0-15.5); LYMPHOCYTES % (AUTO) 17.2 % (13-45); MEAN CORPUSCULAR HEMOGLOBIN 28.8 pg (27.0-33.4); MEAN CORPUSCULAR HGB CONC 33.6 g/dL (32.0-36.0); MEAN CORPUSCULAR VOLUME 86 fl (80-97); MONOCYTES % (AUTO) 2.9 % (3-13); PLATELET COUNT 175 10^3/uL (150-450); RED BLOOD COUNT 5.16 10^6/uL (3.72-5.28); RED CELL DISTRIBUTION WIDTH 13.5 % (11.5-14.0); SEGMENTED NEUTROPHILS % (AUTO) 78.6 % (42-78); TOTAL CELLS COUNTED % (AUTO) 100 %; WHITE BLOOD COUNT 7.9 10^3/uL (4.0-10.5)
[2019-10-03 15:50] LABS: ALBUMIN 4.7 g/dL (3.5-5.0); ALKALINE PHOSPHATASE 77 U/L (38-126); ASPARTATE AMINO TRANSFERASE 21 U/L (14-36); BILIRUBIN,DIRECT 0.3 mg/dL (0.0-0.4); BILIRUBIN,TOTAL 0.5 mg/dL (0.2-1.3); CARBON DIOXIDE 24 mmol/L (22-30); CHLORIDE 73 mmol/L (98-107); CREATINE KINASE 90 U/L (30-135); GLUCOSE 91 mg/dL (75-110); TOTAL PROTEIN 8.1 g/dL (6.3-8.2)
[2019-10-03 16:02] LABS: CREATINE KINASE MB 1.98 ng/mL (<4.55)
[2019-10-03 16:28] LABS: POTASSIUM 6.1 mmol/L (3.6-5.0)
[2019-10-03 16:29] LABS: BLOOD UREA NITROGEN 151 mg/dL (7-20); CALCIUM 6.3 mg/dL (8.4-10.2)
[2019-10-03 16:31] LABS: TROPONIN I 0.082 ng/mL
[2019-10-03] MEDS ORDERED: NORMAL SALINE 500 ML IV ONE (16:32)
[2019-10-03 16:40] LABS: ANION GAP 26 (5-19)
--- NOTE | 2019-10-03 16:48 | ER Document Report ---
ED General - General Chief Complaint: General Weakness Stated Complaint: WEAKNESS Time Seen by Provider: 10/03/19 16:29 Primary Care Provider: ZAY TAYLOR MD [Primary Care Provider] - Follow up as needed Mode of Arrival: Medic Information source: Patient, Emergency Med Personnel Cannot obtain history due to: Dementia Notes: 84-year-old black female arrives from home via EMS after she has been having poor appetite and also feeling malaise for around 2 weeks. Patient has a prior history of ARF tachycardia hypotension dementia failure to thrive Crohn's disease sepsis hyponatremia hyperkalemia hypocalcemia and DNR status. Also patient has a left lower quadrant ostomy bag. patient reports she is feeling chills today and last ate last night. Her only complaint is that she wants a blanket and some orange juice. After being provided with orange juice she drank the entire container through a straw. After labs were done by hospital laboratory review patient had a high BUN and creatinine as well as 123 sodium and 6.1 potassium. This case was discussed with Dr. Mayelin Taylor who advises patient should be admitted to the [facility] with Dr. Fitzpatrick and to get a EKG on the patient because of the history of low magnesium and magnesium level and to speak with daughter about continued DNR status. Dr. Taylor also advises she is very stubborn and has dementia. TRAVEL OUTSIDE OF THE [place] IN LAST 30 DAYS: No - HPI Onset: Other - x 2 weeks Quality of pain: No pain Severity: None Pain Level: Denies Associated symptoms: Chills, Weakness Exacerbated by: Denies Relieved by: Denies Similar symptoms previously: Yes Recently seen / treated by doctor: No - Related Data Allergies/Adverse Reactions: ceftriaxone [From Rocephin] Allergy (Intermediate, Verified 08/22/19 13:27) Pruritis Home Medications: albuterol, buspirone, calcium, divaloprex, mag ox, memmatine, ondestron Past Medical History - General Information source: Relative - daughter Cannot obtain history due to: Dementia - Social History Smoking Status: Former Smoker Cigarette use (# per day): No Chew tobacco use (# tins/day): No Smoking Education Provided: No Frequency of alcohol use: None Drug Abuse: None Lives with: Family Family History: Reviewed & Not Pertinent Patient has homicidal ideation: No - Past Medical History Cardiac Medical History: Reports: Hx Hypercholesterolemia, Hx Hypertension Denies: Hx Coronary Artery Disease, Hx Heart Attack Pulmonary Medical History: Denies: Hx Asthma, Hx Bronchitis, Hx COPD, Hx Pneumonia Neurological Medical History: Denies: Hx Cerebrovascular Accident, Hx Seizures Renal/ Medical History: Reports: Hx Renal Insufficiency. Denies: Hx P eritoneal Dialysis GI Medical History: Reports: Hx Crohn's Disease, Hx Gastroesophageal Reflux Disease Musculoskeletal Medical History: Reports Hx Arthritis Psychiatric Medical History: Reports: Hx Anxiety, Hx Dementia, Hx Depression Past Surgical History: Reports: Hx Bowel Surgery - Colectomy for Crohn's disease, colostomy, Hx Colostomy, Hx Hysterectomy, Hx Ileostomy - Immunizations Hx Diphtheria, Pertussis, Tetanus Vaccination: Yes Hx Pneumococcal Vaccination: 05/25/18 Review of Systems - Review of Systems Constitutional: See HPI, Malaise, Weakness EENT: No symptoms reported Cardiovascular: No symptoms reported Respiratory: No symptoms reported Gastrointestinal: No symptoms reported Genitourinary: No symptoms reported Female Genitourinary: No symptoms reported Musculoskeletal: No symptoms reported Skin: No symptoms reported Hematologic/Lymphatic: No symptoms reported Neurological/Psychological: No symptoms reported Physical Exam - Vital signs Vitals: Resp Pulse Ox 16 91 L 10/03/19 15:17 10/03/19 15:17 Interpretation: Hypotensive - General General appearance: Alert In distress: None - HEENT Head: Normocephalic, Atraumatic Eyes: Normal Pupils: PERRL Nasal: Normal Mouth/Lips: Normal Mucous membranes: Dry Pharynx: Normal Neck: Normal - Respiratory Respiratory status: No respiratory distress Chest status: Nontender Breath sounds: Normal Chest palpation: Other - Left chest with port in place - Cardiovascular Rhythm: Tachycardia Heart sounds: Normal auscultation Murmur: No - Abdominal Inspection: Other - Inspection within normal limits except for midline surgical scar from suprapubic to upper abdomen well-healed Distension: No distension Bowel sounds: Normal Tenderness: Nontender Organomegaly: No organomegaly - Genitourinary External exam: Normal - Back Back: Normal - Extremities General upper extremity: Normal inspection General lower extremity: Normal inspection - Neurological Neuro grossly intact: Yes Cognition: Confused Orientation: Disoriented to time, Disoriented to events Meghan Coma Scale Eye Opening: Spontaneous [place] Coma Scale Verbal: Confused Meghan Coma Scale Motor: Obeys Commands Meghan Coma Scale Total: 14 Speech: Normal Cranial nerves: Normal Cerebellar coordination: Normal Motor strength normal: LUE - all very cachectic, RUE, LLE, RLE Course - Vital Signs Vital signs: Temp Pulse Resp BP Pulse Ox 98.1 F 94 17 82/63 L 97 10/03/19 15:29 10/03/19 15:29 10/03/19 15:29 10/03/19 15:29 10/03/19 15:36 - Laboratory Result Diagrams: 10/03/19 15:20 10/03/19 15:20 Laboratory results interpreted by me: 10/03/19 10/03/19 15:20 15:20 [place] % (Auto) 2.9 L Seg Neutrophils % 78.6 H Sodium 123.0 L Potassium 6.1 H* Chloride 73 L Anion Gap 26 H BUN 151 H Creatinine 9.24 H Est GFR ( Amer) 5 L Est GFR (MDRD) Non-Af 4 L Calcium 6.3 L* - Diagnostic Test Radiology reviewed: Reports reviewed - EKG Interpretation by Me EKG shows normal: Sinus rhythm Rate: Normal Rhythm: NSR Critical Care Note - Critical Care Note Total time excluding time spent on procedures (mins): 90 Comments: Venus RN advises that patient's daughter will be called for patient's admission and for current DNR status; also recheck potassium prior to upstairs Discharge - Discharge Clinical Impression: Dehydration, Acute hyperkalemia, Hyponatremia, Hypocalcemia, History of creation of ostomy, Elevated troponin Acute renal failure Qualifiers: Acute renal failure type: unspecified Qualified Code(s): N17.9 - Acute kidney failure, unspecified Failure to thrive Qualifiers: Failure to thrive age range: in adult Qualified Code(s): R62.7 - Adult failure to thrive Condition: Fair Disposition: ADMITTED INPATIENT Admitting Provider: Sudheer Unit Admitted: Medical Floor Referrals: ZAY TAYLOR MD [Primary Care Provider] - Follow up as needed
--- NOTE | 2019-10-03 17:09 | RADIOLOGY REPORT (SQ) ---
EXAM DESCRIPTION: CHEST SINGLE VIEW IMAGES COMPLETED DATE/TIME: 10/03/2019 4:56 pm REASON FOR STUDY: ftt COMPARISON: None. EXAM PARAMETERS: NUMBER OF VIEWS: One view. TECHNIQUE: Single frontal radiographic view of the chest acquired. RADIATION DOSE: NA LIMITATIONS: None. FINDINGS: LUNGS AND PLEURA: Minimal pleural effusion on the left may be present, unchanged from the prior study. Interval resolution of the trace right pleural effusion. No acute pulmonary consolida tion . MEDIASTINUM AND HILAR STRUCTURES: No masses. Contour normal. HEART AND VASCULAR STRUCTURES: Stable appearance. Normal vasculature. BONES: No acute findings. HARDWARE: Stable. OTHER: Hiatal hernia, stable finding. IMPRESSION: 1. NO acute pulmonary consolidation. Trace effusion may be present on the left. TECHNICAL DOCUMENTATION: JOB ID: [id number] 2010 [employer]- All Rights Reserved Reading location - IP/workstation name: [email or web address]
[2019-10-03] MEDS ORDERED: SODIUM POLYSTYRENE SULFONATE 15 GM/60 ML PO ONE (17:10)
[2019-10-03] MEDS ORDERED: IPRATROPIUM/ALBUTEROL 0.5-2.5 MG/3 ML AMPUL NEB PRN (17:19)
[2019-10-03] MEDS ORDERED: NORMAL SALINE 1000 ML 1,000 ML IV PRN (17:19)
[2019-10-03] MEDS: MAGNESIUM OXIDE 400 MG TABLET PO SCH (18:11)
[2019-10-03 18:24] LABS: CARBON DIOXIDE 22 mmol/L (22-30); CHLORIDE 77 mmol/L (98-107); GLUCOSE 111 mg/dL (75-110)
[2019-10-03] MEDS ORDERED: CIPROFLOXACIN 200 MG/D5W RTU 200 MG/100 ML RTUPB IV ONE (18:30)
[2019-10-03 18:42] LABS: ANION GAP 25 (5-19); POTASSIUM 5.1 mmol/L (3.6-5.0)
[2019-10-03 18:45] LABS: BLOOD UREA NITROGEN 145 mg/dL (7-20)
[2019-10-03] MEDS: ONDANSETRON HCL INJ/PF 4 MG/2 ML SDV IV PRN (19:49)
--- NOTE | 2019-10-03 19:51 | PDOC H&P ---
History of Present Illness Admission Date/PCP: 10/03/19 17:28 ZAY TAYLOR MD Patient complains of: General weakness History of Present Illness: FREDRICK BATISTA is a 84 year old female This is a 84-year-old female with a significant history of the chronic kidney d isease history of the Crohn's disease history of the high output ileostomy requiring IV fluid 4 times per week history of the dementia has severe electrolyte imbalance due to the above conditions recently. I talked to the patient's family last week patient refusing to take the IV fluid refusing to eat as usual due to the underlying dementia with behavioral problems and the suggested at that point nothing much can be offer due to the ongoing problems because of the electrolyte imbalance due to the high output ileostomy which patient admitted so many times with the renal failure. Patient's brought to the emergency department with the same problems with the weakness electrolyte imbalance and a several time discussed with the patient and the daughter that electrolyte imbalance with due to the dehydration renal failure lead to the acute cardiac arrest and the and the patient understand very well and the family choose to be a DNR/DNI in the past and pretty much almost ready to go for hospice care but almost brought to the emergency departments because patient start complaining wants to go to the hospital and after couple of days feel better wants to go home.. Today's patients complained of the same issues with the patient's electrolyte imbalance acute severe renal failure's decided to admit as usual start on IV fluid replacement of the electrolytes including the magnesium and calciums and correct the potassiums Patient is pretty much at this point I do not think so candidate for any renal replacement therapy due to the ongoing behavior problems with ongoing dehydration's issue with the high ileostomy output We consult the nephrology Overall prognosis is very poor discussed with the patient's daughter understand very well Past Medical History Cardiac Medical History: Reports: Hyperlipidema, Hypertension Denies: Coronary Artery Disease, Myocardial Infarction Pulmonary Medical History: Denies: Asthma, Bronchitis, Chronic Obstructive Pulmonary Disease (COPD), Pneumonia Neurological Medical History: Denies: Seizures Renal/ Medical History: Reports: Chronic Kidney Disease GI Medical History: Reports: Crohn's Disease, Gastroesophageal Reflux Disease Musculoskeltal Medical History: Reports: Arthritis Psychiatric Medical History: Reports: Dementia, Depression Hematology: Reports: Anemia Past Surgical History Past Surgical History: Reports: Colostomy, Hysterectomy, Ileostomy Social History Information Source: Patient Lives with: Family Smoking Status: Former Smoker Electronic Cigarette use?: No Frequency of Alcohol Use: None Hx Recreational Drug Use: No Drugs: None Hx Prescription Drug Abuse: No Family History Family History: Reviewed & Not Pertinent Parental Family History Reviewed: Yes Children Family History Reviewed: Yes Sibling(s) Family History Reviewed.: Yes Medication/Allergy Home Medications: Calcium Carbonate [Os-Rambo 500 mg Tablet (Oyster-Shell)] 1,000 mg PO Q8 #90 tablet 06/30/19 Loperamide HCl [Imodium 2 mg Capsule] 2 mg PO Q8 #90 capsule 06/30/19 Magnesium Oxide [Magnesium] 800 mg PO TID 30 Days #180 tablet 06/30/19 Buspirone HCl 5 mg PO Q8 10/03/19 Allergies/Adverse Reactions: ceftriaxone [From Rocephin] Allergy (Intermediate, Verified 08/22/19 13:27) Pruritis Review of Systems Constitutional: PRESENT: chills, fatigue, weakness. ABSENT: fever(s), headache(s), weight gain, weight loss Eyes: ABSENT: visual disturbances Ears: ABSENT: hearing changes Cardiovascular: ABSENT: chest pain, dyspnea on exertion, edema, orthropnea, palpitations Respiratory: ABSENT: cough, hemoptysis Gastrointestinal: ABSENT: abdominal pain, constipation, diarrhea, hematemesis, hematochezia, nausea, vomiting Genitourinary: ABSENT: dysuria, hematuria Musculoskeletal: ABSENT: joint swelling Integumentary: ABSENT: rash, wounds Neurological: ABSENT: abnormal gait, abnormal speech, confusion, dizziness, focal weakness, syncope Psychiatric: ABSENT: anxiety, depression, homidical ideation, suicidal ideation Endocrine: ABSENT: cold intolerance, heat intolerance, menstrual abnormalities, polydipsia, polyuria Hematologic/Lymphatic: ABSENT: easy bleeding, easy bruising, lymphadenopathy Physical Exam Vital Signs: Temp Pulse Resp BP Pulse Ox 98.1 F 94 19 84/57 L 91 L 10/03/19 15:29 10/03/19 15:29 10/03/19 18:02 10/03/19 18:02 10/03/19 18:02 Intake & Output 10/02/19 10/03/19 10/04/19 06:59 06:59 06:59 Intake Total 500 Balance 500 Weight 44.452 kg General appearance: PRESENT: no acute distress, well-developed Head exam: PRESENT: atraumatic, normocephalic Eye exam: PRESENT: conjunctiva pink, EOMI, PERRLA. ABSENT: scleral icterus Ear exam: PRESENT: normal external ear exam Mouth exam: PRESENT: moist, tongue midline Neck exam: PRESENT: full ROM. ABSENT: carotid bruit, JVD, lymphadenopathy, thyromegaly Cardiovascular exam: PRESENT: RRR. ABSENT: diastolic murmur, rubs, systolic murmur Pulses: PRESENT: normal dorsalis pedis pul, +2 pedal pulses bilateral Vascular exam: PRESENT: normal capillary refill GI/Abdominal exam: PRESENT: normal bowel sounds, soft. ABSENT: distended, guarding, mass, organolmegaly, rebound, tenderness Additonal comments: Ileostomy bag is working Rectal exam: PRESENT: deferred Neurological exam: PRESENT: alert, awake, oriented to person, oriented to place, oriented to time, oriented to situation, CN II-XII grossly intact. ABSENT: motor sensory deficit Psychiatric exam: PRESENT: appropriate affect, normal mood. ABSENT: homicidal ideation, suicidal ideation Skin exam: PRESENT: dry, intact, warm. ABSENT: cyanosis, rash Results Laboratory Results: 10/03/19 15:20 10/03/19 10/03/19 10/03/19 15:20 15:20 15:20 WBC 7.9 RBC 5.16 Hgb 14.9 Hct 44.2 MCV 86 MCH 28.8 MCHC 33.6 RDW 13.5 Plt Count 175 Seg Neutrophils % 78.6 H Sodium 123.0 L Potassium 6.1 H* Chloride 73 L Carbon Dioxide 24 Anion Gap 26 H BUN 151 H Creatinine 9.24 H Est GFR ( Amer) 5 L Glucose 91 Calcium 6.3 L* Magnesium 0.6 L* Total Bilirubin 0.5 AST 21 Alkaline Phosphatase 77 Total Protein 8.1 Albumin 4.7 10/03/19 10/03/19 15:20 15:20 Creatine Kinase 90 CK-MB (CK-2) 1.98 Troponin I 0.082 Impressions: Chest X-Ray 10/03/19 16:32 IMPRESSION: 1. NO acute pulmonary consolidation. Trace effusion may be present on the left. Assessment & Plan - Diagnosis (1) Acute renal failure Qualifiers: Acute renal failure type: unspecified Qualified Code(s): N17.9 - Acute kidney failure, unspecified Is this a current diagnosis for this admission?: Yes Plan: As usual due to the severe dehydration due to the high ileostomy output we will start the patient on IV fluids (2) Acute hyperkalemia Is this a current diagnosis for this admission?: Yes Plan: Most likely due to the acute renal failure we will correct the potassiums get the EKG we will give her calcium gluconate (3) Dehydration Is this a current diagnosis for this admission?: Yes Plan: Due to the high ileostomy output continues to IV fluid (4) Failure to thrive Qualifiers: Failure to thrive age range: in adult Qualified Code(s): R62.7 - Adult failure to thrive Is this a current diagnosis for this admission?: Yes (7) Crohns disease Qualifiers: Gastrointestinal tract location: large intestine Digestive disease complication type: with intestinal obstruction Qualified Code(s): K50.112 - Crohn's disease of large intestine with intestinal obstruction Is this a current diagnosis for this admission?: Yes Plan: Patient seen by the [facility] seenand dr [place] very noncompliance to follow nothing much can offer at this point (8) Dementia with behavioral disturbance Qualifiers: Dementia type: unspecified type Qualified Code(s): F03.91 - Unspecified dementia with behavioral disturbance Is this a current diagnosis for this admission?: Yes (9) Electrolyte imbalance Is this a current diagnosis for this admission?: Yes Plan: Due to the high output ileostomy (10) Hypomagnesemia Is this a current diagnosis for this admission?: Yes Plan: Replace the magnesium's (11) Hypotension Qualifiers: Hypotension type: unspecified hypotension type Qualified Code(s): I95.9 - Hypotension, unspecified Is this a current diagnosis for this admission?: Yes Plan: Due to the dehydration's continues to IV fluids rule out sepsis - Time Time Spent: 50 to 70 Minutes Medications reviewed and adjusted accordingly: Yes Anticipated discharge: Home with Homehealth, Hospice Within: Other - Inpatient Certification Based on my medical assessment, after consideration of the patient's comorbidities, presenting symptoms, or acuity I expect that the services needed warrant INPATIENT care.: Yes I certify that my determination is in accordance with my understanding of Medicare's requirements for reasonable and necessary INPATIENT services [42 CFR 412.3e].: Yes Medical Necessity: Failure to Improve With Outpatient Therapy, Significant Comorbidiites Make Outpatient Treatment Too Risky, Need Close Monitoring Due to Risk of Patient Decompensation, Need For IV Fluids, Need for IV Antibiotics Post Hospital Care: D/C [facility] Documentation - Plan Summary Plan Summary: Admit the patient in the medical floor Overall prognosis is very poor due to the patient's noncompliance not taking the IV fluid at home's worsening the dementia's with a severe electrolyte imbalance Several times discussed with the patient's and the family member understand very well will admit the patient is replaced IV fluid again patient is a DNR DNI overall prognosis is very poor I do not think the patient is a good candidate for this replacement therapy
[2019-10-03] MEDS: CALCIUM GLUC IN NACL, ISO-OSM 1 GM/50 ML RTUPB IV SCH ×2 (20:42→22:10)
[2019-10-03] MEDS ORDERED: FAMOTIDINE 20 MG TABLET PO SCH (22:00)
[2019-10-03] MEDS ORDERED: CALCIUM GLUC IN NACL, ISO-OSM 1 GM/50 ML RTUPB IV ONE (22:08)
[2019-10-03] MEDS: BUSPIRONE HCL 10 MG TABLET PO SCH (22:11)
[2019-10-03] MEDS: CALCIUM CARBONATE 600 MG TABLET PO SCH (22:11)
[2019-10-03] MEDS: FAMOTIDINE 20 MG TABLET PO SCH (22:12)
[2019-10-03] MEDS: HEPARIN SOD (PORCINE) 5,000 UNIT/ML 1 ML VIAL SUBCUT SCH (22:12)
[2019-10-03] MEDS: LOPERAMIDE HCL 2 MG CAPSULE PO SCH (22:12)
--- NOTE | 2019-10-03 22:34 | EKG REPORT ---
SEVERITY:- ABNORMAL ECG - SINUS RHYTHM ATRIAL PREMATURE COMPLEXES LEFT ANTERIOR FASCICULAR BLOCK CONSIDER LEFT VENTRICULAR HYPERTROPHY PROLONGED QT INTERVAL : Confirmed by: Roxane Parker 03-Oct-2019 22:33:41
[2019-10-04] MEDS: MAGNESIUM SULFATE/D5W 1 GM/100 ML RTUPB IV SCH ×4 (01:45→03:00)
[2019-10-04] MEDS ORDERED: MAGNESIUM SULFATE/D5W 1 GM/100 ML RTUPB IV ONE (05:58)
[2019-10-04] MEDS: CALCIUM CARBONATE 600 MG TABLET PO SCH ×2 (06:00→16:37)
[2019-10-04] MEDS: HEPARIN SOD (PORCINE) 5,000 UNIT/ML 1 ML VIAL SUBCUT SCH ×2 (06:00→16:40)
[2019-10-04] MEDS: BUSPIRONE HCL 10 MG TABLET PO SCH ×2 (06:00→16:37)
[2019-10-04] MEDS: LOPERAMIDE HCL 2 MG CAPSULE PO SCH ×2 (06:00→16:38)
[2019-10-04] MEDS: ONDANSETRON HCL INJ/PF 4 MG/2 ML SDV IV PRN (06:02)
[2019-10-04 08:02] LABS: GLUCOSE 212 mg/dL (75-110); HEMATOCRIT 41.9 % (36.0-47.0); HEMOGLOBIN 13.8 g/dL (12.0-15.5); MEAN CORPUSCULAR HEMOGLOBIN 28.2 pg (27.0-33.4); MEAN CORPUSCULAR HGB CONC 32.8 g/dL (32.0-36.0); MEAN CORPUSCULAR VOLUME 86 fl (80-97); PLATELET COUNT 127 10^3/uL (150-450); POTASSIUM 4.4 mmol/L (3.6-5.0); RED BLOOD COUNT 4.87 10^6/uL (3.72-5.28); RED CELL DISTRIBUTION WIDTH 13.6 % (11.5-14.0)
[2019-10-04 08:07] LABS: CARBON DIOXIDE 21 mmol/L (22-30); CHLORIDE 77 mmol/L (98-107)
[2019-10-04 08:15] LABS: BLOOD UREA NITROGEN 140 mg/dL (7-20)
[2019-10-04 08:16] LABS: ANION GAP 26 (5-19)
[2019-10-04 08:18] LABS: CALCIUM 6.5 mg/dL (8.4-10.2)
[2019-10-04 08:23] LABS: WHITE BLOOD COUNT 57.7 10^3/uL (4.0-10.5)
[2019-10-04 08:24] LABS: ABSOLUTE MONOCYTES # (MANUAL) 0.6 10^3/uL (0.1-1.4); BAND NEUTROPHILS % (MANUAL) 5 % (3-5); BASOPHILS % (MANUAL) 0 % (0-2); EOSINOPHILS % (MANUAL) 0 % (0-6); LYMPHOCYTES % (MANUAL) 0 % (13-45); MONOCYTES % (MANUAL) 1 % (3-13); SEGMENTED NEUTROPHILS % (MAN) 94 % (42-78); TOTAL CELLS COUNTED 100
[2019-10-04 08:26] LABS: PLATELET COMMENT DECREASED; PLATELET GIANT PRESENT; PLATELET LARGE PRESENT; RBC MORPHOLOGY COMMENT NORMO-CYTIC/CHROMIC; TOXIC VACUOLATION PRESENT
[2019-10-04] MEDS ORDERED: CALCIUM GLUCONATE 1 GM/NS 50 ML RTU IV ONE (08:30)
[2019-10-04] MEDS ORDERED: MAGNESIUM SULFATE 1 GM/D5W 100 ML IV SCH (08:30)
--- NOTE | 2019-10-04 08:52 | PDOC PROGRESS REPORT ---
Subjective Progress Note for:: 10/04/19 Subjective:: Patient is refused for Meek catheter last night Patient's Refusing the all this p.o. intakes on and off and refusing the IV fluid at home also which nothing much can be offer Discussed with the daughter Natalie today while the patient is already refusing for several times in homes and I think patients at this points more appropriate for the hospice and comfort care because nothing much else can be offer with the severe electrolyte imbalance sepsis prognosis is very very poor Daughter agree with the hospice care will consult the development planner Reason For Visit: ACUTE RENAL FAILURE Physical Exam Vital Signs: Temp Pulse Resp BP Pulse Ox 97.6 F 119 H 17 100/66 92 10/03/19 20:13 10/03/19 20:13 10/03/19 20:13 10/03/19 20:13 10/03/19 20:13 Intake & Output 10/03/19 10/04/19 10/05/19 06:59 06:59 06:59 Intake Total 600 Output Total 650 Balance -50 Weight 39.9 kg General appearance: PRESENT: no acute distress, thin Head exam: PRESENT: atraumatic, normocephalic Eye exam: PRESENT: conjunctiva pink, EOMI, PERRLA. ABSENT: scleral icterus Ear exam: PRESENT: normal external ear exam Mouth exam: PRESENT: moist, tongue midline Neck exam: PRESENT: full ROM. ABSENT: carotid bruit, JVD, lymphadenopathy, thyromegaly Respiratory exam: PRESENT: decreased breath sounds Cardiovascular exam: PRESENT: RRR. ABSENT: diastolic murmur, rubs, systolic murmur Vascular exam: PRESENT: normal capillary refill GI/Abdominal exam: PRESENT: normal bowel sounds, soft. ABSENT: distended, guarding, mass, organolmegaly, rebound, tenderness Additonal comments: Ileostomy bag is present Rectal exam: PRESENT: deferred Neurological exam: PRESENT: alert, awake. ABSENT: motor sensory deficit Psychiatric exam: PRESENT: appropriate affect, normal mood. ABSENT: homicidal ideation, suicidal ideation Skin exam: PRESENT: dry, intact, warm. ABSENT: cyanosis, rash Results Laboratory Results: 10/04/19 07:00 10/04/19 07:00 10/03/19 10/03/19 10/03/19 15:20 15:20 15:20 WBC 7.9 RBC 5.16 Hgb 14.9 Hct 44.2 MCV 86 MCH 28.8 MCHC 33.6 RDW 13.5 Plt Count 175 Seg Neutrophils % 78.6 H Sodium 123.0 L Potassium 6.1 H* Chloride 73 L Carbon Dioxide 24 Anion Gap 26 H BUN 151 H Creatinine 9.24 H Est GFR ( Amer) 5 L Glucose 91 Calcium 6.3 L* Magnesium 0.6 L* Total Bilirubin 0.5 AST 21 Alkaline Phosphatase 77 Total Protein 8.1 Albumin 4.7 10/03/19 10/04/19 10/04/19 17:57 07:00 07:00 WBC 57.7 H* D RBC 4.87 Hgb 13.8 Hct 41.9 MCV 86 MCH 28.2 MCHC 32.8 RDW 13.6 Plt Count 127 L Seg Neutrophils % Not Reportable Sodium 123.8 L 123.9 L Potassium 5.1 H D 4.4 Chloride 77 L 77 L Carbon Dioxide 22 21 L Anion Gap 25 H 26 H BUN 145 H 140 H Creatinine 9.74 H 9.08 H Est GFR ( Amer) 5 L 5 L Glucose 111 H 212 H Calcium 6.0 L* 6.5 L* Magnesium 2.4 H D Total Bilirubin AST Alkaline Phosphatase Total Protein Albumin 10/03/19 10/03/19 15:20 15:20 Creatine Kinase 90 CK-MB (CK-2) 1.98 Troponin I 0.082 Impressions: Chest X-Ray 10/03/19 16:32 IMPRESSION: 1. NO acute pulmonary consolidation. Trace effusion may be present on the left. Assessment & Plan - Diagnosis (1) Acute renal failure Qualifiers: Acute renal failure type: unspecified Qualified Code(s): N17.9 - Acute kidney failure, unspecified Is this a current diagnosis for this admission?: Yes Plan: Continues to IV fluid due to the high ileostomy output patient is refused for Meek catheter (2) Acute hyperkalemia Is this a current diagnosis for this admission?: Yes Plan: Currently all resolved (3) Dehydration Is this a current diagnosis for this admission?: Yes Plan: Continues to IV fluid due to the high ileostomy output (4) Failure to thrive Qualifiers: Failure to thrive age range: in adult Qualified Code(s): R62.7 - Adult failure to thrive Is this a current diagnosis for this admission?: Yes (5) Hypocalcemia Is this a current diagnosis for this admission?: Yes Plan: Continues the calcium supplements given IV (7) Crohns disease Qualifiers: Gastrointestinal tract location: large intestine Digestive disease complication type: with intestinal obstruction Qualified Code(s): K50.112 - Crohn's disease of large intestine with intestinal obstruction Is this a current diagnosis for this admission?: Yes (8) Dementia with behavioral disturbance Qualifiers: Dementia type: unspecified type Qualified Code(s): F03.91 - Unspecified dementia with behavioral disturbance Is this a current diagnosis for this admission?: Yes (9) Electrolyte imbalance Is this a current diagnosis for this admission?: Yes (10) Hypomagnesemia Is this a current diagnosis for this admission?: Yes Plan: Currently all resolved (11) Hypotension Qualifiers: Hypotension type: unspecified hypotension type Qualified Code(s): I95.9 - Hypotension, unspecified Is this a current diagnosis for this admission?: Yes Plan: Due to the sepsis and dehydration's (12) Septicemia Is this a current diagnosis for this admission?: Yes Plan: Patient have a Klebsiella in the blood most likely source from the urine which patient have a chronic respiratory tract infections with the significant bladder issues Continues the IV Cipro - Time Time Spent with patient: 25-34 minutes Level of Care: MEDICAL Medications reviewed and adjusted accordingly: Yes Anticipated discharge: Hospice Within: Other - Plan Summary Plan Summary: With the severe leukocytosis underlying sepsis hypertensions significant electrolyte imbalance worsening the dementia's patient refusing further so many things with the overall prognosis is very very poor discussed with the daughter again today myself and discussed several times in the past patients probably at this point appropriate for the hospice care patient is currently a DNR/DNI
[2019-10-04] MEDS: MAGNESIUM OXIDE 400 MG TABLET PO SCH ×3 (10:16→17:56)
--- NOTE | 2019-10-04 11:14 | CDI QUERY ---
CDI Query CDI Review: Dear Provider Please document in Progress notes and D/C summary if you agree with the clinical data: SEVERE PROTEIN-CALORIE MALNUTRITION? MODERATE PROT-TESFAYE MALNUTRITION? OTHER? BMI 15.6 FAILURE TO THRIVE DEHYDRATION
[2019-10-04 11:21] LABS: PATH REVIEW PATHOLOGIST REVIEWED
[2019-10-04 17:26] LABS: APPEARANCE,URINE SLIGHTLY-CLOUDY; BILIRUBIN,URINE NEGATIVE (NEGATIVE); COLOR,URINE DARK YELLOW; GLUCOSE, URINE NEGATIVE (NEGATIVE); KETONES,URINE NEGATIVE (NEGATIVE); NITRITE,URINE NEGATIVE (NEGATIVE); PROTEIN,URINE 30 mg/dL (NEGATIVE); URINE SPECIFIC GRAVITY 1.016; UROBILINOGEN,URINE NEGATIVE mg/dL (<2.0)
[2019-10-04 17:27] LABS: ADD MANUAL MICROSCOPIC YES; AMORPHOUS SEDIMENT,UR TRACE; LEUKOCYTE ESTERASE,URINE NEGATIVE (NEGATIVE)
[2019-10-04] MEDS: NORMAL SALINE 1000 ML 1,000 ML IV PRN (17:50)
[2019-10-04] MEDS ORDERED: CIPROFLOXACIN 200 MG/D5W RTU 200 MG/100 ML RTUPB IV SCH (18:00)
[2019-10-05] MEDS: CALCIUM CARBONATE 600 MG TABLET PO SCH ×3 (00:13→14:45)
[2019-10-05] MEDS: HEPARIN SOD (PORCINE) 5,000 UNIT/ML 1 ML VIAL SUBCUT SCH ×2 (00:13→07:43)
[2019-10-05] MEDS: BUSPIRONE HCL 10 MG TABLET PO SCH ×3 (00:13→14:47)
[2019-10-05] MEDS: LOPERAMIDE HCL 2 MG CAPSULE PO SCH ×3 (00:14→14:47)
[2019-10-05] MEDS: FAMOTIDINE 20 MG TABLET PO SCH (00:15)
--- NOTE | 2019-10-05 08:28 | PDOC PROGRESS REPORT ---
Subjective Progress Note for:: 10/05/19 Subjective:: Patient is currently doing same No fever Appetite is very poor patient Vomited x1 this morning Patient's denied any chest pain no short of breath Since finally of a Meek catheter placement Patient's overall prognosis is very very poor we will waiting for the hospice placement due to the ongoing issue with the failure to thrive ongoing problem with a high ileostomy output worsening the dementia and patients do not want to take IV fluid as opposed to which causing the electrolyte imbalance and the dehydration's and the renal failure nothing else can do beyond that Reason For Visit: ACUTE RENAL FAILURE Physical Exam Vital Signs: Temp Pulse Resp BP Pulse Ox 97.5 F 108 H 12 98/60 L 92 10/04/19 17:52 10/05/19 06:42 10/05/19 06:42 10/05/19 06:42 10/05/19 06:42 Intake & Output 10/04/19 10/05/19 10/06/19 06:59 06:59 06:59 Intake Total 600 100 Output Total 650 900 Balance -50 -800 Weight 39.9 kg 39.9 kg General appearance: PRESENT: no acute distress Eye exam: PRESENT: PERRLA Respiratory exam: PRESENT: decreased breath sounds Cardiovascular exam: PRESENT: +S1, +S2 GI/Abdominal exam: PRESENT: normal bowel sounds, soft Neurological exam: PRESENT: alert, awake Psychiatric exam: PRESENT: depressed Skin exam: PRESENT: dry Results Laboratory Results: 10/04/19 07:00 10/04/19 07:00 10/04/19 10/04/19 07:00 13:43 WBC 57.7 H* D RBC 4.87 Hgb 13.8 Hct 41.9 MCV 86 MCH 28.2 MCHC 32.8 RDW 13.6 Plt Count 127 L Urine Color DARK YELLOW Urine Appearance SLIGHTLY-CLOUDY Urine pH 6.0 Ur Specific [place] 1.016 Urine Protein 30 H Urine Glucose (UA) NEGATIVE Urine Ketones NEGATIVE Urine Blood NEGATIVE Urine Nitrite NEGATIVE Ur Leukocyte Esterase NEGATIVE Ur Squamous Epith Cells MODERATE 10/03/19 17:31 Blood Blood Culture (PCR) - Final Klebsiella Pneumoniae 10/03/19 17:57 Blood Blood Culture (PCR) - Final Klebsiella Pneumoniae 10/03/19 10/03/19 15:20 15:20 Creatine Kinase 90 CK-MB (CK-2) 1.98 Troponin I 0.082 Impressions: Chest X-Ray 10/03/19 16:32 IMPRESSION: 1. NO acute pulmonary consolidation. Trace effusion may be present on the left. Assessment & Plan - Diagnosis (1) Acute renal failure Qualifiers: Acute renal failure type: unspecified Qualified Code(s): N17.9 - Acute kidney failure, unspecified Is this a current diagnosis for this admission?: Yes Plan: Continues to IV fluid due to the high ileostomy output patient is refused for Meek catheter (2) Acute hyperkalemia Is this a current diagnosis for this admission?: Yes Plan: Currently all resolved (3) Dehydration Is this a current diagnosis for this admission?: Yes Plan: Continues to IV fluid due to the high ileostomy output (4) Failure to thrive Qualifiers: Failure to thrive age range: in adult Qualified Code(s): R62.7 - Adult failure to thrive Is this a current diagnosis for this admission?: Yes (5) Hypocalcemia Is this a current diagnosis for this admission?: Yes Plan: Continues the calcium supplements given IV (7) Crohns disease Qualifiers: Gastrointestinal tract location: large intestine Digestive disease complication type: with intestinal obstruction Qualified Code(s): K50.112 - Crohn's disease of large intestine with intestinal obstruction Is this a current diagnosis for this admission?: Yes (8) Dementia with behavioral disturbance Qualifiers: Dementia type: unspecified type Qualified Code(s): F03.91 - Unspecified dementia with behavioral disturbance Is this a current diagnosis for this admission?: Yes (9) Electrolyte imbalance Is this a current diagnosis for this admission?: Yes (10) Hypomagnesemia Is this a current diagnosis for this admission?: Yes Plan: Currently all resolved (11) Hypotension Qualifiers: Hypotension type: unspecified hypotension type Qualified Code(s): I95.9 - Hypotension, unspecified Is this a current diagnosis for this admission?: Yes Plan: Due to the sepsis and dehydration's (12) Septicemia Is this a current diagnosis for this admission?: Yes Plan: Patient have a Klebsiella in the blood most likely source from the urine which patient have a chronic respiratory tract infections with the significant bladder issues Continues the IV Cipro - Time Time Spent with patient: 25-34 minutes Level of Care: MEDICAL Medications reviewed and adjusted accordingly: Yes Anticipated discharge: Hospice Within: Other - Plan Summary Plan Summary: Continues to IV fluid continues to IV antibiotic Overall prognosis is very poor Discussed with the patient's family about hospice care patients ongoing problems with the patient's dementia is getting worse refused with IV fluid unable to control the patient's electrolytes due to the high ileostomy output and patient overall condition is worsening patient is very appropriate for the Hospice care due to the failure to thrive dementia and high failure ostomy output with a life expectancy is less than 6-month
[2019-10-05 09:49] LABS: HEMATOCRIT 38.1 % (36.0-47.0); HEMOGLOBIN 12.9 g/dL (12.0-15.5); MEAN CORPUSCULAR HEMOGLOBIN 28.8 pg (27.0-33.4); MEAN CORPUSCULAR HGB CONC 33.8 g/dL (32.0-36.0); MEAN CORPUSCULAR VOLUME 85 fl (80-97); RED BLOOD COUNT 4.47 10^6/uL (3.72-5.28); RED CELL DISTRIBUTION WIDTH 13.9 % (11.5-14.0); WHITE BLOOD COUNT 29.7 10^3/uL (4.0-10.5)
[2019-10-05] MEDS ORDERED: ERTAPENEM SODIUM 1 GM in NORMAL SALINE 50 ML IV SCH (10:00)
[2019-10-05 10:09] LABS: GLUCOSE 92 mg/dL (75-110); POTASSIUM 4.6 mmol/L (3.6-5.0)
[2019-10-05 10:11] LABS: PLATELET COUNT 72 10^3/uL (150-450)
[2019-10-05 10:13] LABS: ABSOLUTE LYMPHOCYTES# (MANUAL) 0.6 10^3/uL (0.5-4.7); ABSOLUTE MONOCYTES # (MANUAL) 0.6 10^3/uL (0.1-1.4); BAND NEUTROPHILS % (MANUAL) 2 % (3-5); BASOPHILS % (MANUAL) 0 % (0-2); EOSINOPHILS % (MANUAL) 0 % (0-6); LYMPHOCYTES % (MANUAL) 2 % (13-45); MONOCYTES % (MANUAL) 2 % (3-13); SEGMENTED NEUTROPHILS % (MAN) 94 % (42-78); TOTAL CELLS COUNTED 100
[2019-10-05 10:15] LABS: ANISOCYTOSIS SLIGHT; PAPPENHEIMER BODIES PRESENT; PLATELET LARGE PRESENT; POLYCHROMASIA SLIGHT; TOXIC GRANULATION SLIGHT; TOXIC VACUOLATION PRESENT
[2019-10-05 10:16] LABS: CARBON DIOXIDE 17 mmol/L (22-30); CHLORIDE 86 mmol/L (98-107); PLATELET COMMENT DECREASED
[2019-10-05 10:25] LABS: BLOOD UREA NITROGEN 138 mg/dL (7-20)
[2019-10-05] MEDS: MAGNESIUM OXIDE 400 MG TABLET PO SCH ×3 (10:43→18:04)
[2019-10-05 10:55] LABS: ANION GAP 22 (5-19)
[2019-10-05 10:57] LABS: CALCIUM 6.9 mg/dL (8.4-10.2)
[2019-10-05] MEDS: ACETAMINOPHEN 325 MG TABLET PO PRN ×2 (11:28→18:04)
[2019-10-05] MEDS ORDERED: CALCIUM GLUCONATE 1 GM/NS 50 ML RTU IV ONE (11:30)
[2019-10-05] MEDS: NORMAL SALINE 1000 ML 1,000 ML IV PRN ×2 (11:40→20:00)
[2019-10-05] MEDS: MEROPENEM 500 MG in NORMAL SALINE 50 ML IV SCH (13:02)
[2019-10-06] MEDS: BUSPIRONE HCL 10 MG TABLET PO SCH ×4 (05:11→22:44)
[2019-10-06] MEDS: CALCIUM CARBONATE 600 MG TABLET PO SCH ×4 (05:11→22:45)
[2019-10-06] MEDS: FAMOTIDINE 20 MG TABLET PO SCH ×2 (05:11→22:45)
[2019-10-06] MEDS: LOPERAMIDE HCL 2 MG CAPSULE PO SCH ×4 (05:11→22:45)
[2019-10-06] MEDS: NORMAL SALINE 1000 ML 1,000 ML IV PRN ×2 (08:48→19:20)
--- NOTE | 2019-10-06 09:36 | PDOC PROGRESS REPORT ---
Subjective Progress Note for:: 10/06/19 Subjective:: Patient is currently doing same According to the nursing some patient is refusing the lot of medication even the blood draw Patient's have a positive blood culture sepsis dementia's worsening the conditions renal failure I think overall prognosis is very very poor patient should be in a comfort care at this point Try to contact the patient's family to make arrangement with the hospice materials planner is currently working Reason For Visit: ACUTE RENAL FAILURE Physical Exam Vital Signs: Temp Pulse Resp BP Pulse Ox 97.8 F 90 12 89/49 L 91 L 10/06/19 08:44 10/06/19 08:44 10/06/19 08:44 10/06/19 08:44 10/06/19 08:44 Intake & Output 10/05/19 10/06/19 10/07/19 06:59 06:59 06:59 Intake Total 1100 2410 Output Total 900 2000 Balance 200 410 Weight 39.9 kg 39.9 kg General appearance: PRESENT: no acute distress Eye exam: PRESENT: PERRLA Mouth exam: PRESENT: neck supple Respiratory exam: PRESENT: decreased breath sounds Cardiovascular exam: PRESENT: +S1, +S2 Neurological exam: PRESENT: alert, awake Skin exam: PRESENT: dry Results Laboratory Results: 10/05/19 08:55 10/05/19 08:55 10/05/19 10/05/19 08:55 08:55 WBC 29.7 H RBC 4.47 Hgb 12.9 Hct 38.1 MCV 85 MCH 28.8 MCHC 33.8 RDW 13.9 Plt Count 72 L Seg Neutrophils % Not Reportable Sodium 125.2 L Potassium 4.6 Chloride 86 L Carbon Dioxide 17 L Anion Gap 22 H BUN 138 H Creatinine 7.51 H Est GFR ( Amer) 6 L Glucose 92 Calcium 6.9 L* 10/03/19 17:31 Blood Blood Culture (PCR) - Final Klebsiella Pneumoniae 10/03/19 17:31 Blood Blood Culture - Final Klebsiella Pneumoniae-Esbl 10/03/19 17:57 Blood Blood Culture (PCR) - Final Klebsiella Pneumoniae 10/03/19 17:57 Blood Blood Culture - Final Klebsiella Pneumoniae-Esbl 10/03/19 10/03/19 15:20 15:20 Creatine Kinase 90 CK-MB (CK-2) 1.98 Troponin I 0.082 Impressions: Chest X-Ray 10/03/19 16:32 IMPRESSION: 1. NO acute pulmonary consolidation. Trace effusion may be present on the left. Assessment & Plan - Diagnosis (1) Acute renal failure Qualifiers: Acute renal failure type: unspecified Qualified Code(s): N17.9 - Acute kidney failure, unspecified Is this a current diagnosis for this admission?: Yes Plan: Continues to IV fluid (2) Acute hyperkalemia Is this a current diagnosis for this admission?: Yes Plan: Currently all resolved (3) Dehydration Is this a current diagnosis for this admission?: Yes Plan: Continues to IV fluid due to the high ileostomy output (4) Failure to thrive Qualifiers: Failure to thrive age range: in adult Qualified Code(s): R62.7 - Adult failure to thrive Is this a current diagnosis for this admission?: Yes (5) Hypocalcemia Is this a current diagnosis for this admission?: Yes Plan: Continues the calcium supplements given IV (7) Crohns disease Qualifiers: Gastrointestinal tract location: large intestine Digestive disease complication type: with intestinal obstruction Qualified Code(s): K50.112 - Crohn's disease of large intestine with intestinal obstruction Is this a current diagnosis for this admission?: Yes (8) Dementia with behavioral disturbance Qualifiers: Dementia type: unspecified type Qualified Code(s): F03.91 - Unspecified dementia with behavioral disturbance Is this a current diagnosis for this admission?: Yes (9) Electrolyte imbalance Is this a current diagnosis for this admission?: Yes (10) Hypomagnesemia Is this a current diagnosis for this admission?: Yes (11) Hypotension Qualifiers: Hypotension type: unspecified hypotension type Qualified Code(s): I95.9 - Hypotension, unspecified Is this a current diagnosis for this admission?: Yes (12) Septicemia Is this a current diagnosis for this admission?: Yes - Time Time Spent with patient: 15-24 minutes Level of Care: MEDICAL Medications reviewed and adjusted accordingly: Yes Anticipated discharge: Hospice Within: Other - Plan Summary Plan Summary: Patient's prognosis is very very poor patients on the renal failure sepsis worsening the dementia's I do not think so anything else can be offer at this point while patient is refusing everything since last several months I think is most appropriate at this point patient should be in a hospice and comfort care already discussed with the patient's daughter about that and currently materials planner is working
[2019-10-06] MEDS: MAGNESIUM OXIDE 400 MG TABLET PO SCH ×3 (09:49→17:33)
[2019-10-06] MEDS: ACETAMINOPHEN 325 MG TABLET PO PRN (09:53)
[2019-10-06] MEDS: MEROPENEM 500 MG in NORMAL SALINE 50 ML IV SCH (09:56)
[2019-10-07] MEDS: BUSPIRONE HCL 10 MG TABLET PO SCH ×2 (05:49→13:34)
[2019-10-07] MEDS: LOPERAMIDE HCL 2 MG CAPSULE PO SCH ×2 (05:49→13:34)
[2019-10-07] MEDS: CALCIUM CARBONATE 600 MG TABLET PO SCH ×2 (05:49→13:34)
--- NOTE | 2019-10-07 08:27 | PDOC DISCHARGE SUMMARY ---
Impression - Admit/DC Date/PCP Admission Date/Primary Care Provider: 10/03/19 17:28 ZAY TAYLOR MD Discharge Date: 10/07/19 - Discharge Diagnosis (1) Acute renal failure Is this a current diagnosis for this admission?: Yes (2) Acute hyperkalemia Is this a current diagnosis for this admission?: Yes (3) Dehydration Is this a current diagnosis for this admission?: Yes (4) Failure to thrive Is this a current diagnosis for this admission?: Yes (5) Hypocalcemia Is this a current diagnosis for this admission?: Yes (7) Crohns disease Is this a current diagnosis for this admission?: Yes (8) Dementia with behavioral disturbance Is this a current diagnosis for this admission?: Yes (9) Electrolyte imbalance Is this a current diagnosis for this admission?: Yes (10) Hypomagnesemia Is this a current diagnosis for this admission?: Yes (11) Hypotension Is this a current diagnosis for this admission?: Yes (12) Septicemia Is this a current diagnosis for this admission?: Yes - Additional Information Resuscitation Status: Do Not Resuscitate Discharge Diet: Regular Discharge Activity: Activity As Tolerated Referrals: ZAY TAYLOR MD [Primary Care Provider] - Follow up as needed Home Medications: Calcium Carbonate [Os-Rambo 500 mg Tablet (Oyster-Shell)] 1,000 mg PO Q8 #90 tablet 06/30/19 Loperamide HCl [Imodium 2 mg Capsule] 2 mg PO Q8 #90 capsule 06/30/19 Magnesium Oxide [Magnesium] 800 mg PO TID 30 Days #180 tablet 06/30/19 Buspirone HCl 5 mg PO Q8 10/03/19 History of Present Illiness History of Present Illness: FREDRICK BATISTA is a 84 year old female This is a 84-year-old female with a significant history of the chronic kidney disease history of the Crohn's disease history of the high output ileostomy requiring IV fluid 4 times per week history of the dementia has severe electrolyte imbalance due to the above conditions recently. I talked to the patient's family last week patient refusing to take the IV fluid refusing to eat as usual due to the underlying dementia with behavioral problems and the suggested at that point nothing much can be offer due to the ongoing problems because of the electrolyte imbalance due to the high output ileostomy which patient admitted so many times with the renal failure. Patient's brought to the emergency department with the same problems with the weakness electrolyte imbalance and a several time discussed with the patient and the daughter that electrolyte imbalance with due to the dehydration renal failure lead to the acute cardiac arrest and the and the patient understand very well and the family choose to be a DNR/DNI in the past and pretty much almost ready to go for hospice care but almost brought to the emergency departments because patient start complaining wants to go to the hospital and after couple of days feel better wants to go home.. Today's patients complained of the same issues with the patient's electrolyte imbalance acute severe renal failure's decided to admit as usual start on IV fluid replacement of the electrolytes including the magnesium and calciums and correct the potassiums Patient is pretty much at this point I do not think so candidate for any renal replacement therapy due to the ongoing behavior problems with ongoing dehydration's issue with the high ileostomy output We consult the nephrology Overall prognosis is very poor discussed with the patient's daughter understand very well Hospital Course Hospital Course: This 84-year-old female with a significant medical problem including the dementia's worsening the high ileostomy output with the chronic Crohn's disease and a chronic kidney disease and multiple other medical issuesCame to the emergency department as usual because of the acute renal failure severe electrolyte imbalance and sepsis Patient admitting in the hospital with IV fluids and IV antibiotic Patient have ongoing problem for several years which currently worsening the conditions because patient is constantly refusing the IV fluid which patients require at least 4-5 times a week to maintain the electrolytes and maintain the high ileostomy output dehydration's Since several times to very extensive discussions with the patient's family including the daughter regarding the patient's present conditions with patient always refusing the IV fluid and refusing the all p.o. intake nothing much can be offer at this point because of the nature of the disease is only required IV fluid electrolytes supplements Patient's several time admitting in the hospital for the same purpose but since last 6-month is more worsening the conditions with the worsening the dementia's on and off patient refusing all the stuff even including the hospital patient refusing for the p.o. intake p.o. medications Patient is not a candidate for any dialysis because this is a renal failure due to the severe dehydration's and electrolyte imbalance At this point patient's life expectancy is less than six-point due to the severe electrolytes abnormalities severe ileostomy output and worsening the dementia's patients probably at this point very appropriate for the hospice care as per discussed with the patient's family Patient's always wants to go home and today's discussed with the patient little bit more alert awake patients wants to go home today We will make arrangement for home hospice As per my understanding patient's family understand very well about the hospice but extensively explained the patient's daughter regarding the hospice which is most likely a comfort care but at this point if the patient is refusing the IV fluid at home's as usual and refusing the p.o. intake nothing else can be offer Physical Exam Vital Signs: Temp Pulse Resp BP Pulse Ox 97.5 F 91 16 125/51 L 92 10/07/19 00:00 10/07/19 00:00 10/07/19 00:00 10/07/19 00:00 10/07/19 00:00 Intake & Output 10/06/19 10/07/19 10/08/19 06:59 06:59 06:59 Intake Total 2410 2350 Output Total 2000 1250 Balance 410 1100 Weight 39.9 kg 38 kg General appearance: PRESENT: no acute distress Eye exam: PRESENT: PERRLA Respiratory exam: PRESENT: clear to auscultation eduard Neurological exam: PRESENT: alert, awake Skin exam: PRESENT: dry Results Laboratory Results: WBC 29.7 10^3/uL (4.0-10.5) H 10/05/19 08:55 RBC 4.47 10^6/uL (3.72-5.28) 10/05/19 08:55 Hgb 12.9 g/dL (12.0-15.5) 10/05/19 08:55 Hct 38.1 % (36.0-47.0) 10/05/19 08:55 MCV 85 fl (80-97) 10/05/19 08:55 MCH 28.8 pg (27.0-33.4) 10/05/19 08:55 MCHC 33.8 g/dL (32.0-36.0) 10/05/19 08:55 RDW 13.9 % (11.5-14.0) 10/05/19 08:55 Plt Count 72 10^3/uL (150-450) L 10/05/19 08:55 Lymph % (Auto) Not Reportable 10/05/19 08:55 [place] % (Auto) Not Reportable 10/05/19 08:55 Eos % (Auto) Not Reportable 10/05/19 08:55 Baso % (Auto) Not Reportable 10/05/19 08:55 Absolute Neuts (auto) Not Reportable 10/05/19 08:55 Absolute Lymphs (auto) Not Reportable 10/05/19 08:55 Absolute Monos (auto) Not Reportable 10/05/19 08:55 Absolute Eos (auto) Not Reportable 10/05/19 08:55 Absolute Basos (auto) Not Reportable 10/05/19 08:55 Total Counted 100 10/05/19 08:55 Seg Neutrophils % Not Reportable 10/05/19 08:55 Seg Neuts % (Manual) 94 % (42-78) H 10/05/19 08:55 Band Neutrophils % 2 % (3-5) L 10/05/19 08:55 Lymphocytes % (Manual) 2 % (13-45) L 10/05/19 08:55 Monocytes % (Manual) 2 % (3-13) L 10/05/19 08:55 Eosinophils % (Manual) 0 % (0-6) 10/05/19 08:55 Basophils % (Manual) 0 % (0-2) 10/05/19 08:55 Abs Neuts (Manual) 28.5 10^3/uL (1.7-8.2) H 10/05/19 08:55 Abs Lymphs (Manual) 0.6 10^3/uL (0.5-4.7) 10/05/19 08:55 Abs Monocytes (Manual) 0.6 10^3/uL (0.1-1.4) 10/05/19 08:55 Absolute Eos (Manual) 0.0 10^3/uL (0.0-0.6) 10/05/19 08:55 Abs Basophils (Manual) 0.0 10^3/uL (0.0-0.2) 10/05/19 08:55 Toxic Granulation SLIGHT 10/05/19 08:55 Toxic Vacuolation PRESENT 10/05/19 08:55 Large Platelets PRESENT 10/05/19 08:55 Giant Platelets PRESENT 10/04/19 07:00 Platelet Comment DECREASED 10/05/19 08:55 Polychromasia SLIGHT 10/05/19 08:55 Anisocytosis SLIGHT 10/05/19 08:55 Pappenheimer Bodies PRESENT 10/05/19 08:55 RBC Morph Comment NORMO-CYTIC/CHROMIC 10/04/19 07:00 Sodium 125.2 mmol/L (137-145) L 10/05/19 08:55 Potassium 4.6 mmol/L (3.6-5.0) 10/05/19 08:55 Chloride 86 mmol/L (98-107) L 10/05/19 08:55 Carbon Dioxide 17 mmol/L (22-30) L 10/05/19 08:55 Anion Gap 22 (5-19) H 10/05/19 08:55 BUN 138 mg/dL (7-20) H 10/05/19 08:55 Creatinine 7.51 mg/dL (0.52-1.25) H 10/05/19 08:55 Est GFR ( Amer) 6 (>60) L 10/05/19 08:55 Est GFR (MDRD) Non-Af 5 (>60) L 10/05/19 08:55 Glucose 92 mg/dL (75-110) 10/05/19 08:55 Calcium 6.9 mg/dL (8.4-10.2) L* 10/05/19 08:55 Magnesium 2.4 mg/dL (1.6-2.3) H D 10/04/19 07:00 Total Bilirubin 0.5 mg/dL (0.2-1.3) 10/03/19 15:20 Direct Bilirubin 0.3 mg/dL (0.0-0.4) 10/03/19 15:20 Neonat Total Bilirubin Not Reportable 10/03/19 15:20 Neonat Direct Bilirubin Not Reportable 10/03/19 15:20 Neonat Indirect Bili Not Reportable 10/03/19 15:20 AST 21 U/L (14-36) 10/03/19 15:20 ALT 8 U/L (<35) 10/03/19 15:20 Alkaline Phosphatase 77 U/L (38-126) 10/03/19 15:20 Creatine Kinase 90 U/L (30-135) 10/03/19 15:20 CK-MB (CK-2) 1.98 ng/mL (<4.55) 10/03/19 15:20 Troponin I 0.082 ng/mL 10/03/19 15:20 Total Protein 8.1 g/dL (6.3-8.2) 10/03/19 15:20 Albumin 4.7 g/dL (3.5-5.0) 10/03/19 15:20 Urine Color DARK YELLOW 10/04/19 13:43 Urine Appearance SLIGHTLY-CLOUDY 10/04/19 13:43 Urine pH 6.0 (5.0-9.0) 10/04/19 13:43 Ur Specific [place] 1.016 10/04/19 13:43 Urine Protein 30 mg/dL (NEGATIVE) H 10/04/19 13:43 Urine Glucose (UA) NEGATIVE mg/dL (NEGATIVE) 10/04/19 13:43 Urine Ketones NEGATIVE mg/dL (NEGATIVE) 10/04/19 13:43 Urine Blood NEGATIVE (NEGATIVE) 10/04/19 13:43 Urine Nitrite NEGATIVE (NEGATIVE) 10/04/19 13:43 Urine Bilirubin NEGATIVE (NEGATIVE) 10/04/19 13:43 Urine Urobilinogen NEGATIVE mg/dL (<2.0) 10/04/19 13:43 Ur Leukocyte Esterase NEGATIVE (NEGATIVE) 10/04/19 13:43 Ur Squamous Epith Cells MODERATE /HPF 10/04/19 13:43 Amorphous Sediment TRACE 10/04/19 13:43 Urine Ascorbic Acid NEGATIVE (NEGATIVE) 10/04/19 13:43 Slides for Path Review PATHOLOGIST REVIEWED 10/04/19 07:00 10/03/19 15:20 CK-MB (CK-2) 1.98 Troponin I 0.082 Impressions: Chest X-Ray 10/03/19 16:32 IMPRESSION: 1. NO acute pulmonary consolidation. Trace effusion may be present on the left. Plan Time Spent: Greater than 30 Minutes - Patient is discharged with the hospice care today Stroke Is this a Stroke Patient?: No Acute Heart Failure - Is this a Heart Failure Patient?: No
[2019-10-07] MEDS: MAGNESIUM OXIDE 400 MG TABLET PO SCH ×2 (11:11→13:34)
[2019-10-07] MEDS: MEROPENEM 500 MG in NORMAL SALINE 50 ML IV SCH (11:12)
[2019-10-07 15:28] VITALS: BP 125/51
== END 2019-10-07 16:20 | disposition hospice, home (50) | DRG 872 ==
LOC: ER 15:10 → EH 17:28 → 4S 18:46
PROVIDERS: ADMIT Family Medicine; ATTEND Family Medicine
DX: A41.59 Other Gram-negative sepsis (principal); N17.9 Acute kidney failure, unspecified; E87.1 Hypo-osmolality and hyponatremia; F03.91 Unspecified dementia, unspecified severity, with behavioral disturbance; K50.10 Crohn's disease of large intestine without complications; K21.9 Gastro-esophageal reflux disease without esophagitis; E83.42 Hypomagnesemia; I95.9 Hypotension, unspecified; E89.0 Postprocedural hypothyroidism; Z93.2 Ileostomy status; Z66 Do not resuscitate; N18.9 Chronic kidney disease, unspecified; I12.9 Hypertensive chronic kidney disease with stage 1 through stage 4 chronic kidney disease, or unspecified chronic kidney disease; E78.5 Hyperlipidemia, unspecified; E86.0 Dehydration; E87.5 Hyperkalemia; E83.51 Hypocalcemia; R62.7 Adult failure to thrive; Z87.891 Personal history of nicotine dependence
CPT/HCPCS: 36415; 71045; 80048; 80053; 81001; 82550; 82553; 83735; 84484; 85025; 87040; 87077; 87086; 87150; 87186; 93005; 93010; 96360; 99291; 99292; J0610; J0744; J1644; J2185; J2405; J3475; J7030; J7040